=== PATIENT | male | born 1945 | race Caucasian/White ===

== ENCOUNTER 2017-12-24 13:47 | Inpatient (IN) | payer OTHER ==
[~2017-12-24] VITALS: Ht 182.9 cm; Wt 121.8 kg
[~2017-12-24 13:47] MED LIST: ASPEC81 PO; ATEN-175 PO; GLC500 PO; HYDC25 PO; IBUP-1428 PO; OXYC-57 PO
[2017-12-24] MEDS ORDERED: ONDANSETRON INJ 2 MG/ML 2 ML VIAL IV STA (14:28)
[2017-12-24] MEDS ORDERED: SODIUM CHLORIDE 0.9% 1000ML 500 ML IV STA (14:28)
[2017-12-24] MEDS ORDERED: OPTIRAY 320 IV PRN (14:45)
[2017-12-24 14:53] LABS: HEMATOCRIT 27.9 % (42-52); HEMOGLOBIN 8.3 g/dL (14.0-18.0); MEAN CELL VOLUME 71.4 fL (80-100); MEAN CORPUSCULAR HEMOGLOBIN 21.2 pg (25-34); MEAN CORPUSCULAR HGB CONC 29.7 g/dl (32-36); RED CELL DISTRIBUTION WIDTH CV 18.8 % (11.5-14.5); RED CELL DISTRIBUTION WIDTH SD 48.8 fL (36.4-46.3); WHITE BLOOD COUNT 6.72 K/uL (4.8-10.8)
--- NOTE | 2017-12-24 14:54 | DIAGNOSTIC IMAGING REPORT ---
CHEST ONE VIEW PORTABLE HISTORY: 72 years-old Male ABDOMINAL PAIN/GI acute generalized abdominal pain COMPARISON: Chest radiograph 11/19/2008 TECHNIQUE: Portable AP view of the chest FINDINGS: Cardiomediastinal and hilar silhouettes are within normal limits. There is no pneumothorax, pleural effusion, focal airspace consolidation or overt pulmonary edema. Bones of the chest appear grossly intact. Degenerative changes of the shoulders and spine. IMPRESSION: No acute process. The above report was generated using voice recognition software. It may contain grammatical, syntax or spelling errors. Electronically signed by: Paul Powers M.D. 12/24/2017 2:53 PM Dictated Date/Time: 12/24/2017 2:51 PM
[2017-12-24 14:56] LABS: INR 1.4 (0.9-1.1); PTT PATIENT 28.8 SECONDS (21.0-31.0)
[2017-12-24 14:58] LABS: BASO % 0.6 %; BASO ABS # 0.04 K/uL (0-0.2); EOS % 1.5 %; IG# 0.02 K/uL (0.00-0.02); LYMPH % 23.5 %; LYMPH ABS # 1.58 K/uL (1.2-3.4); MONO % 11.6 %; MONO ABS # 0.78 K/uL (0.11-0.59); NEUT % 62.5 %; PLATELET COUNT 80 K/uL (130-400)
[2017-12-24] MEDS ORDERED: HYDR25TA4 PO (15:06)
[2017-12-24] MEDS ORDERED: METF-384 PO (15:06)
[2017-12-24] MEDS ORDERED: OXYC-57 PO (15:06)
[2017-12-24 15:07] LABS: CALCIUM 8.8 mg/dl (8.5-10.1); CREATININE 0.99 mg/dl (0.60-1.40); POTASSIUM 3.3 mmol/L (3.5-5.1); TOTAL PROTEIN 7.3 gm/dl (6.4-8.2)
--- NOTE | 2017-12-24 16:46 | DIAGNOSTIC IMAGING REPORT ---
CT SCAN OF THE ABDOMEN AND PELVIS WITH IV CONTRAST CLINICAL HISTORY: Generalized abdominal pain. COMPARISON STUDY: Abdominal CT dated 11/18/2008. TECHNIQUE: Following the IV administration of 94 cc of Optiray 320, CT scan of the abdomen and pelvis is performed from the lung bases to the proximal femora. Images are reviewed in the axial, sagittal, and coronal planes. IV contrast was administered without complication. A dose lowering technique was utilized adhering to the principles of ALARA. CT DOSE: 1707.91 mGycm FINDINGS: Lung bases: The heart is top normal in size and without pericardial effusion. There is elevation of left hemidiaphragm with associated atelectasis. No airspace consolidation or pleural effusion is seen. An 8 mm nodule is seen at the right lung base on image #64. This has modestly increased in size from 2009. There is a small hiatal hernia. Small esophageal varices are noted. Liver: The contrast-enhanced liver is cirrhotic in morphology and heterogeneous in attenuation. There is nodularity of the hepatic surface contour. There is no intrahepatic biliary ductal dilatation. The hepatic veins and portal veins are patent. Gallbladder: The gallbladder is contracted. Mild gallbladder wall thickening is nonspecific and likely related to cirrhosis and ascites. Spleen: The spleen is enlarged measuring 16 cm in length. A large splenule is identified below the left hemidiaphragm. Pancreas: Moderately atrophic and grossly unremarkable. Adrenal glands: A 1.8 cm left adrenal nodule is pathologically indeterminant, likely representing an adenoma but cannot definitively characterized due to the presence of IV contrast. This has been present dating back to 2008 and is of doubtful significance. The right adrenal gland is unremarkable. Kidneys: The contrast enhanced kidneys demonstrate cortical atrophy and are without hydronephrosis. The kidneys enhance symmetrically. Abdominal vasculature: The abdominal aorta is normal in course and caliber noting moderate atherosclerotic calcification. Stomach and bowel: The gastric mucosa appears edematous and hyperemic, greatest in the distal stomach. The appearance suggests gastritis. There are postoperative changes from sigmoid colon resection with colocolonic anastomosis. No bowel obstruction is seen. The duodenum is normal in configuration. The appendix is not identified and reported surgically absent. Peritoneum: There is no intraperitoneal free air. There is a small volume of abdominopelvic ascites. There is an ascitic fluid containing umbilical hernia. Lymphadenopathy: None. Pelvic viscera: The prostate gland is enlarged and heterogeneous, measuring 5.8 cm in transverse diameter. The bladder wall is mildly thickened and trabeculated indicating chronic outlet obstruction. Skeletal structures: The skeletal structures are osteopenic. Moderate lumbosacral spondylosis is observed. No lytic or blastic lesions are seen. IMPRESSION: 1. Cirrhotic liver morphology. 2. Splenomegaly, esophageal varices, and a small volume of abdominopelvic ascites indicate portal hypertension. 3. The appearance of the stomach suggests gastritis. Clinical correlation will be required. If further assessment is desired then endoscopy would be appropriate. 4. There are postoperative changes from sigmoid colon resection with colocolonic anastomosis. No bowel obstruction is seen. 5. There is an indeterminant 8 mm pulmonary nodule at the right lung base. This was present in 2008 but has modestly increased in size from that time. This can be followed if clinically warranted. 6. Additional findings as above. Electronically signed by: Donavan Moscoso M.D. 12/24/2017 4:44 PM Dictated Date/Time: 12/24/2017 4:34 PM
[2017-12-24] MEDS ORDERED: PANTOprazole INJ 80 MG in DEXTROSE 5% 100ML 100 ML IV STA (17:01)
[2017-12-24 17:40] VITALS: O2SAT 97; Ht 182.9 cm; Wt 121.8 kg
[2017-12-24] MEDS ORDERED: GLUCAGON FOR INJ 1 MG VIAL SQ PRN (18:00)
[2017-12-24] MEDS ORDERED: DEXTROSE 50% 50 ML SYR IV PRN (18:00)
[2017-12-24] MEDS ORDERED: ONDANSETRON INJ 2 MG/ML 2 ML VIAL IV PRN (18:00)
[2017-12-24] MEDS ORDERED: CARBOHYDRATES FOR HYPOGLYCEMIA PO PRN (18:00)
[2017-12-24] MEDS ORDERED: ALUMINUM/MAGNESIUM/SIMETH (MAALOX MAX) 30 ML UDC PO PRN (18:00)
[2017-12-24] MEDS ORDERED: GLUCOSE 10 TABS/TUBE PO PRN (18:00)
[2017-12-24] MEDS ORDERED: GLUCOSE 40% GEL 15 GM TUBE PO PRN (18:00)
--- NOTE | 2017-12-24 18:23 | EMERGENCY ROOM VISIT NOTE ---
History Report prepared by Kai: Markell Moore Under the Supervision of: Dr. Donavan Gonzalez M.D. First contact with patient: 14:23 Chief Complaint: RECTAL PAIN Stated Complaint: OBSTRUCTIVE BOWEL History of Present Illness The patient is a 72 year old male who presents to the Emergency Room with complaints of constant constipation, intermittent abdominal pain, and intermittent vomiting for the past 3 days. The patient reports that he was sent from [facility] with a concern for a small bowel obstruction. He states that he has been vomiting intermittently since the onset of his symptoms , noting that his nausea has worsened with drinking fluids. He reports that he takes his regular medications and that he has not vomited out his medications. He notes intermittent pain across his abdomen, rating the severity at a 7 or 8/ 10. He notes a possible subjective fever a couple days ago. The patient reports a history of bowel blockage 11 years ago. He states that he does not take blood thinners. Source of History: patient Onset: 3 days ago Position: abdomen Symptom Intensity: 7 or 8/10 abdominal pain Quality: other (constipation, abdominal pain, vomiting) Timing: constant (constipation), intermittent (abdominal pain and vomiting) Modifying Factors (Worsening): drinking Note: possible subjective fever Review of Systems See HPI for pertinent positives & negatives. A total of 10 systems reviewed and were otherwise negative. Past Medical & Surgical Medical Problems: (1) Diabetes (2) Gastritis (3) Hyperlipidemia (4) Hypertension (5) Liver cirrhosis (6) SBO (small bowel obstruction) (7) Small bowel obstruction Family History CVA FH: diabetes mellitus Social History Smoking Status: Former Smoker Alcohol Use: occasionally Current/Historical Medications Scheduled Hydrochlorothiazide (Hctz), 25 MG PO DAILY Ibuprofen (Motrin), 800 MG PO TID PRN Metformin Hcl (Glucophage), 1,000 MG PO BID Scheduled PRN Oxycodone/Acetaminophen 5MG/325MG (Percocet 5MG/325MG), 1 TABLET PO Q8H PRN for Pain Allergies Coded Allergies: Lisinopril (Verified Allergy, Severe, ANGIOEDEMA, 06/09/09) Physical Exam Vital Signs Date Time Temp Pulse Resp B/P (MAP) Pulse Ox O2 Delivery O2 Flow Rate FiO2 12/24/17 17:40 97 Room Air 12/24/17 17:23 59 18 149/73 97 Room Air 12/24/17 15:59 63 18 141/70 99 Room Air 12/24/17 13:52 36.6 62 19 158/73 98 Room Air Physical Exam GENERAL: Patient is in no acute distress. HEENT: No acute trauma, normocephalic atraumatic, mucous membranes moist, no nasal congestion, no scleral icterus. NECK: No stridor, no adenopathy, no meningismus, trachea is midline. LUNGS: Clear to auscultation bilaterally, no wheeze, no rhonchi, breath sounds equal. HEART: Without murmurs gallops or rubs, regular rate and rhythm. ABDOMEN: Soft, nontender, bowel sounds positive and hyperactive, small reducible nontender umbilical hernia, no peritonitis. EXTREMITIES: No cyanosis. Mild bilateral pedal edema, full range of motion of all the joints without pain or difficulty, no signs for acute trauma. NEUROLOGIC: Oriented x 3, no acute motor or sensory deficits, no focal weakness. SKIN: No rash, no jaundice, no diaphoresis. RECTAL: Dark stool, heme positive. Medical Decision & Procedures ER Provider Diagnostic Interpretation: Radiology results as stated below per my review and radiologist interpretation: CT SCAN OF THE ABDOMEN AND PELVIS WITH IV CONTRAST CLINICAL HISTORY: Generalized abdominal pain. COMPARISON STUDY: Abdominal CT dated 11/18/2008. TECHNIQUE: Following the IV administration of 94 cc of Optiray 320, CT scan of the abdomen and pelvis is performed from the lung bases to the proximal femora. Images are reviewed in the axial, sagittal, and coronal planes. IV contrast was administered without complication. A dose lowering technique was utilized adhering to the principles of ALARA. CT DOSE: 1707.91 mGycm FINDINGS: Lung bases: The heart is top normal in size and without pericardial effusion. There is elevation of left hemidiaphragm with associated atelectasis. No airspace consolidation or pleural effusion is seen. An 8 mm nodule is seen at the right lung base on image #64. This has modestly increased in size from 2009. There is a small hiatal hernia. Small esophageal varices are noted. Liver: The contrast-enhanced liver is cirrhotic in morphology and heterogeneous in attenuation. There is nodularity of the hepatic surface contour. There is no intrahepatic biliary ductal dilatation. The hepatic veins and portal veins are patent. Gallbladder: The gallbladder is contracted. Mild gallbladder wall thickening is nonspecific and likely related to cirrhosis and ascites. Spleen: The spleen is enlarged measuring 16 cm in length. A large splenule is identified below the left hemidiaphragm. Pancreas: Moderately atrophic and grossly unremarkable. Adrenal glands: A 1.8 cm left adrenal nodule is pathologically indeterminant, likely representing an adenoma but cannot definitively characterized due to the presence of IV contrast. This has been present dating back to 2008 and is of doubtful significance. The right adrenal gland is unremarkable. Kidneys: The contrast enhanced kidneys demonstrate cortical atrophy and are without hydronephrosis. The kidneys enhance symmetrically. Abdominal vasculature: The abdominal aorta is normal in course and caliber noting moderate atherosclerotic calcification. Stomach and bowel: The gastric mucosa appears edematous and hyperemic, greatest in the distal stomach. The appearance suggests gastritis. There are postoperative changes from sigmoid colon resection with colocolonic anastomosis. No bowel obstruction is seen. The duodenum is normal in configuration. The appendix is not identified and reported surgically absent. Peritoneum: There is no intraperitoneal free air. There is a small volume of abdominopelvic ascites. There is an ascitic fluid containing umbilical hernia. Lymphadenopathy: None. Pelvic viscera: The prostate gland is enlarged and heterogeneous, measuring 5.8 cm in transverse diameter. The bladder wall is mildly thickened and trabeculated indicating chronic outlet obstruction. Skeletal structures: The skeletal structures are osteopenic. Moderate lumbosacral spondylosis is observed. No lytic or blastic lesions are seen. IMPRESSION: 1. Cirrhotic liver morphology. 2. Splenomegaly, esophageal varices, and a small volume of abdominopelvic ascites indicate portal hypertension. 3. The appearance of the stomach suggests gastritis. Clinical correlation will be required. If further assessment is desired then endoscopy would be appropriate. 4. There are postoperative changes from sigmoid colon resection with colocolonic anastomosis. No bowel obstruction is seen. 5. There is an indeterminant 8 mm pulmonary nodule at the right lung base. This was present in 2008 but has modestly increased in size from that time. This can be followed if clinically warranted. 6. Additional findings as above. Electronically signed by: Donavan Moscoso M.D. 12/24/2017 4:44 PM Dictated Date/Time: 12/24/2017 4:34 PM CHEST ONE VIEW PORTABLE HISTORY: 72 years-old Male ABDOMINAL PAIN/GI acute generalized abdominal pain COMPARISON: Chest radiograph 11/19/2008 TECHNIQUE: Portable AP view of the chest FINDINGS: Cardiomediastinal and hilar silhouettes are within normal limits. There is no pneumothorax, pleural effusion, focal airspace consolidation or overt pulmonary edema. Bones of the chest appear grossly intact. Degenerative changes of the shoulders and spine. IMPRESSION: No acute process. The above report was generated using voice recognition software. It may contain grammatical, syntax or spelling errors. Electronically signed by: Paul Powers M.D. 12/24/2017 2:53 PM Dictated Date/Time: 12/24/2017 2:51 PM Laboratory Results 12/24/17 14:32 Red Blood Count 3.91, Mean Corpuscular Volume 71.4, Mean Corpuscular Hemoglobin 21.2, Mean Corpuscular Hemoglobin Concent 29.7, Neutrophils (%) (Auto) 62.5, Lymphocytes (%) (Auto) 23.5, Monocytes (%) (Auto) 11.6, Eosinophils (%) (Auto) 1.5, Basophils (%) (Auto) 0.6, Neutrophils # (Auto) 4.20, Lymphocytes # (Auto) 1.58, Monocytes # (Auto) 0.78, Eosinophils # (Auto) 0.10, Basophils # (Auto) 0.04 12/24/17 14:32 Test 12/24/17 14:32 White Blood Count 6.72 K/uL (4.8-10.8) Red Blood Count 3.91 M/uL (4.7-6.1) Hemoglobin 8.3 g/dL (14.0-18.0) Hematocrit 27.9 % (42-52) Mean Corpuscular Volume 71.4 fL (80-100) Mean Corpuscular Hemoglobin 21.2 pg (25-34) Mean Corpuscular Hemoglobin Concent 29.7 g/dl (32-36) Platelet Count 80 K/uL (130-400) Neutrophils (%) (Auto) 62.5 % Lymphocytes (%) (Auto) 23.5 % Monocytes (%) (Auto) 11.6 % Eosinophils (%) (Auto) 1.5 % Basophils (%) (Auto) 0.6 % Neutrophils # (Auto) 4.20 K/uL (1.4-6.5) Lymphocytes # (Auto) 1.58 K/uL (1.2-3.4) Monocytes # (Auto) 0.78 K/uL (0.11-0.59) Eosinophils # (Auto) 0.10 K/uL (0-0.5) Basophils # (Auto) 0.04 K/uL (0-0.2) RDW Standard Deviation 48.8 fL (36.4-46.3) RDW Coefficient of Variation 18.8 % (11.5-14.5) Immature Granulocyte % (Auto) 0.3 % Immature Granulocyte # (Auto) 0.02 K/uL (0.00-0.02) Platelet Estimate DECREASED Hypochromasia PRESENT Microcytosis PRESENT Ovalocytes 1+ Prothrombin Time 15.1 SECONDS (9.0-12.0) Prothromb Time International Ratio 1.4 (0.9-1.1) Activated Partial Thromboplast Time 28.8 SECONDS (21.0-31.0) Partial Thromboplastin Ratio 1.1 Anion Gap 9.0 mmol/L (3-11) Est Creatinine Clear Calc Drug Dose 92.2 ml/min Estimated GFR () 88.4 Estimated GFR (Non- 76.3 BUN/Creatinine Ratio 17.6 (10-20) Calcium Level 8.8 mg/dl (8.5-10.1) Magnesium Level 1.7 mg/dl (1.8-2.4) Total Bilirubin 2.1 mg/dl (0.2-1) Aspartate Amino Transf (AST/SGOT) 42 U/L (15-37) Alanine Aminotransferase (ALT/SGPT) 30 U/L (12-78) Alkaline Phosphatase 64 U/L (45-117) Total Protein 7.3 gm/dl (6.4-8.2) Albumin 3.0 gm/dl (3.4-5.0) Globulin 4.3 gm/dl (2.5-4.0) Albumin/Globulin Ratio 0.7 (0.9-2) Lipase 436 U/L (73-393) Laboratory results reviewed by me. Medications Administered Medications (Trade) Dose Ordered Sig/Kleber Route Start Time Stop Time Status Last Admin Dose Admin Sodium Chloride 500 ml @ 999 mls/hr Q31M STAT IV 12/24/17 14:28 12/24/17 14:58 DC 12/24/17 14:28 999 MLS/HR Ondansetron HCl (Zofran Inj) 4 mg NOW STAT IV 12/24/17 14:28 12/24/17 14:30 DC 12/24/17 14:28 4 MG Pantoprazole Sodium 80 mg/ Dextrose 120 ml @ 400 mls/hr NOW STAT IV 12/24/17 17:01 12/24/17 17:18 DC 12/24/17 17:29 400 MLS/HR ED Course 1423: The patient was evaluated in room A11B. A complete history and physical exam was performed. 1428: Ordered Zofran 4 mg IV, Sodium Chloride 500 ml @ 999 mls/hr IV 1700: I performed a rectal exam on the patient, which showed dark stool, heme positive. 170: Ordered Pantoprazole Sodium 80 mg/Dextrose 120 ml @ 400 mls/hr 171: I consulted Maria L Nuñez PA-C: [facility] Hospitalist. She will reevaluate the patient for hospitalization. Medical Decision Differential diagnosis: bowel obstruction, constipation, dehydration, electrolyte imbalance, ileus, bowel rupture, diverticulitis, gastritis. There is no leukocytosis. Hemoglobin and platelet count are both somewhat low. I did perform a rectal exam, this was heme positive. Renal panel testing shows a mildly low potassium and magnesium. No kidney failure. There were a few subtle liver enzyme elevations, the lipase was mildly elevated. Chest film was clear, no free air. Abdominal and pelvis CT shows possible gastritis, there is no bowel obstruction, no free air noted. The patient received IV saline, IV Protonix, IV Zofran, he is currently resting comfortably. The patient presents with abdominal pain, he was concerned for bowel obstruction or constipation. He is not obstructed, he is not constipated. He does have gastritis and is anemic with what seems to be a GI bleed. A hospital stay is warranted. I spoke to the patient and case management. The on-call hospitalist was consulted. Medication Reconcilliation Current Medication List: was personally reviewed by me Blood Pressure Screening Patient's blood pressure: Elevated blood pressure referred to hospitalist Consults Time Called: 1704 Consulting Physician: Maria L Nuñez PA-C: Glenn Bronson Returned Call: [phone] I consulted Maria L Nuñez PA-C: [facility] Hospitalist. She will reevaluate the patient for hospitalization. Impression Primary Impression: GI bleeding Additional Impressions: Anemia Epigastric abdominal pain Scribe Attestation The scribe's documentation has been prepared under my direction and personally reviewed by me in its entirety. I confirm that the note above accurately reflects all work, treatment, procedures, and medical decision making performed by me. Departure Information Dispostion Being Evaluated By Hospitalist Referrals Wayne Perdomo M.D. (PCP) Patient Instructions My [facility] Problem Qualifiers
--- NOTE | 2017-12-24 18:23 | History and Physical ---
History & Physical Date & Time of Service: Dec 24, 2017 at 18:11 Chief Complaint: Obstructive Bowel Primary Care Physician: Wayne Perdomo M.D. History of Present Illness Source: patient, clinic records This is a 72 year old male with a past medical history of DM2, HTN, HLD, lumbar pain on long-term narcotics - presents with three day history of no bowel movement, abdominal distention, nausea and vomiting x2. States that he has been at the [employer]; abdomen has been distended since then, but states he cannot eat much. He has vomiting x2 for the past few days. Denies fevers/chills, denies chest pain/shortness of breath. Has had epigastric tenderness. Has not been told about any liver problems in the past. Does not drink much; only socially. Has had lower extremity edema for "a long while" now. He is resting comfortably, in no distress currently. Past Medical/Surgical History Medical Problems: (1) Diabetes (2) Gastritis (3) Hyperlipidemia (4) Hypertension (5) Liver cirrhosis (6) SBO (small bowel obstruction) (7) Small bowel obstruction Family History CVA FH: diabetes mellitus Social History Smoking Status: Former Smoker Immunizations History of Influenza Vaccine: No History of Tetanus Vaccine?: 2003 History of Pneumococcal: No History of Hepatitis B Vaccine: No Allergies Coded Allergies: Lisinopril (Verified Allergy, Severe, ANGIOEDEMA, 06/09/09) Home Medications Scheduled Hydrochlorothiazide (Hctz), 25 MG PO DAILY Ibuprofen (Motrin), 800 MG PO TID PRN Metformin Hcl (Glucophage), 1,000 MG PO BID Scheduled PRN Oxycodone/Acetaminophen 5MG/325MG (Percocet 5MG/325MG), 1 TABLET PO Q8H PRN for Pain Review of Systems Constitutional: No fever, No chills, No weakness Eyes: No worsening of vision ENT: No hearing loss Respiratory: No cough, No sputum, No wheezing, No shortness of breath, No dyspnea on exertion, No dyspnea at rest, No hemoptysis Cardiovascular: + edema, No chest pain, No palpitations Abdomen: + pain, + nausea, + vomiting, + constipation, No diarrhea, No GI bleeding Musculoskeletal: + joint pain (chronic low back pain) Genitourinary - Male: No dysuria, No urinary frequency Psychiatric: No depression symptoms, No anxiety, No insomnia Endocrine: No fatigue Hematologic / Lymphatic: No abnormal bleeding/bruising Integumentary: No rash Allergic / Immunologic: No environmental allergies, No seasonal allergies Physical Exam Vital Signs Date Time Temp Pulse Resp B/P (MAP) Pulse Ox O2 Delivery O2 Flow Rate FiO2 12/24/17 17:40 97 Room Air 12/24/17 17:23 59 18 149/73 97 Room Air 12/24/17 15:59 63 18 141/70 99 Room Air 12/24/17 13:52 36.6 62 19 158/73 98 Room Air General Appearance: no apparent distress Head: normocephalic, atraumatic Eyes: normal inspection ENT: hearing grossly normal Neck: supple Respiratory/Chest: chest non-tender, lungs clear, normal breath sounds, no respiratory distress, no accessory muscle use Cardiovascular: regular rate, rhythm, no murmur Abdomen/GI: non tender, soft, + distended Extremities/Musculoskelatal: + swelling, + pertinent finding (+1 pitting edema b/l LE) Neurologic/Psych: speech and language tutor II-XII nml as tested, no motor/sensory deficits, alert, normal mood/affect, oriented x 3 Skin: normal color Lymphatic: no adenopathy Diagnostics Laboratory Results Results Past 24 Hours Test 12/24/17 14:32 Range/Units White Blood Count 6.72 4.8-10.8 K/uL Red Blood Count 3.91 4.7-6.1 M/uL Hemoglobin 8.3 14.0-18.0 g/dL Hematocrit 27.9 42-52 % Mean Corpuscular Volume 71.4 80-100 fL Mean Corpuscular Hemoglobin 21.2 25-34 pg Mean Corpuscular Hemoglobin Concent 29.7 32-36 g/dl Platelet Count 80 130-400 K/uL Neutrophils (%) (Auto) 62.5 % Lymphocytes (%) (Auto) 23.5 % Monocytes (%) (Auto) 11.6 % Eosinophils (%) (Auto) 1.5 % Basophils (%) (Auto) 0.6 % Neutrophils # (Auto) 4.20 1.4-6.5 K/uL Lymphocytes # (Auto) 1.58 1.2-3.4 K/uL Monocytes # (Auto) 0.78 0.11-0.59 K/uL Eosinophils # (Auto) 0.10 0-0.5 K/uL Basophils # (Auto) 0.04 0-0.2 K/uL RDW Standard Deviation 48.8 36.4-46.3 fL RDW Coefficient of Variation 18.8 11.5-14.5 % Immature Granulocyte % (Auto) 0.3 % Immature Granulocyte # (Auto) 0.02 0.00-0.02 K/uL Platelet Estimate DECREASED Hypochromasia PRESENT Microcytosis PRESENT Ovalocytes 1+ Prothrombin Time 15.1 9.0-12.0 SECONDS Prothromb Time International Ratio 1.4 0.9-1.1 Activated Partial Thromboplast Time 28.8 21.0-31.0 SECONDS Partial Thromboplastin Ratio 1.1 Sodium Level 136 136-145 mmol/L Potassium Level 3.3 3.5-5.1 mmol/L Chloride Level 102 98-107 mmol/L Carbon Dioxide Level 25 21-32 mmol/L Anion Gap 9.0 3-11 mmol/L Blood Urea Nitrogen 18 7-18 mg/dl Creatinine 0.99 0.60-1.40 mg/dl Est Creatinine Clear Calc Drug Dose 92.2 ml/min Estimated GFR () 88.4 Estimated GFR (Non- 76.3 BUN/Creatinine Ratio 17.6 10-20 Random Glucose 104 70-99 mg/dl Calcium Level 8.8 8.5-10.1 mg/dl Magnesium Level 1.7 1.8-2.4 mg/dl Total Bilirubin 2.1 0.2-1 mg/dl Aspartate Amino Transf (AST/SGOT) 42 15-37 U/L Alanine Aminotransferase (ALT/SGPT) 30 12-78 U/L Alkaline Phosphatase 64 45-117 U/L Total Protein 7.3 6.4-8.2 gm/dl Albumin 3.0 3.4-5.0 gm/dl Globulin 4.3 2.5-4.0 gm/dl Albumin/Globulin Ratio 0.7 0.9-2 Lipase 436 73-393 U/L Diagnostic Radiology CHEST ONE VIEW PORTABLE HISTORY: 72 years-old Male ABDOMINAL PAIN/GI acute generalized abdominal pain COMPARISON: Chest radiograph 11/19/2008 TECHNIQUE: Portable AP view of the chest FINDINGS: Cardiomediastinal and hilar silhouettes are within normal limits. There is no pneumothorax, pleural effusion, focal airspace consolidation or overt pulmonary edema. Bones of the chest appear grossly intact. Degenerative changes of the shoulders and spine. IMPRESSION: No acute process. CT SCAN OF THE ABDOMEN AND PELVIS WITH IV CONTRAST CLINICAL HISTORY: Generalized abdominal pain. COMPARISON STUDY: Abdominal CT dated 11/18/2008. TECHNIQUE: Following the IV administration of 94 cc of Optiray 320, CT scan of the abdomen and pelvis is performed from the lung bases to the proximal femora. Images are reviewed in the axial, sagittal, and coronal planes. IV contrast was administered without complication. A dose lowering technique was utilized adhering to the principles of ALARA. CT DOSE: 1707.91 mGycm FINDINGS: Lung bases: The heart is top normal in size and without pericardial effusion. There is elevation of left hemidiaphragm with associated atelectasis. No airspace consolidation or pleural effusion is seen. An 8 mm nodule is seen at the right lung base on image #64. This has modestly increased in size from 2009. There is a small hiatal hernia. Small esophageal varices are noted. Liver: The contrast-enhanced liver is cirrhotic in morphology and heterogeneous in attenuation. There is nodularity of the hepatic surface contour. There is no intrahepatic biliary ductal dilatation. The hepatic veins and portal veins are patent. Gallbladder: The gallbladder is contracted. Mild gallbladder wall thickening is nonspecific and likely related to cirrhosis and ascites. Spleen: The spleen is enlarged measuring 16 cm in length. A large splenule is identified below the left hemidiaphragm. Pancreas: Moderately atrophic and grossly unremarkable. Adrenal glands: A 1.8 cm left adrenal nodule is pathologically indeterminant, likely representing an adenoma but cannot definitively characterized due to the presence of IV contrast. This has been present dating back to 2008 and is of doubtful significance. The right adrenal gland is unremarkable. Kidneys: The contrast enhanced kidneys demonstrate cortical atrophy and are without hydronephrosis. The kidneys enhance symmetrically. Abdominal vasculature: The abdominal aorta is normal in course and caliber noting moderate atherosclerotic calcification. Stomach and bowel: The gastric mucosa appears edematous and hyperemic, greatest in the distal stomach. The appearance suggests gastritis. There are postoperative changes from sigmoid colon resection with colocolonic anastomosis. No bowel obstruction is seen. The duodenum is normal in configuration. The appendix is not identified and reported surgically absent. Peritoneum: There is no intraperitoneal free air. There is a small volume of abdominopelvic ascites. There is an ascitic fluid containing umbilical hernia. Lymphadenopathy: None. Pelvic viscera: The prostate gland is enlarged and heterogeneous, measuring 5.8 cm in transverse diameter. The bladder wall is mildly thickened and trabeculated indicating chronic outlet obstruction. Skeletal structures: The skeletal structures are osteopenic. Moderate lumbosacral spondylosis is observed. No lytic or blastic lesions are seen. IMPRESSION: 1. Cirrhotic liver morphology. 2. Splenomegaly, esophageal varices, and a small volume of abdominopelvic ascites indicate portal hypertension. 3. The appearance of the stomach suggests gastritis. Clinical correlation will be required. If further assessment is desired then endoscopy would be appropriate. 4. There are postoperative changes from sigmoid colon resection with colocolonic anastomosis. No bowel obstruction is seen. 5. There is an indeterminant 8 mm pulmonary nodule at the right lung base. This was present in 2008 but has modestly increased in size from that time. This can be followed if clinically warranted. 6. Additional findings as above. Impression Assessment and Plan This is a 72 year old male with a past medical history of DM2, HTN, HLD, lumbar pain on long-term narcotics - presents with three day history of no bowel movement, abdominal distention, nausea and vomiting x2 Abdominal Distention Liver Cirrhosis with Ascites - abdominal CT performed - small ascites noted, liver cirrhosis noted, gastritis is a possibility as well - abdomen is soft, but distended, patient states this is new the past few days - no bowel movement x3 days - plan for now is to give IV Lasix 40mg x1 - fluid restriction and low sodium diet placed - ultrasound for ascites - GI consulted for further input Anemia, Thrombocytopenia Gastritis Esophageal Varices - patient with Hgb of 8.3 - possibly related to overload and dilutional? - has not had recent lab work as an outpatient - started on Protonix drip due to gastritis and Esophageal varices noted on CT - no blood in vomitus or stool as per patient - monitor H/H in AM - type and screened blood - GI consulted DM2 - hold metformin - insulin sliding scale started - last Ha1c = 6.3%, will not check one now due to anemia - monitor BSGs DVT ppx - SCDs/TEDs FULL CODE Advanced Directives Existing Living Will: No Existing Power of Storage Facility Rental Clerk: No Resuscitation Status VTE Prophylaxis Will order VTE Prophylaxis: Yes
[2017-12-24] MEDS ORDERED: MAGNESIUM SULFATE 1GM / D5W 100 ML IV STA (18:25)
[2017-12-24] MEDS ORDERED: TNR25 PO (18:25)
[2017-12-24] MEDS ORDERED: FUROSEMIDE INJ 40 MG in SYRINGE 0 ML IV ONE (18:30)
[2017-12-24] MEDS ORDERED: PANTOprazole INJ 40 MG in DEXTROSE 5% 100ML IV SCH (18:30)
[2017-12-24 18:40] VITALS: O2SAT 94
[2017-12-24 19:43] VITALS: BP 163/71; PULSE 60; TEMP 36.8; O2SAT 96
[2017-12-24] MEDS: POTASSIUM CHLR 10 MEQ / WTR 100 ML IV SCH ×2 (20:07→22:52)
[2017-12-24] MEDS: INSULIN ASPART 100 UNITS/ML 3 ML PEN SC SCH (21:13)
--- NOTE | 2017-12-24 22:23 | DIAGNOSTIC IMAGING REPORT ---
ASCITES-ABDOMEN LIMITED CLINICAL HISTORY: 72 years-old Male presenting with abdominal distention with liver cirrhosis. TECHNIQUE: Real-time grayscale ultrasound imaging of the abdomen was performed for a focused evaluation for ascites. COMPARISON: CT from earlier today. FINDINGS: Small amount of fluid in the upper quadrants. Cirrhotic morphology of the liver. IMPRESSION: 1. Small amount of ascites in the upper quadrants. 2. Cirrhosis. Electronically signed by: Efrem Herrera M.D. 12/24/2017 10:21 PM Dictated Date/Time: 12/24/2017 10:20 PM
[2017-12-24 23:05] VITALS: BP 124/68; PULSE 57; TEMP 36.8; O2SAT 95
[2017-12-24] MEDS: PANTOprazole INJ 40 MG in DEXTROSE 5% 100ML IV SCH (23:22)
[2017-12-25] VITALS (7 sets, daily range): BP systolic 129–151; BP diastolic 68–82; PULSE 55–60; TEMP 36.3–37; O2SAT 94–98
[2017-12-25] MEDS: POTASSIUM CHLR 10 MEQ / WTR 100 ML IV SCH (00:17)
[2017-12-25] MEDS: PANTOprazole INJ 40 MG in DEXTROSE 5% 100ML IV SCH ×2 (04:02→08:40)
[2017-12-25 06:08] LABS: INR 1.5 (0.9-1.1)
[2017-12-25 06:35] LABS: ALBUMIN 2.6 gm/dl (3.4-5.0); CALCIUM 8.2 mg/dl (8.5-10.1); CREATININE 1.05 mg/dl (0.60-1.40); POTASSIUM 3.3 mmol/L (3.5-5.1)
[2017-12-25] MEDS: INSULIN ASPART 100 UNITS/ML 3 ML PEN SC SCH ×3 (08:39→21:00)
--- NOTE | 2017-12-25 09:43 | DIAGNOSTIC IMAGING REPORT ---
KUB CLINICAL HISTORY: Generalized abdominal pain. FINDINGS: 3 AP supine abdominal radiographs are compared to study dated 01/04/2007 and correlated with abdominal CT dated 12/24/2017. There is a nonobstructed abdominal bowel gas pattern noting mild to moderate colonic fecal retention. No evidence of intraperitoneal free air is seen on these supine images. Excreted IV contrast is present within the bladder. There are no abnormal abdominal calcifications. The skeletal structures are osteopenic. Moderate lumbosacral spondylosis is observed. IMPRESSION: Nonobstructed abdominal bowel gas pattern. Electronically signed by: Donavan Moscoso M.D. 12/25/2017 9:42 AM Dictated Date/Time: 12/25/2017 9:41 AM
[2017-12-25] MEDS ORDERED: METHYLNALTREXONE BROMIDE INJ 12 MG/0.6 ML SYR SQ ONE (10:30)
[2017-12-25] MEDS ORDERED: NURSING VERBAL MED ORDER ONE ×2 (11:15→14:00)
[2017-12-25] MEDS ORDERED: INSULIN ASPART 100 UNITS/ML 3 ML PEN SC SCH ×2 (12:00→18:00)
[2017-12-25 12:53] LABS: HEP C IGG 13 YRS+OLDER_RFLX NEG (NEG)
--- NOTE | 2017-12-25 14:26 | Gastrointestinal Consultation ---
Gastrointestinal Consultation Date of Consultation: Dec 25, 2017 Attending Physician: Johnathan Cuveas Consulting Physician: Lesly Callejas Reason for Consultation: Cirrhosis, gastritis, abd distension History of Present Illness Patient is a 72 year old male w PMHx of DM II, HTN, hyperlipidemia, lumbar pain on Percocet and Aleve who was referred to ED by PCP for c/o abd pain, distension and outpt KUB showed ileus vs developing SBO. He has hx of previous SBO and perforated diverticulitis s/p partial colectomy in 2006. He hasn't been taking any stool softeners at home but said bowels usually moves daily. Denies any hx of rectal bleeding or dark tarry stools. He takes Percocet on PRN basis for lumbar back pain and also occasionally Aleve. He had been in [facility] and noted no BM since 5 days. He also noted lower leg swelling for a while now. On HCTZ at home. Upon evaluation, labs showed anemia w H/H 8.3/27.9, Plt 80, INR 1.5. BUN/Cr 18/1.05. LFTs: Tbili 1.4, AST 36, ALT 25, AP 53, Lipase 400. Imaging studies included: - CXR grossly normal - KUB showing non obstructive bowel pattern. He has moderate fecal retention. He feels his abd is softer since he is admitted, is passing flatus but no BMs. He ate a solid meal this AM w/o N/V. - CT abd/pelvis w contrast showed cirrhotic appearing liver w splenomegaly, esophageal varices, small ascites indicative of portal HTN, + gastritis, R lung nodule. Pt denies any hx of ETOH abuse. + tobacco use but quit years ago. Denies illicit drugs. + 2 tattoos. He denies family hx of autoimmune or hereditary liver diseases. He reported hx of colonoscopy in 2006, hyperplastic polyps noted. Past Medical/Surgical History Medical Problems: (1) Anemia Status: Acute (2) Epigastric abdominal pain Status: Acute (3) GI bleeding Status: Acute Past Medical History: See HPI above Past Surgical History: See HPI Family History CVA FH: diabetes mellitus "bleeding problems" in some family members; aunt w cirrhosis (not sure of etiology) Social History Smoking Status: Former Smoker Alcohol Use: occasionally Drug Use: none Allergies Coded Allergies: Lisinopril (Verified Allergy, Severe, ANGIOEDEMA, 2/5/10) Current Medications Home Meds and Scripts Medications Dose Route/Sig Max Daily Dose Days Date Category Dose Instructions Atenolol 25 Mg Tab 50 Mg PO DAILY 12/24/17 Reported Percocet 5MG/325MG (Oxycodone/Acetaminophen) Tab 1 Tablet PO Q8H PRN 12/24/17 Reported PAIN Glucophage (Metformin Hcl) 1,000 Mg Tab 1,000 Mg PO BID 12/24/17 Reported Hctz (Hydrochlorothiazide) 25 Mg Tab 25 Mg PO DAILY 12/24/17 Reported Motrin (Ibuprofen) 800 Mg Tab 800 Mg PO TID PRN 11/23/08 Reported Review of Systems Constitutional: No fever, No chills Respiratory: No cough, No shortness of breath Cardiac: + edema, No chest pain Abdomen: + see HPI, + constipation, No GI bleeding Skin: No rash, No itch, No jaundice Physical Exam Date Time Temp Pulse Resp B/P (MAP) Pulse Ox O2 Delivery O2 Flow Rate FiO2 12/25/17 13:57 36.3 55 16 134/82 (99) 98 Room Air 12/25/17 08:04 96 Room Air 12/25/17 07:30 Room Air 12/25/17 07:30 36.3 57 16 136/68 (90) 96 Room Air 12/25/17 07:08 36.5 60 16 145/79 (101) 94 Room Air 12/24/17 23:05 Room Air 12/24/17 23:05 36.8 57 16 124/68 (86) 95 Room Air 12/24/17 19:43 36.8 60 18 163/71 (101) 96 Room Air 12/24/17 18:45 36.6 62 18 131/59 96 12/24/17 18:40 94 Room Air 12/24/17 18:34 62 18 131/59 96 Room Air 12/24/17 17:40 97 Room Air 12/24/17 17:23 59 18 149/73 97 Room Air 12/24/17 15:59 63 18 141/70 99 Room Air General Appearance: WD/WN, no apparent distress, + obese Eyes: normal inspection, PERRL, EOMI Neck: supple, no JVD, trachea midline Respiratory/Chest: normal breath sounds, no respiratory distress, no accessory muscle use Cardiovascular: regular rate, rhythm, no gallop, no murmur Abdomen: normal bowel sounds, non tender, soft Extremities: normal inspection, no pedal edema, no calf tenderness Neurologic/Psych: alert, normal mood/affect, oriented x 3 Skin: normal color, no jaundice, no rash Laboratory Results Last 24 Hours Test 12/24/17 14:32 12/24/17 18:21 12/24/17 20:10 12/24/17 20:17 White Blood Count 6.72 K/uL Red Blood Count 3.91 M/uL Hemoglobin 8.3 g/dL Hematocrit 27.9 % Mean Corpuscular Volume 71.4 fL Mean Corpuscular Hemoglobin 21.2 pg Mean Corpuscular Hemoglobin Concent 29.7 g/dl Platelet Count 80 K/uL Neutrophils (%) (Auto) 62.5 % Lymphocytes (%) (Auto) 23.5 % Monocytes (%) (Auto) 11.6 % Eosinophils (%) (Auto) 1.5 % Basophils (%) (Auto) 0.6 % Neutrophils # (Auto) 4.20 K/uL Lymphocytes # (Auto) 1.58 K/uL Monocytes # (Auto) 0.78 K/uL Eosinophils # (Auto) 0.10 K/uL Basophils # (Auto) 0.04 K/uL RDW Standard Deviation 48.8 fL RDW Coefficient of Variation 18.8 % Immature Granulocyte % (Auto) 0.3 % Immature Granulocyte # (Auto) 0.02 K/uL Platelet Estimate DECREASED Hypochromasia PRESENT Microcytosis PRESENT Ovalocytes 1+ Prothrombin Time 15.1 SECONDS Prothromb Time International Ratio 1.4 Activated Partial Thromboplast Time 28.8 SECONDS Partial Thromboplastin Ratio 1.1 Sodium Level 136 mmol/L Potassium Level 3.3 mmol/L Chloride Level 102 mmol/L Carbon Dioxide Level 25 mmol/L Anion Gap 9.0 mmol/L Blood Urea Nitrogen 18 mg/dl Creatinine 0.99 mg/dl Est Creatinine Clear Calc Drug Dose 92.2 ml/min Estimated GFR () 88.4 Estimated GFR (Non- 76.3 BUN/Creatinine Ratio 17.6 Random Glucose 104 mg/dl Calcium Level 8.8 mg/dl Magnesium Level 1.7 mg/dl Total Bilirubin 2.1 mg/dl Aspartate Amino Transf (AST/SGOT) 42 U/L Alanine Aminotransferase (ALT/SGPT) 30 U/L Alkaline Phosphatase 64 U/L Total Protein 7.3 gm/dl Albumin 3.0 gm/dl Globulin 4.3 gm/dl Albumin/Globulin Ratio 0.7 Lipase 436 U/L Bedside Glucose 105 mg/dl 114 mg/dl Urine Color YELLOW Urine Appearance CLEAR Urine pH 7.5 Urine Specific [place] 1.009 Urine Protein NEG Urine Glucose (UA) NEG Urine Ketones NEG Urine Occult Blood 2+ Urine Nitrite NEG Urine Bilirubin NEG Urine Urobilinogen NEG Urine Leukocyte Esterase NEG Urine WBC (Auto) 0 /hpf Urine RBC (Auto) 10-30 /hpf Urine Hyaline Casts (Auto) 1-5 /lpf Urine Epithelial Cells (Auto) 0-5 /lpf Urine Bacteria (Auto) NEG Test 12/25/17 00:00 12/25/17 05:37 12/25/17 07:15 12/25/17 08:11 Prothrombin Time 15.5 SECONDS Prothromb Time International Ratio 1.5 Sodium Level 142 mmol/L Potassium Level 3.3 mmol/L Chloride Level 108 mmol/L Carbon Dioxide Level 25 mmol/L Anion Gap 9.0 mmol/L Blood Urea Nitrogen 18 mg/dl Creatinine 1.05 mg/dl Est Creatinine Clear Calc Drug Dose 87.0 ml/min Estimated GFR () 82.4 Estimated GFR (Non- 71.1 BUN/Creatinine Ratio 17.1 Random Glucose 96 mg/dl Calcium Level 8.2 mg/dl Magnesium Level 1.8 mg/dl Total Bilirubin 1.4 mg/dl Aspartate Amino Transf (AST/SGOT) 36 U/L Alanine Aminotransferase (ALT/SGPT) 25 U/L Alkaline Phosphatase 53 U/L Total Protein 6.0 gm/dl Albumin 2.6 gm/dl Globulin 3.4 gm/dl Albumin/Globulin Ratio 0.8 Bedside Glucose 104 mg/dl 101 mg/dl Test 12/25/17 10:52 12/25/17 11:55 Iron Level 12 mcg/dl Total Iron Binding Capacity 272 mcg/dl Transferrin 198 mg/dl Transferrin % Saturation 4 % Ferritin 5.4 ng/ml Pro-B-Type Natriuretic Peptide 501 pg/ml Hepatitis B Surface Antigen NEG Hepatitis B Surface Antibody NEG Hepatitis C Antibody NEG Bedside Glucose 124 mg/dl Impression Patient is a 72 year old male admitted w ileus vs developing SBO which may be related to chronic narcotic use for back pain. During workup noted to be anemic and also has evidence of possible gastritis (likely due to NSAIDs use for low back pain) on CT scan as well as cirrhotic appearing liver w esophageal varices , splenomegaly. MELD 13 Plan 1. Ileus (resolving) - Give 1 dose of Relistor 12mg injection - Avoid narcotics if possible - Need daily bowel regimen; can start with Miralax 17g daily and titrate dose for effect of at least one BM daily. Also should add fiber supplement (Metamucil , Benefiber, Citrucel) given hx of diverticulosis. 2. Gastritis - Protonix 40mg IV BID, can switch to PO form upon DC - Avoid NSAIDs 3. Cirrhosis, w ascites, & LE edema. PVT patent: - Initiate full serological workup to r/o autoimmune/hereditary liver diseases, hepatitis - Perform diagnostic paracentesis w fluid analysis, cell ct, culture, calculate SAAG afterwards - Check Pro BNP to r/o CHF related cause of edema, and ascites - Start Spironolactone 50mg daily, Lasix 20mg daily - 2g Low Salt diet - Eventually need f/u in GI Clinic for continued management of cirrhosis, including EGD and Colonoscopy evals, Fibroscan. 4. Microcytic Anemia: - Monitor and transfuse prn - Check iron indices, B12, FA - Will plan for outpt EGD/Colonoscopy evals. I saw and evaluated the patient with Ms. Franks and agree with the assessment and plan as stated above. Gastroenterology is consulted for question of cirrhosis on imaging study. The patient also was found to be anemic and have small volume ascites on CT scan. The patient does not have a known history of liver disease and has never had a prior transfusion needlestick injury or history of IV drug abuse. The patient was in his usual state of health until a few days ago he began to develop worsening lower extremity swelling and abdominal fullness. He notes that this afternoon that his symptoms have improved significantly. Physical examination No obvious distress, pleasant appearing male No scleral icterus No caput medusa noted Abdomen: Obese, soft no fluid wave noted Impression: Patient with trace ascites on imaging studies with nodularity of the liver. Given the patient's history not certain that he has underlying liver disease but would recommend further serologic workup. In addition we would recommend further evaluation with a Fibroscan as an outpatient to determine if he has significant hepatic scarring. Finally, we will recommend an upper endoscopy and colonoscopy given his history of anemia and gastric wall thickening seen on his recent CT scan. We would suggest that he be on a low- sodium diet, less than 2 g per day. I would also suggest his diuretics as outpatient be transitioned to Lasix 20 mg per day and Aldactone 50 mg per day. He will follow-up with our office in approximately 4 weeks so we can reassess his symptoms.
--- NOTE | 2017-12-25 14:53 | DIAGNOSTIC IMAGING REPORT ---
PARACENTESIS ABDOMEN W/IMAGING CLINICAL HISTORY: 72 years-old Male with ascites. COMPARISON: CT 12/24/2017 PROCEDURE: The procedure was explained to the patient in the care including the benefits and possible risks/complications. The patient gave verbal understanding and written consent was obtained. A time-out was performed prior to the start of the procedure. The patient was placed on the ultrasound table in the supine position. Using ultrasound guidance, an appropriate procedure site in the left lower abdomen was marked. This area was then prepped and draped in the usual sterile fashion. Local anesthesia was achieved within 1% lidocaine. An 8-Egyptian centesis catheter was then inserted. Approximately 1.0 liters of clear, yellowish fluid was removed and sent to the lab for analysis. The catheter was removed and external pressure was held to achieve hemostasis. A sterile dressing was applied to the procedure site. The patient tolerated the procedure well without immediate complications. IMPRESSION: Successful ultrasound-guided paracentesis with removal of 1.0 L ascitic fluid. The above report was generated using voice recognition software. It may contain grammatical, syntax or spelling errors. Electronically signed by: Paul Powers M.D. 12/25/2017 2:52 PM Dictated Date/Time: 12/25/2017 2:51 PM
--- NOTE | 2017-12-25 15:55 | Progress Note ---
Internal Med Progress Note Date of Service: Dec 25, 2017. Provider Documentation: SUBJECTIVE: The patient was seen and examined in medical floor He was admitted yesterday with possible IBS/small bowel obstruction Relevant scans did not show any obstruction but noted to have features of cirrhosis Denies any symptoms as of this morning OBJECTIVE: Vital Signs-as noted below Exam: General-no apparent distress at rest Eyes-normal ENT-normal Neck-supple Lungs-clear to auscultate bilaterally Heart-regular Abdomen-minimally distended, soft, mild epigastric tenderness without fullness, bowel sounds present Extremities-1+ edema bilaterally Neuro-alert, awake and oriented 3 Lab data as noted below. ASSESSMENT & PLAN: This is a 72 year old male with a past medical history of DM2, HTN, HLD, lumbar pain on long-term narcotics - presents with three day history of no bowel movement, abdominal distention, nausea and vomiting x2 Abdominal Distention secondary to IBS/SBO-resolved now Liver Cirrhosis with Ascites - abdominal CT performed - small ascites noted, liver cirrhosis noted, gastritis is a possibility as well - abdomen is soft, but distended, patient states this is new the past few days - plan for now is to give IV Lasix 40mg x1 - fluid restriction and low sodium diet placed - ultrasound for ascites-status post paracentesis of 1 L of fluid - GI consulted for further input-appreciate input and recommendation -Awaiting further test to find a possible cause of cirrhosis Anemia, Thrombocytopenia Esophageal Varices Likely secondary to cirrhosis of the liver which could be due to fatty liver with history of diabetes - patient with Hgb of 8.3 - has not had recent lab work as an outpatient - started on Protonix drip due to gastritis and Esophageal varices noted on CT -Appreciate GI input and recommendation DM2 - hold metformin - insulin sliding scale started - last Ha1c = 6.3%, will not check one now due to anemia - monitor BSGs -May have gastroparesis secondary to diabetes DVT ppx - SCDs/TEDs FULL CODE Vital Signs: Date Time Temp Pulse Resp B/P (MAP) Pulse Ox O2 Delivery O2 Flow Rate FiO2 12/25/17 14:53 37.0 55 18 151/77 (101) 98 Room Air 12/25/17 13:57 36.3 55 16 134/82 (99) 98 Room Air 12/25/17 08:04 96 Room Air 12/25/17 07:30 Room Air 8/23/18 07:30 36.3 57 16 136/68 (90) 96 Room Air 12/25/17 07:08 36.5 60 16 145/79 (101) 94 Room Air 12/24/17 23:05 Room Air 12/24/17 23:05 36.8 57 16 124/68 (86) 95 Room Air 12/24/17 19:43 36.8 60 18 163/71 (101) 96 Room Air 12/24/17 18:45 36.6 62 18 131/59 96 12/24/17 18:40 94 Room Air 12/24/17 18:34 62 18 131/59 96 Room Air 12/24/17 17:40 97 Room Air 12/24/17 17:23 59 18 149/73 97 Room Air 12/24/17 15:59 63 18 141/70 99 Room Air Lab Results: Results Past 24 Hours Test 12/24/17 18:21 12/24/17 20:10 12/24/17 20:17 12/25/17 00:00 Range/Units Bedside Glucose 105 114 70-99 mg/dl Urine Color YELLOW Urine Appearance CLEAR CLEAR Urine pH 7.5 4.5-7.5 Urine Specific [place] 1.009 1.000-1.030 Urine Protein NEG NEG Urine Glucose (UA) NEG NEG Urine Ketones NEG NEG Urine Occult Blood 2+ NEG Urine Nitrite NEG NEG Urine Bilirubin NEG NEG Urine Urobilinogen NEG NEG Urine Leukocyte Esterase NEG NEG Urine WBC (Auto) 0 0-5 /hpf Urine RBC (Auto) 10-30 0-4 /hpf Urine Hyaline Casts (Auto) 1-5 0-5 /lpf Urine Epithelial Cells (Auto) 0-5 0-5 /lpf Urine Bacteria (Auto) NEG NEG Peritoneal Fluid Color STRAW Peritoneal Fluid Appearance HAZY Peritoneal Fluid WBC 200 0-300 /uL Peritoneal Fluid RBC 4000 /uL Peritoneal Fld Mononuclear WBCs (%) 89.5 % Peritoneal Fld Polynuclear WBCs (%) 10.5 % Peritoneal Fluid Total Protein 2.1 g/dl Peritoneal Fluid Albumin 1.0 g/dl Test 12/25/17 05:37 12/25/17 07:15 12/25/17 08:11 12/25/17 10:52 Range/Units Prothrombin Time 15.5 9.0-12.0 SECONDS Prothromb Time International Ratio 1.5 0.9-1.1 Sodium Level 142 136-145 mmol/L Potassium Level 3.3 3.5-5.1 mmol/L Chloride Level 108 98-107 mmol/L Carbon Dioxide Level 25 21-32 mmol/L Anion Gap 9.0 3-11 mmol/L Blood Urea Nitrogen 18 7-18 mg/dl Creatinine 1.05 0.60-1.40 mg/dl Est Creatinine Clear Calc Drug Dose 87.0 ml/min Estimated GFR () 82.4 Estimated GFR (Non- 71.1 BUN/Creatinine Ratio 17.1 10-20 Random Glucose 96 70-99 mg/dl Calcium Level 8.2 8.5-10.1 mg/dl Magnesium Level 1.8 1.8-2.4 mg/dl Total Bilirubin 1.4 0.2-1 mg/dl Aspartate Amino Transf (AST/SGOT) 36 15-37 U/L Alanine Aminotransferase (ALT/SGPT) 25 12-78 U/L Alkaline Phosphatase 53 45-117 U/L Total Protein 6.0 6.4-8.2 gm/dl Albumin 2.6 3.4-5.0 gm/dl Globulin 3.4 2.5-4.0 gm/dl Albumin/Globulin Ratio 0.8 0.9-2 Bedside Glucose 104 101 70-99 mg/dl Iron Level 12 35-175 mcg/dl Total Iron Binding Capacity 272 250-450 mcg/dl Transferrin 198 200-360 mg/dl Transferrin % Saturation 4 20-50 % Ferritin 5.4 8.0-388.0 ng/ml Pro-B-Type Natriuretic Peptide 501 0-900 pg/ml Hepatitis B Surface Antigen NEG NEG Hepatitis B Surface Antibody NEG Hepatitis C Antibody NEG NEG Test 12/25/17 11:55 Range/Units Bedside Glucose 124 70-99 mg/dl Microbiology Results 12/25/17 Acid Fast Stain, Received Pending 12/25/17 Mycobacterial Culture, Received Pending 12/25/17 Gram Stain, Received Pending 12/25/17 Bacterial Culture, Received Pending
[2017-12-25] MEDS: PANTOprazole INJ 40 MG in SYRINGE 0 ML IV SCH (21:53)
[2017-12-26 03:54] VITALS: BP 145/67; PULSE 57; TEMP 36.6; O2SAT 97
[2017-12-26 07:13] VITALS: BP 149/82; PULSE 59; TEMP 36.7; O2SAT 97
[2017-12-26 07:28] LABS: INR 1.4 (0.9-1.1)
[2017-12-26 07:37] LABS: HEMATOCRIT 25.4 % (42-52); HEMOGLOBIN 7.4 g/dL (14.0-18.0); MEAN CELL VOLUME 71.8 fL (80-100); MEAN CORPUSCULAR HEMOGLOBIN 20.9 pg (25-34); MEAN CORPUSCULAR HGB CONC 29.1 g/dl (32-36); PLATELET COUNT 67 K/uL (130-400); RED CELL DISTRIBUTION WIDTH CV 18.5 % (11.5-14.5); RED CELL DISTRIBUTION WIDTH SD 48.2 fL (36.4-46.3); WHITE BLOOD COUNT 3.04 K/uL (4.8-10.8)
[2017-12-26 07:56] LABS: ALBUMIN 2.5 gm/dl (3.4-5.0); CALCIUM 8.4 mg/dl (8.5-10.1); CREATININE 1.01 mg/dl (0.60-1.40); POTASSIUM 3.4 mmol/L (3.5-5.1); TOTAL PROTEIN 6.3 gm/dl (6.4-8.2)
[2017-12-26] MEDS: PANTOprazole INJ 40 MG in SYRINGE 0 ML IV SCH (08:10)
[2017-12-26] MEDS: INSULIN ASPART 100 UNITS/ML 3 ML PEN SC SCH ×2 (08:57→13:01)
[2017-12-26 09:00] LABS: BASO ABS # 0.03 K/uL (0-0.2); EOS % 4.3 %; EOS ABS # 0.13 K/uL (0-0.5); LYMPH % 34.2 %; LYMPH ABS # 1.04 K/uL (1.2-3.4); MONO % 11.2 %; MONO ABS # 0.34 K/uL (0.11-0.59); NEUT % 49.3 %
[2017-12-26] MEDS ORDERED: POLYETHYLENE (MIRALAX) 17 GM PACK PO SCH (09:00)
[2017-12-26] MEDS ORDERED: FUROSEMIDE 20 MG TAB PO SCH (09:00)
[2017-12-26] MEDS ORDERED: SPIRONOLACTONE 25 MG TAB PO SCH (09:00)
--- NOTE | 2017-12-26 12:03 | Gastroenterology Progress Note ---
Progress Note Date of Service: Dec 26, 2017 Subjective Pt evaluation today including: conversation w/ patient, physical exam, chart review, lab review, review of inpatient medication list Pt feels well, no acute events overnight. Denies any abd pain, n/v, is passing flatus but no BMs yet. Paracentesis done w 1L ascites fluid removal, fluid cell ct not indicative of SBP. SAAG >1.1, Total protein <2.6. Ascites consistent with cirrhosis. Pro BNP normal. Review of Systems Constitutional: No fever, No chills Respiratory: No cough, No shortness of breath Cardiac: No chest pain Abdomen: No pain, No nausea, No vomiting Skin: No rash, No itch, No jaundice Medications Current Inpatient Medications Medications (Trade) Dose Ordered Sig/Kleber Route Start Time Stop Time Status Last Admin Dose Admin Ioversol (Optiray 320) 100 ml UD PRN IV 12/24/17 14:45 12/28/17 14:44 Al Hydrox/Mg Hydrox/Simethicone (Maalox Max Susp) 15 ml Q4H PRN PO 12/24/17 18:00 01/23/18 17:59 Ondansetron HCl (Zofran Inj) 4 mg Q6H PRN IV 12/24/17 18:00 01/23/18 17:59 Glucose (Glucose 40% Gel) 15-30 GRAMS 15 GRAMS... UD PRN PO 12/24/17 18:00 01/23/18 17:59 Glucose (Glucose Chew Tab) 4-8 Tablets 4 Tabl... UD PRN PO 12/24/17 18:00 01/23/18 17:59 Dextrose (Dextrose 50% 50ML Syringe) 25-50ML 25ML FOR ... UD PRN IV 12/24/17 18:00 01/23/18 17:59 Glucagon (Glucagon Inj) 1 mg UD PRN SQ 12/24/17 18:00 01/23/18 17:59 Carbohydrates (Carbohydrates For Hypoglycemia) 15-30 GRAMS 15 grams if BSG 54-69... UD PRN PO 12/24/17 18:00 01/23/18 17:59 Pantoprazole Sodium 40 mg/ Syringe 10 ml @ 5 mls/min BID@0900,2100 IV 12/25/17 21:00 01/24/18 20:59 12/26/17 08:10 5 MLS/MIN Polyethylene (Miralax Powder Packet) 17 gm DAILY PO 12/26/17 09:00 01/25/18 08:59 12/26/17 08:11 17 GM Insulin Aspart (novoLOG ASPART) SLIDING SCALE If C... ACHS SC 12/25/17 17:15 01/24/18 17:14 12/26/17 08:57 2 UNITS Spironolactone (Aldactone Tab) 50 mg QAM PO 12/26/17 09:00 01/25/18 08:59 12/26/17 08:10 50 MG Furosemide (Lasix Tab) 20 mg QAM PO 12/26/17 09:00 01/25/18 08:59 12/26/17 08:11 20 MG Objective Vital Signs Date Time Temp Pulse Resp B/P (MAP) Pulse Ox O2 Delivery O2 Flow Rate FiO2 12/26/17 07:13 36.7 59 18 149/82 (104) 97 Room Air 12/26/17 03:54 36.6 57 18 145/67 (93) 97 Room Air 12/25/17 23:15 Room Air 12/25/17 22:50 36.9 58 16 129/68 (88) 95 Room Air 12/25/17 16:42 98 Room Air 12/25/17 14:53 37.0 55 18 151/77 (101) 98 Room Air 12/25/17 13:57 36.3 55 16 134/82 (99) 98 Room Air Physical Exam General Appearance: WD/WN, no apparent distress, + obese Eyes: normal inspection, PERRL, EOMI Neck: supple, no JVD, trachea midline Respiratory/Chest: normal breath sounds, no respiratory distress, no accessory muscle use Cardiovascular: regular rate, rhythm, no gallop, no murmur Abdomen: normal bowel sounds, non tender, soft Extremities: normal inspection, no pedal edema, no calf tenderness Neurologic/Psych: alert, normal mood/affect, oriented x 3 Skin: normal color, no jaundice, no rash Laboratory Results Last 24 Hours Test 12/25/17 16:59 12/25/17 20:52 12/26/17 07:05 12/26/17 08:04 Bedside Glucose 138 mg/dl 140 mg/dl 112 mg/dl White Blood Count 3.04 K/uL Red Blood Count 3.54 M/uL Hemoglobin 7.4 g/dL Hematocrit 25.4 % Mean Corpuscular Volume 71.8 fL Mean Corpuscular Hemoglobin 20.9 pg Mean Corpuscular Hemoglobin Concent 29.1 g/dl Platelet Count 67 K/uL Neutrophils (%) (Auto) 49.3 % Lymphocytes (%) (Auto) 34.2 % Monocytes (%) (Auto) 11.2 % Eosinophils (%) (Auto) 4.3 % Basophils (%) (Auto) 1.0 % Neutrophils # (Auto) 1.50 K/uL Lymphocytes # (Auto) 1.04 K/uL Monocytes # (Auto) 0.34 K/uL Eosinophils # (Auto) 0.13 K/uL Basophils # (Auto) 0.03 K/uL RDW Standard Deviation 48.2 fL RDW Coefficient of Variation 18.5 % Immature Granulocyte % (Auto) 0.0 % Immature Granulocyte # (Auto) 0.00 K/uL Giant Platelets 1+ Hypochromasia PRESENT Anisocytosis PRESENT Microcytosis PRESENT Ovalocytes 1+ Prothrombin Time 14.8 SECONDS Prothromb Time International Ratio 1.4 Sodium Level 142 mmol/L Potassium Level 3.4 mmol/L Chloride Level 108 mmol/L Carbon Dioxide Level 25 mmol/L Anion Gap 9.0 mmol/L Blood Urea Nitrogen 19 mg/dl Creatinine 1.01 mg/dl Est Creatinine Clear Calc Drug Dose 90.4 ml/min Estimated GFR () 86.3 Estimated GFR (Non- 74.5 BUN/Creatinine Ratio 19.0 Random Glucose 102 mg/dl Calcium Level 8.4 mg/dl Total Bilirubin 1.3 mg/dl Aspartate Amino Transf (AST/SGOT) 38 U/L Alanine Aminotransferase (ALT/SGPT) 26 U/L Alkaline Phosphatase 52 U/L Total Protein 6.3 gm/dl Albumin 2.5 gm/dl Globulin 3.8 gm/dl Albumin/Globulin Ratio 0.7 Vitamin B12 Level 430 pg/mL Folate 13.11 ng/mL Assessment and Plan Patient is a 72 year old male admitted w ileus vs developing SBO which may be related to chronic narcotic use for back pain. During workup noted to be anemic and also has evidence of possible gastritis (likely due to NSAIDs use for low back pain) on CT scan as well as cirrhotic appearing liver w esophageal varices , splenomegaly. MELD 13 Plan 1. Ileus (resolving) - Given1 dose of Relistor 12mg injection - Avoid narcotics if possible - Need daily bowel regimen; can start with Miralax 17g daily and titrate dose for effect of at least one BM daily. Also should add fiber supplement (Metamucil , Benefiber, Citrucel) given hx of diverticulosis. 2. Gastritis - Protonix 40mg IV BID, can switch to PO form upon DC - Avoid NSAIDs 3. Cirrhosis, w ascites, & LE edema. PVT patent: - Initiate full serological workup to r/o autoimmune/hereditary liver diseases, hepatitis - Perform diagnostic paracentesis w fluid analysis, cell ct, culture, calculate SAAG afterwards -> done, no signs of SBP; SAAG >1.1, total protein <2.6, normal BNP. Ascites likely from cirrhosis. - Spironolactone 50mg daily, Lasix 20mg daily - 2g Low Salt diet - Eventually need f/u in GI Clinic for continued management of cirrhosis, including EGD and Colonoscopy evals, Fibroscan. 4. Microcytic Anemia: - Monitor and transfuse prn - Check iron indices, B12, FA -> low iron indices thus started on Ferrous Sulfate 325mg BID; normal FA and B12. - Will plan for outpt EGD/Colonoscopy evals. OK for DC from GI standpoint for f/u in GI clinic as noted above. The patient was discharged prior to afternoon rounds. I did discuss the case with and agree with the plan as stated above.
[2017-12-26] MEDS ORDERED: POTASSIUM CHLORIDE 10 MEQ TABCR PO STA (12:23)
--- NOTE | 2017-12-26 14:17 | Progress Note ---
Internal Med Progress Note Date of Service: Dec 26, 2017. Provider Documentation: SUBJECTIVE: The patient was seen and examined in medical floor He was admitted yesterday with possible IBS/small bowel obstruction Relevant scans did not show any obstruction but noted to have features of cirrhosis Denies any symptoms as of this morning 12/26: He has been feeling a lot better today Denies any epigastric pain, nausea, abdominal distention or vomiting Has been ambulating without any symptoms Ready to be discharged OBJECTIVE: Vital Signs-as noted below Exam: General-no apparent distress at rest Eyes-normal ENT-normal Neck-supple Lungs-clear to auscultate bilaterally Heart-regular Abdomen-minimally distended, soft, mild epigastric tenderness without fullness, bowel sounds present Extremities-1+ edema bilaterally-improved Neuro-alert, awake and oriented 3 Lab data as noted below. ASSESSMENT & PLAN: This is a 72 year old male with a past medical history of DM2, HTN, HLD, lumbar pain on long-term narcotics - presents with three day history of no bowel movement, abdominal distention, nausea and vomiting x2 Abdominal Distention secondary to IBS/SBO-resolved now Liver Cirrhosis with Ascites - abdominal CT performed - small ascites noted, liver cirrhosis noted, gastritis is a possibility as well - abdomen is soft, but distended, patient states this is new the past few days - plan for now is to give IV Lasix 40mg x1 - fluid restriction and low sodium diet placed - ultrasound for ascites-status post paracentesis of 1 L of fluid - GI consulted for further input-appreciate input and recommendation -Awaiting further test to find a possible cause of cirrhosis -Acetic fluid studies compatible with cirrhosis Started with the Spironolactone and Lasix- -and PPI -Outpatient GI follow-up for EGD and or colonoscopy Anemia, Thrombocytopenia Esophageal Varices Likely secondary to cirrhosis of the liver which could be due to fatty liver with history of diabetes - patient with Hgb of 8.3 - has not had recent lab work as an outpatient - started on Protonix drip due to gastritis and Esophageal varices noted on CT -Appreciate GI input and recommendation -Remains stable -We will start iron therapy DM2 - hold metformin - insulin sliding scale started - last Ha1c = 6.3%, will not check one now due to anemia - monitor BSGs -May have gastroparesis secondary to diabetes -Continue with current medications DVT ppx - SCDs/TEDs FULL CODE Discharge home today Vital Signs: Date Time Temp Pulse Resp B/P (MAP) Pulse Ox O2 Delivery O2 Flow Rate FiO2 12/26/17 15:01 36.7 59 18 97 Room Air 12/26/17 13:48 Room Air 12/26/17 07:13 36.7 59 18 149/82 (104) 97 Room Air 12/26/17 03:54 36.6 57 18 145/67 (93) 97 Room Air 12/25/17 23:15 Room Air 12/25/17 22:50 36.9 58 16 129/68 (88) 95 Room Air 12/25/17 16:42 98 Room Air Lab Results: Results Past 24 Hours Test 12/25/17 16:59 12/25/17 20:52 12/26/17 07:05 12/26/17 08:04 Range/Units Bedside Glucose 138 140 112 70-99 mg/dl White Blood Count 3.04 4.8-10.8 K/uL Red Blood Count 3.54 4.7-6.1 M/uL Hemoglobin 7.4 14.0-18.0 g/dL Hematocrit 25.4 42-52 % Mean Corpuscular Volume 71.8 80-100 fL Mean Corpuscular Hemoglobin 20.9 25-34 pg Mean Corpuscular Hemoglobin Concent 29.1 32-36 g/dl Platelet Count 67 130-400 K/uL Neutrophils (%) (Auto) 49.3 % Lymphocytes (%) (Auto) 34.2 % Monocytes (%) (Auto) 11.2 % Eosinophils (%) (Auto) 4.3 % Basophils (%) (Auto) 1.0 % Neutrophils # (Auto) 1.50 1.4-6.5 K/uL Lymphocytes # (Auto) 1.04 1.2-3.4 K/uL Monocytes # (Auto) 0.34 0.11-0.59 K/uL Eosinophils # (Auto) 0.13 0-0.5 K/uL Basophils # (Auto) 0.03 0-0.2 K/uL RDW Standard Deviation 48.2 36.4-46.3 fL RDW Coefficient of Variation 18.5 11.5-14.5 % Immature Granulocyte % (Auto) 0.0 % Immature Granulocyte # (Auto) 0.00 0.00-0.02 K/uL Giant Platelets 1+ Hypochromasia PRESENT Anisocytosis PRESENT Microcytosis PRESENT Ovalocytes 1+ Prothrombin Time 14.8 9.0-12.0 SECONDS Prothromb Time International Ratio 1.4 0.9-1.1 Sodium Level 142 136-145 mmol/L Potassium Level 3.4 3.5-5.1 mmol/L Chloride Level 108 98-107 mmol/L Carbon Dioxide Level 25 21-32 mmol/L Anion Gap 9.0 3-11 mmol/L Blood Urea Nitrogen 19 7-18 mg/dl Creatinine 1.01 0.60-1.40 mg/dl Est Creatinine Clear Calc Drug Dose 90.4 ml/min Estimated GFR () 86.3 Estimated GFR (Non- 74.5 BUN/Creatinine Ratio 19.0 10-20 Random Glucose 102 70-99 mg/dl Calcium Level 8.4 8.5-10.1 mg/dl Total Bilirubin 1.3 0.2-1 mg/dl Aspartate Amino Transf (AST/SGOT) 38 15-37 U/L Alanine Aminotransferase (ALT/SGPT) 26 12-78 U/L Alkaline Phosphatase 52 45-117 U/L Total Protein 6.3 6.4-8.2 gm/dl Albumin 2.5 3.4-5.0 gm/dl Globulin 3.8 2.5-4.0 gm/dl Albumin/Globulin Ratio 0.7 0.9-2 Vitamin B12 Level 430 211-911 pg/mL Folate 13.11 >5.38 ng/mL Test 12/26/17 12:03 Range/Units Bedside Glucose 152 70-99 mg/dl
[2017-12-26] MEDS ORDERED: SPIR25TA6 PO (14:24)
[2017-12-26] MEDS ORDERED: LSX20 PO (14:24)
[2017-12-26] MEDS ORDERED: PANT40TA PO (14:24)
[2017-12-26] MEDS ORDERED: FRRS300 PO (14:24)
[2017-12-26] MEDS ORDERED: MRLP17 PO (14:24)
--- NOTE | 2017-12-26 14:27 | Discharge Instructions ---
Discharge Instructions Date of Service Dec 26, 2017. Admission Reason for Admission: Gastritis, Liver Cirrhosis,Sbo Discharge Discharge Diagnosis / Problem: Cirrhosis of Liver,Diabetes Mallitus Discharge Goals Goal(s): Improve function, Prevent Disease Progression Activity Recommendations Activity Limitations: resume your previous activity . Instructions / Follow-Up Instructions / Follow-Up Dr Alberto on 12/31/17 at 11:05 AM.GI will call with Appointment Current Hospital Diet Patient's current hospital diet: Low Sodium Diet (2gm Na), Diabetes Type 2 Diet Discharge Diet Recommended Diet: Low Sodium Diet (2gm Na), Diabetes Type 2 Diet Pending Studies Studies pending at discharge: no Medical Emergencies . Who to Call and When: Medical Emergencies: If at any time you feel your situation is an emergency, please call 911 immediately. . Non-Emergent Contact Non-Emergency issues call your: Primary Care Provider . Past History Medical & Surgical History: (1) Gastritis (2) Liver cirrhosis (3) Anemia (4) Epigastric abdominal pain (5) Diabetes (6) Hypertension (7) Hyperlipidemia . "Provider Documentation" section prepared by Johnathan Cuevas. .
[2017-12-26 15:01] VITALS: BP 149/82; PULSE 59; TEMP 36.7; O2SAT 97
[2017-12-26] MEDS ORDERED: FERROUS SULFATE 325 MG TAB PO SCH (17:45)
--- NOTE | 2017-12-26 18:42 | Discharge Summary ---
Discharge Summary Date of Service Dec 26, 2017. Discharge Summary Admission Date: Dec 24, 2017 at 18:10 Discharge Date: Dec 26, 2017 Principal Diagnosis: Cirrhosis of Liver,Diabetes Mellitus Secondary Diagnoses/Problems: Please see admission H&P and hospital progress note Consultations: GI Medication Reconciliation New Medications: Pantoprazole Sodium (Protonix) 40 Mg Tab 40 MG PO DAILY, #30 TAB Ferrous Sulfate (Ferrous Sulfate) 325 Mg Tab 325 MG PO BIDM for 30 Days, #60 TAB Furosemide (Furosemide) 20 Mg Tab 20 MG PO QAM for 30 Days, #30 TAB Polyethylene (Miralax) 17 Gm Pow 17 GM PO DAILY for 30 Days, #30 PKT Spironolactone (Spironolactone) 25 Mg Tab 50 MG PO QAM for 30 Days, #60 TAB Continued Medications: Atenolol (Atenolol) 25 Mg Tab 50 MG PO DAILY Metformin Hcl (Glucophage) 1,000 Mg Tab 1000 MG PO BID, TAB Oxycodone/Acetaminophen 5MG/325MG (Percocet 5MG/325MG) Tab 1 TABLET PO Q8H PRN for Pain, TAB PAIN Discontinued Medications: Hydrochlorothiazide (Hctz) 25 Mg Tab 25 MG PO DAILY, TAB Ibuprofen (Motrin) 800 Mg Tab 800 MG PO TID PRN, 0 Refills Admission Information HPI (per Admitting provider): This is a 72 year old male with a past medical history of DM2, HTN, HLD, lumbar pain on long-term narcotics - presents with three day history of no bowel movement, abdominal distention, nausea and vomiting x2. States that he has been at the [facility]; abdomen has been distended since then, but states he cannot eat much. He has vomiting x2 for the past few days. Denies fevers/chills, denies chest pain/shortness of breath. Has had epigastric tenderness. Has not been told about any liver problems in the past. Does not drink much; only socially. Has had lower extremity edema for "a long while" now. He is resting comfortably, in no distress currently. Past Medical/Surgical History Medical Problems: (1) Diabetes (2) Gastritis (3) Hyperlipidemia (4) Hypertension (5) Liver cirrhosis (6) SBO (small bowel obstruction) (7) Small bowel obstruction Family History CVA FH: diabetes mellitus Social History Smoking Status: Former Smoker Immunizations History of Influenza Vaccine: No History of Tetanus Vaccine?: 2003 History of Pneumococcal: No History of Hepatitis B Vaccine: No Allergies Coded Allergies: Lisinopril (Verified Allergy, Severe, ANGIOEDEMA, 06/09/09) Home Medications Scheduled Hydrochlorothiazide (Hctz), 25 MG PO DAILY Ibuprofen (Motrin), 800 MG PO TID PRN Metformin Hcl (Glucophage), 1,000 MG PO BID Scheduled PRN Oxycodone/Acetaminophen 5MG/325MG (Percocet 5MG/325MG), 1 TABLET PO Q8H PRN for Pain Review of Systems Constitutional: No fever, No chills, No weakness Eyes: No worsening of vision ENT: No hearing loss Respiratory: No cough, No sputum, No wheezing, No shortness of breath, No dyspnea on exertion, No dyspnea at rest, No hemoptysis Cardiovascular: + edema, No chest pain, No palpitations Abdomen: + pain, + nausea, + vomiting, + constipation, No diarrhea, No GI bleeding Musculoskeletal: + joint pain (chronic low back pain) Genitourinary - Male: No dysuria, No urinary frequency Psychiatric: No depression symptoms, No anxiety, No insomnia Endocrine: No fatigue Hematologic / Lymphatic: No abnormal bleeding/bruising Integumentary: No rash Allergic / Immunologic: No environmental allergies, No seasonal allergies Physical Exam Vital Signs Date Time Temp Pulse Resp B/P (MAP) Pulse Ox O2 Delivery O2 Flow Rate FiO2 12/24/17 17:40 97 Room Air 12/24/17 17:23 59 18 149/73 97 Room Air 12/24/17 15:59 63 18 141/70 99 Room Air 12/24/17 13:52 36.6 62 19 158/73 98 Room Air General Appearance: no apparent distress Head: normocephalic, atraumatic Eyes: normal inspection ENT: hearing grossly normal Neck: supple Respiratory/Chest: chest non-tender, lungs clear, normal breath sounds, no respiratory distress, no accessory muscle use Cardiovascular: regular rate, rhythm, no murmur Abdomen/GI: non tender, soft, + distended Extremities/Musculoskelatal: + swelling, + pertinent finding (+1 pitting edema b/l LE) Neurologic/Psych: craps manager II-XII nml as tested, no motor/sensory deficits, alert, normal mood/affect, oriented x 3 Skin: normal color Lymphatic: no adenopathy Diagnostics Laboratory Results Results Past 24 Hours Test 12/24/17 14:32 Range/Units White Blood Count 6.72 4.8-10.8 K/uL Red Blood Count 3.91 4.7-6.1 M/uL Hemoglobin 8.3 14.0-18.0 g/dL Hematocrit 27.9 42-52 % Mean Corpuscular Volume 71.4 80-100 fL Mean Corpuscular Hemoglobin 21.2 25-34 pg Mean Corpuscular Hemoglobin Concent 29.7 32-36 g/dl Platelet Count 80 130-400 K/uL Neutrophils (%) (Auto) 62.5 % Lymphocytes (%) (Auto) 23.5 % Monocytes (%) (Auto) 11.6 % Eosinophils (%) (Auto) 1.5 % Basophils (%) (Auto) 0.6 % Neutrophils # (Auto) 4.20 1.4-6.5 K/uL Lymphocytes # (Auto) 1.58 1.2-3.4 K/uL Monocytes # (Auto) 0.78 0.11-0.59 K/uL Eosinophils # (Auto) 0.10 0-0.5 K/uL Basophils # (Auto) 0.04 0-0.2 K/uL RDW Standard Deviation 48.8 36.4-46.3 fL RDW Coefficient of Variation 18.8 11.5-14.5 % Immature Granulocyte % (Auto) 0.3 % Immature Granulocyte # (Auto) 0.02 0.00-0.02 K/uL Platelet Estimate DECREASED Hypochromasia PRESENT Microcytosis PRESENT Ovalocytes 1+ Prothrombin Time 15.1 9.0-12.0 SECONDS Prothromb Time International Ratio 1.4 0.9-1.1 Activated Partial Thromboplast Time 28.8 21.0-31.0 SECONDS Partial Thromboplastin Ratio 1.1 Sodium Level 136 136-145 mmol/L Potassium Level 3.3 3.5-5.1 mmol/L Chloride Level 102 98-107 mmol/L Carbon Dioxide Level 25 21-32 mmol/L Anion Gap 9.0 3-11 mmol/L Blood Urea Nitrogen 18 7-18 mg/dl Creatinine 0.99 0.60-1.40 mg/dl Est Creatinine Clear Calc Drug Dose 92.2 ml/min Estimated GFR () 88.4 Estimated GFR (Non- 76.3 BUN/Creatinine Ratio 17.6 10-20 Random Glucose 104 70-99 mg/dl Calcium Level 8.8 8.5-10.1 mg/dl Magnesium Level 1.7 1.8-2.4 mg/dl Total Bilirubin 2.1 0.2-1 mg/dl Aspartate Amino Transf (AST/SGOT) 42 15-37 U/L Alanine Aminotransferase (ALT/SGPT) 30 12-78 U/L Alkaline Phosphatase 64 45-117 U/L Total Protein 7.3 6.4-8.2 gm/dl Albumin 3.0 3.4-5.0 gm/dl Globulin 4.3 2.5-4.0 gm/dl Albumin/Globulin Ratio 0.7 0.9-2 Lipase 436 73-393 U/L Diagnostic Radiology CHEST ONE VIEW PORTABLE HISTORY: 72 years-old Male ABDOMINAL PAIN/GI acute generalized abdominal pain COMPARISON: Chest radiograph 11/19/2008 TECHNIQUE: Portable AP view of the chest FINDINGS: Cardiomediastinal and hilar silhouettes are within normal limits. There is no pneumothorax, pleural effusion, focal airspace consolidation or overt pulmonary edema. Bones of the chest appear grossly intact. Degenerative changes of the shoulders and spine. IMPRESSION: No acute process. CT SCAN OF THE ABDOMEN AND PELVIS WITH IV CONTRAST CLINICAL HISTORY: Generalized abdominal pain. COMPARISON STUDY: Abdominal CT dated 11/18/2008. TECHNIQUE: Following the IV administration of 94 cc of Optiray 320, CT scan of the abdomen and pelvis is performed from the lung bases to the proximal femora. Images are reviewed in the axial, sagittal, and coronal planes. IV contrast was administered without complication. A dose lowering technique was utilized adhering to the principles of ALARA. CT DOSE: 1707.91 mGycm FINDINGS: Lung bases: The heart is top normal in size and without pericardial effusion. There is elevation of left hemidiaphragm with associated atelectasis. No airspace consolidation or pleural effusion is seen. An 8 mm nodule is seen at the right lung base on image #64. This has modestly increased in size from 2009. There is a small hiatal hernia. Small esophageal varices are noted. Liver: The contrast-enhanced liver is cirrhotic in morphology and heterogeneous in attenuation. There is nodularity of the hepatic surface contour. There is no intrahepatic biliary ductal dilatation. The hepatic veins and portal veins are patent. Gallbladder: The gallbladder is contracted. Mild gallbladder wall thickening is nonspecific and likely related to cirrhosis and ascites. Spleen: The spleen is enlarged measuring 16 cm in length. A large splenule is identified below the left hemidiaphragm. Pancreas: Moderately atrophic and grossly unremarkable. Adrenal glands: A 1.8 cm left adrenal nodule is pathologically indeterminant, likely representing an adenoma but cannot definitively characterized due to the presence of IV contrast. This has been present dating back to 2008 and is of doubtful significance. The right adrenal gland is unremarkable. Kidneys: The contrast enhanced kidneys demonstrate cortical atrophy and are without hydronephrosis. The kidneys enhance symmetrically. Abdominal vasculature: The abdominal aorta is normal in course and caliber noting moderate atherosclerotic calcification. Stomach and bowel: The gastric mucosa appears edematous and hyperemic, greatest in the distal stomach. The appearance suggests gastritis. There are postoperative changes from sigmoid colon resection with colocolonic anastomosis. No bowel obstruction is seen. The duodenum is normal in configuration. The appendix is not identified and reported surgically absent. Peritoneum: There is no intraperitoneal free air. There is a small volume of abdominopelvic ascites. There is an ascitic fluid containing umbilical hernia. Lymphadenopathy: None. Pelvic viscera: The prostate gland is enlarged and heterogeneous, measuring 5.8 cm in transverse diameter. The bladder wall is mildly thickened and trabeculated indicating chronic outlet obstruction. Skeletal structures: The skeletal structures are osteopenic. Moderate lumbosacral spondylosis is observed. No lytic or blastic lesions are seen. IMPRESSION: 1. Cirrhotic liver morphology. 2. Splenomegaly, esophageal varices, and a small volume of abdominopelvic ascites indicate portal hypertension. 3. The appearance of the stomach suggests gastritis. Clinical correlation will be required. If further assessment is desired then endoscopy would be appropriate. 4. There are postoperative changes from sigmoid colon resection with colocolonic anastomosis. No bowel obstruction is seen. 5. There is an indeterminant 8 mm pulmonary nodule at the right lung base. This was present in 2008 but has modestly increased in size from that time. This can be followed if clinically warranted. 6. Additional findings as above. Impression Assessment and Plan This is a 72 year old male with a past medical history of DM2, HTN, HLD, lumbar pain on long-term narcotics - presents with three day history of no bowel movement, abdominal distention, nausea and vomiting x2 Abdominal Distention Liver Cirrhosis with Ascites - abdominal CT performed - small ascites noted, liver cirrhosis noted, gastritis is a possibility as well - abdomen is soft, but distended, patient states this is new the past few days - no bowel movement x3 days - plan for now is to give IV Lasix 40mg x1 - fluid restriction and low sodium diet placed - ultrasound for ascites - GI consulted for further input Anemia, Thrombocytopenia Gastritis Esophageal Varices - patient with Hgb of 8.3 - possibly related to overload and dilutional? - has not had recent lab work as an outpatient - started on Protonix drip due to gastritis and Esophageal varices noted on CT - no blood in vomitus or stool as per patient - monitor H/H in AM - type and screened blood - GI consulted DM2 - hold metformin - insulin sliding scale started - last Ha1c = 6.3%, will not check one now due to anemia - monitor BSGs DVT ppx - SCDs/TEDs FULL CODE Advanced Directives Existing Living Will: No Existing Power of Mortgage Processor: No Resuscitation Status VTE Prophylaxis Will order VTE Prophylaxis: Yes <Electronically signed by Carlos Connell DO> Signed: 12/24/17 1264 Physical Exam (per Admitting): General Appearance: no apparent distress Head: normocephalic, atraumatic Eyes: normal inspection ENT: hearing grossly normal Neck: supple Respiratory/Chest: chest non-tender, lungs clear, normal breath sounds, no respiratory distress, no accessory muscle use Cardiovascular: regular rate, rhythm, no murmur Abdomen/GI: non tender, soft, + distended Extremities/Musculoskelatal: + swelling, + pertinent finding (+1 pitting edema b/l LE) Neurologic/Psych: craps manager II-XII nml as tested, no motor/sensory deficits, alert , normal mood/affect, oriented x 3 Skin: normal color Lymphatic: no adenopathy Hospital Course This is a 72 year old male with a past medical history of DM2, HTN, HLD, lumbar pain on long-term narcotics - presents with three day history of no bowel movement, abdominal distention, nausea and vomiting x2 Abdominal Distention secondary to IBS/SBO-resolved now Liver Cirrhosis with Ascites - abdominal CT performed - small ascites noted, liver cirrhosis noted, gastritis is a possibility as well - abdomen is soft, but distended, patient states this is new the past few days - plan for now is to give IV Lasix 40mg x1 - fluid restriction and low sodium diet placed - ultrasound for ascites-status post paracentesis of 1 L of fluid - GI consulted for further input-appreciate input and recommendation -Awaiting further test to find a possible cause of cirrhosis -Acetic fluid studies compatible with cirrhosis Started with the Spironolactone and Lasix- -and PPI -Outpatient GI follow-up for EGD and or colonoscopy Anemia, Thrombocytopenia Esophageal Varices Likely secondary to cirrhosis of the liver which could be due to fatty liver with history of diabetes - patient with Hgb of 8.3 - has not had recent lab work as an outpatient - started on Protonix drip due to gastritis and Esophageal varices noted on CT -Appreciate GI input and recommendation -Remains stable -We will start iron therapy DM2 - hold metformin - insulin sliding scale started - last Ha1c = 6.3%, will not check one now due to anemia - monitor BSGs -May have gastroparesis secondary to diabetes -Continue with current medications DVT ppx - SCDs/TEDs FULL CODE Discharge home today Total time spent on discharge = 35 minutes This includes examination of the patient, discharge planning, medication reconciliation, and communication with other providers. Discharge Instructions Date of Service Dec 26, 2017. Admission Reason for Admission: Gastritis, Liver Cirrhosis,Sbo Discharge Discharge Diagnosis / Problem: Cirrhosis of Liver,Diabetes Mallitus Discharge Goals Goal(s): Improve function, Prevent Disease Progression Activity Recommendations Activity Limitations: resume your previous activity . Instructions / Follow-Up Instructions / Follow-Up Dr Alberto on 12/31/17 at 11:05 AM.GI will call with Appointment Current Hospital Diet Patient's current hospital diet: Low Sodium Diet (2gm Na), Diabetes Type 2 Diet Discharge Diet Recommended Diet: Low Sodium Diet (2gm Na), Diabetes Type 2 Diet Pending Studies Studies pending at discharge: no Medical Emergencies . Who to Call and When: Medical Emergencies: If at any time you feel your situation is an emergency, please call 911 immediately. . Non-Emergent Contact Non-Emergency issues call your: Primary Care Provider . Past History Medical & Surgical History: (1) Gastritis (2) Liver cirrhosis (3) Anemia (4) Epigastric abdominal pain (5) Diabetes (6) Hypertension (7) Hyperlipidemia . "Provider Documentation" section prepared by Johnathan Cuevas. . <Electronically signed by Johnathan Cuevas M.D.> Signed: 12/26/17 [id number] Additional Copies To Brent Alberto M.D. ([facility])
[2017-12-29 17:55] LABS: ANA SCREEN TC 249X NEGATIVE (NEGATIVE); HEPATITIS A IGM TC 51813E NON-REACTIVE (NON-REACTIVE)
== END 2017-12-26 15:30 | disposition home or self-care (01) | DRG 433 ==
LOC: C.EDB 13:49 → C.MSW 18:10 → ENRESERV 18:22
PROVIDERS: ADMIT Family Medicine; ATTEND Internal Medicine
DX: K74.60 Unspecified cirrhosis of liver (principal); R18.8 Other ascites; E11.9 Type 2 diabetes mellitus without complications; Z83.3 Family history of diabetes mellitus; Z82.3 Family history of stroke; Z87.891 Personal history of nicotine dependence; Z88.8 Allergy status to other drugs, medicaments and biological substances; D64.9 Anemia, unspecified; D69.6 Thrombocytopenia, unspecified; K29.70 Gastritis, unspecified, without bleeding; I10 Essential (primary) hypertension; M54.5 Low back pain; Z79.891 Long term (current) use of opiate analgesic

== ENCOUNTER 2022-11-04 10:23 | Inpatient (IN) ==
--- NOTE | 2022-11-04 11:40 | XRay Report ---
XR chest 1V portable CLINICAL HISTORY: Sepsis TECHNIQUE: Single frontal radiograph of the chest was obtained. Comparison: Comparison is made to chest radiograph 02/04/2018 FINDINGS: No lines and tubes are seen. The cardiomediastinal silhouette is normal. The lungs are clear. No evid ence of pleural effusion or pneumothorax. IMPRESSION: No acute abnormalities and in particular no radiographic evidence of pneumonia. ACT 112: Negative or not required by law. Electronically signed by: Harrison Her M.D. 11/04/2022 11:39 AM
[2022-11-04 11:48] LABS: Basophils # (auto) 0.02 K/uL (0-0.2); Basophils % (auto) 0.7 %; Eosinophils # (auto) 0.02 K/uL (0-0.50); Eosinophils % (auto) 0.7 %; Hematocrit (blood only) 33.1 % (42.0-52.0); Hemoglobin 11.7 g/dl (14.0-18.0); Immature Granulocytes # (auto) 0.01 K/uL (0.01-0.20); Immature Granulocytes % (auto) 0.4 %; Lymphocytes # (auto) 0.55 K/uL (1.2-3.4); Lymphocytes % (auto) 19.3 %; Mean Corpuscular Hemoglobin 32.1 pg (25.0-34.0); Mean Corpuscular Hgb Conc 35.3 g/dL (32.0-36.0); Mean Corpuscular Volume 90.7 fL (80.0-100.0); Mean Platelet Volume 11.8 fL (9.4-12.4); Monocytes # (auto) 0.27 K/uL (0.11-0.59); Monocytes % (auto) 9.5 %; Neutrophils # (auto) 1.98 K/uL (1.40-6.50); Neutrophils % (auto) 69.4 %; Platelet Count 50 K/uL (130-400); RDW Coefficient of Variation 14.5 % (11.5-14.5); RDW Standard Deviation 47.7 fL (36.4-46.3); Red Blood Count 3.65 M/uL (4.70-6.10); White Blood Count 2.85 K/ul (4.8-10.8)
[2022-11-04 11:50] LABS: Albumin Level 2.9 gm/dl (3.4-5.0); Bilirubin Direct 0.9 mg/dl (0-0.2); Calcium 8.8 mg/dl (8.6-10.3); Creatinine Clr Calc Pharmacy 23.7 ml/min; Est GFR (Non-African American) 17.2 ml/min; Magnesium 1.2 mg/dl (1.7-2.4); Potassium 3.8 mmol/L (3.5-5.1); Total Protein 5.8 gm/dl (6.0-8.3)
[2022-11-04 11:56] LABS: Troponin I High Sensitivity 12.7 pg/ml (0-20)
[2022-11-04] MEDS ORDERED: VANCOMYCIN HCL 2,000 MG in SODIUM CHLORIDE 0.9% 500 ML IV ONE (12:11)
[2022-11-04] MEDS ORDERED: VANCOMYCIN CONSULT ACTIVE PRN (12:11)
[2022-11-04] MEDS ORDERED: DAPTOmycin 350 MG in SYRINGE 0 ML IV ONE (12:30)
--- NOTE | 2022-11-04 12:30 | History & Physical Report ---
Date of Service November 04, 2022 Assessment & Plan (1) Sepsis: (2) Cellulitis of right lower leg: (3) Decompensated hepatic cirrhosis: (4) Chronic atrial fibrillation: (5) Thrombocytopenia: (6) Hypomagnesemia: (7) CKD (chronic kidney disease) stage 4, GFR 15-29 ml/min: Plan This is a 77-year-old male who has significant past medical history of T2DM, CKD stage IV, cirrhosis, esophageal varices, portal hypertension, chronic thrombocytopenia, chronic atrial fibrillation, iron deficiency anemia who presents to ED at the referral of PCP office due to concern for cellulitis. Sepsis-patient meets criteria per CMS guidelines secondary to tachycardia, leukopenia Right lower extremity cellulitis Admit to PCU IV daptomycin Probiotic Consult wound care for right lower extremity treatment Elevate right lower extremity Initiate IV diuresis lactate normal, pt with chronically low bp, hypervolemic on exam blood cultures obtained, obtain surface culture of RLE Acute on chronic CKD stage IV Creatinine has been uptrending since beginning of the year from 1.9 to now 3.29 10/01/2022 creatinine 2.8, 10/22/2022 3.3 Patient is not established with nephrology Patient with chronic low blood pressure, will initiate Lasix 20 mg IV twice daily Consult nephrology to help with fluid management Decompensated cirrhosis Known nonalcoholic cirrhosis with esophageal varices, portal hypertension Worsened lower extremity swelling likely secondary to decompensation We will defer diuresis management to nephrology Had 5 L paracentesis on 10/24, no current indication for paracentesis at this time Hypomagnesemia Mag 1.2 Give 2 g IV mag sulfate, repeat at 8p Chronic atrial fibrillation Not on anticoagulation due to thrombocytopenia Not on beta-federico due to chronically low blood pressure Thrombocytopenia Platelet stable at 50, no bleeding Hx of T2DM a1c 5.3 september of 2022 no indication for treatment/monitoring DVT prophylaxis: None in setting of thrombocytopenia, lower extremity cellulitis encourage ambulation as able Dispo: Admit to PCU Full code PCP: [facility] Pt was seen and examined in collaboration with Dr. Alvarenga, please see addendum A total of 80 was spent coordinating, documenting, and providing care for this patient excluding time spent in the performance of separately billed services. This included personally viewing all current laboratories and imaging studies, medication reconciliation, outpatient chart review, and discussion with specialists. History of Present Illness Chief Complaint: Worsening lower extremity swelling x 1 week. Primary Care Provider: Chiki Vickers DO This is a 77-year-old male who has significant past medical history of T2DM, CKD stage IV, cirrhosis, esophageal varices, portal hypertension, chronic thrombocytopenia, chronic atrial fibrillation, iron deficiency anemia who presents to ED at the referral of PCP office due to concern for cellulitis. He was seen and evaluated in clinic today due to worsening leg edema and drainage from right lower leg x1 week. It is noted patient has chronic hypotension which is stable at baseline. On 10/24 patient underwent a 5 L paracentesis. Patient has baseline CKD stage 4 with an uptrending creatinine since beginning of this year. His renal function has been running 2.8-3.3 as outpatient.He states he has had increased drainage from his right lower extremity that has been worsening over the past 4 days. His has been changing dressings due to saturation at least 4 times a day. He also states his right leg is red. He den ies any pain or itching to his right lower extremity. He denies similar symptoms in the past. At baseline he does have swelling to both of his lower extremities but currently they are worse than baseline despite taking torsemide. He feels like he is not urinating as much as he usually does. He also complains of loss of appetite as well as fatigue. He lives at home with his and typically ambulates with a walker. He denies any jean generalized weakness today.He denies any fever, chills, sweats, lightheadedness, dizziness, chest pain, shortness of breath, orthopnea, nausea, vomiting, diarrhea or constipation. He is unsure of any weight change due to his recent paracentesis. His daughter is at bedside.In ED patient was diagnosed with right lower extremity cellulitis and started on IV daptomycin. Allergies Allergy/AdvReac Type Severity Reaction Status Date / Time lisinopril Allergy Severe ANGIOEDEMA Verified 07/31/22 09:40 cephalexin Allergy Intermediate Hives Verified 07/31/22 09:40 Home Medications Medication Instructions Recorded Confirmed Type allopurinol 100 mg tablet 100 mg PO DAILY 11/04/22 11/04/22 History ferrous sulfate 324 mg (65 mg 324 mg PO DAILY 11/04/22 11/04/22 History iron) tablet,delayed release oxycodone 5 mg tablet 5 mg PO AMHS 11/04/22 11/04/22 History pantoprazole 40 mg tablet,delayed 40 mg PO DAILY 11/04/22 11/04/22 History release tamsulosin 0.4 mg capsule 0.4 mg PO DAILY 11/04/22 11/04/22 History torsemide 20 mg tablet 20 mg PO DAILY 11/04/22 11/04/22 History Past Med/Surg History Medical History (Updated 11/04/22 @ 13:22 by Maria L Membreno PA-C) Anemia BPH (benign prostatic hyperplasia) Cellulitis HX OF LEFT LEG (CURRENTLY ALL HEALED) CKD (chronic kidney disease) stage 4, GFR 15-29 ml/min 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 2mg versed. 100mcg fentanyl. History of tooth extraction S/P colectomy Family History Sister Diabetes Brother Diabetes Mother Diabetes Father Diabetes Other Stroke Social History Smoking Status: Former smoker Cigarettes Per Day: quit 13yrs ago; Second Hand Exposure: No; Do You Dip or Chew Tobacco: No; Hx Alcohol Use: No Hx Substance Use: No Preferred Language: Polish Communication Ability: Effective Visual Impairment: No Limitations Greens Laborer Required: No Beliefs That Will Affect Care: None Current Living Situation: Family Feels Safe at Home: Yes Assistive Devices: None Review of Systems Review of Systems: All systems reviewed & are unremarkable except as noted in HPI & below Physical Exam Physical Exam: Constitutional: chronically ill appearing, b/l temporal wasting, vitals as above, NAD, sitting up in bed, pleasant, conversing easily Head: Normocephalic, Atraumatic Eyes: PERRL, conjunctivae normal, anicteric sclerae ENMT: external ear and nose normal, oropharynx normal dry membranes Neck: trachea midline, no thyromegaly normal visual inspection Respiratory: normal respiratory effort, lungs clear to auscultation, no wheeze, rales, rhonchi. Normal insp/exp effort, no accessory muscle use Cardiovascular: IRR/IRR, b/l lower ext +3 edema R > L with anterior RLE erythema, bulla, warm to touch, negative homans Vessels: no JVD or carotid bruit Chest: normal inspection of chest Abdomen: distended but soft Musculoskeletal: no cyanosis or clubbing, arom x 4 but weak Skin: no rashes, warm and dry normal turgor Neurologic: no face palsy, no dysarthria CN's II-XI intact bilaterally and moves all extremities Psychiatric: A+Ox3, euthymic affect : deferred Results & Data Results & Data Vital Signs (Past 12 Hours) Vital Signs Temp Pulse Pulse Resp BP BP Pulse Ox 11/04/22 12:16 104 H 11/04/22 12:00 107 H 16 98/74 L 99 11/04/22 11:00 11/04/22 10:28 36.6 C 102 H 18 101/68 99 O2 Del Method 11/04/22 12:16 11/04/22 12:00 Room Air 11/04/22 11:00 Room Air 11/04/22 10:28 Room Air Laboratory Results Short CBC 11/04/22 Range/Units 11:05 WBC 2.85 L (4.8-10.8) K/ul Hgb 11.7 L (14.0-18.0) g/dl Hct 33.1 L (42.0-52.0) % Plt Count 50 L (130-400) K/uL BMP 11/04/22 11:05 Sodium 133 L Potassium 3.8 Chloride 97 L Carbon Dioxide 26 BUN 46 H Creatinine 3.29 H Glucose 110 H Calcium 8.8 Liver Function 11/04/22 Range/Units 11:05 Total Bilirubin 3.0 H (0.2-1.0) mg/dl Direct Bilirubin 0.9 H (0-0.2) mg/dl AST 24 (13-39) U/L ALT 14 (7-52) U/L Alkaline Phosphatase 58 (34-104) U/L Albumin 2.9 L (3.4-5.0) gm/dl Diagnostic Findings Chest X-Ray 11/04/22 10:52 XR chest 1V portable CLINICAL HISTORY: Sepsis TECHNIQUE: Single frontal radiograph of the chest was obtained. Comparison: Comparison is made to chest radiograph 02/04/2018 FINDINGS: No lines and tubes are seen. The cardiomediastinal silhouette is normal. The lungs are clear. No evidence of pleural effusion or pneumothorax. IMPRESSION: No acute abnormalities and in particular no radiographic evidence of pneumonia. Electronically signed by: Harrison Her M.D. 11/04/2022 11:39 AM Medications Administered Medication List Discontinued Medications Daptomycin 350 mg/ Syringe 7 mls @ 3.5 mls/min IV NOW ONE; Protocol Stop: 11/04/22 12:31 Last Admin: 11/04/22 13:13 Dose: 3.5 mls/min ECG Additional Comments: 118 Afib, PVC, qtc 426ms, viewed by wy COVID-19 Results Results COVID-19 Adm Lab Results: RBC 3.65 M/uL (4.70-6.10) L 11/04/22 WBC 2.85 K/ul (4.8-10.8) L 11/04/22 Hgb 11.7 g/dl (14.0-18.0) L 11/04/22 Hct 33.1 % (42.0-52.0) L 11/04/22 Plt Count 50 K/uL (130-400) L 11/04/22 Neutrophils (%) (Auto) 69.4 % 11/04/22 Lymphocytes (%) (Auto) 19.3 % 11/04/22 Monocytes # (Auto) 0.27 K/uL (0.11-0.59) 11/04/22 Eosinophils # (Auto) 0.02 K/uL (0-0.50) 11/04/22 Immature Granulocyte % (Auto) 0.4 % 11/04/22 Neutrophils # (Auto) 1.98 K/uL (1.40-6.50) 11/04/22 Lymphocytes # (Auto) 0.55 K/uL (1.2-3.4) L 11/04/22 Monocytes # (Auto) 0.27 K/uL (0.11-0.59) 11/04/22 Eosinophils # (Auto) 0.02 K/uL (0-0.50) 11/04/22 Basophils # (Auto) 0.02 K/uL (0-0.2) 11/04/22 Immature Granulocyte # (Auto) 0.01 K/uL (0.01-0.20) 3 Na 133 mmol/L (136-145) L 11/04/22 K 3.8 mmol/L (3.5-5.1) 11/04/22 Cl 97 mmol/L (98-107) L 11/04/22 CO2 26 mmol/L (21-32) 11/04/22 Anion Gap 10 (3-11) 11/04/22 BUN 46 mg/dl (6-23) H 11/04/22 Creatinine 3.29 mg/dl (0.6-1.4) H 11/04/22 BUN/Creatinine Ratio 14.0 (10-20) 11/04/22 Glucose Level 110 mg/dl (70-99(Fasting)) H 11/04/22 Ca 8.8 mg/dl (8.6-10.3) 11/04/22 Total Bilirubin 3.0 mg/dl (0.2-1.0) H 11/04/22 Direct Bilirubin 0.9 mg/dl (0-0.2) H 11/04/22 AST/SGOT 24 U/L (13-39) 11/04/22 ALT/SGPT 14 U/L (7-52) 11/04/22 Alkaline Phosphatase 58 U/L (34-104) 11/04/22 Total Protein 5.8 gm/dl (6.0-8.3) L 11/04/22 Albumin 2.9 gm/dl (3.4-5.0) L 11/04/22 Procalcitonin 0.11 ng/ml (0-0.5) 11/04/22 SARS-CoV-2, RNA, NAAT NEGATIVE (NEGATIVE) 11/04/22 Chest X-Ray 11/04/22 Code Status & VTE Plan Code Status FULL CODE Supervising Physician Co-Signing Physician Notes Mr. Anderson is a 77 year old male with pmhx (per chart) of This is a 77-year-old male who has significant past medical history of chronic AFib, NIDDM-II (associated with HTN and HLP), CKD stage IV, BPH, decompensated cirrhosis (c/b esophageal varices, portal hypertension, and thrombocytopenia), hx diverticulosis, hx SBO, hx GIB, and iron deficiency anemia. He who presented at the advise of PCP office due to concern for cellulitis. Here he was found to have Sepsis d/t cellulitis. He is receiving IV abx. Pt reports about 1 week of increased swelling, erythema, and weeping from the right ibarra. He has no pain or itching associated with this. He endorses malaise, fatigue, and poor appetite. He notes less UOP than usual. He denies f/c/n/v, CP, sob, abdominal pain, and diarrhea. He has no other complaints. PE: Gen: obese (BMI 30.7), NAD, well developed Head: NC AT Eyes: anicteric sclera, no conjunctival injection Nose: patent nares, normal Mouth: dry Neck: supple, trachea midline CV: Irreg rhythm, reg rate, S1 S2 Pulm: CTA b/l Abd: +BS, soft, NT, ND, no guarding. + ascites : no carballo MSK: normal bulk and tone Ext: 3+ edema b/l, R > L Skin: anterior RLE erythema, bullae, warm to touch. No other rashes on visible skin though pt was not fully undressed for exam. Neuro: grossly intact, patient moving all 4 extremities. Psych: pleasant and calm mood and affect # Severe sepsis: SIRS criteria at presentation HR > 90, RR > 20, wbc < 3 d/t cellulitis making this sepsis associated with BRUNA on CKD making this severe sepsis continue with broad spectrum abx (Daptomycin), supportive care, f/u cultures, monitor VS and trend wbc count, elevate RLE wound care consulted, appreciate input, will follow recs # BRUNA on chronic CKD stage IV Creatinine has been uptrending since beginning of the year from 1.9 to now 3.29 10/01/2022 creatinine 2.8, 10/22/2022 3.3 Patient is not established with nephrology Patient with chronic low blood pressure yet volume overloaded on exam d/t 3rd spacing, will initiate Lasix 20 mg IV twice da Consult nephrology to help with fluid management Decompensated cirrhosis Known nonalcoholic cirrhosis with esophageal varices, portal hypertension Worsened lower extremity swelling likely secondary to decompensation will initiate diuresis with lasix, may need spironolactone as well, nephrology consulted to assist with fluid management Had 5 L paracentesis on 10/24, no current indication for paracentesis at this time Hypomagnesemia Mag 1.2 Given 2 g IV mag sulfate, f/u repeat and replete further as indicated Chronic atrial fibrillation currently rate controlled Not on anticoagulation due to thrombocytopenia Not on beta-federico (or other GDMT antihypertensives) due to chronically low blood pressure consider adding SGLT2-inhibitor therapy Thrombocytopenia Platelet stable at 50, no bleeding transfuse for plt < 15 without bleeding or < 50 if bleeding develops Hx of T2DM a1c 5.3 september of 2022 no indication for treatment/monitoring DVT prophylaxis: None in setting of thrombocytopenia, lower extremity cellulitis encourage ambulation as able, SCD to the Left leg Rest per attested note above
[2022-11-04] MEDS: MAGNESIUM SULFATE / D5W 1 GM/100 ML BAG IV SCH ×4 (15:10→23:20)
[2022-11-04] MEDS ORDERED: ACETAMINOPHEN 325 MG TAB PO PRN (16:13)
[2022-11-04] MEDS ORDERED: ONDANSETRON INJ 2 MG/ML 2 ML VIAL IV PRN (16:13)
[2022-11-04] MEDS ORDERED: POTASSIUM CHLORIDE CRTAB 20 MEQ TABCR PO STA (16:13)
[2022-11-04] MEDS ORDERED: POLYETHYLENE (MIRALAX) 17 GM PACK PO PRN (16:13)
[2022-11-04] MEDS: FUROSEMIDE INJ 20 MG/2 ML VIAL IV SCH (17:07)
[2022-11-04 17:58] LABS: Appearance Urine Clear (Clear); Bilirubin Urine Negative (Negative); Blood Urine Negative (Negative); Color Urine Yellow; Glucose Urine UA Negative (Negative); Ketones Urine Negative (Negative); Leukocyte Esterase Urine Negative (Negative); Nitrite Urine Negative (Negative); Protein Urine Negative (Negative); Specific Gravity Urine 1.007 (1.000-1.030); Urobilinogen Urine Negative (Negative)
--- NOTE | 2022-11-04 18:07 | Emergency Department Note ---
History of Present Illness General Chief complaint: Infection Stated complaint: INFECTION IN R LEG Time Seen by Provider: 11/04/22 10:35 History of Present Illness Provider complaint: Right leg infection Maximum Pain Intensity: 0 77-year-old male presents to the emergency department for right lower extremity infection. Patient was referred here by his PCP Dr. Vickers. Patient reports his legs have been swollen for quite some time however the redness on his right leg has increased. He denies any leg pain. No chest pain or difficulty breathing. No abdominal pain. No headache. No fever. He states the right leg has been draining a considerable amount of yellow fluid without smells. Home Medications Medication Instructions Recorded Confirmed Type allopurinol 100 mg tablet 100 mg PO DAILY 11/04/22 11/04/22 History ferrous sulfate 324 mg (65 mg 324 mg PO DAILY 11/04/22 11/04/22 History iron) tablet,delayed release oxycodone 5 mg tablet 5 mg PO AMHS 11/04/22 11/04/22 History pantoprazole 40 mg tablet,delayed 40 mg PO DAILY 11/04/22 11/04/22 History release tamsulosin 0.4 mg capsule 0.4 mg PO DAILY 11/04/22 11/04/22 History torsemide 20 mg tablet 20 mg PO DAILY 11/04/22 11/04/22 History Allergies Allergy/AdvReac Type Severity Reaction Status Date / Time lisinopril Allergy Severe ANGIOEDEMA Verified 07/31/22 09:40 cephalexin Allergy Intermediate Hives Verified 07/31/22 09:40 Past Med/Surg History Medical History Anemia BPH (benign prostatic hyperplasia) Cellulitis HX OF LEFT LEG (CURRENTLY ALL HEALED) CKD (chronic kidney disease) stage 4, GFR 15-29 ml/min 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 2mg versed. 100mcg fentanyl. History of tooth extraction S/P colectomy Family History Sister Diabetes Brother Diabetes Mother Diabetes Father Diabetes Other Stroke Social History Smoking Status: Former smoker Cigarettes Per Day: quit 13yrs ago; Second Hand Exposure: No; Do You Dip or Chew Tobacco: No; Tobacco Cessation Education Requested by Patient: No Hx Alcohol Use: Yes Hx Substance Use: No Preferred Language: Chilean Communication Ability: Effective Visual Impairment: No Limitations [employer] Consultant Required: No Beliefs That Will Affect Care: None Current Living Situation: Spouse Current Living Situation Comment: lives in a 2 story home with , resides mostly on Other Information That Helps Us Care for You: No Feels Safe at Home: Yes Safety Concerns: Feels Safe At This Time Assistive Devices: Cane and Walker Assistive Devices Comment: has cane at bedside Physical Exam Vital Signs Vital Signs - 24 hr 11/04/22 10:28 11/04/22 11:00 11/04/22 12:00 Temperature 36.6 C Temperature Source Temporal Artery Scan Pulse Rate 102 H Pulse Rate [Right Finger] 107 H Pulse Rhythm [Right Finger] Irregular Pulse Strength [Right Finger] Normal Respiratory Rate 18 16 Respiratory Effort / Characteristics Non-Labored Non-Labored Respiratory Depth Normal Normal Respiratory Pattern Regular Blood Pressure 101/68 Blood Pressure [Left Arm] 98/74 L Blood Pressure Mean 79 Blood Pressure Mean [Left Arm] 82 Blood Pressure Position Sitting Blood Pressure Position [Left Arm] Lying Pulse Oximetry 99 99 Oxygen Delivery Method Room Air Room Air Room Air Sepsis Recent Fever Within 48 Hours No Sepsis New/Unexplained Change in Mental Status No Sepsis Action Taken by Nursing No Action Required 11/04/22 12:16 Temperature Temperature Source Pulse Rate 104 H Pulse Rate [Right Finger] Pulse Rhythm [Right Finger] Pulse Strength [Right Finger] Respiratory Rate Respiratory Effort / Characteristics Respiratory Depth Respiratory Pattern Blood Pressure Blood Pressure [Left Arm] Blood Pressure Mean Blood Pressure Mean [Left Arm] Blood Pressure Position Blood Pressure Position [Left Arm] Pulse Oximetry Oxygen Delivery Method Sepsis Recent Fever Within 48 Hours Sepsis New/Unexplained Change in Mental Status Sepsis Action Taken by Nursing Physical Exam GENERAL: Ill-appearing. HENT: Exam performed. - Head: Normocephalic and atraumatic. CV: Normal rate, irregular rhythm, normal heart sounds and intact distal pulses. Palpable radial pulses bue. PULM/CHEST: Effort normal and breath sounds normal. No respiratory distress. No stridor. He has no wheezes. He has no rales. ABD: The abdomen is soft and distended. No pain on palpation of the abdomen. MUSC/SKEL: 3+ pitting edema of the bilateral lower extremities with erythema over the right lower anterior extremity and warmth. No fluctuant areas. No vesicles. NEURO: Motor and sensation grossly intact. Course Course 1035: The patient was evaluated in room B9. A complete history and physical exam was performed Cardiac monitoring: An order was placed for continuous cardiac monitoring. The monitor shows a rate of 100 with atrial fibrilation rhythm interpreted by in 1215: Vital signs stable. Labs show a leukopenia of 2.85 hemoglobin 11.7. Coagulation studies within normal limits. Creatinine 3.29 which is up from the patient's baseline of approximately 2.Patient will be admitted to the [facility] team. Antibiotics ordered for the patient. Administered Medications Furosemide (Furosemide Inj 20 Mg/2 Ml Vial) 20 mg IV [id number] MELISSA Stop: 12/04/22 16:59 Last Admin: 11/04/22 17:07 Dose: 20 mg Documented By: ANTHONY Discontinued Medications Daptomycin 350 mg/ Syringe 7 mls @ 3.5 mls/min IV NOW ONE; Protocol Stop: 11/04/22 12:31 Last Admin: 11/04/22 13:13 Dose: 3.5 mls/min Documented By: OREN Magnesium Sulfate/Dextrose (Magnesium Sulfate / D5w) 1 gm in 100 mls @ 100 mls/hr IV Q1H MELISSA Stop: 11/04/22 15:14 Last Infusion: 11/04/22 17:14 Dose: 0 mls/hr Documented By: Admin: 11/04/22 16:14 Dose: 100 mls/hr Documented By: Infusion: 11/04/22 16:10 Dose: 100 mls/hr Documented By: Admin: 11/04/22 15:10 Dose: 100 mls/hr Documented By: DLF Potassium Chloride (Potassium Chloride Crtab 20 Meq Tabcr) 20 meq PO NOW STA Stop: 11/04/22 16:14 Last Admin: 11/04/22 17:06 Dose: 20 meq Documented By: DLF Medical Decision Making Laboratory Data Attestation: I reviewed the patient's lab results. 11/04/22 11:05 11/04/22 11:05 Lab Results 11/04/22 11/04/22 11/04/22 Range/Units 11:05 11:05 11:05 WBC 2.85 L (4.8-10.8) K/ul RBC 3.65 L (4.70-6.10) M/uL Hgb 11.7 L (14.0-18.0) g/dl Hct 33.1 L (42.0-52.0) % MCV 90.7 (80.0-100.0) fL MCH 32.1 (25.0-34.0) pg MCHC 35.3 (32.0-36.0) g/dL RDW Std Deviation 47.7 H (36.4-46.3) fL RDW Coeff of Scottie 14.5 (11.5-14.5) % Plt Count 50 L (130-400) K/uL MPV 11.8 (9.4-12.4) fL Immature Gran % (Auto) 0.4 % Neut % (Auto) 69.4 % Lymph % (Auto) 19.3 % Pepin % (Auto) 9.5 % Eos % (Auto) 0.7 % Baso % (Auto) 0.7 % Neut # (Auto) 1.98 (1.40-6.50) K/uL Lymph # (Auto) 0.55 L (1.2-3.4) K/uL Pepin # (Auto) 0.27 (0.11-0.59) K/uL Eos # (Auto) 0.02 (0-0.50) K/uL Baso # (Auto) 0.02 (0-0.2) K/uL Immature Gran # (Auto) 0.01 (0.01-0.20) K/uL Sodium 133 L (136-145) mmol/L Potassium 3.8 (3.5-5.1) mmol/L Chloride 97 L (98-107) mmol/L Carbon Dioxide 26 (21-32) mmol/L Anion Gap 10 (3-11) BUN 46 H (6-23) mg/dl Creatinine 3.29 H (0.6-1.4) mg/dl Est Cr Clr Drug Dosing 23.7 ml/min Est GFR ( Amer) 20.0 ml/min Est GFR (Non-Af Amer) 17.2 ml/min BUN/Creatinine Ratio 14.0 (10-20) Glucose 110 H (70-99(Fasting)) mg/dl Lactate 1.7 (0.4-2.0) mmol/L Calcium 8.8 (8.6-10.3) mg/dl Magnesium 1.2 L (1.7-2.4) mg/dl Total Bilirubin 3.0 H (0.2-1.0) mg/dl Direct Bilirubin 0.9 H (0-0.2) mg/dl AST 24 (13-39) U/L ALT 14 (7-52) U/L Alkaline Phosphatase 58 (34-104) U/L Troponin I High Sens 12.7 (0-20) pg/ml Total Protein 5.8 L (6.0-8.3) gm/dl Albumin 2.9 L (3.4-5.0) gm/dl Procalcitonin (0-0.5) ng/ml SARS-CoV-2, RNA, NAAT (NEGATIVE) 11/04/22 11/04/22 Range/Units 11:05 12:13 WBC (4.8-10.8) K/ul RBC (4.70-6.10) M/uL Hgb (14.0-18.0) g/dl Hct (42.0-52.0) % MCV (80.0-100.0) fL MCH (25.0-34.0) pg MCHC (32.0-36.0) g/dL RDW Std Deviation (36.4-46.3) fL RDW Coeff of Scottie (11.5-14.5) % Plt Count (130-400) K/uL MPV (9.4-12.4) fL Immature Gran % (Auto) % Neut % (Auto) % Lymph % (Auto) % Pepin % (Auto) % Eos % (Auto) % Baso % (Auto) % Neut # (Auto) (1.40-6.50) K/uL Lymph # (Auto) (1.2-3.4) K/uL Pepin # (Auto) (0.11-0.59) K/uL Eos # (Auto) (0-0.50) K/uL Baso # (Auto) (0-0.2) K/uL Immature Gran # (Auto) (0.01-0.20) K/uL Sodium (136-145) mmol/L Potassium (3.5-5.1) mmol/L Chloride (98-107) mmol/L Carbon Dioxide (21-32) mmol/L Anion Gap (3-11) BUN (6-23) mg/dl Creatinine (0.6-1.4) mg/dl Est Cr Clr Drug Dosing ml/min Est GFR ( Amer) ml/min Est GFR (Non-Af Amer) ml/min BUN/Creatinine Ratio (10-20) Glucose (70-99(Fasting)) mg/dl Lactate (0.4-2.0) mmol/L Calcium (8.6-10.3) mg/dl Magnesium (1.7-2.4) mg/dl Total Bilirubin (0.2-1.0) mg/dl Direct Bilirubin (0-0.2) mg/dl AST (13-39) U/L ALT (7-52) U/L Alkaline Phosphatase (34-104) U/L Troponin I High Sens (0-20) pg/ml Total Protein (6.0-8.3) gm/dl Albumin (3.4-5.0) gm/dl Procalcitonin 0.11 (0-0.5) ng/ml SARS-CoV-2, RNA, NAAT NEGATIVE (NEGATIVE) Imaging Data Attestation: I personally reviewed and interpreted this imaging study as follow s: My Impression: Chest x-ray negative. Airway clear. No pneumothorax. No consolidation. No cardiomegaly or cephalization.. No free air under the diaphragm. No fractures of the skeletal structures. Radiologist's Impression: Chest X-Ray 11/04/22 10:52 XR chest 1V portable CLINICAL HISTORY: Sepsis TECHNIQUE: Single frontal radiograph of the chest was obtained. Comparison: Comparison is made to chest radiograph 02/04/2018 FINDINGS: No lines and tubes are seen. The cardiomediastinal silhouette is normal. The lungs are clear. No evidence of pleural effusion or pneumothorax. IMPRESSION: No acute abnormalities and in particular no radiographic evidence of pneumonia. ACT 112: Negative or not required by law. Electronically signed by: Harrison Her M.D. 11/04/2022 11:39 AM ECG Data Attestation: I personally reviewed and interpreted this ECG as follows: Rate (beats per minute): 118 Rhythm: + atrial fibrillation ECG Intervals/blocks: + Normal QRS and + Normal QT-c ECG ST segments: + Normal ST segments [facility] Narrative 1035: The patient was evaluated in room B9. A complete history and physical exam was performed Cardiac monitoring: An order was placed for continuous cardiac monitoring. The monitor shows a rate of 100 with atrial fibrilation rhythm interpreted by me 1215: Vital signs stable. Labs show a leukopenia of 2.85 hemoglobin 11.7. Coagulation studies within normal limits. Creatinine 3.29 which is up from the patient's baseline of approximately 2.Patient will be admitted to the [facility] team. Antibiotics ordered for the patient. Impression & Plan Cellulitis of right lower leg, BRUNA (acute kidney injury) Discharge Plan Visit Data Chief Complaint: Infection Stated Complaint: INFECTION IN R LEG ED Provider: Marcello Blackwell Discharge Problem: Cellulitis of right lower leg, BRUNA (acute kidney injury) Patient Disposition: Admitted As Inpatient Discharge Instructions Interventions: ED Discharge Assessment Last Done: 11/04/22 14:43
[2022-11-04] MEDS: oxyCODONE HCL IR 5 MG TAB (IMMEDIATE RELEASE) PO SCH (21:33)
[2022-11-05] MEDS: MAGNESIUM SULFATE / D5W 1 GM/100 ML BAG IV SCH (01:24)
[2022-11-05 06:10] LABS: Basophils # (auto) 0.01 K/uL (0-0.2); Basophils % (auto) 0.4 %; Eosinophils # (auto) 0.03 K/uL (0-0.50); Eosinophils % (auto) 1.2 %; Hematocrit (blood only) 31.9 % (42.0-52.0); Hemoglobin 11.2 g/dl (14.0-18.0); Lymphocytes # (auto) 0.49 K/uL (1.2-3.4); Lymphocytes % (auto) 18.8 %; Mean Corpuscular Hemoglobin 32.2 pg (25.0-34.0); Mean Corpuscular Hgb Conc 35.1 g/dL (32.0-36.0); Mean Corpuscular Volume 91.7 fL (80.0-100.0); Mean Platelet Volume 12.8 fL (9.4-12.4); Monocytes # (auto) 0.33 K/uL (0.11-0.59); Monocytes % (auto) 12.7 %; Neutrophils # (auto) 1.74 K/uL (1.40-6.50); Neutrophils % (auto) 66.9 %; Platelet Count 45 K/uL (130-400); RDW Coefficient of Variation 14.4 % (11.5-14.5); RDW Standard Deviation 47.8 fL (36.4-46.3); Red Blood Count 3.48 M/uL (4.70-6.10)
[2022-11-05 06:31] LABS: Albumin Globulin Ratio 0.8 (0.9-2); Albumin Level 2.3 gm/dl (3.4-5.0); BUN Creatinine Ratio 14.7 (10-20); Bilirubin,Total 2.1 mg/dl (0.2-1.0); Calcium 8.2 mg/dl (8.6-10.3); Est GFR (African American) 22.4 ml/min; Est GFR (Non-African American) 19.4 ml/min; Globulin 2.8 gm/dl (2.5-4.0); Magnesium 1.9 mg/dl (1.7-2.4); Potassium 3.8 mmol/L (3.5-5.1); Total Protein 5.1 gm/dl (6.0-8.3)
--- NOTE | 2022-11-05 08:33 | Nephrology Consultation ---
Date of Consultation November 05, 2022 Assessment & Plan (1) CKD (chronic kidney disease) stage 4, GFR 15-29 ml/min: - 2/ Liver disease - Cr is not a good marker of kidney disease in Liver patinet, His functions are severly deranged than they appear to be. -Baseline Scr is in early to late 2.0's, 2/ to his Volume status, diuretic use and paracentesis. -His functions have improved with diuresis- Continue with BID IV diuresis and add albumin 25 TID for 48 hours. -Maintain Mg>2 and K> 4 , with oral replacement. -MRB needs to added on discharge( We will advise ) -Daily weight , preferably on the same scale. -Daily I/O -Less than 2 g salt - 1.2 lit fluid restriction I do not think he will need dilaysis on this admission,nevertheless liver patinet do not do well on dialysis. However this can be offered at abridge to liver transplant.I am nor sure if he is in the transplant list -He needs follow up with Nephrology within 1-2 weeks of discharge with Cmp. (2) BRUNA (acute kidney injury): As above (3) Decompensated hepatic cirrhosis: (4) Cellulitis of right lower leg: - Continue IV diuretic - Renally dose Abx. History of Present Illness Reason for Consultation: CKD-3B/4, Volume management, Liver cirrhosis Attending Physician: Joselyn Alvarenga MD History of Present Illness 77 year old male with pmhx of chronic AFib, NIDDM-II (associated with HTN and HLP), CKD stage IV( baseline sCR - Mid 2.0'S)BPH, decompensated cirrhosis (c/b esophageal varices, portal hypertension, and thrombocytopenia, last paracentesis done on 10/24 with 5l fluid removal.), hx diverticulosis, hx SBO, hx GIB, and iron deficiency anemia. He presented to the ER at the advise of PCP office due to concern for bilateral LE cellulitis with weeping wound from the RLL.At admission he also c/o decreased UOP and poor oral intake.He had seen nephrology long time back ( [place] snot remember when and admitted to taking ibrufen daily for the last one month. Baseline Scr in mid 2.0' with fluctuations.3.29 on admission, K normal, low albumin ( 2.9), Chronically low BP. Denies f/c/n/v, CP, sob, abdominal pain, and diarrhea.Very frail and cachectic Allergies Allergy/AdvReac Type Severity Reaction Status Date / Time lisinopril Allergy Severe ANGIOEDEMA Verified 07/31/22 09:40 cephalexin Allergy Intermediate Hives Verified 07/31/22 09:40 Home Medications Medication Instructions Recorded Confirmed Type allopurinol 100 mg tablet 100 mg PO DAILY 11/04/22 11/04/22 History ferrous sulfate 324 mg (65 mg 324 mg PO DAILY 11/04/22 11/04/22 History iron) tablet,delayed release oxycodone 5 mg tablet 5 mg PO AMHS 11/04/22 11/04/22 History pantoprazole 40 mg tablet,delayed 40 mg PO DAILY 11/04/22 11/04/22 History release tamsulosin 0.4 mg capsule 0.4 mg PO DAILY 11/04/22 11/04/22 History torsemide 20 mg tablet 20 mg PO DAILY 11/04/22 11/04/22 History Patient History Medical History Anemia BPH (benign prostatic hyperplasia) Cellulitis HX OF LEFT LEG (CURRENTLY ALL HEALED) CKD (chronic kidney disease) stage 4, GFR 15-29 ml/min 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 2mg versed. 100mcg fentanyl. History of tooth extraction S/P colectomy Family History Sister Diabetes Brother Diabetes Mother Diabetes Father Diabetes Other Stroke Social History Smoking Status: Former smoker Cigarettes Per Day: quit 13yrs ago; Second Hand Exposure: No; Do You Dip or Chew Tobacco: No; Tobacco Cessation Education Requested by Patient: No Hx Alcohol Use: Yes Hx Substance Use: No Preferred Language: Latvian Communication Ability: Effective Visual Impairment: No Limitations Venetian Blind Washer Required: No Beliefs That Will Affect Care: None Current Living Situation: Spouse Current Living Situation Comment: lives in a 2 story home with , resides mostly on Other Information That Helps Us Care for You: No Feels Safe at Home: Yes Safety Concerns: Feels Safe At This Time Assistive Devices: Cane and Walker Assistive Devices Comment: has cane at bedside Review of Systems Review of Systems: All systems reviewed & are unremarkable except as noted in HPI & below Physical Exam Physical Exam: Constitutional: chronically ill appearing, sitting up in bed, pleasant Neck: No JVD Respiratory: normal respiratory effort, lungs clear to auscultation Cardiovascular:No murmer,normal s1,s2 Abdomen: distended but soft and non tender Extremity- b/l lower ext +3 edema R > L with anterior RLE erythema Results & Data Vital Signs (Past 12 Hours) Vital Signs Temp Pulse Pulse Resp BP Pulse Ox O2 Del Method 11/05/22 07:32 36.5 C 116 H 19 95/64 L 97 Room Air 11/05/22 02:58 37 C 98 H 18 95/60 L 96 Room Air 11/04/22 23:00 114 H 11/04/22 23:01 36.6 C 90 18 90/68 L 97 Room Air Laboratory Results 11/05/22 05:33 11/05/22 05:33
[2022-11-05] MEDS: PANTOprazole 40 MG TAB PO SCH (09:34)
[2022-11-05] MEDS: ADVANCED PROBIOTIC 1250 MG CAPSULE PO SCH (09:34)
[2022-11-05] MEDS: allopurinoL 100 MG TAB PO SCH (09:35)
[2022-11-05] MEDS: FERROUS SULFATE 325 MG TAB PO SCH (09:35)
[2022-11-05] MEDS: TAMSULOSIN HCL 0.4 MG CAP PO SCH (09:35)
[2022-11-05] MEDS: oxyCODONE HCL IR 5 MG TAB (IMMEDIATE RELEASE) PO SCH ×2 (09:46→20:59)
[2022-11-05] MEDS: ALBUMIN 25% 25 GM/100 ML VIAL IV SCH ×2 (09:50→17:38)
[2022-11-05] MEDS: FUROSEMIDE INJ 20 MG/2 ML VIAL IV SCH ×2 (10:00→17:49)
[2022-11-05] MEDS ORDERED: DAPTOmycin 350 MG in SYRINGE 0 ML IV SCH (14:00)
--- NOTE | 2022-11-05 16:36 | Hospitalist Progress Note ---
Date of Service November 05, 2022 Assessment & Plan (1) Sepsis: (2) Cellulitis of right lower leg: (3) Decompensated hepatic cirrhosis: (4) Chronic atrial fibrillation: (5) Thrombocytopenia: (6) Hypomagnesemia: (7) CKD (chronic kidney disease) stage 4, GFR 15-29 ml/min: Plan Per admitting service notes with addendum: This is a 77-year-old male who has significant past medical history of T2DM, CKD stage IV, cirrhosis, esophageal varices, portal hypertension, chronic thrombocyt openia, chronic atrial fibrillation, iron deficiency anemia who presents to ED at the referral of PCP office due to concern for cellulitis. Sepsis-patient meets criteria per CMS guidelines secondary to tachycardia, leukopenia Right lower extremity cellulitis lactate normal, pt with chronically low bp, hypervolemic on exam blood cultures: Pending Wound culture: Staph species, sensitivities pending Currently afebrile, heart rate improving Continue IV daptomycin Wound care consult placed On IV Lasix for diuresis Acute on chronic CKD stage IV Creatinine has been uptrending since beginning of the year from 1.9 to now 3.29 10/01/2022 creatinine 2.8, 10/22/2022 3.3 Creatinine improved from 3.2, now 2.9 Nephrology service consulted On Lasix 20 mg IV twice daily Albumin 25 g every 8 hours Decompensated cirrhosis Known nonalcoholic cirrhosis with esophageal varices, portal hypertension Worsened lower extremity swelling likely secondary to decompensation We will defer diuresis management to nephrology Had 5 L paracentesis on 10/24, no current indication for paracentesis at this time Hypomagnesemia Resolved Chronic atrial fibrillation Not on anticoagulation due to thrombocytopenia Not on beta-federico due to chronically low blood pressure Thrombocytopenia Platelet stable at 50, no bleeding Hx of T2DM a1c 5.3 september of 2022 no indication for treatment/monitoring DVT prophylaxis: None in setting of thrombocytopenia, lower extremity cellulitis encourage ambulation as able Dispo: Admit to PCU Full code PCP: [place] Disposition Lives with family Will likely need to transition to acute rehab or half-way facility Admission and Anticipated Discharge Date Admission Date: November 04, 2022 Subjective ff up for R lower extremity cellulitis, Acute on CKD IV-V, Cirrhosis, etc Seen resting in bed, sleeping but easily awakened States he still is having some right lower extremity pain No fevers or chills, shortness of breath, chest pain, abdominal pain No other symptom Review of Systems Review of Systems: all noted and negative except for above Physical Exam Physical Exam: General- oriented x 3, not in distress, speaks in sentences with no effort or accessory muscle use Eyes- anicteric Neck- no JVD Lungs- clear breath sounds bilaterally, no rales/wheezes Heart- normal rate, regular rhythm; no murmurs Abdomen- normal bowel sounds, nondistended, soft, no tenderness Extremities-grade 1 lower extremity edema Right lower extremity: Positive moderate erythema, mild warmth, mild tenderness Left lower extremity: Mild erythema, but no warmth or tender Neuro- alert, oriented x 3; no gross focal neurologic deficits Skin- warm & dry Results & Data Results & Data Vital Signs (Past 12 Hours) Vital Signs Temp Pulse Pulse Resp BP BP Pulse Ox 11/05/22 15:13 36.6 C 89 19 90/61 L 97 11/05/22 11:41 36.8 C 109 H 19 105/80 95 11/05/22 11:24 88 11/05/22 11:09 11/05/22 11:01 11/05/22 07:32 36.5 C 116 H 19 95/64 L 97 Pulse Ox O2 Del Method O2 Del Method 11/05/22 15:13 Room Air 11/05/22 11:41 Room Air 11/05/22 11:24 11/05/22 11:09 Room Air 11/05/22 11:01 97 Room Air 11/05/22 07:32 Room Air all noted and reviewed including below
[2022-11-06] MEDS: ALBUMIN 25% 25 GM/100 ML VIAL IV SCH ×3 (01:00→16:14)
[2022-11-06 06:45] LABS: Basophils # (auto) 0.02 K/uL (0-0.2); Eosinophils # (auto) 0.06 K/uL (0-0.50); Eosinophils % (auto) 2.9 %; Hematocrit (blood only) 26.9 % (42.0-52.0); Hemoglobin 9.7 g/dl (14.0-18.0); Lymphocytes # (auto) 0.58 K/uL (1.2-3.4); Lymphocytes % (auto) 28.2 %; Mean Corpuscular Hemoglobin 32.4 pg (25.0-34.0); Mean Corpuscular Hgb Conc 36.1 g/dL (32.0-36.0); Mean Platelet Volume 12.3 fL (9.4-12.4); Monocytes # (auto) 0.29 K/uL (0.11-0.59); Monocytes % (auto) 14.1 %; Neutrophils # (auto) 1.11 K/uL (1.40-6.50); Neutrophils % (auto) 53.8 %; Platelet Count 42 K/uL (130-400); RDW Coefficient of Variation 14.3 % (11.5-14.5); RDW Standard Deviation 46.6 fL (36.4-46.3); Red Blood Count 2.99 M/uL (4.70-6.10); White Blood Count 2.06 K/ul (4.8-10.8)
[2022-11-06 07:19] LABS: Albumin Globulin Ratio 1.3 (0.9-2); Albumin Level 2.7 gm/dl (3.4-5.0); BUN Creatinine Ratio 14.9 (10-20); Bilirubin,Total 2.5 mg/dl (0.2-1.0); Calcium 8.6 mg/dl (8.6-10.3); Creatinine Clr Calc Pharmacy 28.3 ml/min; Est GFR (African American) 24.8 ml/min; Est GFR (Non-African American) 21.4 ml/min; Globulin 2.1 gm/dl (2.5-4.0); Magnesium 1.8 mg/dl (1.7-2.4); Potassium 3.6 mmol/L (3.5-5.1); Total Protein 4.8 gm/dl (6.0-8.3)
[2022-11-06] MEDS: FERROUS SULFATE 325 MG TAB PO SCH (09:02)
[2022-11-06] MEDS: ADVANCED PROBIOTIC 1250 MG CAPSULE PO SCH (09:02)
[2022-11-06] MEDS: TAMSULOSIN HCL 0.4 MG CAP PO SCH (09:03)
[2022-11-06] MEDS: allopurinoL 100 MG TAB PO SCH (09:03)
[2022-11-06] MEDS: PANTOprazole 40 MG TAB PO SCH (09:03)
[2022-11-06] MEDS: oxyCODONE HCL IR 5 MG TAB (IMMEDIATE RELEASE) PO SCH (09:13)
--- NOTE | 2022-11-06 09:20 | Nephrology Progress Note ---
Date of Service November 06, 2022 Assessment & Plan (1) CKD (chronic kidney disease) stage 4, GFR 15-29 ml/min: Plan: - 2/2 Liver disease - Cr is not a good marker of kidney disease in Liver patient, His functions are more severely deranged than they appear to be. -Baseline Scr is in early to late 2.0's, 2/ to his Volume status, diuretic use and paracentesis >> approaching baseline now -His functions have improved with diuresis- Continue with BID IV diuresis and a dd albumin 25 TID for 48 hours. -Maintain Mg>2 and K> 4 , with oral replacement. -MRB needs to added on discharge( We will advise ) -Daily STANDING weight , preferably on the same scale. -Daily I/O -Less than 2 g salt - 1.2 lit fluid restriction Neqphro d/c recs -He needs a hospital discharge appt with Nephrology within 1-2 weeks of discharge with CMP. -pls d/c doing daily standing weight at home andbring log to appts -1.2 L fluid limit adn less than 2 gm sodium diet -pls d/c on torsemide 10 mg daily and spironolactone 12.5 mg daily (2) BRUNA (acute kidney injury): Plan: As above (3) Decompensated hepatic cirrhosis: (4) Cellulitis of right lower leg: Plan: - Continue IV diuretic - Renally dose Abx. Admission and Anticipated Discharge Date Admission Date: November 04, 2022 Subjective no interval clinical evenrts. sbp 90s. has been getting albumin IV. edema better; no sob Review of Systems Review of Systems: All systems reviewed & are unremarkable except as noted in Subjective Physical Exam Constitutional: well developed, well nourished and + frail appearing (sittin gu pin chair on ra); no acute distress Eyes: EOM intact bilaterally ENMT: Ears: no external ear abnormality Nose: no external nose abnormality Mouth: + dry oral mucous membranes Neck: no nuchal rigidity Respiratory: normal respiratory effort Auscultation: + diminished lung sounds Cardiovascular: Rate/Rhythm: regular rate and regular rhythm Extremities: + edema (trace RLE) Gastrointestinal (Abdomen): Inspection/Auscultation: + abdomen distended and normal bowel sounds Percussion/Palpation: abdomen soft and + ascites; abdomen nontender Musculoskeletal: Extremities: strength 5/5 throughout Skin: no rashes, warm and dry distal RLE purplish Neurologic: mack, fluent speech, no tremor Results & Data Vital Signs (Past 12 Hours) Vital Signs Temp Pulse Resp BP Pulse Ox O2 Del Method 11/06/22 03:35 36.4 C L 100 H 17 115/71 96 Room Air 11/05/22 23:05 36.5 C 95 H 18 92/65 L 98 Room Air Laboratory Results 11/06/22 05:47 11/06/22 05:47
[2022-11-06] MEDS ORDERED: DAPTOmycin 350 MG in SYRINGE 0 ML IV SCH (14:00)
[2022-11-06] MEDS ORDERED: SPIRONOLACTONE 12.5 MG TAB PO SCH (14:00)
[2022-11-06] MEDS ORDERED: TORSEMIDE 10 MG TAB PO SCH (14:00)
[2022-11-06] MEDS: FUROSEMIDE INJ 20 MG/2 ML VIAL IV SCH (14:14)
[2022-11-06] MEDS ORDERED: CIPROFLOXACIN 500 MG TAB PO SCH (14:15)
--- NOTE | 2022-11-06 15:49 | Discharge Summary ---
Date of Service November 06, 2022 Admission HPI Per Admitting Provider This is a 77-year-old male who has significant past medical history of T2DM, CKD stage IV, cirrhosis, esophageal varices, portal hypertension, chronic thrombocytopenia, chronic atrial fibrillation, iron deficiency anemia who presents to ED at the referral of PCP office due to concern for cellulitis. He was seen and evaluated in clinic today due to worsening leg edema and drainage from right lower leg x1 week. It is noted patient has chronic hypotension which is stable at baseline. On 10/24 patient underwent a 5 L paracentesis. Patient has baseline CKD stage 4 with an uptrending creatinine since beginning of this year. His renal function has been running 2.8-3.3 as outpatient.He states he has had increased drainage from his right lower extremity that has been worsening over the past 4 days. His has been changing dressings due to saturation at least 4 times a day. He also states his right leg is red. He denies any pain or itching to his right lower extremity. He denies similar symptoms in the past. At baseline he does have swelling to both of his lower extremities but currently they are worse than baseline despite taking torsemide. He feels like he is not urinating as much as he usually does. He also complains of loss of appetite as well as fatigue. He lives at home with his and typically ambulates with a walker. He denies any jean generalized weakness today.He denies any fever, chills, sweats, lightheadedness, dizziness, chest pain, shortness of breath, orthopnea, nausea, vomiting, diarrhea or constipation. He is unsure of any weight change due to his recent paracentesis. His daughter is at bedside.In ED patient was diagnosed with right lower extremity cellulitis and started on IV daptomycin. Admission Exam Per Admitting Provider Constitutional: chronically ill appearing, b/l temporal wasting, vitals as above, NAD, sitting up in bed, pleasant, conversing easily Head: Normocephalic, Atraumatic Eyes: PERRL, conjunctivae normal, anicteric sclerae ENMT: external ear and nose normal, oropharynx normal dry membranes Neck: trachea midline, no thyromegaly normal visual inspection Respiratory: normal respiratory effort, lungs clear to auscultation, no wheeze, rales, rhonchi. Normal insp/exp effort, no accessory muscle use Cardiovascular: IRR/IRR, b/l lower ext +3 edema R > L with anterior RLE erythema, bulla, warm to touch, negative homans Vessels: no JVD or carotid bruit Chest: normal inspection of chest Abdomen: distended but soft Musculoskeletal: no cyanosis or clubbing, arom x 4 but weak Skin: no rashes, warm and dry normal turgor Neurologic: no face palsy, no dysarthria CN's II-XI intact bilaterally and moves all extremities Psychiatric: A+Ox3, euthymic affect : deferred Principal Diagnosis Right lower extremity cellulitis BRUNA on CKD Discharge Exam Constitutional: WD/WN, vitals as above, NAD, sitting up in bed, pleasant, conversing easily Respiratory: normal respiratory effort, lungs clear to auscultation, no wheeze, rales, rhonchi. Normal insp/exp effort, no accessory muscle use Cardiovascular: RRR, no murmur, no edema Vessels: no JVD or carotid bruit Chest: normal inspection of chest Abdomen: normal bowel sounds, soft, nontender, no hepatosplenomegaly Musculoskeletal: no cyanosis or clubbing, extremities motor strength 5/5 Skin: Right lower extremity with abrasion and cellulitis. Improved compared to previous day. Neurologic: PERRL, EOMI, accommodation nl, no face palsy, no dysarthria CN's II- XI intact bilaterally and moves all extremities Psychiatric: A+Ox3, euthymic affect Discharge Data Allergies Allergy/AdvReac Type Severity Reaction Status Date / Time lisinopril Allergy Severe ANGIOEDEMA Verified 07/31/22 09:40 cephalexin Allergy Intermediate Hives Verified 07/31/22 09:40 Consultations 11/04/22 12:11 ED Decision to Admit Stat 11/04/22 13:12 Consult Nephrology Routine Hospital Course (1) Sepsis: (2) Cellulitis of right lower leg: (3) Decompensated hepatic cirrhosis: (4) Chronic atrial fibrillation: (5) Thrombocytopenia: (6) Hypomagnesemia: (7) CKD (chronic kidney disease) stage 4, GFR 15-29 ml/min: Plan Per admitting service notes with addendum: This is a 77-year-old male who has significant past medical history of T2DM, CKD stage IV, cirrhosis, esophageal varices, portal hypertension, chronic thrombocytopenia, chronic atrial fibrillation, iron deficiency anemia who presents to ED at the referral of PCP office due to concern for cellulitis. Sepsis-patient meets criteria per CMS guidelines secondary to tachycardia, leukopenia Right lower extremity cellulitis lactate normal, pt with chronically low bp, hypervolemic on exam blood cultures: Negative Wound culture: Staph species and gram-negative bacilli During the hospitalization, treated with IV daptomycin. Discharged home on doxycycline and ciprofloxacin for 5 days Acute on chronic CKD stage IV Creatinine has been uptrending since beginning of the year from 1.9 to now 3.29 10/01/2022 creatinine 2.8, 10/22/2022 3.3 During the hospitalization, nephrology was consulted; patient was treated with IV albumin and Lasix. Discharged home on torsemide and Aldactone as per nephrology recommendation Follow-up with PCP and pulmonology set up at discharge Patient was recommended to stay in the hospital and undergo PT OT assessment. Patient adamantly refused. Discussed with his daughter at bedside as well. Patient wanted to get discharged as soon as possible. Patient reported that he is at baseline with his ambulation. He was walking inside the room with the help of a walker. Total Time Total Time Spent Total Time Spent (In Minutes): 45 Total Time Includes: Examination of the Patient, Discharge Planning, Medication Reconciliation, Communication With Other Providers and Other Discharge Plan Discharge Items Patient Disposition: Home - Self-Care Reason For Visit: SEPSIS,CELLULITIS Discharge Diagnosis: Sepsis Right lower extremity cellulitis Activity: Resume your previous activity Non-emergency contact: Primary Care Provider Call non-emergency contact if: you have any medication questions and your symptoms worsen Follow-up/Referrals: Wilson Munroe MD [Surgeon] - (Date & Time 11/20/2022 9:00 AM Provider Wilson Munroe MD Department Nephrology, [facility] ) Chiki Vickers DO [Primary Care Provider] - (Date & Time 11/11/2022 9:40 AM Provider Pharmacist [address] [place] [address] Department Family Practice [address] [place] [address] Date & Time 11/11/2022 10:00 AM Provider Chiki Vickers DO Department Family Practice [address] [place] [address] ) Diet: Regular and Low Sodium (2gm) Fluids: 1200ml (5 cups) Addtl Attending Provider Instructions: Were admitted to the hospital with right lower leg cellulitis. You are prescribed following antibiotics: 1) doxycycline 100 mg twice daily for 5 days 2) ciprofloxacin 500 mg once daily for 5 days You were evaluated by nephrology during the hospitalization due to abnormal kidney function. You are prescribed torsemide 10 mg once daily and spironolactone 12.5 mg once daily. Appointments have been set up with your primary care doctor and nurse case management (Dr. Munroe). Please do comprehensive metabolic panel when you see your primary care doctor. Pending Studies at Discharge: No Stand-Alone Forms: My [facility], Smoking Cessation Medications and DC Order Prescriptions: New torsemide 10 mg Tablet 10 mg PO QAM Qty: 30 0RF ciprofloxacin HCl 500 mg Tablet 500 mg PO DAILY 5 Days Qty: 5 0RF spironolactone 25 mg Tablet 12.5 mg PO DAILY Qty: 30 0RF doxycycline hyclate 100 mg capsule 100 mg PO BID 5 Days Qty: 10 0RF Continued allopurinol 100 mg tablet 100 mg PO DAILY tamsulosin 0.4 mg capsule 0.4 mg PO DAILY pantoprazole 40 mg tablet,delayed release (DR/EC) 40 mg PO DAILY ferrous sulfate 324 mg (65 mg iron) Tablet,Delayed Release (Dr/Ec) 324 mg PO DAILY oxycodone 5 mg tablet 5 mg PO [facility] Rx Instructions: hold for sedation/confusion Discontinued torsemide 20 mg tablet 20 mg PO DAILY Discharge Orders: Discharge Order (Routine); Ordered 11/06/22 Ordered By: Edil Hoskins Admission Data Admit Date/Time: 11/04/22 12:39 Attending Provider: Edil Hoskins Admit Provider: Joselyn Alvarenga Primary Care Provider: Chiki Vickers Other Providers: Eyad Carrasquillo ; Joselyn Alvarenga ; Benjamin Hoffmann
--- NOTE | 2022-11-06 23:07 | Electrocardiogram Report ---
Test Reason : Blood Pressure : / mmHG Vent. Rate : 118 BPM Atrial Rate : 000 BPM P-R Int : 000 ms QRS Dur : 084 ms QT Int : 304 ms P-R-T Axes : 000 008 -03 degrees QTc Int : 426 ms Atrial fibrillation with rapid ventricular response with premature ventricular or aberrantly conducte d complexes Nonspecific T wave abnormality Abnormal ECG When compared with ECG of 06-MAR-2021 13:23, Vent. rate has increased BY 42 BPM Nonspecific T wave abnormality now evident in Lateral leads Premature ventricular complexes are now Present Confirmed by Jonathan Ruiz ([id number]) on 11/06/2022 11:07:16 PM Referred By: Confirmed By:Jonathan Ruiz
== END 2022-11-06 16:41 | disposition home or self-care (01) | DRG 872 ==
LOC: ED 10:23 → SUATTDRO 12:39 → 2E 12:39

== ENCOUNTER 2022-12-18 12:01 | Inpatient (IN) ==
[2022-12-18] MEDS ORDERED: SODIUM CHLORIDE 0.9% 1000ML 2,000 ML IV ONE (12:13)
--- NOTE | 2022-12-18 12:19 | Emergency Department Note ---
Impression & Plan AMS (altered mental status), Acute hypotension, Thrombocytopenia, Hypokalemia, BRUNA (acute kidney injury) ED Provider Note NAME: NAWAF LEDESMA AGE: 77 SEX: M : 1945 ARRIVES VIA: Ambulance INFORMANT: EMS ED PROVIDER(S): Frank Buckley DO CHIEF COMPLAINT: Altered mental status HPI: Patient is a 77-year-old male with a past medical history of liver cirrhosis, CKD, sepsis, small bowel obstruction who presents to the ER for multiple falls this morning. Last known well was somewhere around 4 AM. Since then he has been confused. He does live at home with family per EMS. Patient is unable to give any history. EMS brought the patient in and was able to get blood pressures in the 60s. He was not hypoxic. History is otherwise limited. PAST MEDICAL HISTORY:See Below PAST SURGICAL HISTORY:See Below FAMILY HISTORY:See Below SOCIAL HISTORY:See Below HOME MEDICATIONS:See Below ALLERGIES:See Below VITALS:See Below PHYSICAL EXAMINATION: GENERAL: Lying in bed and rolling around moaning HEAD: normal cephalic, atraumatic EYE EXAM: normal conjunctiva, PERRL and EOM's grossly intact OROPHARYNX: mucous membranes are moist EARS: Laceration to right earlobe with a small amount of venous oozing. Please see my PAs note for further details NECK: supple, no nuchal rigidity, no adenopathy, non-tender CHEST: stable to compression anteriorly and posteriorly LUNGS: clear to auscultation. Normal chest wall mechanics HEART: no murmurs, S1 normal and S2 normal ABDOMEN: abdomen soft, non-tender, normo-active bowel sounds, no masses, no rebound or guarding. PELVIS: stable to compression anteriorly and posteriorly SKIN: Multiple abrasions to the arms legs back and chest BACK: Back is symmetrical on inspection and there is no deformity, no midline tenderness, no CVA tenderness. UPPER EXTREMITIES: full active and passive range of motion of all joints without tenderness to palpation LOWER EXTREMITIES: full active and passive range of motion of all joints without tenderness to palpation NEURO EXAM: Lying in bed moaning, cranial nerves II-XII grossly intact, normal speech, no gross weakness of arms, no gross weakness of legs. MEDICAL DECISION MAKING: Patient is a 77-year-old male who presents ER for ongoing multiple falls and confusion. IV was established blood work was obtained. Labs show mild leukopenia 4000. Mild anemia 10. Platelets were low at 39 consistent with previous. INR at 1.6. BMP with a hypokalemia 2.9 and creatinine 3.8 up from baseline of 2.8. Troponin was elevated at 90. UA was clean. Ammonia was negative. CT of the chest head abdomen pelvis and cervical spine showed questionable choledocholithiasis. Bilirubin was fairly consistent with previous and there is no transaminitis. Patient was given Zosyn. He was given IV fluids. Pressures waxed and waned from the 60s to the low 100s. Family was updated at bedside. Discussed case with the hospitalist for further evaluation management treatment. Triage Nursing notes reviewed. Limited review of prior medical records performed Vital Signs: reviewed and remarkable for hypotension Differential diagnosis: Differential diagnosis includes etiologies such as sepsis, UTI, pneumonia, metabolic, electrolyte abnormalities, cardiac sources, intracerebral event, toxicologic, neurological, as well as others were entertained. ER treatment provided: See below Diagnostics interpreted by me include EKG and cardiac monitoring as listed below: -Cardiac Monitoring: An order was placed for continuous cardiac monitoring. The monitor shows a rate of 122 with sinus rhythm. -ECG: Narrow complex tachycardia rate of 116 PVC Poor baseline QTc 428 -Laboratory studies:Interpreted by me as stated above in MDM and shown below. Imaging studies: Xrays: As interpreted by me: Portable AP upright 1 view of the chest shows no focal CTs show: CT head, chest abdomen pelvis as described above Consultation(s): As described in [facility] Procedures:none Critical Care: I have personally spent 75 minutes of critical care time in the direct management of this patient. This includes bedside care, interpretation of diagnostic studies, and testing, discussion with consultants, patient, and family members, and other required patient management activities. This 75 minutes is in excess of all separately billable procedures. Past Med/Surg History Medical History Anemia BPH (benign prostatic hyperplasia) Cellulitis HX OF LEFT LEG (CURRENTLY ALL HEALED) CKD (chronic kidney disease) stage 4, GFR 15-29 ml/min 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 2mg versed. 100mcg fentanyl. History of tooth extraction S/P colectomy Family History Sister Diabetes Brother Diabetes Mother Diabetes Father Diabetes Other Stroke Social History Smoking Status: Former smoker Cigarettes Per Day: quit 13yrs ago; Second Hand Exposure: No; Do You Dip or Chew Tobacco: No; Hx Alcohol Use: No Hx Substance Use: No Preferred Language: Maori Communication Ability: Effective Visual Impairment: No Limitations Staff Nurse Required: No Beliefs That Will Affect Care: None Current Living Situation: Spouse Current Living Situation Comment: lives in a 2 story home with , resides mostly on Feels Safe at Home: Yes Assistive Devices: Cane, Denture - Upper, Denture - Lower, Glasses and Walker Allergies Allergies Allergy/AdvReac Type Severity Reaction Status Date / Time lisinopril Allergy Severe ANGIOEDEMA Verified 07/31/22 09:40 cephalexin Allergy Intermediate Hives Verified 07/31/22 09:40 Home Meds Home Medications Medication Instructions Recorded Confirmed allopurinol 100 mg tablet 200 mg PO DAILY 11/04/22 12/18/22 ferrous sulfate 324 mg (65 mg 324 mg PO DAILY 11/04/22 12/18/22 iron) tablet,delayed release oxycodone 5 mg tablet 5 mg PO AMHS 11/04/22 12/18/22 pantoprazole 40 mg tablet,delayed 40 mg PO DAILY 11/04/22 12/18/22 release tamsulosin 0.4 mg capsule 0.4 mg PO DAILY 11/04/22 12/18/22 midodrine 5 mg tablet See Rx Instructions .Route .COMPLEX 12/18/22 12/18/22 triamcinolone acetonide 0.1 % 1 applic topical BID 12/18/22 12/18/22 topical cream Previous Rx's Medication Instructions Recorded spironolactone 25 mg tablet 12.5 mg PO DAILY #30 tabs 11/06/22 torsemide 10 mg tablet 10 mg PO QAM #30 tabs 11/06/22 Results & Data (ED) Vital Signs Vital Signs - 24 hr 12/18/22 12:31 12/18/22 12:41 12/18/22 12:41 Temperature 36.1 C L Temperature Source Rectal Pulse Rate 114 H Pulse Rate [Apical] 93 H Pulse Rate from SpO2 Sensor Respiratory Rate 13 16 Blood Pressure 99/67 L Blood Pressure Mean 77 Pulse Oximetry 93 92 95 Oxygen Delivery Method Room Air Room Air Room Air Oxygen Flow Rate 0 Sepsis Recent Fever Within 48 Hours No Sepsis New/Unexplained Change in Mental Status Yes Sepsis Action Taken by Nursing Physician Notified 12/18/22 12:32 12/18/22 12:32 12/18/22 12:33 Temperature Temperature Source Pulse Rate 97 H 107 H Pulse Rate [Apical] Pulse Rate from SpO2 Sensor 107 H Respiratory Rate 16 Blood Pressure Blood Pressure Mean Pulse Oximetry 94 94 Oxygen Delivery Method Room Air Oxygen Flow Rate Sepsis Recent Fever Within 48 Hours Sepsis New/Unexplained Change in Mental Status Sepsis Action Taken by Nursing 12/18/22 12:35 12/18/22 12:40 12/18/22 12:45 Temperature Temperature Source Pulse Rate 103 H 118 H Pulse Rate [Apical] Pulse Rate from SpO2 Sensor 100 H 110 H 96 H Respiratory Rate 13 18 14 Blood Pressure Blood Pressure Mean Pulse Oximetry 94 95 98 Oxygen Delivery Method Oxygen Flow Rate Sepsis Recent Fever Within 48 Hours Sepsis New/Unexplained Change in Mental Status Sepsis Action Taken by Nursing 12/18/22 12:50 12/18/22 12:50 12/18/22 12:55 Temperature Temperature Source Pulse Rate 110 H 128 H Pulse Rate [Apical] Pulse Rate from SpO2 Sensor 100 H 116 H Respiratory Rate 16 13 Blood Pressure 82/61 L Blood Pressure Mean 67 Pulse Oximetry 97 95 Oxygen Delivery Method Oxygen Flow Rate Sepsis Recent Fever Within 48 Hours Sepsis New/Unexplained Change in Mental Status Sepsis Action Taken by Nursing 12/18/22 12:59 12/18/22 12:59 12/18/22 12:59 Temperature Temperature Source Pulse Rate Pulse Rate [Apical] Pulse Rate from SpO2 Sensor 119 H Respiratory Rate 12 Blood Pressure 71/39 L 88/56 L Blood Pressure Mean 51 65 Pulse Oximetry 95 Oxygen Delivery Method Oxygen Flow Rate Sepsis Recent Fever Within 48 Hours Sepsis New/Unexplained Change in Mental Status Sepsis Action Taken by Nursing 12/18/22 13:00 12/18/22 13:05 12/18/22 13:10 Temperature Temperature Source Pulse Rate 120 H 93 H 98 H Pulse Rate [Apical] Pulse Rate from SpO2 Sensor 111 H 105 H 96 H Respiratory Rate 16 13 17 Blood Pressure Blood Pressure Mean Pulse Oximetry 98 94 95 Oxygen Delivery Method Oxygen Flow Rate Sepsis Recent Fever Within 48 Hours Sepsis New/Unexplained Change in Mental Status Sepsis Action Taken by Nursing 12/18/22 13:11 12/18/22 13:11 12/18/22 13:32 Temperature Temperature Source Pulse Rate 125 H 101 H Pulse Rate [Apical] Pulse Rate from SpO2 Sensor 133 H Respiratory Rate 14 15 Blood Pressure 74/48 L Blood Pressure Mean 54 Pulse Oximetry 93 Oxygen Delivery Method Oxygen Flow Rate Sepsis Recent Fever Within 48 Hours Sepsis New/Unexplained Change in Mental Status Sepsis Action Taken by Nursing 12/18/22 13:33 12/18/22 13:35 12/18/22 13:35 Temperature Temperature Source Pulse Rate 101 H 117 H Pulse Rate [Apical] Pulse Rate from SpO2 Sensor 111 H Respiratory Rate 17 13 Blood Pressure 84/60 L Blood Pressure Mean 66 Pulse Oximetry 97 Oxygen Delivery Method Oxygen Flow Rate Sepsis Recent Fever Within 48 Hours Sepsis New/Unexplained Change in Mental Status Sepsis Action Taken by Nursing 12/18/22 13:40 12/18/22 13:40 12/18/22 13:45 Temperature Temperature Source Pulse Rate 107 H 127 H Pulse Rate [Apical] Pulse Rate from SpO2 Sensor 107 H 89 Respiratory Rate 16 12 Blood Pressure 76/54 L Blood Pressure Mean 64 Pulse Oximetry 95 96 Oxygen Delivery Method Oxygen Flow Rate Sepsis Recent Fever Within 48 Hours Sepsis New/Unexplained Change in Mental Status Sepsis Action Taken by Nursing 12/18/22 13:50 12/18/22 13:55 12/18/22 13:55 Temperature Temperature Source Pulse Rate 93 H 88 Pulse Rate [Apical] Pulse Rate from SpO2 Sensor 98 H 89 Respiratory Rate 11 L 13 Blood Pressure 70/41 L Blood Pressure Mean 42 Pulse Oximetry 97 97 Oxygen Delivery Method Oxygen Flow Rate Sepsis Recent Fever Within 48 Hours Sepsis New/Unexplained Change in Mental Status Sepsis Action Taken by Nursing 12/18/22 14:00 12/18/22 14:00 12/18/22 14:03 Temperature Temperature Source Pulse Rate 82 88 Pulse Rate [Apical] Pulse Rate from SpO2 Sensor 90 88 Respiratory Rate 9 L 12 Blood Pressure 64/43 L Blood Pressure Mean 46 Pulse Oximetry 96 97 Oxygen Delivery Method Oxygen Flow Rate Sepsis Recent Fever Within 48 Hours Sepsis New/Unexplained Change in Mental Status Sepsis Action Taken by Nursing 12/18/22 14:03 12/18/22 14:05 12/18/22 14:05 Temperature Temperature Source Pulse Rate 89 Pulse Rate [Apical] Pulse Rate from SpO2 Sensor 83 Respiratory Rate 7 L Blood Pressure 66/44 L 67/44 L Blood Pressure Mean 55 54 Pulse Oximetry 96 Oxygen Delivery Method Oxygen Flow Rate Sepsis Recent Fever Within 48 Hours Sepsis New/Unexplained Change in Mental Status Sepsis Action Taken by Nursing 12/18/22 14:08 12/18/22 14:08 12/18/22 14:10 Temperature Temperature Source Pulse Rate 87 Pulse Rate [Apical] Pulse Rate from SpO2 Sensor 90 Respiratory Rate 8 L Blood Pressure 70/44 L 69/44 L Blood Pressure Mean 55 55 Pulse Oximetry 97 Oxygen Delivery Method Oxygen Flow Rate Sepsis Recent Fever Within 48 Hours Sepsis New/Unexplained Change in Mental Status Sepsis Action Taken by Nursing 12/18/22 14:10 12/18/22 14:14 12/18/22 14:14 Temperature Temperature Source Pulse Rate 79 85 Pulse Rate [Apical] Pulse Rate from SpO2 Sensor 83 85 Respiratory Rate 9 L 10 L Blood Pressure 69/43 L Blood Pressure Mean 48 Pulse Oximetry 96 97 Oxygen Delivery Method Oxygen Flow Rate Sepsis Recent Fever Within 48 Hours Sepsis New/Unexplained Change in Mental Status Sepsis Action Taken by Nursing 12/18/22 14:15 12/18/22 14:15 12/18/22 14:20 Temperature Temperature Source Pulse Rate 85 83 Pulse Rate [Apical] Pulse Rate from SpO2 Sensor 85 Respiratory Rate 10 L 12 Blood Pressure 65/43 L 68/40 L Blood Pressure Mean 47 50 Pulse Oximetry 97 Oxygen Delivery Method Oxygen Flow Rate Sepsis Recent Fever Within 48 Hours Sepsis New/Unexplained Change in Mental Status Sepsis Action Taken by Nursing 12/18/22 14:25 12/18/22 14:30 12/18/22 14:30 Temperature Temperature Source Pulse Rate 85 82 Pulse Rate [Apical] Pulse Rate from SpO2 Sensor 90 84 Respiratory Rate 13 17 Blood Pressure 67/44 L 68/37 L Blood Pressure Mean 51 53 Pulse Oximetry 96 97 Oxygen Delivery Method Oxygen Flow Rate Sepsis Recent Fever Within 48 Hours Sepsis New/Unexplained Change in Mental Status Sepsis Action Taken by Nursing 12/18/22 14:34 12/18/22 14:34 12/18/22 14:35 Temperature Temperature Source Pulse Rate 83 Pulse Rate [Apical] Pulse Rate from SpO2 Sensor 85 Respiratory Rate 11 L Blood Pressure 63/38 L 59/39 L Blood Pressure Mean 48 44 Pulse Oximetry 99 Oxygen Delivery Method Oxygen Flow Rate Sepsis Recent Fever Within 48 Hours Sepsis New/Unexplained Change in Mental Status Sepsis Action Taken by Nursing 12/18/22 14:36 12/18/22 14:40 12/18/22 14:40 Temperature Temperature Source Pulse Rate 78 82 86 Pulse Rate [Apical] Pulse Rate from SpO2 Sensor Respiratory Rate 14 16 13 Blood Pressure 63/34 L 67/33 L 67/33 L Blood Pressure Mean 47 42 42 Pulse Oximetry 95 98 95 Oxygen Delivery Method Oxygen Flow Rate Sepsis Recent Fever Within 48 Hours Sepsis New/Unexplained Change in Mental Status Sepsis Action Taken by Nursing 12/18/22 14:41 12/18/22 14:43 12/18/22 14:45 Temperature Temperature Source Pulse Rate 82 65 84 Pulse Rate [Apical] Pulse Rate from SpO2 Sensor Respiratory Rate 14 16 14 Blood Pressure 61/34 L 69/46 L 64/40 L Blood Pressure Mean 48 54 44 Pulse Oximetry 96 96 97 Oxygen Delivery Method Oxygen Flow Rate Sepsis Recent Fever Within 48 Hours Sepsis New/Unexplained Change in Mental Status Sepsis Action Taken by Nursing 12/18/22 15:04 12/18/22 15:05 12/18/22 15:07 Temperature Temperature Source Pulse Rate 75 73 76 Pulse Rate [Apical] Pulse Rate from SpO2 Sensor Respiratory Rate 14 15 16 Blood Pressure 62/34 L 58/36 L 66/34 L Blood Pressure Mean 45 44 41 Pulse Oximetry 97 99 98 Oxygen Delivery Method Oxygen Flow Rate Sepsis Recent Fever Within 48 Hours Sepsis New/Unexplained Change in Mental Status Sepsis Action Taken by Nursing 12/18/22 15:10 12/18/22 15:10 12/18/22 15:15 Temperature Temperature Source Pulse Rate 82 Pulse Rate [Apical] Pulse Rate from SpO2 Sensor 85 Respiratory Rate 9 L Blood Pressure 67/39 L 74/50 L Blood Pressure Mean 40 56 Pulse Oximetry 96 Oxygen Delivery Method Oxygen Flow Rate Sepsis Recent Fever Within 48 Hours Sepsis New/Unexplained Change in Mental Status Sepsis Action Taken by Nursing 12/18/22 15:15 12/18/22 15:20 12/18/22 15:20 Temperature Temperature Source Pulse Rate 78 82 Pulse Rate [Apical] Pulse Rate from SpO2 Sensor 81 80 Respiratory Rate 9 L 7 L Blood Pressure 87/63 L Blood Pressure Mean 67 Pulse Oximetry 99 99 Oxygen Delivery Method Oxygen Flow Rate Sepsis Recent Fever Within 48 Hours Sepsis New/Unexplained Change in Mental Status Sepsis Action Taken by Nursing 12/18/22 15:25 12/18/22 15:25 12/18/22 15:30 Temperature Temperature Source Pulse Rate 90 Pulse Rate [Apical] Pulse Rate from SpO2 Sensor 95 H Respiratory Rate 8 L Blood Pressure 92/62 L 86/68 L Blood Pressure Mean 67 76 Pulse Oximetry 98 Oxygen Delivery Method Oxygen Flow Rate Sepsis Recent Fever Within 48 Hours Sepsis New/Unexplained Change in Mental Status Sepsis Action Taken by Nursing 12/18/22 15:30 12/18/22 15:35 12/18/22 15:40 Temperature Temperature Source Pulse Rate 81 88 149 H Pulse Rate [Apical] Pulse Rate from SpO2 Sensor 93 H 109 H 96 H Respiratory Rate 11 L 12 9 L Blood Pressure Blood Pressure Mean Pulse Oximetry 98 93 97 Oxygen Delivery Method Oxygen Flow Rate Sepsis Recent Fever Within 48 Hours Sepsis New/Unexplained Change in Mental Status Sepsis Action Taken by Nursing 12/18/22 15:42 12/18/22 15:42 12/18/22 15:45 Temperature Temperature Source Pulse Rate 93 H Pulse Rate [Apical] Pulse Rate from SpO2 Sensor 106 H Respiratory Rate 13 Blood Pressure 88/59 L 85/56 L Blood Pressure Mean 74 71 Pulse Oximetry 97 Oxygen Delivery Method Oxygen Flow Rate Sepsis Recent Fever Within 48 Hours Sepsis New/Unexplained Change in Mental Status Sepsis Action Taken by Nursing 12/18/22 15:45 Temperature Temperature Source Pulse Rate 92 H Pulse Rate [Apical] Pulse Rate from SpO2 Sensor 97 H Respiratory Rate 10 L Blood Pressure Blood Pressure Mean Pulse Oximetry 97 Oxygen Delivery Method Oxygen Flow Rate Sepsis Recent Fever Within 48 Hours Sepsis New/Unexplained Change in Mental Status Sepsis Action Taken by Nursing Laboratory Data 12/18/22 12:30 12/18/22 12:30 Lab Results 12/18/22 12/18/22 12/18/22 Range/Units 12:30 12:30 12:30 WBC 4.04 L (4.8-10.8) K/ul RBC 3.19 L (4.70-6.10) M/uL Hgb 10.4 L (14.0-18.0) g/dl Hct 28.9 L (42.0-52.0) % MCV 90.6 (80.0-100.0) fL MCH 32.6 (25.0-34.0) pg MCHC 36.0 (32.0-36.0) g/dL RDW Std Deviation 48.5 H (36.4-46.3) fL RDW Coeff of Scottie 14.7 H (11.5-14.5) % Plt Count 39 L (130-400) K/uL MPV 12.6 H (9.4-12.4) fL Immature Gran % (Auto) 0.5 % Neut % (Auto) 90.3 % Lymph % (Auto) 3.5 % [place] % (Auto) 5.7 % Eos % (Auto) 0.0 % Baso % (Auto) 0.0 % Neut # (Auto) 3.65 (1.40-6.50) K/uL Lymph # (Auto) 0.14 L (1.2-3.4) K/uL [place] # (Auto) 0.23 (0.11-0.59) K/uL Eos # (Auto) 0.00 (0-0.50) K/uL Baso # (Auto) 0.00 (0-0.2) K/uL Immature Gran # (Auto) 0.02 (0.01-0.20) K/uL Polychromasia 1+ Ovalocytes 1+ Echinocytes 1+ PT (9.0-12.0) Seconds INR (0.9-1.1) Sodium 134 L (136-145) mmol/L Potassium 2.9 L (3.5-5.1) mmol/L Chloride 99 (98-107) mmol/L Carbon Dioxide 21 (21-32) mmol/L Anion Gap 14 H (3-11) BUN 57 H (6-23) mg/dl Creatinine 3.84 H (0.6-1.4) mg/dl Est Cr Clr Drug Dosing Not Reportable Est GFR ( Amer) 16.6 ml/min Est GFR (Non-Af Amer) 14.3 ml/min BUN/Creatinine Ratio 14.8 (10-20) Glucose 135 H (70-99(Fasting)) mg/dl Calcium 8.6 (8.6-10.3) mg/dl Magnesium 1.4 L (1.7-2.4) mg/dl Total Bilirubin 3.1 H (0.2-1.0) mg/dl Direct Bilirubin 1.0 H (0-0.2) mg/dl AST 39 (13-39) U/L ALT 12 (7-52) U/L Alkaline Phosphatase 47 (34-104) U/L Ammonia (18-72) umol/L Troponin I High Sens 85.6 H* (0-20) pg/ml Total Protein 5.2 L (6.0-8.3) gm/dl Albumin 2.7 L (3.4-5.0) gm/dl Procalcitonin 0.11 (0-0.5) ng/ml Urine Color Urine Appearance (Clear) Urine pH (4.5-7.5) Ur Specific [place] (1.000-1.030) Urine Protein (Negative) Urine Glucose (UA) (Negative) Urine Ketones (Negative) Urine Blood (Negative) Urine Nitrite (Negative) Urine Bilirubin (Negative) Urine Urobilinogen (Negative) Ur Leukocyte Esterase (Negative) 12/18/22 12/18/22 12/18/22 Range/Units 12:30 12:30 12:47 WBC (4.8-10.8) K/ul RBC (4.70-6.10) M/uL Hgb (14.0-18.0) g/dl Hct (42.0-52.0) % MCV (80.0-100.0) fL MCH (25.0-34.0) pg MCHC (32.0-36.0) g/dL RDW Std Deviation (36.4-46.3) fL RDW Coeff of Scottie (11.5-14.5) % Plt Count (130-400) K/uL MPV (9.4-12.4) fL Immature Gran % (Auto) % Neut % (Auto) % Lymph % (Auto) % [place] % (Auto) % Eos % (Auto) % Baso % (Auto) % Neut # (Auto) (1.40-6.50) K/uL Lymph # (Auto) (1.2-3.4) K/uL [place] # (Auto) (0.11-0.59) K/uL Eos # (Auto) (0-0.50) K/uL Baso # (Auto) (0-0.2) K/uL Immature Gran # (Auto) (0.01-0.20) K/uL Polychromasia Ovalocytes Echinocytes PT 17.3 H (9.0-12.0) Seconds INR 1.6 H (0.9-1.1) Sodium (136-145) mmol/L Potassium (3.5-5.1) mmol/L Chloride (98-107) mmol/L Carbon Dioxide (21-32) mmol/L Anion Gap (3-11) BUN (6-23) mg/dl Creatinine (0.6-1.4) mg/dl Est Cr Clr Drug Dosing Est GFR ( Amer) ml/min Est GFR (Non-Af Amer) ml/min BUN/Creatinine Ratio (10-20) Glucose (70-99(Fasting)) mg/dl Calcium (8.6-10.3) mg/dl Magnesium (1.7-2.4) mg/dl Total Bilirubin (0.2-1.0) mg/dl Direct Bilirubin (0-0.2) mg/dl AST (13-39) U/L ALT (7-52) U/L Alkaline Phosphatase (34-104) U/L Ammonia 61.0 (18-72) umol/L Troponin I High Sens (0-20) pg/ml Total Protein (6.0-8.3) gm/dl Albumin (3.4-5.0) gm/dl Procalcitonin (0-0.5) ng/ml Urine Color Yellow Urine Appearance Clear (Clear) Urine pH 5.5 (4.5-7.5) Ur Specific [place] 1.009 (1.000-1.030) Urine Protein Negative (Negative) Urine Glucose (UA) Negative (Negative) Urine Ketones Negative (Negative) Urine Blood Negative (Negative) Urine Nitrite Negative (Negative) Urine Bilirubin Negative (Negative) Urine Urobilinogen Negative (Negative) Ur Leukocyte Esterase Negative (Negative) Administered Medications Norepinephrine Bitartrate (Levophed/D5w) 4 mg in 250 mls @ 32.4 mls/hr IV .Q7H43M [facility]; Protocol Stop: 01/17/23 15:29 Last Titration: 12/18/22 17:10 Dose: 0.09 mcg/kg/min, 32.4 mls/hr Documented By: Titration: 12/18/22 16:17 Dose: 0.07 mcg/kg/min, 25.2 mls/hr Documented By: Admin: 12/18/22 15:16 Dose: 0.05 mcg/kg/min, 18 mls/hr Documented By: NA Co-signed By: ACC Magnesium Sulfate/Dextrose (Magnesium Sulfate / D5w) 1 gm in 100 mls @ 50 mls/hr IV Q1H MELISSA Stop: 01/17/23 16:59 Last Admin: 12/18/22 17:00 Dose: 50 mls/hr Documented By: WRS Vasopressin 20 units/ Sodium (Chloride) 101 mls @ 0 mls/hr IV .Q0M MELISSA Stop: 01/17/23 17:59 Last Infusion: 12/18/22 18:13 Dose: 0 unit/min, 0 mls/hr Documented By: Admin: 12/18/22 18:12 Dose: 0.04 unit/min, 12.1 mls/hr Documented By: SILVER Co-signed By: AMI Potassium Acetate 10 meq/ (Sodium Chloride) 105 mls @ 105 mls/hr IV Q1H ONE Stop: 12/18/22 18:59 Last Admin: 12/18/22 18:12 Dose: 105 mls/hr Documented By: SILVER Miscellaneous (Icu Protocol For Hyperglycemia) 1 each N/A ACHS [facility] Stop: 12/20/22 16:43 Last Admin: 12/18/22 17:50 Dose: Not Given Documented By: SILVER Discontinued Medications Sodium Chloride (Nss 1000ml) 2,000 mls @ 999 mls/hr IV .Q2H1M ONE Stop: 12/18/22 14:13 Last Infusion: 12/18/22 17:42 Dose: 0 mls/hr Documented By: Admin: 12/18/22 15:01 Dose: 999 mls/hr Documented By: CHENCHO Piperacillin Sod/Tazobactam Sod (Zosyn) 4.5 gm in 120 mls @ 240 mls/hr IV NOW ONE Stop: 12/18/22 14:47 Last Infusion: 12/18/22 17:42 Dose: 0 mls/hr Documented By: Admin: 12/18/22 14:25 Dose: 240 mls/hr Documented By: LILY Lactated Ringer's (Lr) 250 mls @ 999 mls/hr IV .Q16M ONE Stop: 12/18/22 16:00 Last Admin: 12/18/22 16:00 Dose: 999 mls/hr Documented By: ACC Insulin Aspart (Insulin Aspart Per Unit Charge) 0 units SC ACHS MELISSA Stop: 01/17/23 16:43 Last Admin: 12/18/22 18:11 Dose: Not Given Documented By: WRS Lorazepam (Lorazepam 2 Mg/1 Ml Vial) 0.5 mg IV NOW STA Stop: 12/18/22 12:28 Last Admin: 12/18/22 12:31 Dose: 0.5 mg Documented By: DS Lorazepam (Lorazepam 2 Mg/1 Ml Vial) 0.5 mg IV NOW STA Stop: 12/18/22 12:55 Last Admin: 12/18/22 12:58 Dose: 0.5 mg Documented By: DS Norepinephrine Bitartrate (Norepinephrine/D5w 4 Mg/250 Ml) Confirm Administered Dose 4 mg IV .STK-MED ONE Stop: 12/18/22 15:10 Last Admin: 12/18/22 15:17 Dose: Not Given Documented By: NA Imaging Data Radiologist's Impression: Cervical Spine CT 12/18/22 12:13 CT cervical spine wo con CLINICAL HISTORY: ams TECHNIQUE: Multidetector row helical CT of the cervical spine was performed without administration of intravenous contrast. Coronal and sagittal reformations were obtained. Automated dose lowering techniques and/or adjustment according to patient size were utilized for this exam. Comparison: None available at the time of this dictation. FINDINGS: No acute fractures or subluxations are identified. Degenerative changes are seen in the visualized spine. The alignment is normal. Soft tissues are unremarkable. IMPRESSION: Degenerative changes without evidence of acute bony injury. ACT 112: Negative or not required by law. Electronically signed by: Harrison Her M.D. 12/18/2022 1:[address] 12/18/22 12:[address] DOSE: HISTORY: Altered mental status. TECHNIQUE: Multiaxial CT images of the head were performed without the use of intravenous contrast. Automated exposure control was utilized for this study. A dose lowering technique was utilized adhering to the principles of ALARA. Comparison: None. Findings: Motion artifact. The paranasal sinuses and mastoid air cells are clear. The calvarium and skull base are intact. There is no mass, hematoma, midline shift, acute infarct. White matter hypodensity is nonspecific but suggestive of microvascular ischemic change. The ventricles and sulci demonstrate mild age-related involutional changes. Impression: Motion artifact. No definite acute intracranial abnormality. ACT 112: Negative or not required by law. Electronically signed by: Chad Cardona M.D. 12/18/2022 2:07 PM Abdomen/Pelvis CT 12/18/22 13:10 CT chest diagnostic wo con, CT abd pelvis wo con CT DOSE: 3743.01 mGy.cm CLINICAL HISTORY: 77 years-old Male with fall. Acute chest and abdominal pain status post fall TECHNIQUE: Multiaxial CT images of the CT chest, abdomen and pelvis were performed without contrast. A dose lowering technique was utilized adhering to the principles of ALARA. COMPARISON: CT abdomen and pelvis 02/04/2018 FINDINGS: CT CHEST: Limited exam secondary to positioning and lack of IV contrast. Moderate cardiomegaly. Decreased attenuation of the cardiac blood pool suggestive of anemia. Moderate coronary artery calcifications. Trace pericardial effusion. Atherosclerosis of the thoracic aorta without aneurysm. No dominant thyroid nodule or lymphadenopathy. Trace pleural effusions. No pneumothorax. Intralobular septal thickening with mild dependent subsegmental atelectasis. Stable likely benign 6 mm solid nodule of the basal right lower lobe. Central airways are patent. Anasarca. No acute displaced rib fracture identified. Gynecomastia. CT ABDOMEN/PELVIS: No free air. Cirrhotic liver. The spleen is enlarged measuring over 15 cm. Left upper quadrant splenule with marginal calcifications again noted. Mildly atrophic pancreas. Punctate pancreatic head calcification. Unremarkable adrenal glands. Cholelithiasis with partial distention and mild wall thickening. 3 mm calcification noted on image 167 with additional punctate calcifications noted distally towards the duodenum. Atrophic kidneys. Hypodense 1.6 cm lesion of the superior pole of kidney, possibly a cyst. Decompressed urinary bladder with wall thickening. A Apple catheter is in place. Air within the urinary bladder is noted. Prostatomegaly. Atherosclerosis of the aorta. Moderate ascites. Small hiatal hernia. Nonspecific diffuse gastric wall thickening is noted with partial distention. Nonspecific anal rectal wall thickening. Colonic diverticulosis. Prior sigmoid colon resection with colonic colonic anastomosis. Moderate circumferential wall thickening of the colon is most pronounced in the ascending and transverse segments. Appendix not visualized. Small fat and fluid filled umbilical hernia. No acute fracture. IMPRESSION: 1. No acute posttraumatic intrathoracic, intra-abdominal or intrapelvic abnormality identified. 2. Cardiomegaly with mild pulmonary edema and trace pleural effusions. 3. Cirrhosis with stigmata of portal venous hypertension including splenomegaly with moderate ascites. 4. Cholelithiasis with possible choledocholithiasis. Correlate with LFTs. 5. Wall thickening of the ascending and transverse colon suggestive of portal colopathy. 6. Additional findings as above. ACT 112: Negative or not required by law. Electronically signed by: Rayshawn Powers M.D. 12/18/2022 2:[address] 12/18/22 13:10 CT chest diagnostic wo con, CT abd pelvis wo con CT DOSE: 3743.01 mGy.cm CLINICAL HISTORY: 77 years-old Male with fall. Acute chest and abdominal pain status post fall TECHNIQUE: Multiaxial CT images of the CT chest, abdomen and pelvis were performed without contrast. A dose lowering technique was utilized adhering to the principles of ALARA. COMPARISON: CT abdomen and pelvis 02/04/2018 FINDINGS: CT CHEST: Limited exam secondary to positioning and lack of IV contrast. Moderate cardiomegaly. Decreased attenuation of the cardiac blood pool suggestive of anemia. Moderate coronary artery calcifications. Trace pericardial effusion. Atherosclerosis of the thoracic aorta without aneurysm. No dominant thyroid nodule or lymphadenopathy. Trace pleural effusions. No pneumothorax. Intralobular septal thickening with mild dependent subsegmental atelectasis. Stable likely benign 6 mm solid nodule of the basal right lower lobe. Central airways are patent. Anasarca. No acute displaced rib fracture identified. Gynecomastia. CT ABDOMEN/PELVIS: No free air. Cirrhotic liver. The spleen is enlarged measuring over 15 cm. Left upper quadrant splenule with marginal calcifications again noted. Mildly atrophic pancreas. Punctate pancreatic head calcification. Unremarkable adrenal glands. Cholelithiasis with partial distention and mild wall thickening. 3 mm calcification noted on image 167 with additional punctate calcifications noted distally towards the duodenum. Atrophic kidneys. Hypodense 1.6 cm lesion of the superior pole of kidney, possibly a cyst. Decompressed urinary bladder with wall thickening. A Apple catheter is in place. Air within the urinary bladder is noted. Prostatomegaly. Atherosclerosis of the aorta. Moderate ascites. Small hiatal hernia. Nonspecific diffuse gastric wall thickening is noted with partial distention. Nonspecific anal rectal wall thickening. Colonic diverticulosis. Prior sigmoid colon resection with colonic colonic anastomosis. Moderate circumferential wall thickening of the colon is most pronounced in the ascending and transverse segments. Appendix not visualized. Small fat and fluid filled umbilical hernia. No acute fracture. IMPRESSION: 1. No acute posttraumatic intrathoracic, intra-abdominal or intrapelvic abnormality identified. 2. Cardiomegaly with mild pulmonary edema and trace pleural effusions. 3. Cirrhosis with stigmata of portal venous hypertension including splenomegaly with moderate ascites. 4. Cholelithiasis with possible choledocholithiasis. Correlate with LFTs. 5. Wall thickening of the ascending and transverse colon suggestive of portal colopathy. 6. Additional findings as above. ACT 112: Negative or not required by law. Electronically signed by: Rayshawn Powers M.D. 12/18/2022 2:10 PM Discharge Plan Visit Data Chief Complaint: Altered Mental Status ED Provider: Frank Buckley Discharge Problem: AMS (altered mental status), Acute hypotension, Thrombocytopenia, Hypokalemia, BRUNA (acute kidney injury) Patient Disposition: Admitted As Inpatient Discharge Instructions Interventions: ED Discharge Assessment Last Done: 12/18/22 17:06
[2022-12-18] MEDS ORDERED: LORazepam 2 MG/1 ML VIAL IV STA ×2 (12:27→12:54)
[2022-12-18 12:48] LABS: Hematocrit (blood only) 28.9 % (42.0-52.0); Hemoglobin 10.4 g/dl (14.0-18.0); Mean Corpuscular Hemoglobin 32.6 pg (25.0-34.0); Mean Corpuscular Volume 90.6 fL (80.0-100.0); Mean Platelet Volume 12.6 fL (9.4-12.4); Platelet Count 39 K/uL (130-400); RDW Coefficient of Variation 14.7 % (11.5-14.5); RDW Standard Deviation 48.5 fL (36.4-46.3); Red Blood Count 3.19 M/uL (4.70-6.10); White Blood Count 4.04 K/ul (4.8-10.8)
[2022-12-18 12:58] LABS: Appearance Urine Clear (Clear); Bilirubin Urine Negative (Negative); Blood Urine Negative (Negative); Color Urine Yellow; Glucose Urine UA Negative (Negative); Ketones Urine Negative (Negative); Leukocyte Esterase Urine Negative (Negative); Nitrite Urine Negative (Negative); Protein Urine Negative (Negative); Specific Gravity Urine 1.009 (1.000-1.030); Urobilinogen Urine Negative (Negative); pH Urine 5.5 (4.5-7.5)
[2022-12-18 13:04] LABS: Alanine Aminotransferase 12 U/L (7-52); Albumin Level 2.7 gm/dl (3.4-5.0); Alkaline Phosphatase 47 U/L (34-104); Anion Gap 14 (3-11); Aspartate Aminotransferase 39 U/L (13-39); BUN Creatinine Ratio 14.8 (10-20); Bilirubin,Total 3.1 mg/dl (0.2-1.0); Blood Urea Nitrogen 57 mg/dl (6-23); Calcium 8.6 mg/dl (8.6-10.3); Carbon Dioxide 21 mmol/L (21-32); Chloride 99 mmol/L (98-107); Est GFR (African American) 16.6 ml/min; Est GFR (Non-African American) 14.3 ml/min; Glucose 135 mg/dl (70-99(Fasting)); Magnesium 1.4 mg/dl (1.7-2.4); Potassium 2.9 mmol/L (3.5-5.1); Sodium 134 mmol/L (136-145); Total Protein 5.2 gm/dl (6.0-8.3)
[2022-12-18 13:12] LABS: Echinocytes 1+; INR 1.6 (0.9-1.1); Immature Granulocytes # (auto) 0.02 K/uL (0.01-0.20); Immature Granulocytes % (auto) 0.5 %; Lymphocytes # (auto) 0.14 K/uL (1.2-3.4); Lymphocytes % (auto) 3.5 %; Monocytes # (auto) 0.23 K/uL (0.11-0.59); Monocytes % (auto) 5.7 %; Neutrophils # (auto) 3.65 K/uL (1.40-6.50); Neutrophils % (auto) 90.3 %; Ovalocytes 1+; Polychromasia 1+; Prothrombin Time 17.3 Seconds (9.0-12.0)
[2022-12-18 13:41] LABS: Troponin I High Sensitivity 85.6 pg/ml (0-20)
--- NOTE | 2022-12-18 13:50 | CT Scan Report ---
CT cervical spine wo con CLINICAL HISTORY: ams TECHNIQUE: Multidetector row helical CT of the cervical spine was performed without administration of intravenous contrast. Coronal and sagittal reformations were obtained. Automated dose lowering techn iques and/or adjustment according to patient size were utilized for this exam. Comparison: None available at the time of this dictation. FINDINGS: No acute fractures or subluxations are identified. Degenerative changes are seen in the visualized sp ine. The alignment is normal. Soft tissues are unremarkable. IMPRESSION: Degenerative changes without evidence of acute bony injury. ACT 112: Negative or not required by law. Electronically signed by: Harrison Her M.D. 12/18/2022 1:49 PM
--- NOTE | 2022-12-18 14:02 | Emergency Department Note ---
ED Visit Note I was asked by Dr. Buckley, ED attending physician, to perform a right earlobe laceration repair. Please see Dr. Buckley's dictation for further work-up and final disposition. PROCEDURE NOTE: Wound evaluation and repair was performed under implied consent as the patient was nonverbal. He was also noted to be agitated. Evaluation of the earlobe shows a 2 cm laceration with the wound being very well approximated, and no active bleeding. It was elected to repair the laceration using Dermabond. The wound was initially cleansed with a hydrogen peroxide and normal saline gauze soaked, then dried thoroughly and approximated using Dermabond with good results. .
--- NOTE | 2022-12-18 14:09 | CT Scan Report ---
HEAD CT NONCONTRAST CT DOSE: HISTORY: Altered mental status. TECHNIQUE: Multiaxial CT images of the head were performed without the use of intravenous contrast. A utomated exposure control was utilized for this study. A dose lowering technique was utilized adheri ng to the principles of ALARA. Comparison: None. Findings: Motion artifact. The paranasal sinuses and mastoid air cells are clear. The calvarium and s kull base are intact. There is no mass, hematoma, midline shift, acute infarct. White matter hypodens ity is nonspecific but suggestive of microvascular ischemic change. The ventricles and sulci demonstr ate mild age-related involutional changes. Impression: Motion artifact. No definite acute intracranial abnormality. ACT 112: Negative or not required by law. Electronically signed by: Chad Cardona M.D. 12/18/2022 2:07 PM
--- NOTE | 2022-12-18 14:11 | CT Scan Report ---
CT chest diagnostic wo con, CT abd pelvis wo con CT DOSE: 3743.01 mGy.cm CLINICAL HISTORY: 77 years-old Male with fall. Acute chest and abdominal pain status post fall TECHNIQUE: Multiaxial CT images of the CT chest, abdomen and pelvis were performed without contrast. A dose lowering technique was utilized adhering to the principles of ALARA. COMPARISON: CT abdomen and pelvis 02/04/2018 FINDINGS: CT CHEST: Limited exam secondary to positioning and lack of IV contrast. Moderate cardiomegaly. Decreased atten uation of the cardiac blood pool suggestive of anemia. Moderate coronary artery calcifications. Trace pericardial effusion. Atherosclerosis of the thoracic aorta without aneurysm. No dominant thyroid no dule or lymphadenopathy. Trace pleural effusions. No pneumothorax. Intralobular septal thickening with mild dependent subsegme ntal atelectasis. Stable likely benign 6 mm solid nodule of the basal right lower lobe. Central airwa ys are patent. Anasarca. No acute displaced rib fracture identified. Gynecomastia. CT ABDOMEN/PELVIS: No free air. Cirrhotic liver. The spleen is enlarged measuring over 15 cm. Left upper quadrant splenu le with marginal calcifications again noted. Mildly atrophic pancreas. Punctate pancreatic head calci fication. Unremarkable adrenal glands. Cholelithiasis with partial distention and mild wall thickenin g. 3 mm calcification noted on image 167 with additional punctate calcifications noted distally towar ds the duodenum. Atrophic kidneys. Hypodense 1.6 cm lesion of the superior pole of kidney, possibly a cyst. Decompress ed urinary bladder with wall thickening. A Apple catheter is in place. Air within the urinary bladder is noted. Prostatomegaly. Atherosclerosis of the aorta. Moderate ascites. Small hiatal hernia. Nonspecific diffuse gastric wall thickening is noted with partial distention. No nspecific anal rectal wall thickening. Colonic diverticulosis. Prior sigmoid colon resection with col onic colonic anastomosis. Moderate circumferential wall thickening of the colon is most pronounced in the ascending and transverse segments. Appendix not visualized. Small fat and fluid filled umbilical hernia. No acute fracture. IMPRESSION: 1. No acute posttraumatic intrathoracic, intra-abdominal or intrapelvic abnormality identified. 2. Cardiomegaly with mild pulmonary edema and trace pleural effusions. 3. Cirrhosis with stigmata of portal venous hypertension including splenomegaly with moderate ascites . 4. Cholelithiasis with possible choledocholithiasis. Correlate with LFTs. 5. Wall thickening of the ascending and transverse colon suggestive of portal colopathy. 6. Additional findings as above. ACT 112: Negative or not required by law. Electronically signed by: Rayshawn Powers M.D. 12/18/2022 2:10 PM
[2022-12-18] MEDS ORDERED: PIPERACILLIN/TAZOBACTAM 4.5 GM/120 ML BAG IV ONE (14:18)
[2022-12-18] MEDS ORDERED: NOREPINEPHRINE/D5W 4 MG/250 ML IV ONE (15:09)
[2022-12-18] MEDS: NOREPINEPHRINE/D5W 4 MG/250 ML PLCT IV SCH ×2 (15:16→22:59)
[2022-12-18] MEDS ORDERED: STAT IV Infusion **Titration per Protocol STA ×2 (15:16→17:46)
[2022-12-18] MEDS ORDERED: LACTATED RINGER'S 250 ML IV ONE (15:45)
[2022-12-18] MEDS ORDERED: MAGNESIUM SULFATE 1GM / D5W BAG IV SCH (15:45)
--- NOTE | 2022-12-18 15:56 | Electrocardiogram Report ---
Test Reason : Blood Pressure : / mmHG Vent. Rate : 116 BPM Atrial Rate : 116 BPM P-R Int : 176 ms QRS Dur : 082 ms QT Int : 308 ms P-R-T Axes : 000 037 -59 degrees QTc Int : 428 ms Poor data quality, interpretation may be adversely affected Atrial fibrillation with rapid ventricular response with premature ventricular or aberrantly conducte d complexes Low voltage QRS Cannot rule out Anterior infarct , age undetermined Abnormal ECG When compared with ECG of 04-NOV-2022 10:52, ST now depressed in Anterior leads Nonspecific T wave abnormality now evident in Anterior leads Confirmed by Giuseppe Martinez ([id number]) on 12/18/2022 3:55:52 PM Referred By: REFERRED SELF Confirmed By:Giuseppe Martinez
--- NOTE | 2022-12-18 16:05 | History & Physical Report ---
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 MAPS in 40s in ED -Initiated pressor support for map goal > 60 -s/p 500cc bolus given concern for intravascular depletion -Holding home midodrine given mentation/aspiration concerns, holding NGT given history of varices -ICU consulted for further management #Acute Encephalopathy #Decompensated Liver Cirrhosis Eitology: ?FLD Pinion Sorter: Dr Anastacia Franks INR 1.6, known thrombocytopenia, plt 39, TB 3.1 Last EGD/CScope: 2019, varices noted, portal gastropathy Last LVP, 10/2022 No history of SBP Non-compliance with lactulose, no reported HE, however documentation of forgetfulness Midodrine recently increased to 10mg TID Home Diuretics: Torsemide 10mg and Spironolactone 12.5mg daily Last office visit 12/09/2022 -Consult GI for further management -Trend LFTs -Blood cultures pending in ED, procal 0.11 (historically elevated) -s/p zosyn, antibiotics per ICU recommendations #Acute Kidney Injury on Chronic kidney disease stage 3 Baseline CKD around ~2.0, Cr 3.84 on admission with elevated BUN/Cr potential for HRS v prerenal given hypotension Renal US 10/2022, left kindey smaller than right,otherwise normal UA without concern for infection, ketones, or protein -Avoid nephrotoxic agents -Trend CR -appreciate GI and ICU recommendations #cholelithiasis on imaging no grimacing on abdominal exam or active signs of pain elucidated; present on prior imaging -Trend LFTS, history not consistent with acute cholecysitis, ctm #Pancytopenia #Coagulopathy iso liver disease INR persistently elevated, within baseline on admission Downtrending hgb over the course of ~6 months ~11; 10 on admission, no signs of overt hemorrhage, however, multiple ecchymosis and skin tears present Platelets 39, baseline 60s -No pharmacologic VTE ppx for plt < 50, SCDs ordered -Trend CBC and INR -Hold PO Iron -Transfuse per ICU recommendations #NSTEMI, likely demand iso tachycardia and hypotension #Chronic Atrial Fibrillation RVR in ED to 110s, not on rate control 2/2 hypotension, not on DOAC 2/2 coagulopathy Last echo 2019, EF 55%; cardiomegaly noted on admission CT -Monitor on tele in ICU -Consider ECHO contingent on clinical course #Gout -Hold PO allopurinol 200mg daily iso AMS #Chronic low back pain c/b scitatica #Deconditioned On daily oxycodone 5 mg -Hold po medications, monitor for withdrawal -PT/OT when able #Hypomagnesemia -s/p 2g mag #DM type II No on oral agents at this time, A1C 5.3 09/2022 -SSI and accucheck q6 for NPO DIET NPO Consults ICU, GI IV access: left PIV pending central access possibly per ICU Bowel ppx: prn GI: prn Bedrest, aspiration precautions Admit to ICU given close monitoring iso tenusous vitals and encephalopathy Admission and Anticipated Discharge Date Admission Date: 12/18/2022 History of Present Illness Chief Complaint: Mr Anderson is a 77 year old male with a history of decompensated cirrhosis c/b coagulopathy, varices, and hypotension, DM type II, CKD, Lumbar Disc Disease, Lumbar Radiculopathy, Gout , and chronic Atrial Fibrillation who presented to [facility] ED via EMS due to altered mental status. Patient unable to participate in questioning due to mentation. Patient's daughter and spouse were at bedside. states the patient has been in usual state of health until around 4 am this morning when he appeared confused and slid out of his bedside chair. He has experienced multiple skin tears and oozing with eccymosis, but family denies any reported bleeding from bowel movements or any known emesis. Patient was prescribed lactulose, but patient did not take as recommended. Family denies any personality changes, but notes patient has been more "forgetful". Patient follows hepatology, in which recently his midodrine was increased to 10mg TID. Patient did not take any medications since 12/17. Patient was on nanodolol for varices, but his blood pressure did not tolerate. Palliative is following patient as OP, last visit 12/12. Status reported as DNR/DNI. In ED, patient was noted to be hypotensive to 50-60s with maps in 40s, tachycardic up to 110s, and bradypnic to 9-10s.Labs revealed BRUNA on CKD to 3.84, Trop elevation to 85.6, Primary Care Provider: Chiki Vickers DO Allergies Allergy/AdvReac Type Severity Reaction Status Date / Time lisinopril Allergy Severe ANGIOEDEMA Verified 07/31/22 09:40 cephalexin Allergy Intermediate Hives Verified 07/31/22 09:40 Home Medications Medication Instructions Recorded Confirmed Type allopurinol 100 mg tablet 200 mg PO DAILY 11/04/22 12/18/22 History ferrous sulfate 324 mg (65 mg 324 mg PO DAILY 11/04/22 12/18/22 History iron) tablet,delayed release oxycodone 5 mg tablet 5 mg PO AMHS 11/04/22 12/18/22 History pantoprazole 40 mg tablet,delayed 40 mg PO DAILY 11/04/22 12/18/22 History release tamsulosin 0.4 mg capsule 0.4 mg PO DAILY 11/04/22 12/18/22 History spironolactone 25 mg tablet 12.5 mg PO DAILY #30 tabs 11/06/22 12/18/22 Rx torsemide 10 mg tablet 10 mg PO QAM #30 tabs 11/06/22 12/18/22 Rx midodrine 5 mg tablet See Rx Instructions .Route .COMPLEX 12/18/22 12/18/22 History triamcinolone acetonide 0.1 % 1 applic topical BID 12/18/22 12/18/22 History topical cream Past Med/Surg History Medical History Anemia BPH (benign prostatic hyperplasia) Cellulitis HX OF LEFT LEG (CURRENTLY ALL HEALED) CKD (chronic kidney disease) stage 4, GFR 15-29 ml/min 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 2mg versed. 100mcg fentanyl. History of tooth extraction S/P colectomy Family History Sister Diabetes Brother Diabetes Mother Diabetes Father Diabetes Other Stroke Social History Smoking Status: Unknown if ever smoked Cigarettes Per Day: quit 13yrs ago; Second Hand Exposure: No; Do You Dip or Chew Tobacco: No; Hx Alcohol Use: Yes Hx Substance Use: No Preferred Language: Bermudian Communication Ability: Effective Visual Impairment: No Limitations Field Enumerator Required: No Beliefs That Will Affect Care: None Current Living Situation: Alone Current Living Situation Comment: lives in a 2 story home with , resides mostly on Feels Safe at Home: Yes Assistive Devices: Cane and Walker Review of Systems Review of Systems: Unobtainable due to reduced consciousness Physical Exam Constitutional: + altered mental status, + frail appearing, + disheveled and + edematous Eyes: + scleral abnormality (icteric ) and PERRL ENMT: Ears: + external ear abnormality (right hear ecchymosis on lobe ) Nose: + dry nasal mucous membranes; no external nose abnormality Mouth: + dry oral mucous membranes and + poor dentition Neck: No JVD visualized Respiratory: Auscultation: + diminished lung sounds Cardiovascular: Rate/Rhythm: + tachycardic Gastrointestinal (Abdomen): Percussion/Palpation: + hepatomegaly, + fluid wave and + abdomen firm Musculoskeletal: bilateral lower extremity edema up to posterior thigh, pitting 2+ Skin: multiple skin tears present on upper extremities, large skin tear on left shoulder, skin tear with oozing behind right ear; scattered ecchymosis on upper extremities Neurologic: AOx0, arousable to voice Results & Data Results & Data Vital Signs (Past 12 Hours) Vital Signs Temp Pulse Pulse Resp BP Pulse Ox O2 Del Method 12/18/22 15:15 78 9 L 99 12/18/22 15:15 74/50 L 12/18/22 15:10 82 9 L 96 12/18/22 15:10 67/39 L 12/18/22 15:07 76 16 66/34 L 98 12/18/22 15:05 73 15 58/36 L 99 12/18/22 15:04 75 14 62/34 L 97 12/18/22 14:45 84 14 64/40 L 97 12/18/22 14:43 65 16 69/46 L 96 12/18/22 14:41 82 14 61/34 L 96 12/18/22 14:40 86 13 67/33 L 95 12/18/22 14:40 82 16 67/33 L 98 12/18/22 14:36 78 14 63/34 L 95 12/18/22 14:35 59/39 L 12/18/22 14:34 63/38 L 12/18/22 14:34 83 11 L 99 12/18/22 14:30 82 17 97 12/18/22 14:30 68/37 L 12/18/22 14:25 85 13 67/44 L 96 12/18/22 14:20 83 12 68/40 L 12/18/22 14:15 85 10 L 97 12/18/22 14:15 65/43 L 12/18/22 14:14 85 10 L 97 12/18/22 14:14 69/43 L 12/18/22 14:10 79 9 L 96 12/18/22 14:10 69/44 L 12/18/22 14:08 87 8 L 97 12/18/22 14:08 70/44 L 12/18/22 14:05 89 7 L 96 12/18/22 14:05 67/44 L 12/18/22 14:03 66/44 L 12/18/22 14:03 88 12 97 12/18/22 14:00 82 9 L 96 12/18/22 14:00 64/43 L 12/18/22 13:55 88 13 97 12/18/22 13:55 70/41 L 12/18/22 13:50 93 H 11 L 97 12/18/22 13:45 127 H 12 96 12/18/22 13:40 107 H 16 95 12/18/22 13:40 76/54 L 12/18/22 13:35 117 H 13 97 12/18/22 13:35 84/60 L 12/18/22 13:33 101 H 17 12/18/22 13:32 101 H 15 12/18/22 13:11 125 H 14 93 12/18/22 13:11 74/48 L 12/18/22 13:10 98 H 17 95 12/18/22 13:05 93 H 13 94 12/18/22 13:00 120 H 16 98 12/18/22 12:59 88/56 L 12/18/22 12:59 12 95 12/18/22 12:59 71/39 L 12/18/22 12:55 128 H 13 95 12/18/22 12:50 110 H 16 97 12/18/22 12:50 82/61 L 12/18/22 12:45 14 98 12/18/22 12:40 118 H 18 95 12/18/22 12:35 103 H 13 94 12/18/22 12:33 107 H 16 94 12/18/22 12:32 97 H 12/18/22 12:32 94 Room Air 12/18/22 12:41 93 H 16 95 Room Air 12/18/22 12:41 92 Room Air 12/18/22 12:31 36.1 C L 114 H 13 99/67 L 93 Room Air O2 Flow Rate 12/18/22 15:15 12/18/22 15:15 12/18/22 15:10 12/18/22 15:10 12/18/22 15:07 12/18/22 15:05 12/18/22 15:04 12/18/22 14:45 12/18/22 14:43 12/18/22 14:41 12/18/22 14:40 12/18/22 14:40 12/18/22 14:36 12/18/22 14:35 12/18/22 14:34 12/18/22 14:34 12/18/22 14:30 12/18/22 14:30 12/18/22 14:25 12/18/22 14:20 12/18/22 14:15 12/18/22 14:15 12/18/22 14:14 12/18/22 14:14 12/18/22 14:10 12/18/22 14:10 12/18/22 14:08 12/18/22 14:08 12/18/22 14:05 12/18/22 14:05 12/18/22 14:03 12/18/22 14:03 12/18/22 14:00 12/18/22 14:00 12/18/22 13:55 12/18/22 13:55 12/18/22 13:50 12/18/22 13:45 12/18/22 13:40 12/18/22 13:40 12/18/22 13:35 12/18/22 13:35 12/18/22 13:33 12/18/22 13:32 12/18/22 13:11 12/18/22 13:11 12/18/22 13:10 12/18/22 13:05 12/18/22 13:00 12/18/22 12:59 12/18/22 12:59 12/18/22 12:59 12/18/22 12:55 12/18/22 12:50 12/18/22 12:50 12/18/22 12:45 12/18/22 12:40 12/18/22 12:35 12/18/22 12:33 12/18/22 12:32 12/18/22 12:32 12/18/22 12:41 12/18/22 12:41 0 12/18/22 12:31 Laboratory Results Laboratory Results WBC 4.04 K/ul (4.8-10.8) L 12/18/22 12:30 RBC 3.19 M/uL (4.70-6.10) L 12/18/22 12:30 Hgb 10.4 g/dl (14.0-18.0) L 12/18/22 12:30 Hct 28.9 % (42.0-52.0) L 12/18/22 12:30 MCV 90.6 fL (80.0-100.0) 12/18/22 12:30 MCH 32.6 pg (25.0-34.0) 12/18/22 12:30 MCHC 36.0 g/dL (32.0-36.0) 12/18/22 12:30 RDW Std Deviation 48.5 fL (36.4-46.3) H 12/18/22 12:30 RDW Coeff of Scottie 14.7 % (11.5-14.5) H 12/18/22 12:30 Plt Count 39 K/uL (130-400) L 12/18/22 12:30 MPV 12.6 fL (9.4-12.4) H 12/18/22 12:30 Immature Gran % (Auto) 0.5 % 12/18/22 12:30 Neut % (Auto) 90.3 % 12/18/22 12:30 Lymph % (Auto) 3.5 % 12/18/22 12:30 [place] % (Auto) 5.7 % 12/18/22 12:30 Eos % (Auto) 0.0 % 12/18/22 12:30 Baso % (Auto) 0.0 % 12/18/22 12:30 Neut # (Auto) 3.65 K/uL (1.40-6.50) 12/18/22 12:30 Lymph # (Auto) 0.14 K/uL (1.2-3.4) L 12/18/22 12:30 [place] # (Auto) 0.23 K/uL (0.11-0.59) 12/18/22 12:30 Eos # (Auto) 0.00 K/uL (0-0.50) 12/18/22 12:30 Baso # (Auto) 0.00 K/uL (0-0.2) 12/18/22 12:30 Immature Gran # (Auto) 0.02 K/uL (0.01-0.20) 12/18/22 12:30 Polychromasia 1+ 12/18/22 12:30 Ovalocytes 1+ 12/18/22 12:30 Echinocytes 1+ 12/18/22 12:30 PT 17.3 Seconds (9.0-12.0) H 12/18/22 12:30 INR 1.6 (0.9-1.1) H 12/18/22 12:30 Sodium 134 mmol/L (136-145) L 12/18/22 12:30 Potassium 2.9 mmol/L (3.5-5.1) L 12/18/22 12:30 Chloride 99 mmol/L (98-107) 12/18/22 12:30 Carbon Dioxide 21 mmol/L (21-32) 12/18/22 12:30 Anion Gap 14 (3-11) H 12/18/22 12:30 BUN 57 mg/dl (6-23) H 12/18/22 12:30 Creatinine 3.84 mg/dl (0.6-1.4) H 12/18/22 12:30 Est Cr Clr Drug Dosing Not Reportable 12/18/22 12:30 Est GFR ( Amer) 16.6 ml/min 12/18/22 12:30 Est GFR (Non-Af Amer) 14.3 ml/min 12/18/22 12:30 BUN/Creatinine Ratio 14.8 (10-20) 12/18/22 12:30 Glucose 135 mg/dl (70-99(Fasting)) H 12/18/22 12:30 Calcium 8.6 mg/dl (8.6-10.3) 12/18/22 12:30 Magnesium 1.4 mg/dl (1.7-2.4) L 12/18/22 12:30 Total Bilirubin 3.1 mg/dl (0.2-1.0) H 12/18/22 12:30 Direct Bilirubin 1.0 mg/dl (0-0.2) H 12/18/22 12:30 AST 39 U/L (13-39) 12/18/22 12:30 ALT 12 U/L (7-52) 12/18/22 12:30 Alkaline Phosphatase 47 U/L (34-104) 12/18/22 12:30 Ammonia 61.0 umol/L (18-72) 12/18/22 12:47 Troponin I High Sens 85.6 pg/ml (0-20) H* 12/18/22 12:30 Total Protein 5.2 gm/dl (6.0-8.3) L 12/18/22 12:30 Albumin 2.7 gm/dl (3.4-5.0) L 12/18/22 12:30 Procalcitonin 0.11 ng/ml (0-0.5) 12/18/22 12:30 Urine Color Yellow 12/18/22 12:30 Urine Appearance Clear (Clear) 12/18/22 12:30 Urine pH 5.5 (4.5-7.5) 12/18/22 12:30 Ur Specific [place] 1.009 (1.000-1.030) 12/18/22 12:30 Urine Protein Negative (Negative) 12/18/22 12:30 Urine Glucose (UA) Negative (Negative) 12/18/22 12:30 Urine Ketones Negative (Negative) 12/18/22 12:30 Urine Blood Negative (Negative) 12/18/22 12:30 Urine Nitrite Negative (Negative) 12/18/22 12:30 Urine Bilirubin Negative (Negative) 12/18/22 12:30 Urine Urobilinogen Negative (Negative) 12/18/22 12:30 Ur Leukocyte Esterase Negative (Negative) 12/18/22 12:[address] 12/18/22 12:13 CT cervical spine wo con CLINICAL HISTORY: ams TECHNIQUE: Multidetector row helical CT of the cervical spine was performed without administration of intravenous contrast. Coronal and sagittal reformation s were obtained. Automated dose lowering techniques and/or adjustment according to patient size were utilized for this exam. Comparison: None available at the time of this dictation. FINDINGS: No acute fractures or subluxations are identified. Degenerative changes are seen in the visualized spine. The alignment is normal. Soft tissues are unremarkable. IMPRESSION: Degenerative changes without evidence of acute bony injury. ACT 112: Negative or not required by law. Electronically signed by: Harrison Her M.D. 12/18/2022 1:[address] 12/18/22 12:[address] DOSE: HISTORY: Altered mental status. TECHNIQUE: Multiaxial CT images of the head were performed without the use of intravenous contrast. Automated exposure control was utilized for this study. A dose lowering technique was utilized adhering to the principles of ALARA. Comparison: None. Findings: Motion artifact. The paranasal sinuses and mastoid air cells are c lear. The calvarium and skull base are intact. There is no mass, hematoma, midline shift, acute infarct. White matter hypodensity is nonspecific but suggestive of microvascular ischemic change. The ventricles and sulci demonstrate mild age-related involutional changes. Impression: Motion artifact. No definite acute intracranial abnormality. ACT 112: Negative or not required by law. Electronically signed by: Chad Cardona M.D. 12/18/2022 2:07 PM Abdomen/Pelvis CT 12/18/22 13:10 CT chest diagnostic wo con, CT abd pelvis wo con CT DOSE: 3743.01 mGy.cm CLINICAL HISTORY: 77 years-old Male with fall. Acute chest and abdominal pain status post fall TECHNIQUE: Multiaxial CT images of the CT chest, abdomen and pelvis were performed without contrast. A dose lowering technique was utilized adhering to the principles of ALARA. COMPARISON: CT abdomen and pelvis 02/04/2018 FINDINGS: CT CHEST: Limited exam secondary to positioning and lack of IV contrast. Moderate cardiomegaly. Decreased attenuation of the cardiac blood pool suggestive of anemia. Moderate coronary artery calcifications. Trace pericardial effusion. Atherosclerosis of the thoracic aorta without aneurysm. No dominant thyroid nodule or lymphadenopathy. Trace pleural effusions. No pneumothorax. Intralobular septal thickening with mild dependent subsegmental atelectasis. Stable likely benign 6 mm solid nodule of the basal right lower lobe. Central airways are patent. Anasarca. No acute displaced rib fracture identified. Gynecomastia. CT ABDOMEN/PELVIS: No free air. Cirrhotic liver. The spleen is enlarged measuring over 15 cm. Left upper quadrant splenule with marginal calcifications again noted. Mildly atrophic pancreas. Punctate pancreatic head calcification. Unremarkable adrenal glands. Cholelithiasis with partial distention and mild wall thickening. 3 mm calcification noted on image 167 with additional punctate calcifications noted distally towards the duodenum. Atrophic kidneys. Hypodense 1.6 cm lesion of the superior pole of kidney, possibly a cyst. Decompressed urinary bladder with wall thickening. A Apple catheter is in place. Air within the urinary bladder is noted. Prostatomegaly. Atherosclerosis of the aorta. Moderate ascites. Small hiatal hernia. Nonspecific diffuse gastric wall thickening is noted with partial distention. Nonspecific anal rectal wall thickening. Colonic diverticulosis. Prior sigmoid colon resection with colonic colonic anastomosis. Moderate circumferential wall thickening of the colon is most pronounced in the ascending and transverse segments. Appendix not visualized. Small fat and fluid filled umbilical hernia. No acute fracture. IMPRESSION: 1. No acute posttraumatic intrathoracic, intra-abdominal or intrapelvic abnormality identified. 2. Cardiomegaly with mild pulmonary edema and trace pleural effusions. 3. Cirrhosis with stigmata of portal venous hypertension including splenomegaly with moderate ascites. 4. Cholelithiasis with possible choledocholithiasis. Correlate with LFTs. 5. Wall thickening of the ascending and transverse colon suggestive of portal colopathy. 6. Additional findings as above. ACT 112: Negative or not required by law. Electronically signed by: Rayshawn Powers M.D. 12/18/2022 2:[address] 12/18/22 13:10 CT chest diagnostic wo con, CT abd pelvis wo con CT DOSE: 3743.01 mGy.cm CLINICAL HISTORY: 77 years-old Male with fall. Acute chest and abdominal pain status post fall TECHNIQUE: Multiaxial CT images of the CT chest, abdomen and pelvis were performed without contrast. A dose lowering technique was utilized adhering to the principles of ALARA. COMPARISON: CT abdomen and pelvis 02/04/2018 FINDINGS: CT CHEST: Limited exam secondary to positioning and lack of IV contrast. Moderate cardiomegaly. Decreased attenuation of the cardiac blood pool suggestive of anemia. Moderate coronary artery calcifications. Trace pericardial effusion. Atherosclerosis of the thoracic aorta without aneurysm. No dominant thyroid nodule or lymphadenopathy. Trace pleural effusions. No pneumothorax. Intralobular septal thickening with mild dependent subsegmental atelectasis. Stable likely benign 6 mm solid nodule of the basal right lower lobe. Central airways are patent. Anasarca. No acute displaced rib fracture identified. Gynecomastia. CT ABDOMEN/PELVIS: No free air. Cirrhotic liver. The spleen is enlarged measuring over 15 cm. Left upper quadrant splenule with marginal calcifications again noted. Mildly atrophic pancreas. Punctate pancreatic head calcification. Unremarkable adrenal glands. Cholelithiasis with partial distention and mild wall thickening. 3 mm calcification noted on image 167 with additional punctate calcifications noted distally towards the duodenum. Atrophic kidneys. Hypodense 1.6 cm lesion of the superior pole of kidney, possibly a cyst. Decompressed urinary bladder with wall thickening. A Apple catheter is in place. Air within the urinary bladder is noted. Prostatomegaly. Atherosclerosis of the aorta. Moderate ascites. Small hiatal hernia. Nonspecific diffuse gastric wall thickening is noted with partial distention. Nonspecific anal rectal wall thickening. Colonic diverticulosis. Prior sigmoid colon resection with colonic colonic anastomosis. Moderate circumferential wall thickening of the colon is most pronounced in the ascending and transverse segments. Appendix not visualized. Small fat and fluid filled umbilical hernia. No acute fracture. IMPRESSION: 1. No acute posttraumatic intrathoracic, intra-abdominal or intrapelvic abnormality identified. 2. Cardiomegaly with mild pulmonary edema and trace pleural effusions. 3. Cirrhosis with stigmata of portal venous hypertension including splenomegaly with moderate ascites. 4. Cholelithiasis with possible choledocholithiasis. Correlate with LFTs. 5. Wall thickening of the ascending and transverse colon suggestive of portal colopathy. 6. Additional findings as above. ACT 112: Negative or not required by law. Electronically signed by: Rayshawn Powers M.D. 12/18/2022 2:10 PM Medications Administered Home Medications Medication Instructions Recorded Confirmed Last Taken allopurinol 100 mg tablet 200 mg PO DAILY 11/04/22 12/18/22 Unknown ferrous sulfate 324 mg (65 mg 324 mg PO DAILY 11/04/22 12/18/22 Unknown iron) tablet,delayed release oxycodone 5 mg tablet 5 mg PO AMHS 11/04/22 12/18/22 Unknown pantoprazole 40 mg tablet,delayed 40 mg PO DAILY 11/04/22 12/18/22 Unknown release tamsulosin 0.4 mg capsule 0.4 mg PO DAILY 11/04/22 12/18/22 Unknown spironolactone 25 mg tablet 12.5 mg PO DAILY #30 tabs 11/06/22 12/18/22 Unknown torsemide 10 mg tablet 10 mg PO QAM #30 tabs 11/06/22 12/18/22 Unknown midodrine 5 mg tablet See Rx Instructions .Route .COMPLEX 12/18/22 12/18/22 Unknown triamcinolone acetonide 0.1 % 1 applic topical BID 12/18/22 12/18/22 Unknown topical cream Active Medications Generic Name Dose Route Start Last Admin Trade Name Freq PRN Reason Stop Dose Admin Norepinephrine Bitartrate 4 mg in 250 mls @ 25.2 mls/hr 12/18/22 15:30 12/18/22 16:17 Levophed/D5w IV 01/17/23 15:29 0.07 mcg/kg/min .[id number] MELISSA 25.2 mls/hr Titration Protocol 0.07 MCG/KG/MIN ECG Additional Comments: a. Fib, rate 116, QTC 428 Code Status & VTE Plan Code Status Per palliative documentation 12/2022, patient DNR/DNI in [facility] Chart VTE Prophylaxis Plan VTE Prophylaxis will be ordered: Yes Reason for no VTE drug order: Contraindicated (thrombocytopenic) Reason for no VTE mechanical prophylaxis: Contraindicated Critical Care Time Critical Care Time: Yes (30 min)
[2022-12-18] MEDS ORDERED: CARBOHYDRATES FOR HYPOGLYCEMIA PO PRN ×2 (16:44→20:23)
[2022-12-18] MEDS ORDERED: DEXTROSE 50% 50 ML SYRINGE IV PRN ×2 (16:44→20:23)
[2022-12-18] MEDS ORDERED: ICU Protocol for HYPERglycemia SCH (16:44)
[2022-12-18] MEDS ORDERED: INSULIN ASPART PER UNIT CHARGE SC SCH (16:44)
[2022-12-18] MEDS ORDERED: GLUCOSE 10 TAB/TUBE PO PRN ×2 (16:44→20:23)
[2022-12-18] MEDS ORDERED: GLUCOSE 40% GEL 15 GM TUBE PO PRN ×2 (16:44→20:23)
[2022-12-18] MEDS ORDERED: GLUCAGON FOR INJ 1 MG VIAL SQ PRN ×2 (16:44→20:23)
[2022-12-18] MEDS: MAGNESIUM SULFATE / D5W 1 GM/100 ML BAG IV SCH ×4 (17:00→20:47)
--- NOTE | 2022-12-18 17:35 | Procedure Note ---
Procedure Note Date of Service December 18, 2022 Note Procedure date: Noted above Procedure: Central venous access Pre-procedure indication: Need for vasoactive medication administration Post-procedure Diagnosis: same as above Prior to Procedure: Informed Consent: Emergent consent implied Attending Staff: Cherelle Lacey DO Resident/APC: Not applicable Skin Prep: Chlorhexidine Anesthesia: 4 mL 1% lidocaine without epinephrine The identity of the patient was confirmed and a bedside time out was performed. Description of Procedure: After sterile prep and sterile drape utilizing standard sterile technique the superficial skin of the right internal jugular area was anesthetized. The target vessel was identified and entered with an 18- gauge needle. Dark venous blood return was noted. A guidewire was inserted through the needle and into the vessel. The needle was withdrawn and a skin yadiel was made. A tissue dilator was advanced via Seldinger technique and removed. A triple lumen catheter was inserted via Seldinger technique and the guidewire removed. All ports bob and flushed easily. A Biopatch was placed, and the catheter was secured via silk suture and a commercial securement device. A sterile dressing was then applied. Complications: None Estimated blood loss: Trace Patient tolerated the procedure well. Coding CPT Codes Tubes, Drains, and Vasc Access - Tubes, Drains, and Vasc Access: [id number] Insertion Of Non-tunneled Catheter Age 6 Yrs> ([id number]) [facility] [place] Procedure Codes (Charges) Tubes, Drains, and Vasc Access Procedure 1: Tubes, Drains, and Vasc Access: [id number] Insertion Of Non-tunneled Catheter Age 6 Yrs>
[2022-12-18] MEDS ORDERED: PHYTONADIONE 5 MG in DEXTROSE 5% 50 ML IV ONE (17:45)
[2022-12-18] MEDS ORDERED: VANCOMYCIN CONSULT ACTIVE PRN (17:48)
--- NOTE | 2022-12-18 17:52 | Critical Care Consultation ---
Date of Consultation December 18, 2022 Assessment & Plan (1) Encephalopathy: Reason Critically Ill: Multisystem organ failure with hypotension and hypoperfusion PLAN: Neuro: Encephalopathy: Likely metabolic/secondary to decompensated cirrhosis -Ammonia 61 Resp: Family okay with intubation in event of respiratory insufficiency -Mild alkalosis on labs obtained significant interval ago will recheck, I suspect the patient has been compensating for metabolic acidosis CV: Hypotension, suspect sepsis -Titrate vasoactive medications History of chronic atrial fibrillation -Not on anticoagulation secondary to coagulopathy Fluids/Renal: Hypokalemia -Significant hypokalemia but also unclear of urine output, will give potassium acetate 10 mEq x 1 and recheck BMP every 6 hours Hypomagnesemia -Ordered 2 g will require frequent rechecks Suspect lactic acid elevated, patient is hypoperfused Acute kidney injury on chronic kidney disease -Possible hepatorenal syndrome ID: Septic shock with multisystem organ failure -Rocephin and vancomycin GI/Nutrition: Decompensated liver cirrhosis unknown etiology -History of varices with portal gastropathy Heme: Pancytopenia -Type and screen DVT prophylaxis: Medically contraindicated significant thrombocytopenia and supratherapeutic INR Endocrine: ICU hyperglycemia protocol Check random cortisol Vascular access: Right jugular central venous catheter Code Status: DNR/DNI in event of cardiac arrest, okay with intubation for respiratory insufficiency Disposition: ICU (2) Acute kidney injury superimposed on chronic kidney disease: (3) Coagulopathy: (4) Pancytopenia: (5) Thrombocytopenia: (6) Decompensated hepatic cirrhosis: Supervising Physician Co-Signing Physician Notes I have personally spent 85 minutes of critical care time in the direct management of this patient. This is a life/limb threatening event. This includes time spent evaluating patient, direct bedside care, chart review, placing orders, interpretation of diagnostic studies, discussion with consultants, patient, and/or family members regarding treatment decisions, as well as other required patient management activities. This time is exclusive of all separately billable procedures, and teaching time and separate from and in addition to any other critical care service time. History of Present Illness Reason for Consultation: Multisystem organ failure Attending Physician: Mariela Nixon MD History of Present Illness Patient is a 77-year-old male Allergies Allergy/AdvReac Type Severity Reaction Status Date / Time lisinopril Allergy Severe ANGIOEDEMA Verified 07/31/22 09:40 cephalexin Allergy Intermediate Hives Verified 07/31/22 09:40 Home Medications Medication Instructions Recorded Confirmed Type allopurinol 100 mg tablet 200 mg PO DAILY 11/04/22 12/18/22 History ferrous sulfate 324 mg (65 mg 324 mg PO DAILY 11/04/22 12/18/22 History iron) tablet,delayed release oxycodone 5 mg tablet 5 mg PO AMHS 11/04/22 12/18/22 History pantoprazole 40 mg tablet,delayed 40 mg PO DAILY 11/04/22 12/18/22 History release tamsulosin 0.4 mg capsule 0.4 mg PO DAILY 11/04/22 12/18/22 History spironolactone 25 mg tablet 12.5 mg PO DAILY #30 tabs 11/06/22 12/18/22 Rx torsemide 10 mg tablet 10 mg PO QAM #30 tabs 11/06/22 12/18/22 Rx midodrine 5 mg tablet See Rx Instructions .Route .COMPLEX 12/18/22 12/18/22 History triamcinolone acetonide 0.1 % 1 applic topical BID 12/18/22 12/18/22 History topical cream Patient History Medical History Anemia BPH (benign prostatic hyperplasia) Cellulitis HX OF LEFT LEG (CURRENTLY ALL HEALED) CKD (chronic kidney disease) stage 4, GFR 15-29 ml/min 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 2mg versed. 100mcg fentanyl. History of tooth extraction S/P colectomy Family History Sister Diabetes Brother Diabetes Mother Diabetes Father Diabetes Other Stroke Social History Smoking Status: Unknown if ever smoked Cigarettes Per Day: quit 13yrs ago; Second Hand Exposure: No; Do You Dip or Chew Tobacco: No; Hx Alcohol Use: Yes Hx Substance Use: No Preferred Language: Georgian Communication Ability: Effective Visual Impairment: No Limitations Back Pad Inspector Required: No Beliefs That Will Affect Care: None Current Living Situation: Alone Current Living Situation Comment: lives in a 2 story home with , resides mostly on Feels Safe at Home: Yes Assistive Devices: Cane and Walker Results & Data Results & Data Vital Signs (Past 12 Hours) Vital Signs Temp Pulse Pulse Resp BP Pulse Ox O2 Del Method 12/18/22 17:30 97 H 16 116/75 97 Room Air 12/18/22 16:35 84 9 L 97 12/18/22 16:35 97/67 L 12/18/22 16:35 97/67 L 12/18/22 16:30 84 10 L 97 12/18/22 16:30 101/57 L 12/18/22 16:30 101/57 L 12/18/22 16:25 76 11 L 97 12/18/22 16:25 90/58 L 12/18/22 16:25 90/58 L 12/18/22 16:20 83 10 L 94 12/18/22 16:20 69/43 L 12/18/22 16:15 94 H 9 L 95 12/18/22 16:15 78/47 L 12/18/22 16:10 85 8 L 94 12/18/22 16:10 87/49 L 12/18/22 16:05 91 H 9 L 93 12/18/22 16:05 84/42 L 12/18/22 16:00 91 H 9 L 92 12/18/22 16:00 91/52 L 12/18/22 15:55 90 10 L 91 12/18/22 15:55 85/60 L 12/18/22 15:50 79 10 L 92 12/18/22 15:45 92 H 10 L 97 12/18/22 15:45 85/56 L 12/18/22 15:42 93 H 13 97 12/18/22 15:42 88/59 L 12/18/22 15:40 149 H 9 L 97 12/18/22 15:35 88 12 93 12/18/22 15:30 81 11 L 98 12/18/22 15:30 86/68 L 12/18/22 15:25 90 8 L 98 12/18/22 15:25 92/62 L 08/16/23 15:20 82 7 L 99 12/18/22 15:20 87/63 L 12/18/22 16:15 94 H 12/18/22 15:15 78 9 L 99 12/18/22 15:15 74/50 L 12/18/22 15:10 82 9 L 96 12/18/22 15:10 67/39 L 12/18/22 15:07 76 16 66/34 L 98 12/18/22 15:05 73 15 58/36 L 99 12/18/22 15:04 75 14 62/34 L 97 12/18/22 14:45 84 14 64/40 L 97 12/18/22 14:43 65 16 69/46 L 96 12/18/22 14:41 82 14 61/34 L 96 12/18/22 14:40 86 13 67/33 L 95 12/18/22 14:40 82 16 67/33 L 98 12/18/22 14:36 78 14 63/34 L 95 12/18/22 14:35 59/39 L 12/18/22 14:34 63/38 L 12/18/22 14:34 83 11 L 99 12/18/22 14:30 82 17 97 12/18/22 14:30 68/37 L 12/18/22 14:25 85 13 67/44 L 96 12/18/22 14:20 83 12 68/40 L 12/18/22 14:15 85 10 L 97 12/18/22 14:15 65/43 L 12/18/22 14:14 85 10 L 97 12/18/22 14:14 69/43 L 12/18/22 14:10 79 9 L 96 12/18/22 14:10 69/44 L 12/18/22 14:08 87 8 L 97 12/18/22 14:08 70/44 L 12/18/22 14:05 89 7 L 96 12/18/22 14:05 67/44 L 12/18/22 14:03 66/44 L 12/18/22 14:03 88 12 97 12/18/22 14:00 82 9 L 96 12/18/22 14:00 64/43 L 12/18/22 13:55 88 13 97 12/18/22 13:55 70/41 L 12/18/22 13:50 93 H 11 L 97 12/18/22 13:45 127 H 12 96 12/18/22 13:40 107 H 16 95 12/18/22 13:40 76/54 L 12/18/22 13:35 117 H 13 97 12/18/22 13:35 84/60 L 12/18/22 13:33 101 H 17 12/18/22 13:32 101 H 15 12/18/22 13:11 125 H 14 93 12/18/22 13:11 74/48 L 12/18/22 13:10 98 H 17 95 12/18/22 13:05 93 H 13 94 12/18/22 13:00 120 H 16 98 12/18/22 12:59 88/56 L 12/18/22 12:59 12 95 12/18/22 12:59 71/39 L 12/18/22 12:55 128 H 13 95 12/18/22 12:50 110 H 16 97 12/18/22 12:50 82/61 L 12/18/22 12:45 14 98 12/18/22 12:40 118 H 18 95 12/18/22 12:35 103 H 13 94 12/18/22 12:33 107 H 16 94 12/18/22 12:32 97 H 12/18/22 12:32 94 Room Air 12/18/22 12:41 93 H 16 95 Room Air 12/18/22 12:41 92 Room Air 12/18/22 12:31 36.1 C L 114 H 13 99/67 L 93 Room Air O2 Flow Rate 12/18/22 17:30 12/18/22 16:35 12/18/22 16:35 12/18/22 16:35 12/18/22 16:30 12/18/22 16:30 12/18/22 16:30 12/18/22 16:25 12/18/22 16:25 12/18/22 16:25 12/18/22 16:20 12/18/22 16:20 12/18/22 16:15 12/18/22 16:15 12/18/22 16:10 12/18/22 16:10 12/18/22 16:05 12/18/22 16:05 12/18/22 16:00 12/18/22 16:00 12/18/22 15:55 12/18/22 15:55 12/18/22 15:50 12/18/22 15:45 12/18/22 15:45 12/18/22 15:42 12/18/22 15:42 12/18/22 15:40 12/18/22 15:35 12/18/22 15:30 12/18/22 15:30 12/18/22 15:25 12/18/22 15:25 12/18/22 15:20 12/18/22 15:20 12/18/22 16:15 12/18/22 15:15 12/18/22 15:15 12/18/22 15:10 12/18/22 15:10 12/18/22 15:07 12/18/22 15:05 12/18/22 15:04 12/18/22 14:45 12/18/22 14:43 12/18/22 14:41 12/18/22 14:40 12/18/22 14:40 12/18/22 14:36 12/18/22 14:35 12/18/22 14:34 12/18/22 14:34 12/18/22 14:30 12/18/22 14:30 12/18/22 14:25 12/18/22 14:20 12/18/22 14:15 12/18/22 14:15 12/18/22 14:14 12/18/22 14:14 12/18/22 14:10 12/18/22 14:10 12/18/22 14:08 12/18/22 14:08 12/18/22 14:05 12/18/22 14:05 12/18/22 14:03 12/18/22 14:03 12/18/22 14:00 12/18/22 14:00 12/18/22 13:55 12/18/22 13:55 12/18/22 13:50 12/18/22 13:45 12/18/22 13:40 12/18/22 13:40 12/18/22 13:35 12/18/22 13:35 12/18/22 13:33 12/18/22 13:32 12/18/22 13:11 12/18/22 13:11 12/18/22 13:10 12/18/22 13:05 12/18/22 13:00 12/18/22 12:59 12/18/22 12:59 12/18/22 12:59 12/18/22 12:55 12/18/22 12:50 12/18/22 12:50 12/18/22 12:45 12/18/22 12:40 12/18/22 12:35 12/18/22 12:33 12/18/22 12:32 12/18/22 12:32 12/18/22 12:41 12/18/22 12:41 0 12/18/22 12:31 Coding Level of Care Code 53193 CRITICAL CARE 1ST 30-74M Additional Critical Care Time Additional 30min Critical Care Time: Yes - 81822 Diagnoses Encephalopathy G93.40 Acute kidney injury superimposed on chronic kidney disease N17.9; N18.9 Coagulopathy D68.9 Pancytopenia D61.818 Thrombocytopenia D69.6 Decompensated hepatic cirrhosis K72.90; K74.60 Additional Codes Critical Care Time - Additional 30min Critical Care Time: Yes - 70365 ([id number])
[2022-12-18] MEDS ORDERED: VASOPRESSIN 20 UNITS in 0.9 % SODIUM CHLORIDE 100 ML IV SCH (18:00)
[2022-12-18] MEDS ORDERED: POTASSIUM ACETATE 10 MEQ in 0.9 % SODIUM CHLORIDE 100 ML IV ONE (18:00)
--- NOTE | 2022-12-18 18:12 | XRay Report ---
XR chest 1V portable CLINICAL HISTORY: lines TECHNIQUE: Single frontal radiograph of the chest was obtained. Comparison: Comparison is made to chest radiograph 11/04/2022 FINDINGS: Right IJ catheter terminates in the mid SVC. The cardiomediastinal silhouette is normal. Elevation of the left hemidiaphragm is seen. No evidence of pleural effusion or pneumothorax. IMPRESSION: Satisfactory position of right IJ catheter. ACT 112: Negative or not required by law. Electronically signed by: Harrison Her M.D. 12/18/2022 6:11 PM
[2022-12-18] MEDS: cefTRIAXone SODIUM 2,000 MG in DEXTROSE 5% 50 ML IV SCH (18:43)
[2022-12-18 18:58] LABS: HCO3 VBG 25 mmol/L; Oxygen Saturation VBG 72.8 %; PCO2 VBG 38 mmHg (38-50); PO2 VBG 48 mmHg; pH VBG 7.43 (7.36-7.41)
[2022-12-18] MEDS ORDERED: VANCOMYCIN HCL 2,000 MG in SODIUM CHLORIDE 0.9% 500 ML IV ONE (19:00)
--- NOTE | 2022-12-18 19:19 | Pharmacy Report ---
Pharmacy PK ABX Note - Date of Service December 18, 2022 - Assessment and Plan Assessment 77 year old M receiving ceftriaxone/vancomycin for treatment of septic shock. Pertinent microbiologic data includes: blood cultures pending Day # 1 of antimicrobial therapy. Plan Vancomycin * Loading dose: 2000 mg IV x 1 * Will dose further vancomycin per levels due to BRUNA * Random level ordered for 12/19 with AM labs Pharmacy will continue to follow and will adjust dose/frequency as necessary. Thank you.
[2022-12-18 19:20] LABS: BUN Creatinine Ratio 15.5 (10-20); Calcium 8.3 mg/dl (8.6-10.3); Creatinine Clr Calc Pharmacy 20.8 ml/min; Est GFR (African American) 18.6 ml/min; Est GFR (Non-African American) 16.1 ml/min; Potassium 2.7 mmol/L (3.5-5.1)
[2022-12-18] MEDS: POTASSIUM ACETATE 20 MEQ in 0.9 % SODIUM CHLORIDE 100 ML IV SCH ×2 (20:37→22:30)
[2022-12-19 00:04] LABS: BUN Creatinine Ratio 15.7 (10-20); Calcium 8.3 mg/dl (8.6-10.3); Creatinine Clr Calc Pharmacy 21.5 ml/min; Est GFR (African American) 19.4 ml/min; Est GFR (Non-African American) 16.8 ml/min; Potassium 3.2 mmol/L (3.5-5.1)
[2022-12-19] MEDS: INSULIN ASPART PER UNIT CHARGE SC SCH ×5 (00:05→22:13)
[2022-12-19] MEDS: ICU Protocol for HYPERglycemia SCH ×2 (00:06→05:35)
[2022-12-19] MEDS: POTASSIUM CHLORIDE / WTR 20 MEQ/100 ML PLCT IV SCH ×2 (03:15→05:14)
[2022-12-19 05:02] LABS: Hematocrit (blood only) 31.6 % (42.0-52.0); Hemoglobin 11.5 g/dl (14.0-18.0); Mean Corpuscular Hemoglobin 32.6 pg (25.0-34.0); Mean Corpuscular Hgb Conc 36.4 g/dL (32.0-36.0); Mean Corpuscular Volume 89.5 fL (80.0-100.0); Mean Platelet Volume 12.4 fL (9.4-12.4); Platelet Count 54 K/uL (130-400); RDW Coefficient of Variation 15.2 % (11.5-14.5); RDW Standard Deviation 49.1 fL (36.4-46.3); Red Blood Count 3.53 M/uL (4.70-6.10); White Blood Count 10.93 K/ul (4.8-10.8)
[2022-12-19 05:22] LABS: INR 1.4 (0.9-1.1); Prothrombin Time 15.4 Seconds (9.0-12.0)
[2022-12-19] MEDS: NOREPINEPHRINE/D5W 4 MG/250 ML PLCT IV SCH ×4 (05:26→21:27)
[2022-12-19 05:38] LABS: Albumin Level 2.6 gm/dl (3.4-5.0); BUN Creatinine Ratio 16.6 (10-20); Calcium 8.5 mg/dl (8.6-10.3); Creatinine Clr Calc Pharmacy 22.6 ml/min; Est GFR (African American) 20.7 ml/min; Est GFR (Non-African American) 17.8 ml/min; Globulin 2.5 gm/dl (2.5-4.0); Magnesium 1.7 mg/dl (1.7-2.4); Phosphorus 2.3 mg/dl (2.5-4.9); Potassium 3.5 mmol/L (3.5-5.1); Total Protein 5.1 gm/dl (6.0-8.3)
[2022-12-19] MEDS ORDERED: POTASSIUM PHOS 3 MMOL/1 ML INFUSION IV STA (05:47)
[2022-12-19] MEDS: MAGNESIUM SULFATE / D5W 1 GM/100 ML BAG IV SCH ×4 (05:56→12:09)
[2022-12-19] MEDS ORDERED: POTASSIUM PHOSPHATE 21 MMOL in SODIUM CHLORIDE 0.9% 500 ML IV ONE (06:00)
--- NOTE | 2022-12-19 07:32 | Critical Care Progress Note ---
Date of Service December 19, 2022 Assessment & Plan (1) Encephalopathy: Plan: Reason Critically Ill: Multisystem organ failure with hypotension and hypoperfusion PLAN: Neuro: Encephalopathy: Likely metabolic/secondary to decompensated cirrhosis -Ammonia 61 Resp: Family okay with intubation in event of respiratory insufficiency -Mild alkalosis on labs obtained significant interval ago will recheck, I suspect the patient has been compensating for metabolic acidosis CV: Hypotension, suspect sepsis versus decompensated liver failure versus hepatorenal syndrome -Titrate vasoactive medications History of chronic atrial fibrillation -Not on anticoagulation secondary to coagulopathy risks of anticoagulation/risk of serious bleeding outweigh benefits Fluids/Renal: Hypokalemia and hypophosphatemia -Given additional supplementation overnight we will continue to supplement with potassium phosphate given hypophosphatemia Hypomagnesemia: Improved -Additional 2 g Acute kidney injury on chronic kidney disease: Improving -Possible hepatorenal syndrome ID: Septic shock with multisystem organ failure -Rocephin to continue, discontinue vancomycin GI/Nutrition: Decompensated liver cirrhosis unknown etiology: History of hepatosteatosis -History of varices with portal gastropathy Soft bore feeding tube contraindicated secondary to encephalopathy and history of varices, risks outweigh benefits of enteral access at this time Heme: Pancytopenia -Type and screen Elevated INR: Improved will hold additional supplementation given that patient is chronic A-fib DVT prophylaxis: Medically contraindicated significant thrombocytopenia and supratherapeutic INR Endocrine: ICU hyperglycemia protocol Check random cortisol Vascular access: Right jugular central venous catheter Code Status: DNR/DNI in event of cardiac arrest, okay with intubation for respiratory insufficiency Disposition: ICU (2) Acute kidney injury superimposed on chronic kidney disease: (3) Coagulopathy: (4) Pancytopenia: (5) Thrombocytopenia: (6) Decompensated hepatic cirrhosis: Admission and Anticipated Discharge Date Admission Date: December 18, 2022 Supervising Physician Co-Signing Physician Notes I have personally spent 45 minutes of critical care time in the direct management of this patient. This is a life/limb threatening event. This includes time spent evaluating patient, direct bedside care, chart review, placing orders, interpretation of diagnostic studies, discussion with consultants, patient, and/or family members regarding treatment decisions, as well as other required patient management activities. This time is exclusive of all separately billable procedures, and teaching time and separate from and in addition to any other critical care service time. Subjective No overnight events, moderate improvement in mental status Review of Systems Review of Systems: Unobtainable due to cognitive status Physical Exam Physical Exam: General: Arousable. oriented x2 Skin: Multiple areas of ecchymoses and skin tears, Head: Atraumatic Ears, nose, mouth and throat: airway patent Cardiovascular: Normal peripheral perfusion Respiratory: no respiratory distress Gastrointestinal: Non distended, no guarding no rebound tenderness Musculoskeletal: 2+ pulses in all 4 extremities Results & Data Results & Data Vital Signs (Past 12 Hours) Vital Signs Temp Pulse Resp BP Pulse Ox O2 Del Method O2 Flow Rate 12/19/22 06:15 76 10 L 108/66 99 12/19/22 06:00 98 H 13 109/83 99 12/19/22 05:45 92 H 9 L 97/97 L 99 12/19/22 05:30 87 10 L 102/75 99 12/19/22 05:15 79 10 L 108/86 98 12/19/22 05:00 89 9 L 105/69 98 12/19/22 04:45 77 13 101/69 98 12/19/22 04:30 82 8 L 99/76 L 98 12/19/22 04:18 108/66 12/19/22 04:18 93 H 12 99 12/19/22 04:15 98 H 15 94/72 L 100 12/19/22 04:00 77 9 L 105/67 99 12/19/22 03:45 73 16 92/70 L 98 12/19/22 03:30 78 14 104/77 99 12/19/22 03:15 89 15 100/74 100 12/19/22 03:00 67 12 104/71 99 12/19/22 02:45 73 9 L 110/80 99 12/19/22 02:30 86 9 L 98 12/19/22 02:16 84 14 97/79 L 100 12/19/22 02:15 100 H 16 99 12/19/22 04:16 36.4 C L 12/19/22 02:00 79 10 L 109/69 99 12/19/22 01:45 86 10 L 103/79 99 12/19/22 01:30 78 8 L 109/67 99 12/19/22 01:15 86 9 L 114/77 99 12/19/22 01:01 79 12 104/69 97 12/19/22 01:00 84 13 100 12/19/22 00:45 77 7 L 110/71 99 12/19/22 00:32 20 104/73 95 12/19/22 00:31 83 12 95/65 L 100 12/19/22 00:30 94 H 11 L 92 12/19/22 00:15 87 9 L 109/74 98 12/19/22 00:15 109/74 12/19/22 00:02 82 12 100/71 93 12/19/22 00:00 81 15 98 12/18/22 23:45 76 9 L 113/72 99 12/18/22 23:31 14 101/72 99 12/18/22 23:30 92 H 13 97 12/19/22 00:00 80 12/18/22 23:32 36.4 C L 12/18/22 23:15 74 13 111/84 98 12/18/22 23:00 68 12 103/73 99 12/18/22 22:45 78 12 113/66 99 12/18/22 22:30 13 99 12/18/22 22:15 77 15 114/79 98 12/18/22 22:02 11 L 96/62 L 98 12/18/22 22:00 15 96/64 L 98 12/18/22 21:45 78 14 105/74 97 12/18/22 21:35 79 12 107/64 98 12/18/22 21:30 75 12 109/59 L 98 12/18/22 21:15 75 12 96/64 L 97 12/18/22 21:11 103/65 12/18/22 21:11 96 H 14 92/42 L 98 12/18/22 21:06 16 88/63 L 98 12/18/22 21:00 82 12 82/43 L 99 12/18/22 22:27 Nasal Cannula 2 12/18/22 20:45 75 12 97 12/18/22 20:45 101/63 12/18/22 20:40 105 H 12 95/46 L 83 L 12/18/22 20:30 73 13 88/82 L 97 12/18/22 20:15 87 13 107/58 L 98 12/18/22 20:00 100 H 16 102/61 95 12/18/22 19:45 78 14 98/60 L 98 Critical Care Results & Data Vital Signs (Past 12 Hours) Vital Signs Temp Pulse Resp BP Pulse Ox O2 Del Method O2 Flow Rate 12/19/22 06:15 76 10 L 108/66 99 12/19/22 06:00 98 H 13 109/83 99 12/19/22 05:45 92 H 9 L 97/97 L 99 12/19/22 05:30 87 10 L 102/75 99 12/19/22 05:15 79 10 L 108/86 98 12/19/22 05:00 89 9 L 105/69 98 12/19/22 04:45 77 13 101/69 98 12/19/22 04:30 82 8 L 99/76 L 98 12/19/22 04:18 108/66 12/19/22 04:18 93 H 12 99 12/19/22 04:15 98 H 15 94/72 L 100 12/19/22 04:00 77 9 L 105/67 99 12/19/22 03:45 73 16 92/70 L 98 12/19/22 03:30 78 14 104/77 99 12/19/22 03:15 89 15 100/74 100 12/19/22 03:00 67 12 104/71 99 12/19/22 02:45 73 9 L 110/80 99 12/19/22 02:30 86 9 L 98 12/19/22 02:16 84 14 97/79 L 100 12/19/22 02:15 100 H 16 99 12/19/22 04:16 36.4 C L 12/19/22 02:00 79 10 L 109/69 99 12/19/22 01:45 86 10 L 103/79 99 12/19/22 01:30 78 8 L 109/67 99 12/19/22 01:15 86 9 L 114/77 99 12/19/22 01:01 79 12 104/69 97 12/19/22 01:00 84 13 100 12/19/22 00:45 77 7 L 110/71 99 12/19/22 00:32 20 104/73 95 12/19/22 00:31 83 12 95/65 L 100 12/19/22 00:30 94 H 11 L 92 12/19/22 00:15 87 9 L 109/74 98 12/19/22 00:15 109/74 08/17/23 00:02 82 12 100/71 93 12/19/22 00:00 81 15 98 12/18/22 23:45 76 9 L 113/72 99 12/18/22 23:31 14 101/72 99 12/18/22 23:30 92 H 13 97 12/19/22 00:00 80 12/18/22 23:32 36.4 C L 12/18/22 23:15 74 13 111/84 98 12/18/22 23:00 68 12 103/73 99 12/18/22 22:45 78 12 113/66 99 12/18/22 22:30 13 99 12/18/22 22:15 77 15 114/79 98 12/18/22 22:02 11 L 96/62 L 98 12/18/22 22:00 15 96/64 L 98 12/18/22 21:45 78 14 105/74 97 12/18/22 21:35 79 12 107/64 98 12/18/22 21:30 75 12 109/59 L 98 12/18/22 21:15 75 12 96/64 L 97 12/18/22 22:27 Nasal Cannula 2 Lab & Micro Results (Past 24 Hours) RBC 3.53 M/uL (4.70-6.10) L 12/19/22 WBC 10.93 K/ul (4.8-10.8) H 12/19/22 Hgb 11.5 g/dl (14.0-18.0) L 12/19/22 Hct 31.6 % (42.0-52.0) L 12/19/22 MCV 89.5 fL (80.0-100.0) 12/19/22 MCH 32.6 pg (25.0-34.0) 12/19/22 MCHC 36.4 g/dL (32.0-36.0) H 12/19/22 RDW Standard Deviation 49.1 fL (36.4-46.3) H 12/19/22 RDW Coefficient of Variation 15.2 % (11.5-14.5) H 12/19/22 Plt Count 54 K/uL (130-400) L 12/19/22 MPV 12.4 fL (9.4-12.4) 12/19/22 Neutrophils (%) (Auto) 90.3 % 12/18/22 Lymphocytes (%) (Auto) 3.5 % 12/18/22 Monocytes # (Auto) 0.23 K/uL (0.11-0.59) 12/18/22 Eosinophils # (Auto) 0.00 K/uL (0-0.50) 12/18/22 Immature Granulocyte % (Auto) 0.5 % 12/18/22 Neutrophils # (Auto) 3.65 K/uL (1.40-6.50) 12/18/22 Lymphocytes # (Auto) 0.14 K/uL (1.2-3.4) L 12/18/22 Monocytes # (Auto) 0.23 K/uL (0.11-0.59) 12/18/22 Eosinophils # (Auto) 0.00 K/uL (0-0.50) 12/18/22 Basophils # (Auto) 0.00 K/uL (0-0.2) 12/18/22 Immature Granulocyte # (Auto) 0.02 K/uL (0.01-0.20) 3 Polychromasia 1+ 12/18/22 Echinocytes 1+ 12/18/22 Ovalocytes 1+ 12/18/22 Na 134 mmol/L (136-145) L 12/19/22 K 3.2 mmol/L (3.5-5.1) L 12/19/22 Cl 102 mmol/L (98-107) 12/19/22 CO2 25 mmol/L (21-32) 12/19/22 Anion Gap 7 (3-11) 12/19/22 BUN 53 mg/dl (6-23) H 12/19/22 Creatinine 3.08 mg/dl (0.6-1.4) H 12/19/22 Estimated GFR ( Amer) 21.7 ml/min 12/19/22 Estimated GFR (Non-Af Amer) 18.7 ml/min 12/19/22 BUN/Creatinine Ratio 17.2 (10-20) 12/19/22 Glu 159 mg/dl (70-99(Fasting)) H 12/19/22 Ca 8.4 mg/dl (8.6-10.3) L 12/19/22 Phosphorus Level 2.3 mg/dl (2.5-4.9) L 12/19/22 Total Bilirubin 4.0 mg/dl (0.2-1.0) H 12/19/22 Direct Bilirubin 1.0 mg/dl (0-0.2) H 12/18/22 AST 45 U/L (13-39) H 12/19/22 ALT 14 U/L (7-52) 12/19/22 Alkaline Phosphatase 44 U/L (34-104) 12/19/22 TP 5.1 gm/dl (6.0-8.3) L 12/19/22 Albumin 2.6 gm/dl (3.4-5.0) L 12/19/22 Globulin 2.5 gm/dl (2.5-4.0) 12/19/22 Albumin/Globulin Ratio 1.0 (0.9-2) 12/19/22 Mg 1.7 mg/dl (1.7-2.4) 12/19/22 04:24 Calcium Level 8.4 mg/dl (8.6-10.3) L 12/19/22 07:35 Prothromb Time International Ratio 1.4 (0.9-1.1) H 12/19/22 04 :24 Venous Blood pH 7.43 (7.36-7.41) H 12/18/22 18:39 Venous Blood Partial Pressure CO2 38 mmHg (38-50) 12/18/22 18:3 9 Venous Blood Partial Pressure O2 48 mmHg 12/18/22 18:39 Venous Blood HCO3 25 mmol/L 12/18/22 18:39 Venous Blood Base Excess 1.0 mEq/L 12/18/22 18:39 Venous Blood Oxygen Saturation 72.8 % 12/18/22 18:39 Diagnostic Findings (Past 24 Hours) Cervical Spine CT 12/18/22 12:13 CT cervical spine wo con CLINICAL HISTORY: ams TECHNIQUE: Multidetector row helical CT of the cervical spine was performed without administration of intravenous contrast. Coronal and sagittal reformations were obtained. Automated dose lowering techniques and/or adjustment according to patient size were utilized for this exam. Comparison: None available at the time of this dictation. FINDINGS: No acute fractures or subluxations are identified. Degenerative changes are seen in the visualized spine. The alignment is normal. Soft tissues are unremarkable. IMPRESSION: Degenerative changes without evidence of acute bony injury. ACT 112: Negative or not required by law. Electronically signed by: Harrison Her M.D. 12/18/2022 1:[address] 12/18/22 12:[address] DOSE: HISTORY: Altered mental status. TECHNIQUE: Multiaxial CT images of the head were performed without the use of intravenous contrast. Automated exposure control was utilized for this study. A dose lowering technique was utilized adhering to the principles of ALARA. Comparison: None. Findings: Motion artifact. The paranasal sinuses and mastoid air cells are clear. The calvarium and skull base are intact. There is no mass, hematoma, midline shift, acute infarct. White matter hypodensity is nonspecific but suggestive of microvascular ischemic change. The ventricles and sulci demonstrate mild age-related involutional changes. Impression: Motion artifact. No definite acute intracranial abnormality. ACT 112: Negative or not required by law. Electronically signed by: Chad Cardona M.D. 12/18/2022 2:07 PM Abdomen/Pelvis CT 12/18/22 13:10 CT chest diagnostic wo con, CT abd pelvis wo con CT DOSE: 3743.01 mGy.cm CLINICAL HISTORY: 77 years-old Male with fall. Acute chest and abdominal pain status post fall TECHNIQUE: Multiaxial CT images of the CT chest, abdomen and pelvis were performed without contrast. A dose lowering technique was utilized adhering to the principles of ALARA. COMPARISON: CT abdomen and pelvis 02/04/2018 FINDINGS: CT CHEST: Limited exam secondary to positioning and lack of IV contrast. Moderate cardi omegaly. Decreased attenuation of the cardiac blood pool suggestive of anemia. Moderate coronary artery calcifications. Trace pericardial effusion. Atherosclerosis of the thoracic aorta without aneurysm. No dominant thyroid nodule or lymphadenopathy. Trace pleural effusions. No pneumothorax. Intralobular septal thickening with mild dependent subsegmental atelectasis. Stable likely benign 6 mm solid nodule of the basal right lower lobe. Central airways are patent. Anasarca. No acute displaced rib fracture identified. Gynecomastia. CT ABDOMEN/PELVIS: No free air. Cirrhotic liver. The spleen is enlarged measuring over 15 cm. Left upper quadrant splenule with marginal calcifications again noted. Mildly atrophic pancreas. Punctate pancreatic head calcification. Unremarkable adrenal glands. Cholelithiasis with partial distention and mild wall thickening. 3 mm calcification noted on image 167 with additional punctate calcifications noted distally towards the duodenum. Atrophic kidneys. Hypodense 1.6 cm lesion of the superior pole of kidney, possibly a cyst. Decompressed urinary bladder with wall thickening. A Apple catheter is in place. Air within the urinary bladder is noted. Prostatomegaly. Atherosclerosis of the aorta. Moderate ascites. Small hiatal hernia. Nonspecific diffuse gastric wall thickening is noted with partial distention. Nonspecific anal rectal wall thickening. Colonic diverticulosis. Prior sigmoid colon resection with colonic colonic anastomosis. Moderate circumferential wall thickening of the colon is most pronounced in the ascending and transverse segments. Appendix not visualized. Small fat and fluid filled umbilical hernia. No acute fracture. IMPRESSION: 1. No acute posttraumatic intrathoracic, intra-abdominal or intrapelvic abnormality identified. 2. Cardiomegaly with mild pulmonary edema and trace pleural effusions. 3. Cirrhosis with stigmata of portal venous hypertension including splenomegaly with moderate ascites. 4. Cholelithiasis with possible choledocholithiasis. Correlate with LFTs. 5. Wall thickening of the ascending and transverse colon suggestive of portal colopathy. 6. Additional findings as above. ACT 112: Negative or not required by law. Electronically signed by: Rayshawn Powers M.D. 12/18/2022 2:[address] 12/18/22 13:10 CT chest diagnostic wo con, CT abd pelvis wo con CT DOSE: 3743.01 mGy.cm CLINICAL HISTORY: 77 years-old Male with fall. Acute chest and abdominal pain status post fall TECHNIQUE: Multiaxial CT images of the CT chest, abdomen and pelvis were performed without contrast. A dose lowering technique was utilized adhering to the principles of ALARA. COMPARISON: CT abdomen and pelvis 02/04/2018 FINDINGS: CT CHEST: Limited exam secondary to positioning and lack of IV contrast. Moderate car diomegaly. Decreased attenuation of the cardiac blood pool suggestive of anemia. Moderate coronary artery calcifications. Trace pericardial effusion. Atherosclerosis of the thoracic aorta without aneurysm. No dominant thyroid nodule or lymphadenopathy. Trace pleural effusions. No pneumothorax. Intralobular septal thickening with mild dependent subsegmental atelectasis. Stable likely benign 6 mm solid nodule of the basal right lower lobe. Central airways are patent. Anasarca. No acute displaced rib fracture identified. Gynecomastia. CT ABDOMEN/PELVIS: No free air. Cirrhotic liver. The spleen is enlarged measuring over 15 cm. Left upper quadrant splenule with marginal calcifications again noted. Mildly atrophic pancreas. Punctate pancreatic head calcification. Unremarkable adrenal glands. Cholelithiasis with partial distention and mild wall thickening. 3 mm calcification noted on image 167 with additional punctate calcifications noted distally towards the duodenum. Atrophic kidneys. Hypodense 1.6 cm lesion of the superior pole of kidney, possibly a cyst. Decompressed urinary bladder with wall thickening. A Apple catheter is in place. Air within the urinary bladder is noted. Prostatomegaly. Atherosclerosis of the aorta. Moderate ascites. Small hiatal hernia. Nonspecific diffuse gastric wall thickening is noted with partial distention. Nonspecific anal rectal wall thickening. Colonic diverticulosis. Prior sigmoid colon resection with colonic colonic anastomosis. Moderate circumferential wall thickening of the colon is most pronounced in the ascending and transverse segments. Appendix not visualized. Small fat and fluid filled umbilical hernia. No acute fracture. IMPRESSION: 1. No acute posttraumatic intrathoracic, intra-abdominal or intrapelvic abnormality identified. 2. Cardiomegaly with mild pulmonary edema and trace pleural effusions. 3. Cirrhosis with stigmata of portal venous hypertension including splenomegaly with moderate ascites. 4. Cholelithiasis with possible choledocholithiasis. Correlate with LFTs. 5. Wall thickening of the ascending and transverse colon suggestive of portal colopathy. 6. Additional findings as above. ACT 112: Negative or not required by law. Electronically signed by: Rayshawn Powers M.D. 12/18/2022 2:10 PM Chest X-Ray 12/18/22 17:35 XR chest 1V portable CLINICAL HISTORY: lines TECHNIQUE: Single frontal radiograph of the chest was obtained. Comparison: Comparison is made to chest radiograph 11/04/2022 FINDINGS: Right IJ catheter terminates in the mid SVC. The cardiomediastinal silhouette is normal. Elevation of the left hemidiaphragm is seen. No evidence of pleural effusion or pneumothorax. IMPRESSION: Satisfactory position of right IJ catheter. ACT 112: Negative or not required by law. Electronically signed by: Harrison Her M.D. 12/18/2022 6:11 PM I & O Totals 24 Hours 12/18/22 12/19/22 12/20/22 06:59 06:59 06:59 Intake Total 3340.292 / 3340.292 279.2 / 279.2 Output Total 2549 / 2549 Balance 791.292 / 791.292 279.2 / 279.2 Cumulative 12/18/22 11:52 thru 12/19/22 07:46 Intake Total 3619.492 Output Total 2549 Balance 1070.492 RT Ventilator Mngmt (Last Documented) Ventilator Ordered Settings Respiratory Rate 10 12/19/22 06:15 Ventilator - PT Measurements Respiratory Rate 10 Coding Level of Care Code 34103 CRITICAL CARE 1ST 30-74M Diagnoses Encephalopathy G93.40 Acute kidney injury superimposed on chronic kidney disease N17.9; N18.9 Coagulopathy D68.9 Pancytopenia D61.818 Thrombocytopenia D69.6 Decompensated hepatic cirrhosis K72.90; K74.60
[2022-12-19 08:34] LABS: BUN Creatinine Ratio 17.2 (10-20); Calcium 8.4 mg/dl (8.6-10.3); Creatinine Clr Calc Pharmacy 23.7 ml/min; Est GFR (African American) 21.7 ml/min; Est GFR (Non-African American) 18.7 ml/min; Potassium 3.2 mmol/L (3.5-5.1)
[2022-12-19] MEDS ORDERED: VANCOMYCIN HCL 1,000 MG in SODIUM CHLORIDE 0.9% 250 ML IV ONE (09:00)
--- NOTE | 2022-12-19 10:18 | Gastrointestinal Consultation ---
Date of Consultation December 19, 2022 Assessment & Plan (1) AMS (altered mental status): Fall likely secondary to overall poor functional status and hypotention though had some confusion suggesting hepatic encephalopathy after the fall. He does not carry a hx of hepatic encephalopathy. No s/s of GI bleeding and no s/s of infection. Plan - Will r/o SBP w dx tap. - For worsened renal function: urine sodium, nephrology consult, albumin. - Appreciate primary/regional liaison management of fluids/electrolytes/hypotension. GI will continue to follow. Supervising Physician Co-Signing Physician Notes Pt admit with confusion, fall, hypotension requiring pressors, BRUNA. Dx'd sepsis, started on pressors, empiric broad spectrum abx. Imaging shows ascites. Labs sig for creat 3.5, improving. WBC 11. U Na < 10. Currently on Levophed, Rocephin. A/P: Rule out SBP - consider tap. FOr hypotension - albumin, wean pressors, resume oral midodrine For BRUNA - follow creat, albumin, nephro consult History of Present Illness Reason for Consultation: Decompensated cirrhosis Requesting Physician: Mariela Nixon Attending Physician: Edil Hoskins MD History of Present Illness Mr. Dave Anderson is a 77-year-old male patient of Dr. Vickers with a history of A-fib, DM 2, , CKD, BPH, cirrhosis with ascites on midodrin, spironolactone, torsemide at home, undergoing occasional paracentesis Q 6wks. Most recent EGD at time of dx in 2019 w grade I EV. He is followed by Anastacia Franks NP. Though he is unsure exactly how it happened, yesterday, he fell and EMS was summoned. He assures us that he was feeling fine prior to the fall, "able to get up and around." He denies any recent confusion. He denies any recent blood in BMs. On arrival, creatinine was elevated (3.84->3.08 today, baseline approx 2.5), he has some mild confusion which has since cleared, and has been hypotensive. He was started on vasopressors antibiotics, and received a dose of albumin. This morning he is awake, alert, oriented, afebrile w/o leukocytosis or drop in Hb. Allergies Allergy/AdvReac Type Severity Reaction Status Date / Time lisinopril Allergy Severe ANGIOEDEMA Verified 07/31/22 09:40 cephalexin Allergy Intermediate Hives Verified 07/31/22 09:40 Home Medications Medication Instructions Recorded Confirmed Type allopurinol 100 mg tablet 200 mg PO DAILY 11/04/22 12/18/22 History ferrous sulfate 324 mg (65 mg 324 mg PO DAILY 11/04/22 12/18/22 History iron) tablet,delayed release oxycodone 5 mg tablet 5 mg PO AMHS 11/04/22 12/18/22 History pantoprazole 40 mg tablet,delayed 40 mg PO DAILY 11/04/22 12/18/22 History release tamsulosin 0.4 mg capsule 0.4 mg PO DAILY 11/04/22 12/18/22 History spironolactone 25 mg tablet 12.5 mg PO DAILY #30 tabs 11/06/22 12/18/22 Rx torsemide 10 mg tablet 10 mg PO QAM #30 tabs 11/06/22 12/18/22 Rx midodrine 5 mg tablet See Rx Instructions .Route .COMPLEX 12/18/22 12/18/22 History triamcinolone acetonide 0.1 % 1 applic topical BID 12/18/22 12/18/22 History topical cream Patient History Medical History Anemia BPH (benign prostatic hyperplasia) Cellulitis HX OF LEFT LEG (CURRENTLY ALL HEALED) CKD (chronic kidney disease) stage 4, GFR 15-29 ml/min 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 2mg versed. 100mcg fentanyl. History of tooth extraction S/P colectomy Family History Sister Diabetes Brother Diabetes Mother Diabetes Father Diabetes Other Stroke Social History Smoking Status: Former smoker Cigarettes Per Day: quit 13yrs ago; Second Hand Exposure: No; Do You Dip or Chew Tobacco: No; Hx Alcohol Use: No Hx Substance Use: No Preferred Language: Kiswahili Communication Ability: Effective Visual Impairment: No Limitations Traveling Representative Required: No Beliefs That Will Affect Care: None Current Living Situation: Spouse Current Living Situation Comment: lives in a 2 story home with , resides mostly on Feels Safe at Home: Yes Assistive Devices: Walker Review of Systems Review of Systems: ROS: Gen: + chronic weakness, +fall, No fevers, no unexplained weight loss Eyes: No eye redness, or pain, no recent vision changes Resp: Denies SOB, no cough Cardio: No palpitations/irregular beats, no chest pain GI: No abdominal pain, no nausea/vomiting : Denies pain on urination Skin:+ ecchymosis; No jaundice, itching or new rashes Physical Exam Constitutional: + ill appearing (chronically), cooperative and + overweight Eyes: PERRL, conjunctivae normal, anicteric sclerae ENMT: external ear and nose normal, oropharynx normal Neck: trachea midline, no thyromegaly Respiratory: Auscultation: + diminished lung sounds (at bases) Cardiovascular: Rate/Rhythm: regular rate and regular rhythm chronic bilat lower leg edema Gastrointestinal (Abdomen): moderate/not taunt ascites, umbilical hernia (reducible, non tender) otherwise no masses Skin: no rashes, warm and dry Neurologic: PERRL, EOMI, accommodation nl, no face palsy, no dysarthria (no asterixes) Psychiatric: Eye Contact: good eye contact Speech: normal rate/rhythm/volume of speech (slightly slower responses) Lymphatic: no cervical or axillary lymphadenopathy Results & Data Vital Signs (Past 12 Hours) Vital Signs Temp Pulse Resp BP Pulse Ox O2 Del Method O2 Flow Rate 12/19/22 08:00 Nasal Cannula 12/19/22 08:00 Nasal Cannula 2 12/19/22 09:45 90 9 L 99 12/19/22 09:45 105/78 12/19/22 09:30 78 9 L 98 12/19/22 09:30 103/75 12/19/22 09:15 79 9 L 100 12/19/22 09:15 101/72 12/19/22 09:00 93 H 14 99 12/19/22 09:00 108/74 12/19/22 08:45 93 H 19 99 12/19/22 08:45 104/71 12/19/22 08:30 93 H 12 98 12/19/22 08:30 108/72 12/19/22 08:15 81 9 L 99 12/19/22 08:15 102/61 12/19/22 08:00 84 10 L 98 12/19/22 08:00 105/78 12/19/22 07:45 87 12 99 12/19/22 07:45 102/70 12/19/22 07:30 91 H 10 L 99 12/19/22 07:30 96/69 L 12/19/22 07:15 82 11 L 98 12/19/22 07:15 101/70 12/19/22 07:00 82 10 L 98 12/19/22 07:00 101/70 12/19/22 06:45 81 11 L 99 12/19/22 06:45 96/74 L 12/19/22 06:30 77 10 L 99 12/19/22 06:30 102/69 12/19/22 08:00 36.5 C 12/19/22 06:15 76 10 L 108/66 99 12/19/22 06:00 98 H 13 109/83 99 12/19/22 05:45 92 H 9 L 97/97 L 99 12/19/22 05:30 87 10 L 102/75 99 12/19/22 05:15 79 10 L 108/86 98 12/19/22 05:00 89 9 L 105/69 98 12/19/22 04:45 77 13 101/69 98 12/19/22 04:30 82 8 L 99/76 L 98 12/19/22 04:18 108/66 12/19/22 04:18 93 H 12 99 12/19/22 04:15 98 H 15 94/72 L 100 12/19/22 04:00 77 9 L 105/67 99 12/19/22 03:45 73 16 92/70 L 98 12/19/22 03:30 78 14 104/77 99 12/19/22 03:15 89 15 100/74 100 12/19/22 03:00 67 12 104/71 99 12/19/22 02:45 73 9 L 110/80 99 12/19/22 02:30 86 9 L 98 12/19/22 02:16 84 14 97/79 L 100 12/19/22 02:15 100 H 16 99 12/19/22 04:16 36.4 C L 12/19/22 02:00 79 10 L 109/69 99 12/19/22 01:45 86 10 L 103/79 99 12/19/22 01:30 78 8 L 109/67 99 12/19/22 01:15 86 9 L 114/77 99 12/19/22 01:01 79 12 104/69 97 12/19/22 01:00 84 13 100 12/19/22 00:45 77 7 L 110/71 99 12/19/22 00:32 20 104/73 95 12/19/22 00:31 83 12 95/65 L 100 12/19/22 00:30 94 H 11 L 92 12/19/22 00:15 87 9 L 109/74 98 12/19/22 00:15 109/74 12/19/22 00:02 82 12 100/71 93 12/19/22 00:00 81 15 98 12/18/22 23:45 76 9 L 113/72 99 12/18/22 23:31 14 101/72 99 12/18/22 23:30 92 H 13 97 12/19/22 00:00 80 12/18/22 23:32 36.4 C L 12/18/22 23:15 74 13 111/84 98 12/18/22 23:00 68 12 103/73 99 12/18/22 22:45 78 12 113/66 99 12/18/22 22:30 13 99 12/18/22 22:27 Nasal Cannula 2 Laboratory Results WBC 10.9, Hb 11.5, HCT 31, PLT S54, PT 15, INR 1.4, NA 133, K3.5, CL 102, CO2 24, BUN 53, CR 3.2 T. bili 4.0, AST 45, ALT [address] Diagnostic Findings [address] CHEST/abd pelvis 12/18/22: 1. No acute posttraumatic intrathoracic, intra-abdominal or intrapelvic abnormality identified. 2. Cardiomegaly with mild pulmonary edema and trace pleural effusions. 3. Cirrhosis with stigmata of portal venous hypertension including splenomegaly with moderate ascites. 4. Cholelithiasis with possible choledocholithiasis. Correlate with LFTs. 5. Wall thickening of the ascending and transverse colon suggestive of portal colopathy. Non contrast head CT: Motion artifact. No definite acute intracranial abnormality.
[2022-12-19] MEDS: ALBUMIN 25% 25 GM/100 ML VIAL IV SCH ×2 (10:45→17:44)
--- NOTE | 2022-12-19 11:26 | Nephrology Consultation ---
Date of Consultation December 19, 2022 Assessment & Plan (1) Acute kidney injury superimposed on chronic kidney disease: at least in part prerenal/hypoperfusion in the setting of decompensated liver failure versus less likely severe sepsis/septic shock; pressors weaning His last echocardiogram was in 2019 with an ejection fraction at that time of 55% Low threshold at least for consideration of repeat echocardiogram given worsening and now injury causing/symptomatic hypotension Continue albumin resuscitation -When taking regular diet, please limit fluid intake to less than 1.2 L daily and continue less than 2 g daily sodium For now continue to hold OP diuretic (2) CKD (chronic kidney disease) stage 4, GFR 15-29 ml/min: rapidly progressive CKD santa past few months as his liver status has worsened. Not a liver transplant candidate and therefore not a dialysis candidate. I did reiterate with the patient and his family that the focus of his kidney care during this admission and after discharge will be supportive and that he will not be a candidate for dialysis -continue supportive care -maintain SPB 90-100s -agree w/ holding vancomycin -continue albumin -He had been referred to palliative care as an outpatient but this appointment had to be changed by the clinician and was not as yet rescheduled; follow-up with palliative as outpatient; may need them inpatient as well (3) Disorder of fluid or electrolyte: From worsening liver cirrhosis in the setting of advanced CKD Fluid limit when feasible as above Less than 2 g daily sodium diet Albumin rather than IV fluids as above Continue potassium repletion with a target of 4 and mag target of 2; replete potassium p.o. where able History of Present Illness Reason for Consultation: Acute on chronic renal failure, cirrhosis Requesting Physician: Dr Powell Attending Physician: Edil Hoskins MD History of Present Illness 77-year-old man whom I am asked to see for acute on chronic renal failure was admitted here yesterday with encephalopathy in the setting of multisystem organ failure with hypotension and hypoperfusion after falling at home. Past medical history includes chronic AFib, diet controlled DM, chronic hypotension w/ documented sbp in EHR since at least 2019 in -, memory loss, chronic ambulatory dysfunction/walker dependent, in 2022 rapidly progressive CKD stage IV (baseline sCR - Mid to high 2.0'S in October 2022 but in November more low to mid threes; as recently as February 2022 was mid 1's x several months), prostatic hypertrophy, decompensated liver cirrhosis of unknown etiology (GI favors SOLOMON) (c/b esophageal varices, portal hypertension, encephalopathy, and thrombocytopenia, with intermittent approximately every 6-w [place] paracentesis), hx diverticulosis, hx SBO, hx GIB, lumbar radiculopathy. He had a 48-hour admission here in early November for right lower extremity cellulitis and with BRUNA on CKD at that time. He was discharged on torsemide 10 mg daily (down from 20 mg daily) and spironolactone 12.5 mg daily. His discharge creatinine was 2.8, also the parvez value for that hospital stay during which he presented with creatinine 3.3. He follows with Dr Munroe in CKD clinic; unless he is a liver transplant candidate, he is not a dialysis candidate. This has been discussed with the patient previously in the outpatient and inpatient setting. His presenting creatinine was 3.8, down to 3.1 today. Also with low potassium, low phosphate, low magnesium on presentation. On presentation he received a 2 L normal saline bolus as well as 250 mL of lactated Ringer's. He has also had 3 g total of vancomycin which is now discontinued. He had 50 mill equivalents of potassium IV yesterday and 70 mill equivalent so far today (for today he had 40 mill equivalents at 03 100 and then 30 mill equivalents in the [facility]). He has norepinephrine ordered which is being weaned currently and is at 0.03 mics per kilogram per minute. He has made 2.5 L of urine so far this admission. Diagnostic tap to rule out SBP has happened; results pending. The patient tells me he is not short of breath or with any musculoskeletal pain currently. He is not sure what happened him to the hospital. Does endorse mild periumbilical discomfort and abdominal fullness. Allergies Allergy/AdvReac Type Severity Reaction Status Date / Time lisinopril Allergy Severe ANGIOEDEMA Verified 07/31/22 09:40 cephalexin Allergy Intermediate Hives Verified 07/31/22 09:40 Home Medications Medication Instructions Recorded Confirmed Type allopurinol 100 mg tablet 200 mg PO DAILY 11/04/22 12/18/22 History ferrous sulfate 324 mg (65 mg 324 mg PO DAILY 11/04/22 12/18/22 History iron) tablet,delayed release oxycodone 5 mg tablet 5 mg PO AMHS 11/04/22 12/18/22 History pantoprazole 40 mg tablet,delayed 40 mg PO DAILY 11/04/22 12/18/22 History release tamsulosin 0.4 mg capsule 0.4 mg PO DAILY 11/04/22 12/18/22 History spironolactone 25 mg tablet 12.5 mg PO DAILY #30 tabs 11/06/22 12/18/22 Rx torsemide 10 mg tablet 10 mg PO QAM #30 tabs 11/06/22 12/18/22 Rx midodrine 5 mg tablet See Rx Instructions .Route .COMPLEX 12/18/22 12/18/22 History triamcinolone acetonide 0.1 % 1 applic topical BID 12/18/22 12/18/22 History topical cream Patient History Medical History Anemia BPH (benign prostatic hyperplasia) Cellulitis HX OF LEFT LEG (CURRENTLY ALL HEALED) CKD (chronic kidney disease) stage 4, GFR 15-29 ml/min 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 2mg versed. 100mcg fentanyl. History of tooth extraction S/P colectomy Family History Sister Diabetes Brother Diabetes Mother Diabetes Father Diabetes Other Stroke Social History Smoking Status: Former smoker Cigarettes Per Day: quit 13yrs ago; Second Hand Exposure: No; Do You Dip or Chew Tobacco: No; Hx Alcohol Use: No Hx Substance Use: No Preferred Language: Bahraini Communication Ability: Effective Visual Impairment: No Limitations Advanced Registered Nurse Required: No Beliefs That Will Affect Care: None Current Living Situation: Spouse Current Living Situation Comment: lives in a 2 story home with , resides mostly on Feels Safe at Home: Yes Assistive Devices: Walker Review of Systems Review of Systems: All systems reviewed & are unremarkable except as noted in HPI & below (Limited to a degree by patient mental status) Physical Exam Constitutional: well developed, + cachectic, + physical limitations, + frail appearing and cooperative Eyes: EOM intact bilaterally Mild periorbital edema ENMT: Ears: no external ear abnormality Nose: no external nose abnormality Mouth: + dry oral mucous membranes Neck: no nuchal rigidity Respiratory: normal respiratory effort Auscultation: + diminished lung sounds (Particularly left base) Cardiovascular: Rate/Rhythm: regular rate and regular rhythm Extremities: + edema (2+ distal bilateral lower extremities) Gastrointestinal (Abdomen): Inspection/Auscultation: + abdomen distended, + high-pitched sounds and + hyperactive bowel sounds Percussion/Palpation: abdomen soft and + ascites; abdomen nontender Musculoskeletal: Extremities: strength 5/5 throughout Skin: no rashes, warm and dry Trauma: + evidence of skin trauma (innumerable and large ecchymoses and skin tears) Neurologic: mack, fluent speech, no tremor; marked generalized weakness Psychiatric: Orientation: alert, oriented to person and oriented to place Insight: + limited insight Judgment: + limited judgement Results & Data Vital Signs (Past 12 Hours) Vital Signs Temp Pulse Resp BP Pulse Ox O2 Del Method O2 Flow Rate 12/19/22 10:45 91 H 9 L 100 12/19/22 10:45 112/72 12/19/22 10:30 78 10 L 99 12/19/22 10:30 114/76 12/19/22 10:15 85 10 L 100 12/19/22 10:15 108/70 12/19/22 10:00 92 H 10 L 99 12/19/22 10:00 104/68 12/19/22 11:00 36.6 C 12/19/22 08:00 Nasal Cannula 12/19/22 08:00 Nasal Cannula 2 12/19/22 09:45 90 9 L 99 12/19/22 09:45 105/78 12/19/22 09:30 78 9 L 98 12/19/22 09:30 103/75 12/19/22 09:15 79 9 L 100 12/19/22 09:15 101/72 12/19/22 09:00 93 H 14 99 12/19/22 09:00 108/74 12/19/22 08:45 93 H 19 99 12/19/22 08:45 104/71 12/19/22 08:30 93 H 12 98 12/19/22 08:30 108/72 12/19/22 08:15 81 9 L 99 12/19/22 08:15 102/61 12/19/22 08:00 84 10 L 98 12/19/22 08:00 105/78 12/19/22 07:45 87 12 99 12/19/22 07:45 102/70 12/19/22 07:30 91 H 10 L 99 12/19/22 07:30 96/69 L 12/19/22 07:15 82 11 L 98 12/19/22 07:15 101/70 12/19/22 07:00 82 10 L 98 12/19/22 07:00 101/70 12/19/22 06:45 81 11 L 99 12/19/22 06:45 96/74 L 12/19/22 06:30 77 10 L 99 12/19/22 06:30 102/69 12/19/22 08:00 36.5 C 12/19/22 06:15 76 10 L 108/66 99 12/19/22 06:00 98 H 13 109/83 99 12/19/22 05:45 92 H 9 L 97/97 L 99 12/19/22 05:30 87 10 L 102/75 99 12/19/22 05:15 79 10 L 108/86 98 12/19/22 05:00 89 9 L 105/69 98 12/19/22 04:45 77 13 101/69 98 12/19/22 04:30 82 8 L 99/76 L 98 12/19/22 04:18 108/66 12/19/22 04:18 93 H 12 99 12/19/22 04:15 98 H 15 94/72 L 100 12/19/22 04:00 77 9 L 105/67 99 12/19/22 03:45 73 16 92/70 L 98 12/19/22 03:30 78 14 104/77 99 12/19/22 03:15 89 15 100/74 100 12/19/22 03:00 67 12 104/71 99 12/19/22 02:45 73 9 L 110/80 99 12/19/22 02:30 86 9 L 98 12/19/22 02:16 84 14 97/79 L 100 12/19/22 02:15 100 H 16 99 12/19/22 04:16 36.4 C L 12/19/22 02:00 79 10 L 109/69 99 12/19/22 01:45 86 10 L 103/79 99 12/19/22 01:30 78 8 L 109/67 99 12/19/22 01:15 86 9 L 114/77 99 12/19/22 01:01 79 12 104/69 97 12/19/22 01:00 84 13 100 12/19/22 00:45 77 7 L 110/71 99 12/19/22 00:32 20 104/73 95 12/19/22 00:31 83 12 95/65 L 100 12/19/22 00:30 94 H 11 L 92 12/19/22 00:15 87 9 L 109/74 98 12/19/22 00:15 109/74 12/19/22 00:02 82 12 100/71 93 12/19/22 00:00 81 15 98 12/18/22 23:45 76 9 L 113/72 99 12/18/22 23:31 14 101/72 99 12/18/22 23:30 92 H 13 97 12/19/22 00:00 80 12/18/22 23:32 36.4 C L Laboratory Results 12/19/22 04:24 bmp from this am reviewed Admission UA bland with random sodium less than [address] c/a/p non con Limited exam secondary to positioning and lack of IV contrast. Moderate cardiomegaly. Decreased attenuation of the cardiac blood pool suggestive of anemia. Moderate coronary artery calcifications. Trace pericardial effusion. Atherosclerosis of the thoracic aorta without aneurysm. No dominant thyroid nodule or lymphadenopathy. Trace pleural effusions. No pneumothorax. Intralobular septal thickening with mild dependent subsegmental atelectasis. Stable likely benign 6 mm solid nodule of the basal right lower lobe. Central airways are patent. Anasarca. No acute displaced rib fracture identified. Gynecomastia. CT ABDOMEN/PELVIS: No free air. Cirrhotic liver. The spleen is enlarged measuring over 15 cm. Left upper quadrant splenule with marginal calcifications again noted. Mildly atrophic pancreas. Punctate pancreatic head calcification. Unremarkable adrenal glands. Cholelithiasis with partial distention and mild wall thickening. 3 mm calcification noted on image 167 with additional punctate calcifications noted distally towards the duodenum. Atrophic kidneys. Hypodense 1.6 cm lesion of the superior pole of kidney, possibly a cyst. Decompressed urinary bladder with wall thickening. A Apple catheter is in place. Air within the urinary bladder is noted. Prostatomegaly. Atherosclerosis of the aorta. Moderate ascites. Small hiatal hernia. Nonspecific diffuse gastric wall thickening is noted with partial distention. Nonspecific anal rectal wall thickening. Colonic diverticulosis. Prior sigmoid colon resection with colonic colonic anastomosis. Moderate circumferential wall thickening of the colon is most pronounced in the ascending and transverse segments. Appendix not visualized. Small fat and fluid filled umbilical hernia. No acute fracture. IMPRESSION: 1. No acute posttraumatic intrathoracic, intra-abdominal or intrapelvic abnormality identified. 2. Cardiomegaly with mild pulmonary edema and trace pleural effusions. 3. Cirrhosis with stigmata of portal venous hypertension including splenomegaly with moderate ascites. 4. Cholelithiasis with possible choledocholithiasis. Correlate with LFTs. 5. Wall thickening of the ascending and transverse colon suggestive of portal colopathy. 6. Additional findings as above. Head and neck CT both Noncon No acute bony injury or definite acute intracranial process.
[2022-12-19 12:10] LABS: BUN Creatinine Ratio 17.1 (10-20); Calcium 8.6 mg/dl (8.6-10.3); Creatinine Clr Calc Pharmacy 24.5 ml/min; Est GFR (African American) 22.5 ml/min; Est GFR (Non-African American) 19.4 ml/min; Potassium 3.2 mmol/L (3.5-5.1)
[2022-12-19 13:09] LABS: Appearance Peritoneal Fluid Clear; Color Peritoneal Fluid Yellow; Lymphocytes, Fluid 49 %; Mono,Macrophage,Mesothelial 41 %; Neutrophils, Fluid 10 %; RBC Peritoneal Fluid Auto < 2000 /uL; WBC Peritoneal Fluid Auto 72 /ul (0-300)
--- NOTE | 2022-12-19 13:37 | Ultrasound Report ---
ULTRASOUND-GUIDED DIAGNOSTIC PARACENTESIS CLINICAL HISTORY: Ascites; altered mental status PROCEDURE: Procedure and risks were explained. Informed consent was obtained over the phone. A final timeout was completed. The right upper quadrant was prepped and draped in sterile fashion. 1% buffere d lidocaine was utilized for skin anesthesia. Utilizing ultrasound guidance, a 22-gauge spinal needle was introduced into the pocket of ascites. Ultrasound images were obtained. 10 mL of yellow fluid wa s aspirated and sent to the lab for analysis. The needle was removed and Band-Aid applied. The patien t tolerated the procedure well. Vital signs will be monitored postprocedure. IMPRESSION: Ultrasound guided paracentesis as described above. Performed, dictated, and signed by Markell Allred PA-C; to be co-signed by Dr. Harrison Her. Electronically signed by: Harrison Her M.D. 12/19/2022 4:59 PM
--- NOTE | 2022-12-19 13:44 | Hospitalist Progress Note ---
Date of Service December 19, 2022 Assessment & Plan (1) Hypotension: (2) Encephalopathy: (3) Decompensated hepatic cirrhosis: (4) Chronic atrial fibrillation: (5) Acute kidney injury superimposed on chronic kidney disease: (6) Pancytopenia: (7) Coagulopathy: (8) Diabetes mellitus, type II: Plan Septic shock POA #Hepatic encephalopathy, improved #Decompensated Liver Cirrhosis History of decompensated liver cirrhosis. Low blood pressure on midodrine. Was brought to the hospital due to multiple falls. Was found to be confused and hypotensive. MAP of 40s in the ED CT abdomen and pelvis reviewed; shows cirrhosis with stigmata of portal hypertension with moderate ascites No leukocytosis Ascitic fluid interpreted; not suggestive of SBP Admitted to ICU for vasopressor support Currently on norepinephrine and vasopressin Wean off as tolerated; rest per ICU Currently on ceftriaxone. BRUNA on CKD (prerenal versus hepatorenal syndrome) Rapidly progressive CKD in the last few months. Creatinine downtrending with IV hydration, vasopressors and albumin Avoid nephrotoxic agent. Daily [facility] Nephrology on board #Pancytopenia likely due to liver cirrhosis #Coagulopathy iso liver disease INR persistently elevated, within baseline on admission Downtrending hgb over the course of ~6 months ~11; 10 on admission, no signs of overt hemorrhage, however, multiple ecchymosis and skin tears present Platelets slightly improved. #Elevated high sensitive troponin due to demand ischemia #Chronic Atrial Fibrillation RVR in ED to 110s, not on rate control 2/2 hypotension, not on DOAC 2/2 coagulopathy Last echo 2019, EF 55%; cardiomegaly noted on admission CT #Gout -We will resume allopurinol when able to take oral meds. #Chronic low back pain c/b scitatica #Deconditioned On daily oxycodone 5 mg -Hold po medications, monitor for withdrawal -PT/OT when able #Hypomagnesemia -s/p 2g mag #DM type II No on oral agents at this time, A1C 5.3 09/2022 -SSI and accucheck q6 for NPO CODE STATUS -DNR/DNI DVT prophylaxisSCDs. Time spent evaluating patient, direct bedside care, chart review, placing orders, interpretation of diagnostic studies, discussion with consultants, patient, and family members, as well as other required patient management activities is 60 minutes. Please note the above document was generated using voice recognition software. It may contain grammatical, syntax or spelling errors. Any formal questions or concerns about the content, text or information contained within the body of this dictation should be directly addressed to the provider for clarification Admission and Anticipated Discharge Date Admission Date: December 18, 2022 Subjective Patient seen and examined at bedside. He is sitting up on the bed; not in any distress. His brother and sister are at bedside. Review of Systems Review of Systems: All systems reviewed & are unremarkable except as noted in Subjective Physical Exam Physical Exam: Constitutional: Awake, alert orient x3; not in any distress. HEENTcentral line in place. Respiratory: Bilateral basal breath sound Cardiovascular: RRR, no murmur, no edema Vessels: no JVD or carotid bruit Chest: normal inspection of chest Abdomen: Ascites present, nontender. Musculoskeletal: no cyanosis or clubbing, extremities motor strength 5/5. Pitting edema present Skin: no rashes, warm and dry normal turgor Neurologic: Alert orient x3; grossly intact. Psychiatric: A+Ox3, euthymic affect Results & Data Results & Data Vital Signs (Past 12 Hours) Vital Signs Temp Pulse Resp BP Pulse Ox O2 Del Method O2 Flow Rate 12/19/22 13:00 96 H 14 100 12/19/22 13:00 99/67 L 12/19/22 12:45 103 H 17 97 12/19/22 12:45 103/73 12/19/22 12:30 98 H 17 99 12/19/22 12:30 98/69 L 12/19/22 12:15 95 H 14 99 12/19/22 12:15 110/76 12/19/22 12:00 94 H 15 97 12/19/22 11:45 96 H 16 99 12/19/22 11:57 36.8 C 12/19/22 12:13 87 12/19/22 11:30 87 10 L 99 12/19/22 11:18 100 H 11 L 100 12/19/22 10:45 91 H 9 L 100 12/19/22 10:45 112/72 12/19/22 10:30 78 10 L 99 12/19/22 10:30 114/76 12/19/22 10:15 85 10 L 100 12/19/22 10:15 108/70 12/19/22 10:00 92 H 10 L 99 12/19/22 10:00 104/68 12/19/22 11:00 36.6 C 12/19/22 08:00 Nasal Cannula 12/19/22 08:00 Nasal Cannula 2 12/19/22 09:45 90 9 L 99 12/19/22 09:45 105/78 12/19/22 09:30 78 9 L 98 12/19/22 09:30 103/75 12/19/22 09:15 79 9 L 100 12/19/22 09:15 101/72 12/19/22 09:00 93 H 14 99 12/19/22 09:00 108/74 12/19/22 08:45 93 H 19 99 12/19/22 08:45 104/71 12/19/22 08:30 93 H 12 98 12/19/22 08:30 108/72 12/19/22 08:15 81 9 L 99 12/19/22 08:15 102/61 12/19/22 08:00 84 10 L 98 12/19/22 08:00 105/78 12/19/22 07:45 87 12 99 12/19/22 07:45 102/70 12/19/22 07:30 91 H 10 L 99 12/19/22 07:30 96/69 L 12/19/22 07:15 82 11 L 98 12/19/22 07:15 101/70 12/19/22 07:00 82 10 L 98 12/19/22 07:00 101/70 12/19/22 06:45 81 11 L 99 12/19/22 06:45 96/74 L 12/19/22 06:30 77 10 L 99 12/19/22 06:30 102/69 12/19/22 08:00 36.5 C 12/19/22 06:15 76 10 L 108/66 99 12/19/22 06:00 98 H 13 109/83 99 12/19/22 05:45 92 H 9 L 97/97 L 99 12/19/22 05:30 87 10 L 102/75 99 12/19/22 05:15 79 10 L 108/86 98 12/19/22 05:00 89 9 L 105/69 98 12/19/22 04:45 77 13 101/69 98 12/19/22 04:30 82 8 L 99/76 L 98 12/19/22 04:18 108/66 12/19/22 04:18 93 H 12 99 12/19/22 04:15 98 H 15 94/72 L 100 12/19/22 04:00 77 9 L 105/67 99 12/19/22 03:45 73 16 92/70 L 98 12/19/22 03:30 78 14 104/77 99 12/19/22 03:15 89 15 100/74 100 12/19/22 03:00 67 12 104/71 99 12/19/22 02:45 73 9 L 110/80 99 12/19/22 02:30 86 9 L 98 12/19/22 02:16 84 14 97/79 L 100 12/19/22 02:15 100 H 16 99 12/19/22 04:16 36.4 C L 12/19/22 02:00 79 10 L 109/69 99 12/19/22 01:45 86 10 L 103/79 99 Laboratory Results Laboratory Results WBC 10.93 K/ul (4.8-10.8) H 12/19/22 04:24 RBC 3.53 M/uL (4.70-6.10) L 12/19/22 04:24 Hgb 11.5 g/dl (14.0-18.0) L 12/19/22 04:24 Hct 31.6 % (42.0-52.0) L 12/19/22 04:24 MCV 89.5 fL (80.0-100.0) 12/19/22 04:24 MCH 32.6 pg (25.0-34.0) 12/19/22 04:24 MCHC 36.4 g/dL (32.0-36.0) H 12/19/22 04:24 RDW Std Deviation 49.1 fL (36.4-46.3) H 12/19/22 04:24 RDW Coeff of Scottie 15.2 % (11.5-14.5) H 12/19/22 04:24 Plt Count 54 K/uL (130-400) L 12/19/22 04:24 MPV 12.4 fL (9.4-12.4) 12/19/22 04:24 Immature Gran % (Auto) 0.5 % 12/18/22 12:30 Neut % (Auto) 90.3 % 12/18/22 12:30 Lymph % (Auto) 3.5 % 12/18/22 12:30 [place] % (Auto) 5.7 % 12/18/22 12:30 Eos % (Auto) 0.0 % 12/18/22 12:30 Baso % (Auto) 0.0 % 12/18/22 12:30 Neut # (Auto) 3.65 K/uL (1.40-6.50) 12/18/22 12:30 Lymph # (Auto) 0.14 K/uL (1.2-3.4) L 12/18/22 12:30 [place] # (Auto) 0.23 K/uL (0.11-0.59) 12/18/22 12:30 Eos # (Auto) 0.00 K/uL (0-0.50) 12/18/22 12:30 Baso # (Auto) 0.00 K/uL (0-0.2) 12/18/22 12:30 Immature Gran # (Auto) 0.02 K/uL (0.01-0.20) 12/18/22 12:30 Polychromasia 1+ 12/18/22 12:30 Ovalocytes 1+ 12/18/22 12:30 Echinocytes 1+ 12/18/22 12:30 PT 15.4 Seconds (9.0-12.0) H 12/19/22 04:24 INR 1.4 (0.9-1.1) H 12/19/22 04:24 VBG pH 7.43 (7.36-7.41) H 12/18/22 18:39 VBG pCO2 38 mmHg (38-50) 12/18/22 18:39 VBG pO2 48 mmHg 12/18/22 18:39 VBG HCO3 25 mmol/L 12/18/22 18:39 VBG O2 Saturation 72.8 % 12/18/22 18:39 VBG Base Excess 1.0 mEq/L 12/18/22 18:39 Sodium 134 mmol/L (136-145) L 12/19/22 11:26 Potassium 3.2 mmol/L (3.5-5.1) L 12/19/22 11:26 Chloride 102 mmol/L (98-107) 12/19/22 11:26 Carbon Dioxide 23 mmol/L (21-32) 12/19/22 11:26 Anion Gap 9 (3-11) 12/19/22 11:26 BUN 51 mg/dl (6-23) H 12/19/22 11:26 Creatinine 2.98 mg/dl (0.6-1.4) H 12/19/22 11:26 Est Cr Clr Drug Dosing 24.5 ml/min 12/19/22 11:26 Est GFR ( Amer) 22.5 ml/min 12/19/22 11:26 Est GFR (Non-Af Amer) 19.4 ml/min 12/19/22 11:26 BUN/Creatinine Ratio 17.1 (10-20) 12/19/22 11:26 Glucose 165 mg/dl (70-99(Fasting)) H 12/19/22 11:26 POC Glucose 119 mg/dl (70-99) H 12/19/22 10:55 POC Glucose (other) 157 mg/dl (70-99) H 12/19/22 05:32 Lactate 1.4 mmol/L (0.4-2.0) 12/18/22 23:30 Calcium 8.6 mg/dl (8.6-10.3) 12/19/22 11:26 Phosphorus 2.3 mg/dl (2.5-4.9) L 12/19/22 04:24 Magnesium 1.7 mg/dl (1.7-2.4) 12/19/22 04:24 Total Bilirubin 4.0 mg/dl (0.2-1.0) H 12/19/22 04:24 Direct Bilirubin 1.0 mg/dl (0-0.2) H 12/18/22 12:30 AST 45 U/L (13-39) H 12/19/22 04:24 ALT 14 U/L (7-52) 12/19/22 04:24 Alkaline Phosphatase 44 U/L (34-104) 12/19/22 04:24 Ammonia 61.0 umol/L (18-72) 12/18/22 12:47 Troponin I High Sens 82.4 pg/ml (0-20) H* D 12/19/22 02:14 Total Protein 5.1 gm/dl (6.0-8.3) L 12/19/22 04:24 Albumin 2.6 gm/dl (3.4-5.0) L 12/19/22 04:24 Globulin 2.5 gm/dl (2.5-4.0) 12/19/22 04:24 Albumin/Globulin Ratio 1.0 (0.9-2) 12/19/22 04:24 Procalcitonin 0.11 ng/ml (0-0.5) 12/18/22 12:30 Random Cortisol 35.10 mcg/dl 12/18/22 18:39 Urine Color Yellow 12/18/22 12:30 Urine Appearance Clear (Clear) 12/18/22 12:30 Urine pH 5.5 (4.5-7.5) 12/18/22 12:30 Ur Specific [place] 1.009 (1.000-1.030) 12/18/22 12:30 Urine Protein Negative (Negative) 12/18/22 12:30 Urine Glucose (UA) Negative (Negative) 12/18/22 12:30 Urine Ketones Negative (Negative) 12/18/22 12:30 Urine Blood Negative (Negative) 12/18/22 12:30 Urine Nitrite Negative (Negative) 12/18/22 12:30 Urine Bilirubin Negative (Negative) 12/18/22 12:30 Urine Urobilinogen Negative (Negative) 12/18/22 12:30 Ur Leukocyte Esterase Negative (Negative) 12/18/22 12:30 Ur Random Sodium < 10 mmol/L 12/19/22 Unknown Fluid Neutrophils % 10 % 12/19/22 11:20 Fluid Lymphocytes % 49 % 12/19/22 11:20 Fluid Meso/Macro/[place] % 41 % 12/19/22 11:20 Fluid Comment 12/19/22 11:20 Peritoneal Color Yellow 12/19/22 11:20 Peritoneal Appearance Clear 12/19/22 11:20 Peritoneal WBC (Auto) 72 /ul (0-300) 12/19/22 11:20 Peritoneal RBC (Auto) < 2000 /uL 12/19/22 11:20 Nasal Screen MRSA (PCR) Negative (Negative) 12/18/22 18:21 Random Vancomycin 13.0 mcg/ml (10-20) 12/19/22 07:35 Blood Type A Positive 12/18/22 18:39 Antibody Screen NEGATIVE 12/18/22 18:[address] 12/18/22 12:13 CT cervical spine wo con CLINICAL HISTORY: ams TECHNIQUE: Multidetector row helical CT of the cervical spine was performed without administration of intravenous contrast. Coronal and sagittal reformations were obtained. Automated dose lowering techniques and/or adjustment according to patient size were utilized for this exam. Comparison: None available at the time of this dictation. FINDINGS: No acute fractures or subluxations are identified. Degenerative changes are seen in the visualized spine. The alignment is normal. Soft tissues are unremarkable. IMPRESSION: Degenerative changes without evidence of acute bony injury. ACT 112: Negative or not required by law. Electronically signed by: Harrison Her M.D. 12/18/2022 1:[address] 12/18/22 12:[address] DOSE: HISTORY: Altered mental status. TECHNIQUE: Multiaxial CT images of the head were performed without the use of intravenous contrast. Automated exposure control was utilized for this study. A dose lowering technique was utilized adhering to the principles of ALARA. Comparison: None. Findings: Motion artifact. The paranasal sinuses and mastoid air cells are clear. The calvarium and skull base are intact. There is no mass, hematoma, midline shift, acute infarct. White matter hypodensity is nonspecific but suggestive of microvascular ischemic change. The ventricles and sulci demonstr ate mild age-related involutional changes. Impression: Motion artifact. No definite acute intracranial abnormality. ACT 112: Negative or not required by law. Electronically signed by: Chad Cardona M.D. 12/18/2022 2:07 PM Abdomen/Pelvis CT 12/18/22 13:10 CT chest diagnostic wo con, CT abd pelvis wo con CT DOSE: 3743.01 mGy.cm CLINICAL HISTORY: 77 years-old Male with fall. Acute chest and abdominal pain status post fall TECHNIQUE: Multiaxial CT images of the CT chest, abdomen and pelvis were performed without contrast. A dose lowering technique was utilized adhering to the principles of ALARA. COMPARISON: CT abdomen and pelvis 02/04/2018 FINDINGS: CT CHEST: Limited exam secondary to positioning and lack of IV contrast. Moderate c ardiomegaly. Decreased attenuation of the cardiac blood pool suggestive of anemia. Moderate coronary artery calcifications. Trace pericardial effusion. Atherosclerosis of the thoracic aorta without aneurysm. No dominant thyroid nodule or lymphadenopathy. Trace pleural effusions. No pneumothorax. Intralobular septal thickening with mild dependent subsegmental atelectasis. Stable likely benign 6 mm solid nodule of the basal right lower lobe. Central airways are patent. Anasarca. No acute displaced rib fracture identified. Gynecomastia. CT ABDOMEN/PELVIS: No free air. Cirrhotic liver. The spleen is enlarged measuring over 15 cm. Left upper quadrant splenule with marginal calcifications again noted. Mildly atrophic pancreas. Punctate pancreatic head calcification. Unremarkable adrenal glands. Cholelithiasis with partial distention and mild wall thickening. 3 mm calcification noted on image 167 with additional punctate calcifications noted distally towards the duodenum. Atrophic kidneys. Hypodense 1.6 cm lesion of the superior pole of kidney, possibly a cyst. Decompressed urinary bladder with wall thickening. A Apple catheter is in place. Air within the urinary bladder is noted. Prostatomegaly. Atherosclerosis of the aorta. Moderate ascites. Small hiatal hernia. Nonspecific diffuse gastric wall thickening is noted with partial distention. Nonspecific anal rectal wall thickening. Colonic diverticulosis. Prior sigmoid colon resection with colonic colonic anastomosis. Moderate circumferential wall thickening of the colon is most pronounced in the ascending and transverse segments. Appendix not visualized. Small fat and fluid filled umbilical hernia. No acute fracture. IMPRESSION: 1. No acute posttraumatic intrathoracic, intra-abdominal or intrapelvic abnormality identified. 2. Cardiomegaly with mild pulmonary edema and trace pleural effusions. 3. Cirrhosis with stigmata of portal venous hypertension including splenomegaly with moderate ascites. 4. Cholelithiasis with possible choledocholithiasis. Correlate with LFTs. 5. Wall thickening of the ascending and transverse colon suggestive of portal colopathy. 6. Additional findings as above. ACT 112: Negative or not required by law. Electronically signed by: Rayshawn Powers M.D. 12/18/2022 2:[address] 12/18/22 13:10 CT chest diagnostic wo con, CT abd pelvis wo con CT DOSE: 3743.01 mGy.cm CLINICAL HISTORY: 77 years-old Male with fall. Acute chest and abdominal pain status post fall TECHNIQUE: Multiaxial CT images of the CT chest, abdomen and pelvis were performed without contrast. A dose lowering technique was utilized adhering to the principles of ALARA. COMPARISON: CT abdomen and pelvis 02/04/2018 FINDINGS: CT CHEST: Limited exam secondary to positioning and lack of IV contrast. Moderate cardiomegaly. Decreased attenuation of the cardiac blood pool suggestive of anemia. Moderate coronary artery calcifications. Trace pericardial effusion. Atherosclerosis of the thoracic aorta without aneurysm. No dominant thyroid nodule or lymphadenopathy. Trace pleural effusions. No pneumothorax. Intralobular septal thickening with mi ld dependent subsegmental atelectasis. Stable likely benign 6 mm solid nodule of the basal right lower lobe. Central airways are patent. Anasarca. No acute displaced rib fracture identified. Gynecomastia. CT ABDOMEN/PELVIS: No free air. Cirrhotic liver. The spleen is enlarged measuring over 15 cm. Left upper quadrant splenule with marginal calcifications again noted. Mildly atrophic pancreas. Punctate pancreatic head calcification. Unremarkable adrenal glands. Cholelithiasis with partial distention and mild wall thickening. 3 mm calcification noted on image 167 with additional punctate calcifications noted distally towards the duodenum. Atrophic kidneys. Hypodense 1.6 cm lesion of the superior pole of kidney, possibly a cyst. Decompressed urinary bladder with wall thickening. A Apple c atheter is in place. Air within the urinary bladder is noted. Prostatomegaly. Atherosclerosis of the aorta. Moderate ascites. Small hiatal hernia. Nonspecific diffuse gastric wall thickening is noted with partial distention. Nonspecific anal rectal wall thickening. Colonic diverticulosis. Prior sigmoid colon resection with colonic colonic anastomosis. Moderate circumferential wall thickening of the colon is most pronounced in the ascending and transverse segments. Appendix not visualized. Small fat and fluid filled umbilical hernia. No acute fracture. IMPRESSION: 1. No acute posttraumatic intrathoracic, intra-abdominal or intrapelvic abnormality identified. 2. Cardiomegaly with mild pulmonary edema and trace pleural effusions. 3. Cirrhosis with stigmata of portal venous hypertension including splenomegaly with moderate ascites. 4. Cholelithiasis with possible choledocholithiasis. Correlate with LFTs. 5. Wall thickening of the ascending and transverse colon suggestive of portal colopathy. 6. Additional findings as above. ACT 112: Negative or not required by law. Electronically signed by: Rayshawn Powers M.D. 12/18/2022 2:10 PM Chest X-Ray 12/18/22 17:35 XR chest 1V portable CLINICAL HISTORY: lines TECHNIQUE: Single frontal radiograph of the chest was obtained. Comparison: Comparison is made to chest radiograph 11/04/2022 FINDINGS: Right IJ catheter terminates in the mid SVC. The cardiomediastinal silhouette is normal. Elevation of the left hemidiaphragm is seen. No evidence of pleural effusion or pneumothorax. IMPRESSION: Satisfactory position of right IJ catheter. ACT 112: Negative or not required by law. Electronically signed by: Harrison Her M.D. 12/18/2022 6:11 PM
[2022-12-19 16:05] LABS: A calco-baum cmplx NotReported Not Detected (NotDetected); Bact fragilis Not Reported Not Detected (NotDetected); C auris Not Reported Not Detected (NotDetected); Calbicans Not Reported Not Detected (NotDetected); Candida glabrata Not Reported Not Detected (NotDetected); Candida krusei Not Reported Not Detected (NotDetected); Cneoformans/gatti Not Reported Not Detected (NotDetected); Cparapsilosis Not Reported Not Detected (NotDetected); Ctropicalis Not Reported Not Detected (NotDetected); E cloacae compx Not Reported Not Detected (NotDetected); Efaecalis Not Reported Not Detected (NotDetected); Efaecium Not Reported Not Detected (NotDetected); Enterobacterales Not Reported Not Detected (NotDetected); Escherichia coli Not Reported Not Detected (NotDetected); H influenzae Not Reported Not Detected (NotDetected); K aerogenes Not Reported Not Detected (NotDetected); Koxytoca Not Reported Not Detected (NotDetected); Kpneumoniae grp Not Reported Not Detected (NotDetected); Lmonocyt Not Reported Not Detected (NotDetected); N meningitidis Not Reported Not Detected (NotDetected); P aeruginosa Not Reported Not Detected (NotDetected); Proteus spp Not Reported Not Detected (NotDetected); Salmonella spp Not Reported Not Detected (NotDetected); Smarcescens Not Reported Not Detected (NotDetected); Staph lugdunensis Not Reported Not Detected (NotDetected); Staph spp. Not Reported DETECTED (NotDetected); Staphaureus Not Reported Not Detected (NotDetected); Staphepi Not Reported Not Detected (NotDetected); Stenmaltophilia Not Reported Not Detected (NotDetected); Strep agal(GrpB) Not Reported Not Detected (NotDetected); Strep pneum Not Reported Not Detected (NotDetected); Strep pyog (GrpA) Not Reported Not Detected (NotDetected); Strep spp Not Reported Not Detected (NotDetected)
[2022-12-19 16:19] LABS: Staphylococcus spp. DETECTED (NotDetected)
[2022-12-19] MEDS: cefTRIAXone SODIUM 2,000 MG in DEXTROSE 5% 50 ML IV SCH (17:43)
[2022-12-19] MEDS ORDERED: Nursing to Pharmacy Communication SCH (19:00)
[2022-12-20] MEDS: ALBUMIN 25% 25 GM/100 ML VIAL IV SCH ×3 (02:32→17:45)
[2022-12-20 05:08] LABS: Albumin Globulin Ratio 1.3 (0.9-2); Albumin Level 3.1 gm/dl (3.4-5.0); BUN Creatinine Ratio 17.9 (10-20); Bilirubin,Total 2.6 mg/dl (0.2-1.0); Calcium 8.8 mg/dl (8.6-10.3); Creatinine Clr Calc Pharmacy 27.3 ml/min; Est GFR (African American) 25.6 ml/min; Est GFR (Non-African American) 22.1 ml/min; Globulin 2.3 gm/dl (2.5-4.0); Magnesium 2.1 mg/dl (1.7-2.4); Phosphorus 2.8 mg/dl (2.5-4.9); Potassium 3.1 mmol/L (3.5-5.1); Total Protein 5.4 gm/dl (6.0-8.3)
[2022-12-20 05:19] LABS: INR 1.5 (0.9-1.1); Prothrombin Time 16.1 Seconds (9.0-12.0)
[2022-12-20] MEDS: NOREPINEPHRINE/D5W 4 MG/250 ML PLCT IV SCH ×2 (05:19→16:30)
[2022-12-20 05:24] LABS: Platelet Estimate Decreased (Normal)
[2022-12-20 05:25] LABS: Hematocrit (blood only) 26.7 % (42.0-52.0); Hemoglobin 9.6 g/dl (14.0-18.0); Mean Corpuscular Hemoglobin 32.3 pg (25.0-34.0); Mean Corpuscular Volume 89.9 fL (80.0-100.0); Platelet Count 30 K/uL (130-400); RDW Coefficient of Variation 15.2 % (11.5-14.5); RDW Standard Deviation 49.2 fL (36.4-46.3); Red Blood Count 2.97 M/uL (4.70-6.10); White Blood Count 5.36 K/ul (4.8-10.8)
[2022-12-20] MEDS: INSULIN ASPART PER UNIT CHARGE SC SCH ×4 (08:20→20:34)
--- NOTE | 2022-12-20 09:44 | Gastroenterology Progress Note ---
Date of Service December 20, 2022 Assessment & Plan (1) AMS (altered mental status): Plan: Fall likely secondary to overall poor functional status and hypotension as does not have a hx of hepatic encephalopathy and seems very mentally clear since yesterday morning (though note made that he did have some confusion when found after the fall and on arrival). (2) BRUNA (acute kidney injury): Plan: Would continue Albumin x total 48 hrs, otherwise defer management to nephrology - on board, appreciate recommendations. (3) Decompensated hepatic cirrhosis: Plan: Cirrhosis w ascites and BRUNA on CKD. No evidence of SBP or GI bleeding. Plan Consider weaning vasopressors. After stable from a nephrology standpoint, consider large volume paracentesis for comfort prior to discharge, though does have paracentesis scheduled Q 6wks. Defer diuretic dosing to nephrology Prior to admission. Of note, was on torsemide 10mg/spironolactone 12.5mg daily prior to admission and came in a bit hemoconcentrated, so not real tolerant of diuretics - maybe discharge on lower dosing. Continue OP GI/hepatology f/u w Anastacia Franks NP GI will sign off. Recall if questions. Admission and Anticipated Discharge Date Admission Date: December 18, 2022 Supervising Physician Co-Signing Physician Notes I performed a history and physical examination of the patient today, including specifically on physical exam - soft abdomen. I have discussed the patient's management with the advanced practitioner. Please refer to the nurse practitioner's note for the documented findings and plan of care. BRUNA improving. Tap result with no SBP. Continue current management. Follow up as OP. Recall GI if needed. Subjective 77, male cirrhosis w ascites Awake, resting in bed, asking to be helped up to a bedside commode - feeling strong enough to sit up. No confusion or asterix. Cr 3.8 yesterday ->2.8 today. Na 132, K 3.1 Dx paracentesis tap yesterday w/o evidence of SBP (72 WBCs, 10% neutrophils). Review of Systems Review of Systems: ROS: Gen: + chronic weakness, +fall, No fevers, no unexplained weight loss Eyes: No eye redness, or pain, no recent vision changes Resp: Denies SOB, no cough Cardio: No palpitations/irregular beats, no chest pain GI: No abdominal pain, no nausea/vomiting : Denies pain on urination Skin:+ ecchymosis; No jaundice, itching or new rashes Physical Exam Constitutional: + ill appearing (chronically), cooperative and + overweight Eyes: PERRL, conjunctivae normal, anicteric sclerae ENMT: external ear and nose normal, oropharynx normal Neck: trachea midline, no thyromegaly Respiratory: normal respiratory effort, lungs clear to auscultation Cardiovascular: Rate/Rhythm: regular rate and regular rhythm moderate chronic lower leg edema - not pitting Gastrointestinal (Abdomen): moderate/large ascites, mild diffuse tenderness, umbilical hernia that is reducible. Skin: no rashes, warm and dry Neurologic: PERRL, EOMI, accommodation nl, no face palsy, no dysarthria (no asterixes) Psychiatric: Eye Contact: good eye contact Speech: normal rate/rhythm/volume of speech (slightly slower responses) Lymphatic: no cervical or axillary lymphadenopathy Results & Data Vital Signs (Past 12 Hours) Vital Signs Temp Pulse Resp BP Pulse Ox O2 Del Method 12/20/22 08:00 Room Air 12/20/22 08:30 98 H 15 97 12/20/22 08:30 101/72 12/20/22 08:01 111 H 12 96 12/20/22 08:01 89/68 L 12/20/22 08:00 112 H 16 97 12/20/22 07:31 109 H 16 97 12/20/22 07:31 97/78 L 12/20/22 07:30 106 H 17 97 12/20/22 07:00 110 H 14 94 12/20/22 07:00 95/74 L 12/20/22 06:30 110 H 22 97 12/20/22 08:00 36.5 C 12/20/22 06:00 95 H 13 95 12/20/22 05:30 101 H 12 12/20/22 05:30 86/73 L 12/20/22 05:00 94 H 9 L 95 12/20/22 05:00 96/77 L 12/20/22 04:45 96 H 13 95 12/20/22 04:30 108 H 11 L 94 12/20/22 04:30 98/80 L 12/20/22 04:15 94 H 9 L 98 12/20/22 04:15 103/66 12/20/22 04:00 102 H 7 L 93 12/20/22 03:45 90 10 L 94 12/20/22 03:45 100/71 12/20/22 03:30 100 H 13 97 12/20/22 03:30 109/75 12/20/22 03:15 102 H 11 L 97 12/20/22 03:15 114/66 12/20/22 03:01 100/82 12/20/22 03:01 109 H 20 98 12/20/22 03:00 103 H 11 L 94 12/20/22 02:45 102 H 17 97 12/20/22 02:30 98 H 22 94 12/20/22 02:30 109/66 12/20/22 02:15 99 H 21 96 12/20/22 02:15 101/64 12/20/22 02:00 99 H 18 95 12/20/22 01:45 95 H 12 95 12/20/22 01:30 103 H 10 L 96 12/20/22 01:30 103/76 12/20/22 01:15 96 H 10 L 96 12/20/22 01:15 108/70 12/20/22 01:04 106 H 16 96 12/20/22 01:04 102/73 12/20/22 01:00 108 H 14 96 12/20/22 00:45 103 H 10 L 97 12/20/22 00:45 92/73 L 12/20/22 00:31 108 H 19 95 12/20/22 00:31 94/75 L 12/20/22 00:30 121 H 15 97 12/20/22 00:15 104 H 17 12/20/22 00:15 109/68 12/20/22 00:00 97 H 19 12/20/22 00:00 105/79 12/19/22 23:45 107 H 16 94 12/19/22 23:45 115/82 12/19/22 23:31 100/72 12/19/22 23:31 98 H 15 95 12/19/22 23:30 105 H 22 91 12/19/22 23:15 90 11 L 98 12/19/22 23:15 101/66 12/19/22 23:00 95 H 11 L 97 12/19/22 23:00 106/66 12/19/22 22:45 100 H 10 L 97 12/19/22 22:37 91/68 L 12/19/22 22:37 94 H 14 94 12/19/22 22:30 95 H 17 92 12/19/22 22:15 96 H 12 95 12/19/22 22:15 106/68 12/19/22 22:00 93 H 12 96 12/19/22 22:00 110/81 12/19/22 21:45 100 H 16 98 12/19/22 21:45 103/73 12/19/22 21:30 98 H 13 99 12/19/22 21:30 96/67 L Laboratory Results WBC 5.3, Hb 9.6, Hct 26, Plts 30, PT 16, INR 1.5, Na 132, K 3.1, Cl 101, CO2 23, BUN 48, Cr 2.68, glucose 142. Urine Na <10. Diagnostic Findings Non contrast CTAP 12/18/22: 1. No acute posttraumatic intrathoracic, intra-abdominal or intrapelvic abnormality identified. 2. Cardiomegaly with mild pulmonary edema and trace pleural effusions. 3. Cirrhosis with stigmata of portal venous hypertension including splenomegaly with moderate ascites. 4. Cholelithiasis with possible choledocholithiasis. Correlate with LFTs. 5. Wall thickening of the ascending and transverse colon suggestive of portal colopathy.
--- NOTE | 2022-12-20 09:47 | Critical Care Progress Note ---
Date of Service December 20, 2022 Assessment & Plan (1) Encephalopathy: Plan: Reason Critically Ill: Multisystem organ failure with hypotension and hypoperfusion PLAN: Neuro: Encephalopathy: Likely metabolic/secondary to decompensated cirrhosis -Ammonia 61 continue lactulose Resp: Family okay with intubation in event of respiratory insufficiency CV: Hypotension, improving, weaning vasoactive -Restart midodrine 10 mg 3 times daily History of chronic atrial fibrillation -Not on anticoagulation secondary to coagulopathy risks of anticoagulation/risk of serious bleeding outweigh benefits Fluids/Renal: Hypokalemia and hypophosphatemia: Improved Hypomagnesemia: Improved -Additional 2 g Acute kidney injury on chronic kidney disease: Improving ID: Septic shock with multisystem organ failure -Gram-positive cocci in clusters -Repeat blood cultures ordered continue vancomycin, continue Rocephin GI/Nutrition: Decompensated liver cirrhosis unknown etiology: History of hepatosteatosis -History of varices with portal gastropathy Heme: Pancytopenia -Type and screen Elevated INR: Improved will hold additional supplementation given that patient is chronic A-fib DVT prophylaxis: Medically contraindicated significant thrombocytopenia and supratherapeutic INR Endocrine: ICU hyperglycemia protocol Check random cortisol Vascular access: Right jugular central venous catheter:, Continue with advanced access until off vasoactive's Code Status: DNR/DNI in event of cardiac arrest, okay with intubation for respiratory insufficiency Disposition: ICU (2) Acute kidney injury superimposed on chronic kidney disease: (3) Coagulopathy: (4) Pancytopenia: (5) Thrombocytopenia: (6) Decompensated hepatic cirrhosis: Admission and Anticipated Discharge Date Admission Date: December 18, 2022 Supervising Physician Co-Signing Physician Notes I have personally spent 40 minutes of critical care time in the direct management of this patient. This is a life/limb threatening event. This includes time spent evaluating patient, direct bedside care, chart review, placing orders, interpretation of diagnostic studies, discussion with consultants, patient, and/or family members regarding treatment decisions, as well as other required patient management activities. This time is exclusive of all separately billable procedures, and teaching time and separate from and in addition to any other critical care service time. Subjective Patient alert and oriented, no recollection of events of yesterday. Pleasant Physical Exam Physical Exam: General: Alert, Oriented x3 Skin: Multiple areas of ecchymoses and skin tears, Head: Atraumatic Ears, nose, mouth and throat: airway patent Cardiovascular: Normal peripheral perfusion Respiratory: no respiratory distress Gastrointestinal: Non distended, no guarding no rebound tenderness Musculoskeletal: 2+ pulses in all 4 extremities Results & Data Results & Data Vital Signs (Past 12 Hours) Vital Signs Temp Pulse Resp BP Pulse Ox O2 Del Method 12/20/22 08:00 Room Air 12/20/22 08:30 98 H 15 97 12/20/22 08:30 101/72 12/20/22 08:01 111 H 12 96 12/20/22 08:01 89/68 L 12/20/22 08:00 112 H 16 97 12/20/22 07:31 109 H 16 97 12/20/22 07:31 97/78 L 12/20/22 07:30 106 H 17 97 12/20/22 07:00 110 H 14 94 12/20/22 07:00 95/74 L 12/20/22 06:30 110 H 22 97 12/20/22 08:00 36.5 C 12/20/22 06:00 95 H 13 95 12/20/22 05:30 101 H 12 12/20/22 05:30 86/73 L 12/20/22 05:00 94 H 9 L 95 12/20/22 05:00 96/77 L 12/20/22 04:45 96 H 13 95 12/20/22 04:30 108 H 11 L 94 12/20/22 04:30 98/80 L 12/20/22 04:15 94 H 9 L 98 12/20/22 04:15 103/66 12/20/22 04:00 102 H 7 L 93 12/20/22 03:45 90 10 L 94 12/20/22 03:45 100/71 12/20/22 03:30 100 H 13 97 12/20/22 03:30 109/75 12/20/22 03:15 102 H 11 L 97 12/20/22 03:15 114/66 12/20/22 03:01 100/82 12/20/22 03:01 109 H 20 98 12/20/22 03:00 103 H 11 L 94 12/20/22 02:45 102 H 17 97 12/20/22 02:30 98 H 22 94 12/20/22 02:30 109/66 12/20/22 02:15 99 H 21 96 12/20/22 02:15 101/64 12/20/22 02:00 99 H 18 95 12/20/22 01:45 95 H 12 95 12/20/22 01:30 103 H 10 L 96 12/20/22 01:30 103/76 12/20/22 01:15 96 H 10 L 96 12/20/22 01:15 108/70 12/20/22 01:04 106 H 16 96 12/20/22 01:04 102/73 12/20/22 01:00 108 H 14 96 12/20/22 00:45 103 H 10 L 97 12/20/22 00:45 92/73 L 12/20/22 00:31 108 H 19 95 12/20/22 00:31 94/75 L 12/20/22 00:30 121 H 15 97 12/20/22 00:15 104 H 17 12/20/22 00:15 109/68 12/20/22 00:00 97 H 19 12/20/22 00:00 105/79 12/19/22 23:45 107 H 16 94 12/19/22 23:45 115/82 12/19/22 23:31 100/72 12/19/22 23:31 98 H 15 95 12/19/22 23:30 105 H 22 91 12/19/22 23:15 90 11 L 98 12/19/22 23:15 101/66 12/19/22 23:00 95 H 11 L 97 12/19/22 23:00 106/66 12/19/22 22:45 100 H 10 L 97 12/19/22 22:37 91/68 L 12/19/22 22:37 94 H 14 94 12/19/22 22:30 95 H 17 92 12/19/22 22:15 96 H 12 95 12/19/22 22:15 106/68 12/19/22 22:00 93 H 12 96 12/19/22 22:00 110/81 12/19/22 21:45 100 H 16 98 12/19/22 21:45 103/73 Critical Care Results & Data Vital Signs (Past 12 Hours) Vital Signs Temp Pulse Resp BP Pulse Ox O2 Del Method 12/20/22 08:00 Room Air 12/20/22 08:30 98 H 15 97 12/20/22 08:30 101/72 08/18/23 08:01 111 H 12 96 12/20/22 08:01 89/68 L 12/20/22 08:00 112 H 16 97 12/20/22 07:31 109 H 16 97 12/20/22 07:31 97/78 L 12/20/22 07:30 106 H 17 97 12/20/22 07:00 110 H 14 94 12/20/22 07:00 95/74 L 12/20/22 06:30 110 H 22 97 12/20/22 08:00 36.5 C 12/20/22 06:00 95 H 13 95 12/20/22 05:30 101 H 12 12/20/22 05:30 86/73 L 12/20/22 05:00 94 H 9 L 95 12/20/22 05:00 96/77 L 12/20/22 04:45 96 H 13 95 12/20/22 04:30 108 H 11 L 94 12/20/22 04:30 98/80 L 12/20/22 04:15 94 H 9 L 98 12/20/22 04:15 103/66 12/20/22 04:00 102 H 7 L 93 12/20/22 03:45 90 10 L 94 12/20/22 03:45 100/71 12/20/22 03:30 100 H 13 97 12/20/22 03:30 109/75 12/20/22 03:15 102 H 11 L 97 12/20/22 03:15 114/66 12/20/22 03:01 100/82 12/20/22 03:01 109 H 20 98 12/20/22 03:00 103 H 11 L 94 12/20/22 02:45 102 H 17 97 12/20/22 02:30 98 H 22 94 12/20/22 02:30 109/66 12/20/22 02:15 99 H 21 96 12/20/22 02:15 101/64 12/20/22 02:00 99 H 18 95 12/20/22 01:45 95 H 12 95 12/20/22 01:30 103 H 10 L 96 12/20/22 01:30 103/76 12/20/22 01:15 96 H 10 L 96 12/20/22 01:15 108/70 12/20/22 01:04 106 H 16 96 12/20/22 01:04 102/73 12/20/22 01:00 108 H 14 96 12/20/22 00:45 103 H 10 L 97 12/20/22 00:45 92/73 L 12/20/22 00:31 108 H 19 95 12/20/22 00:31 94/75 L 12/20/22 00:30 121 H 15 97 12/20/22 00:15 104 H 17 12/20/22 00:15 109/68 12/20/22 00:00 97 H 19 12/20/22 00:00 105/79 12/19/22 23:45 107 H 16 94 12/19/22 23:45 115/82 12/19/22 23:31 100/72 12/19/22 23:31 98 H 15 95 12/19/22 23:30 105 H 22 91 12/19/22 23:15 90 11 L 98 12/19/22 23:15 101/66 12/19/22 23:00 95 H 11 L 97 12/19/22 23:00 106/66 12/19/22 22:45 100 H 10 L 97 12/19/22 22:37 91/68 L 12/19/22 22:37 94 H 14 94 12/19/22 22:30 95 H 17 92 12/19/22 22:15 96 H 12 95 12/19/22 22:15 106/68 12/19/22 22:00 93 H 12 96 12/19/22 22:00 110/81 Lab & Micro Results (Past 24 Hours) RBC 2.97 M/uL (4.70-6.10) L 12/20/22 WBC 5.36 K/ul (4.8-10.8) 12/20/22 Hgb 9.6 g/dl (14.0-18.0) L 12/20/22 Hct 26.7 % (42.0-52.0) L 12/20/22 MCV 89.9 fL (80.0-100.0) 12/20/22 MCH 32.3 pg (25.0-34.0) 12/20/22 MCHC 36.0 g/dL (32.0-36.0) 12/20/22 RDW Standard Deviation 49.2 fL (36.4-46.3) H 12/20/22 RDW Coefficient of Variation 15.2 % (11.5-14.5) H 12/20/22 Plt Count 30 K/uL (130-400) L 12/20/22 Na 132 mmol/L (136-145) L 12/20/22 K 3.1 mmol/L (3.5-5.1) L 12/20/22 Cl 101 mmol/L (98-107) 12/20/22 CO2 23 mmol/L (21-32) 12/20/22 Anion Gap 8 (3-11) 12/20/22 BUN 48 mg/dl (6-23) H 12/20/22 Creatinine 2.68 mg/dl (0.6-1.4) H 12/20/22 Estimated GFR ( Amer) 25.6 ml/min 12/20/22 Estimated GFR (Non-Af Amer) 22.1 ml/min 12/20/22 BUN/Creatinine Ratio 17.9 (10-20) 12/20/22 Glu 142 mg/dl (70-99(Fasting)) H 12/20/22 Ca 8.8 mg/dl (8.6-10.3) 12/20/22 Phosphorus Level 2.8 mg/dl (2.5-4.9) 12/20/22 Total Bilirubin 2.6 mg/dl (0.2-1.0) H 12/20/22 AST 34 U/L (13-39) 12/20/22 ALT 13 U/L (7-52) 12/20/22 Alkaline Phosphatase 36 U/L (34-104) 12/20/22 TP 5.4 gm/dl (6.0-8.3) L 12/20/22 Albumin 3.1 gm/dl (3.4-5.0) L 12/20/22 Globulin 2.3 gm/dl (2.5-4.0) L 12/20/22 Albumin/Globulin Ratio 1.3 (0.9-2) 12/20/22 Mg 2.1 mg/dl (1.7-2.4) 12/20/22 04:25 Calcium Level 8.8 mg/dl (8.6-10.3) 12/20/22 04:25 Prothromb Time International Ratio 1.5 (0.9-1.1) H 12/20/22 04 :25 Microbiology 12/18/22 12:45 Aerobic Blood Culture - Preliminary Blood No growth in Aerobic bottle after 24 hours. Anaerobic Blood Culture - Final 12/18/22 18:39 Aerobic Blood Culture - Preliminary Blood Gram positive cocci clusters Anaerobic Blood Culture - Preliminary No growth in Anaerobic bottle after 24 hours. 12/19/22 11:20 Gram Stain - Final Peritoneal Fluid Diagnostic Findings (Past 24 Hours) Paracentesis Ultrasound 12/19/22 10:04 ULTRASOUND-GUIDED DIAGNOSTIC PARACENTESIS CLINICAL HISTORY: Ascites; altered mental status PROCEDURE: Procedure and risks were explained. Informed consent was obtained over the phone. A final timeout was completed. The right upper quadrant was prepped and draped in sterile fashion. 1% buffered lidocaine was utilized for skin anesthesia. Utilizing ultrasound guidance, a 22-gauge spinal needle was introduced into the pocket of ascites. Ultrasound images were obtained. 10 mL of yellow fluid was aspirated and sent to the lab for analysis. The needle was removed and Band-Aid applied. The patient tolerated the procedure well. Vital signs will be monitored postprocedure. IMPRESSION: Ultrasound guided paracentesis as described above. Performed, dictated, and signed by Markell Allred PA-C; to be co-signed by Dr. Harrison Her. Electronically signed by: Harrison Her M.D. 12/19/2022 4:59 PM I & O Totals 24 Hours 12/19/22 12/20/22 12/21/22 06:59 06:59 06:59 Intake Total 3340.292 / 3340.292 2717.673 / 2717.673 Output Total 2549 / 2549 580 / 580 Balance 791.292 / 003.532 1374.673 / 2137.673 Cumulative 12/18/22 11:52 thru 12/20/22 06:52 Intake Total 6057.965 Output Total 3129 Balance 2928.965 RT Ventilator Mngmt (Last Documented) Ventilator Ordered Settings Respiratory Rate 15 12/20/22 08:30 Ventilator - PT Measurements Respiratory Rate 15 Coding Level of Care Code 49657 CRITICAL CARE 1ST 30-74M Diagnoses Encephalopathy G93.40 Acute kidney injury superimposed on chronic kidney disease N17.9; N18.9 Coagulopathy D68.9 Pancytopenia D61.818 Thrombocytopenia D69.6 Decompensated hepatic cirrhosis K72.90; K74.60
[2022-12-20] MEDS: POTASSIUM CHLORIDE 10 MEQ TABCR PO SCH ×2 (10:24→20:37)
--- NOTE | 2022-12-20 11:50 | Hospitalist Progress Note ---
Date of Service December 20, 2022 Assessment & Plan (1) Hypotension: (2) Encephalopathy: (3) Decompensated hepatic cirrhosis: (4) Chronic atrial fibrillation: (5) Acute kidney injury superimposed on chronic kidney disease: (6) Pancytopenia: (7) Coagulopathy: (8) Diabetes mellitus, type II: Plan Septic shock POA #Hepatic encephalopathy, improved #Decompensated Liver Cirrhosis History of decompensated liver cirrhosis. Low blood pressure on midodrine. Was brought to the hospital due to multiple falls. Was found to be confused and hypotensive. MAP of 40s in the ED CT abdomen and pelvis reviewed; shows cirrhosis with stigmata of portal hypertension with moderate ascites No leukocytosis. Ascitic fluid interpreted; not suggestive of SBP Blood culture 1/ positive for gram-positive cocci in cluster. Identification and sensitivity pending. Admitted to ICU for vasopressor support Currently on norepinephrine Wean off as tolerated; rest per ICU Currently on ceftriaxone. BRUNA on CKD (prerenal versus hepatorenal syndrome) Rapidly progressive CKD in the last few months. Creatinine downtrending with IV hydration, vasopressors and albumin Avoid nephrotoxic agent. Daily [facility] Nephrology on board #Pancytopenia likely due to liver cirrhosis #Coagulopathy iso liver disease INR persistently elevated, within baseline on admission Downtrending hgb over the course of ~6 months ~11; 10 on admission, no signs of overt hemorrhage, however, multiple ecchymosis and skin tears present Platelets are 30 today. #Elevated high sensitive troponin due to demand ischemia #Chronic Atrial Fibrillation RVR in ED to 110s, not on rate control 2/2 hypotension, not on DOAC 2/2 coagulopathy Last echo 2019, EF 55%; cardiomegaly noted on admission CT #Gout -We will resume allopurinol when able to take oral meds. #Chronic low back pain c/b scitatica #Deconditioned On daily oxycodone 5 mg -Hold po medications, monitor for withdrawal -PT/OT when able #Hypomagnesemia -s/p 2g mag #DM type II No on oral agents at this time, A1C 5.3 09/2022 -SSI and accucheck q6 for NPO CODE STATUS -DNR/DNI DVT prophylaxisSCDs. Time spent evaluating patient, direct bedside care, chart review, placing orders, interpretation of diagnostic studies, discussion with consultants, patient, and family members, as well as other required patient management activities is 60 minutes. Please note the above document was generated using voice recognition software. It may contain grammatical, syntax or spelling errors. Any formal questions or concerns about the content, text or information contained within the body of this dictation should be directly addressed to the provider for clarification Admission and Anticipated Discharge Date Admission Date: December 18, 2022 Subjective Patient seen and examined at bedside. He is sitting up on the bed; not in distress. He is alert oriented x3. He still requiring norepinephrine for hemodynamic support. Review of Systems Review of Systems: All systems reviewed & are unremarkable except as noted in Subjective Physical Exam Physical Exam: Constitutional: Awake, alert orient x3; not in any distress. HEENTcentral line in place. Respiratory :vesicular breath sound bilaterally Cardiovascular: RRR, no murmur, no edema Vessels: no JVD or carotid bruit Chest: normal inspection of chest Abdomen: Distended; fluid thrill present ascites present, nontender. Musculoskeletal: Pitting edema present Skin: no rashes, warm and dry normal turgor Neurologic: Alert orient x3; grossly intact. Psychiatric: A+Ox3, euthymic affect Results & Data Results & Data Vital Signs (Past 12 Hours) Vital Signs Temp Pulse Resp BP Pulse Ox O2 Del Method 12/20/22 10:35 87/69 L 12/20/22 10:35 97 H 14 96 12/20/22 10:30 107 H 18 84 L 12/20/22 10:30 80/63 L 12/20/22 10:00 96 H 11 L 98 12/20/22 10:00 97/63 L 12/20/22 09:30 85 21 97 12/20/22 09:00 91 H 16 96 12/20/22 08:00 Room Air 12/20/22 08:30 98 H 15 97 12/20/22 08:30 101/72 12/20/22 08:01 111 H 12 96 12/20/22 08:01 89/68 L 12/20/22 08:00 112 H 16 97 12/20/22 07:31 109 H 16 97 12/20/22 07:31 97/78 L 12/20/22 07:30 106 H 17 97 12/20/22 07:00 110 H 14 94 12/20/22 07:00 95/74 L 12/20/22 06:30 110 H 22 97 12/20/22 08:00 36.5 C 12/20/22 06:00 95 H 13 95 12/20/22 05:30 101 H 12 12/20/22 05:30 86/73 L 12/20/22 05:00 94 H 9 L 95 12/20/22 05:00 96/77 L 12/20/22 04:45 96 H 13 95 12/20/22 04:30 108 H 11 L 94 12/20/22 04:30 98/80 L 12/20/22 04:15 94 H 9 L 98 12/20/22 04:15 103/66 12/20/22 04:00 102 H 7 L 93 12/20/22 03:45 90 10 L 94 12/20/22 03:45 100/71 12/20/22 03:30 100 H 13 97 12/20/22 03:30 109/75 12/20/22 03:15 102 H 11 L 97 12/20/22 03:15 114/66 12/20/22 03:01 100/82 12/20/22 03:01 109 H 20 98 12/20/22 03:00 103 H 11 L 94 12/20/22 02:45 102 H 17 97 12/20/22 02:30 98 H 22 94 12/20/22 02:30 109/66 12/20/22 02:15 99 H 21 96 12/20/22 02:15 101/64 12/20/22 02:00 99 H 18 95 12/20/22 01:45 95 H 12 95 12/20/22 01:30 103 H 10 L 96 12/20/22 01:30 103/76 12/20/22 01:15 96 H 10 L 96 12/20/22 01:15 108/70 12/20/22 01:04 106 H 16 96 12/20/22 01:04 102/73 12/20/22 01:00 108 H 14 96 12/20/22 00:45 103 H 10 L 97 12/20/22 00:45 92/73 L 12/20/22 00:31 108 H 19 95 12/20/22 00:31 94/75 L 12/20/22 00:30 121 H 15 97 12/20/22 00:15 104 H 17 12/20/22 00:15 109/68 12/20/22 00:00 97 H 19 12/20/22 00:00 105/79 12/19/22 23:45 107 H 16 94 12/19/22 23:45 115/82 Laboratory Results Laboratory Results WBC 5.36 K/ul (4.8-10.8) 12/20/22 04:25 RBC 2.97 M/uL (4.70-6.10) L 12/20/22 04:25 Hgb 9.6 g/dl (14.0-18.0) L 12/20/22 04:25 Hct 26.7 % (42.0-52.0) L 12/20/22 04:25 MCV 89.9 fL (80.0-100.0) 12/20/22 04:25 MCH 32.3 pg (25.0-34.0) 12/20/22 04:25 MCHC 36.0 g/dL (32.0-36.0) 12/20/22 04:25 RDW Std Deviation 49.2 fL (36.4-46.3) H 12/20/22 04:25 RDW Coeff of Scottie 15.2 % (11.5-14.5) H 12/20/22 04:25 Plt Count 30 K/uL (130-400) L 12/20/22 04:25 MPV 12.4 fL (9.4-12.4) 12/19/22 04:24 Immature Gran % (Auto) 0.5 % 12/18/22 12:30 Neut % (Auto) 90.3 % 12/18/22 12:30 Lymph % (Auto) 3.5 % 12/18/22 12:30 [place] % (Auto) 5.7 % 12/18/22 12:30 Eos % (Auto) 0.0 % 12/18/22 12:30 Baso % (Auto) 0.0 % 12/18/22 12:30 Neut # (Auto) 3.65 K/uL (1.40-6.50) 12/18/22 12:30 Lymph # (Auto) 0.14 K/uL (1.2-3.4) L 12/18/22 12:30 [place] # (Auto) 0.23 K/uL (0.11-0.59) 12/18/22 12:30 Eos # (Auto) 0.00 K/uL (0-0.50) 12/18/22 12:30 Baso # (Auto) 0.00 K/uL (0-0.2) 12/18/22 12:30 Immature Gran # (Auto) 0.02 K/uL (0.01-0.20) 12/18/22 12:30 Platelet Estimate Decreased (Normal) L 12/20/22 04:25 Polychromasia 1+ 12/18/22 12:30 Ovalocytes 1+ 12/18/22 12:30 Echinocytes 1+ 12/18/22 12:30 PT 16.1 Seconds (9.0-12.0) H 12/20/22 04:25 INR 1.5 (0.9-1.1) H 12/20/22 04:25 VBG pH 7.43 (7.36-7.41) H 12/18/22 18:39 VBG pCO2 38 mmHg (38-50) 12/18/22 18:39 VBG pO2 48 mmHg 12/18/22 18:39 VBG HCO3 25 mmol/L 12/18/22 18:39 VBG O2 Saturation 72.8 % 12/18/22 18:39 VBG Base Excess 1.0 mEq/L 12/18/22 18:39 Sodium 132 mmol/L (136-145) L 12/20/22 04:25 Potassium 3.1 mmol/L (3.5-5.1) L 12/20/22 04:25 Chloride 101 mmol/L (98-107) 12/20/22 04:25 Carbon Dioxide 23 mmol/L (21-32) 12/20/22 04:25 Anion Gap 8 (3-11) 12/20/22 04:25 BUN 48 mg/dl (6-23) H 12/20/22 04:25 Creatinine 2.68 mg/dl (0.6-1.4) H D 12/20/22 04:25 Est Cr Clr Drug Dosing 27.3 ml/min 12/20/22 04:25 Est GFR ( Amer) 25.6 ml/min 12/20/22 04:25 Est GFR (Non-Af Amer) 22.1 ml/min 12/20/22 04:25 BUN/Creatinine Ratio 17.9 (10-20) 12/20/22 04:25 Glucose 142 mg/dl (70-99(Fasting)) H 12/20/22 04:25 POC Glucose 137 mg/dl (70-99) H 12/20/22 11:14 POC Glucose (other) 120 mg/dl (70-99) H 12/19/22 21:40 Lactate 1.4 mmol/L (0.4-2.0) 12/18/22 23:30 Calcium 8.8 mg/dl (8.6-10.3) 12/20/22 04:25 Phosphorus 2.8 mg/dl (2.5-4.9) 12/20/22 04:25 Magnesium 2.1 mg/dl (1.7-2.4) 12/20/22 04:25 Total Bilirubin 2.6 mg/dl (0.2-1.0) H 12/20/22 04:25 Direct Bilirubin 1.0 mg/dl (0-0.2) H 12/18/22 12:30 AST 34 U/L (13-39) 12/20/22 04:25 ALT 13 U/L (7-52) 12/20/22 04:25 Alkaline Phosphatase 36 U/L (34-104) 12/20/22 04:25 Ammonia 61.0 umol/L (18-72) 12/18/22 12:47 Troponin I High Sens 82.4 pg/ml (0-20) H* D 12/19/22 02:14 Total Protein 5.4 gm/dl (6.0-8.3) L 12/20/22 04:25 Albumin 3.1 gm/dl (3.4-5.0) L 12/20/22 04:25 Globulin 2.3 gm/dl (2.5-4.0) L 12/20/22 04:25 Albumin/Globulin Ratio 1.3 (0.9-2) 12/20/22 04:25 Procalcitonin 0.11 ng/ml (0-0.5) 12/18/22 12:30 Random Cortisol 35.10 mcg/dl 12/18/22 18:39 Urine Color Yellow 12/18/22 12:30 Urine Appearance Clear (Clear) 12/18/22 12:30 Urine pH 5.5 (4.5-7.5) 12/18/22 12:30 Ur Specific [place] 1.009 (1.000-1.030) 12/18/22 12:30 Urine Protein Negative (Negative) 12/18/22 12:30 Urine Glucose (UA) Negative (Negative) 12/18/22 12:30 Urine Ketones Negative (Negative) 12/18/22 12:30 Urine Blood Negative (Negative) 12/18/22 12:30 Urine Nitrite Negative (Negative) 12/18/22 12:30 Urine Bilirubin Negative (Negative) 12/18/22 12:30 Urine Urobilinogen Negative (Negative) 12/18/22 12:30 Ur Leukocyte Esterase Negative (Negative) 12/18/22 12:30 Ur Random Sodium < 10 mmol/L 12/19/22 Unknown Fluid Neutrophils % 10 % 12/19/22 11:20 Fluid Lymphocytes % 49 % 12/19/22 11:20 Fluid Meso/Macro/[place] % 41 % 12/19/22 11:20 Fluid Comment 12/19/22 11:20 Peritoneal Color Yellow 12/19/22 11:20 Peritoneal Appearance Clear 12/19/22 11:20 Peritoneal WBC (Auto) 72 /ul (0-300) 12/19/22 11:20 Peritoneal RBC (Auto) < 2000 /uL 12/19/22 11:20 Nasal Screen MRSA (PCR) Negative (Negative) 12/18/22 18:21 Random Vancomycin 13.0 mcg/ml (10-20) 12/19/22 07:35 Staphylococcus sp PCR DETECTED (NotDetected) A 12/18/22 18:39 Bld Cult ID Panel PCR See PCR Comment (NotDetected) 12/18/22 18:39 Blood Type A Positive 12/18/22 18:39 Antibody Screen NEGATIVE 12/18/22 18:[address] 12/18/22 12:13 CT cervical spine wo con CLINICAL HISTORY: ams TECHNIQUE: Multidetector row helical CT of the cervical spine was performed without administration of intravenous contrast. Coronal and sagittal reformations were obtained. Automated dose lowering techniques and/or adjustment according to patient size were utilized for this exam. Comparison: None available at the time of this dictation. FINDINGS: No acute fractures or subluxations are identified. Degenerative changes are seen in the visualized spine. The alignment is normal. Soft tissues are unremarkable. IMPRESSION: Degenerative changes without evidence of acute bony injury. ACT 112: Negative or not required by law. Electronically signed by: Harrison Her M.D. 12/18/2022 1:[address] 12/18/22 12:[address] DOSE: HISTORY: Altered mental status. TECHNIQUE: Multiaxial CT images of the head were performed without the use of intravenous contrast. Automated exposure control was utilized for this study. A dose lowering technique was utilized adhering to the principles of ALARA. Comparison: None. Findings: Motion artifact. The paranasal sinuses and mastoid air cells are clear. The calvarium and skull base are intact. There is no mass, hematoma, m idline shift, acute infarct. White matter hypodensity is nonspecific but suggestive of microvascular ischemic change. The ventricles and sulci demonstrate mild age-related involutional changes. Impression: Motion artifact. No definite acute intracranial abnormality. ACT 112: Negative or not required by law. Electronically signed by: Chad Cardona M.D. 12/18/2022 2:07 PM Abdomen/Pelvis CT 12/18/22 13:10 CT chest diagnostic wo con, CT abd pelvis wo con CT DOSE: 3743.01 mGy.cm CLINICAL HISTORY: 77 years-old Male with fall. Acute chest and abdominal pain status post fall TECHNIQUE: Multiaxial CT images of the CT chest, abdomen and pelvis were performed without contrast. A dose lowering technique was utilized adhering to the principles of ALARA. COMPARISON: CT abdomen and pelvis 02/04/2018 FINDINGS: CT CHEST: Limited exam secondary to positioning and lack of IV contrast. Moderate cardiomegaly. Decreased attenuation of the cardiac blood pool suggestive of anemia. Moderate coronary artery calcifications. Trace pericardial effusion. Atherosclerosis of the thoracic aorta without aneurysm. No dominant thyroid nodule or lymphadenopathy. Trace pleural effusions. No pneumothorax. Intralobular septal thickening with mild dependent subsegmental atelectasis. Stable likely benign 6 mm solid nodule of the basal right lower lobe. Central airways are patent. Anasarca. No acute displaced rib fracture identified. Gynecomastia. CT ABDOMEN/PELVIS: No free air. Cirrhotic liver. The spleen is enlarged measuring over 15 cm. Left upper quadrant splenule with marginal calcifications again noted. Mildly atrophic pancreas. Punctate pancreatic head calcification. Unremarkable adrenal glands. Cholelithiasis with partial distention and mild wall thickening. 3 mm calcification noted on image 167 with additional punctate calcifications noted distally towards the duodenum. Atrophic kidneys. Hypodense 1.6 cm lesion of the superior pole of kidney, possibly a cyst. Decompressed urinary bladder with wall thickening. A Apple catheter is in place. Air within the urinary bladder is noted. Prostatomegaly. Atherosclerosis of the aorta. Moderate ascites. Small hiatal hernia. Nonspecific diffuse gastric wall thickening is noted with partial distention. Nonspecific anal rectal wall thickening. Colonic diverticulosis. Prior sigmoid colon resection with colonic colonic anastomosis. Moderate circumferential wall thickening of the colon is most pronounced in the ascending and transverse segments. Appendix not visualized. Small fat and fluid filled umbilical hernia. No acute fracture. IMPRESSION: 1. No acute posttraumatic intrathoracic, intra-abdominal or intrapelvic abnormality identified. 2. Cardiomegaly with mild pulmonary edema and trace pleural effusions. 3. Cirrhosis with stigmata of portal venous hypertension including splenomegaly with moderate ascites. 4. Cholelithiasis with possible choledocholithiasis. Correlate with LFTs. 5. Wall thickening of the ascending and transverse colon suggestive of portal colopathy. 6. Additional findings as above. ACT 112: Negative or not required by law. Electronically signed by: Rayshawn Powers M.D. 12/18/2022 2:[address] 12/18/22 13:10 CT chest diagnostic wo con, CT abd pelvis wo con CT DOSE: 3743.01 mGy.cm CLINICAL HISTORY: 77 years-old Male with fall. Acute chest and abdominal pain status post fall TECHNIQUE: Multiaxial CT images of the CT chest, abdomen and pelvis were performed without contrast. A dose lowering technique was utilized adhering to the principles of ALARA. COMPARISON: CT abdomen and pelvis 02/04/2018 FINDINGS: CT CHEST: Limited exam secondary to positioning and lack of IV contrast. Moderate cardiomegaly. Decreased attenuation of the cardiac blood pool suggestive of anemia. Moderate coronary artery calcifications. Trace pericardial effusion. Atherosclerosis of the thoracic aorta without aneurysm. No dominant thyroid nodule or lymphadenopathy. Trace pleural effusions. No pneumothorax. Intralobular septal thickening with mild dependent subsegmental atelectasis. Stable likely benign 6 mm solid nodule of the basal right lower lobe. Central airways are patent. Anasarca. No acute displaced rib fracture identified. Gynecomastia. CT ABDOMEN/PELVIS: No free air. Cirrhotic liver. The spleen is enlarged measuring over 15 cm. Left upper quadrant splenule with marginal calcifications again noted. Mildly atrophic pancreas. Punctate pancreatic head calcification. Unremarkable adrenal glands. Cholelithiasis with partial distention and mild wall thickening. 3 mm calcification noted on image 167 with additional punctate calcifications noted distally towards the duodenum. Atrophic kidneys. Hypodense 1.6 cm lesion of the superior pole of kidney, possibly a cyst. Decompressed urinary bladder with wall thickening. A Apple catheter is in place. Air within the urinary bladder is noted. Prostatomegaly. Atherosclerosis of the aorta. Moderate ascites. Small hiatal hernia. Nonspecific diffuse gastric wall thickening is noted with partial distention. Nonspecific anal rectal wall thickening. Colonic diverticulosis. Prior sigmoid colon resection with colonic colonic anastomosis. Moderate circumferential wall thickening of the colon is most pronounced in the ascending and transverse segments. Appendix not visualized. Small fat and fluid filled umbilical hernia. No acute fracture. IMPRESSION: 1. No acute posttraumatic intrathoracic, intra-abdominal or intrapelvic abnormality identified. 2. Cardiomegaly with mild pulmonary edema and trace pleural effusions. 3. Cirrhosis with stigmata of portal venous hypertension including splenomegaly with moderate ascites. 4. Cholelithiasis with possible choledocholithiasis. Correlate with LFTs. 5. Wall thickening of the ascending and transverse colon suggestive of portal colopathy. 6. Additional findings as above. ACT 112: Negative or not required by law. Electronically signed by: Rayshawn Powers M.D. 12/18/2022 2:10 PM Chest X-Ray 12/18/22 17:35 XR chest 1V portable CLINICAL HISTORY: lines TECHNIQUE: Single frontal radiograph of the chest was obtained. Comparison: Comparison is made to chest radiograph 11/04/2022 FINDINGS: Right IJ catheter terminates in the mid SVC. The cardiomediastinal silhouette is normal. Elevation of the left hemidiaphragm is seen. No evidence of pleural effusion or pneumothorax. IMPRESSION: Satisfactory position of right IJ catheter. ACT 112: Negative or not required by law. Electronically signed by: Harrison Her M.D. 12/18/2022 6:11 PM Paracentesis Ultrasound 12/19/22 10:04 ULTRASOUND-GUIDED DIAGNOSTIC PARACENTESIS CLINICAL HISTORY: Ascites; altered mental status PROCEDURE: Procedure and risks were explained. Informed consent was obtained over the phone. A final timeout was completed. The right upper quadrant was prepped and draped in sterile fashion. 1% buffered lidocaine was utilized for skin anesthesia. Utilizing ultrasound guidance, a 22-gauge spinal needle was in troduced into the pocket of ascites. Ultrasound images were obtained. 10 mL of yellow fluid was aspirated and sent to the lab for analysis. The needle was removed and Band-Aid applied. The patient tolerated the procedure well. Vital signs will be monitored postprocedure. IMPRESSION: Ultrasound guided paracentesis as described above. Performed, dictated, and signed by Markell Allred PA-C; to be co-signed by Dr. Harrison Her. Electronically signed by: Harrison Her M.D. 12/19/2022 4:59 PM
[2022-12-20] MEDS: MIDODRINE HCL 10 MG TAB PO SCH ×2 (12:11→16:31)
[2022-12-20] MEDS ORDERED: VANCOMYCIN CONSULT ACTIVE PRN (16:47)
[2022-12-20] MEDS: cefTRIAXone SODIUM 2,000 MG in DEXTROSE 5% 50 ML IV SCH (17:46)
[2022-12-20] MEDS: VANCOMYCIN HCL 750 MG in SODIUM CHLORIDE 0.9% 250 ML IV SCH (17:46)
--- NOTE | 2022-12-20 19:58 | Nephrology Progress Note ---
Date of Service December 20, 2022 Assessment & Plan (1) Acute kidney injury superimposed on chronic kidney disease: Plan: prerenal and resolved; at least in part prerenal/hypoperfusion in the setting of decompensated liver failure versus less likely severe sepsis/septic shock; pressors helpful as well His last echocardiogram was in 2019 with an ejection fraction at that time of 55%; f/u cardiology recs Continue albumin resuscitation -on less than 2 gm sodium diet >added 1.2 L FR For now continue to hold OP diuretic (2) CKD (chronic kidney disease) stage 4, GFR 15-29 ml/min: Plan: rapidly progressive CKD [place] past few months as his liver status has worsened. baseline creatinine late November/early December is about 3. Not a liver transplant candidate and therefore not a dialysis candidate. I did reiterate with the patient and his family that the focus of his kidney care during this admission and after discharge will be supportive and that he will not be a candidate for dialysis. -continue supportive care -maintain SPB 90-100s -agree w/ holding vancomycin -continue albumin -He had been referred to palliative care as an outpatient but this appointment had to be changed by the clinician and was not as yet rescheduled; follow-up with palliative as outpatient; may need them inpatient as well (3) Disorder of fluid or electrolyte: Plan: From worsening liver cirrhosis in the setting of advanced CKD Fluid limit when feasible as above Less than 2 g daily sodium diet Albumin rather than IV fluids as above Continue potassium repletion with a target of 4 and mag target of 2; replete potassium p.o. where able Admission and Anticipated Discharge Date Admission Date: December 18, 2022 Subjective seen on rounds mid morning. feeling improved somewhat. denies sob; denies abdominal pain. taking small amount po. had to resume pressor this am Review of Systems Review of Systems: All systems reviewed & are unremarkable except as noted in Subjective Physical Exam Constitutional: well developed, + cachectic, + physical limitations, + frail appearing and cooperative Eyes: EOM intact bilaterally ENMT: Ears: no external ear abnormality Nose: no external nose abnormality Mouth: + dry oral mucous membranes Neck: no nuchal rigidity Respiratory: normal respiratory effort Auscultation: lungs clear to auscult ation bilaterally and + diminished lung sounds Cardiovascular: Rate/Rhythm: regular rate and regular rhythm Extremities: + edema (2+ distal bilateral lower extremities) Gastrointestinal (Abdomen): Inspection/Auscultation: + abdomen distended, + high-pitched sounds and + hyperactive bowel sounds Percussion/Palpation: abdomen soft and + ascites; abdomen nontender Musculoskeletal: Extremities: strength 5/5 throughout Skin: no rashes, warm and dry Trauma: + evidence of skin trauma (innumerable and large ecchymoses and skin tears) Psychiatric: Orientation: alert, oriented to person and oriented to place Insight: + limited insight Judgment: + limited judgement Results & Data Vital Signs (Past 12 Hours) Vital Signs Temp Pulse Resp BP Pulse Ox O2 Del Method 12/20/22 18:00 97 H 12 12/20/22 18:00 110/78 12/20/22 17:30 105 H 15 12/20/22 17:00 102 H 17 100 12/20/22 17:00 114/78 12/20/22 18:14 36.5 C 12/20/22 16:30 113 H 14 75 L 12/20/22 16:30 101/83 12/20/22 16:00 95 H 18 12/20/22 16:00 90/63 L 12/20/22 15:30 96 H 17 97 12/20/22 15:00 106 H 18 97 12/20/22 15:00 90/62 L 12/20/22 14:30 87 13 97 12/20/22 14:00 84 12 96 12/20/22 13:30 87 13 96 12/20/22 13:30 95/67 L 12/20/22 16:00 95 H 12/20/22 13:00 95 H 13 98 12/20/22 13:00 93/69 L 12/20/22 12:30 100 H 15 99 12/20/22 12:00 110 H 16 101/66 95 12/20/22 11:30 96 H 16 88/62 L 97 12/20/22 11:00 92 H 13 99 12/20/22 10:35 87/69 L 12/20/22 10:35 97 H 14 96 12/20/22 10:30 107 H 18 84 L 12/20/22 10:30 80/63 L 12/20/22 10:00 96 H 11 L 98 12/20/22 10:00 97/63 L 12/20/22 09:30 85 21 97 12/20/22 09:00 91 H 16 96 12/20/22 08:00 Room Air 12/20/22 08:30 98 H 15 97 12/20/22 08:30 101/72 12/20/22 08:01 111 H 12 96 12/20/22 08:01 89/68 L 12/20/22 08:00 112 H 16 97 12/20/22 08:00 36.5 C Laboratory Results 12/20/22 04:25 12/20/22 04:25
[2022-12-21] MEDS: ALBUMIN 25% 25 GM/100 ML VIAL IV SCH ×3 (01:46→17:38)
[2022-12-21 05:39] LABS: Albumin Globulin Ratio 1.7 (0.9-2); Albumin Level 3.1 gm/dl (3.4-5.0); BUN Creatinine Ratio 18.7 (10-20); Bilirubin,Total 2.4 mg/dl (0.2-1.0); Calcium 8.7 mg/dl (8.6-10.3); Creatinine Clr Calc Pharmacy 30.3 ml/min; Est GFR (African American) 28.4 ml/min; Est GFR (Non-African American) 24.5 ml/min; Globulin 1.8 gm/dl (2.5-4.0); Phosphorus 2.4 mg/dl (2.5-4.9); Potassium 3.8 mmol/L (3.5-5.1); Total Protein 4.9 gm/dl (6.0-8.3)
[2022-12-21 05:57] LABS: INR 1.7 (0.9-1.1); Prothrombin Time 17.6 Seconds (9.0-12.0)
[2022-12-21 05:59] LABS: Hematocrit (blood only) 23.2 % (42.0-52.0); Hemoglobin 8.4 g/dl (14.0-18.0); Mean Corpuscular Hemoglobin 33.3 pg (25.0-34.0); Mean Corpuscular Hgb Conc 36.2 g/dL (32.0-36.0); Mean Corpuscular Volume 92.1 fL (80.0-100.0); Platelet Count 25 K/uL (130-400); RDW Coefficient of Variation 15.5 % (11.5-14.5); RDW Standard Deviation 51.8 fL (36.4-46.3); Red Blood Count 2.52 M/uL (4.70-6.10); White Blood Count 1.85 K/ul (4.8-10.8)
[2022-12-21] MEDS: MIDODRINE HCL 10 MG TAB PO SCH ×3 (07:41→17:05)
[2022-12-21 08:04] LABS: Basophils # (auto) 0.01 K/uL (0-0.2); Basophils % (auto) 0.4 %; Eosinophils # (auto) 0.05 K/uL (0-0.50); Eosinophils % (auto) 2.1 %; Hematocrit (blood only) 26.5 % (42.0-52.0); Hemoglobin 9.3 g/dl (14.0-18.0); Immature Granulocytes # (auto) 0.01 K/uL (0.01-0.20); Immature Granulocytes % (auto) 0.4 %; Lymphocytes # (auto) 0.59 K/uL (1.2-3.4); Lymphocytes % (auto) 24.5 %; Mean Corpuscular Hemoglobin 32.2 pg (25.0-34.0); Mean Corpuscular Hgb Conc 35.1 g/dL (32.0-36.0); Mean Corpuscular Volume 91.7 fL (80.0-100.0); Mean Platelet Volume 12.3 fL (9.4-12.4); Monocytes # (auto) 0.33 K/uL (0.11-0.59); Monocytes % (auto) 13.7 %; Neutrophils # (auto) 1.42 K/uL (1.40-6.50); Neutrophils % (auto) 58.9 %; Platelet Count 32 K/uL (130-400); RDW Coefficient of Variation 15.4 % (11.5-14.5); RDW Standard Deviation 51.9 fL (36.4-46.3); Red Blood Count 2.89 M/uL (4.70-6.10); White Blood Count 2.41 K/ul (4.8-10.8)
[2022-12-21] MEDS: INSULIN ASPART PER UNIT CHARGE SC SCH ×4 (08:16→20:07)
--- NOTE | 2022-12-21 10:15 | Critical Care Progress Note ---
Date of Service December 21, 2022 Assessment & Plan (1) Encephalopathy: Plan: Reason Critically Ill: Multisystem organ failure with hypotension and hypoperfusion PLAN: Neuro: Encephalopathy: Resolved Resp: Family okay with intubation in event of respiratory insufficiency CV: Hypotension, resolved: Off vasoactive medication greater than 12 hours - midodrine 10 mg 3 times daily History of chronic atrial fibrillation -Not on anticoagulation secondary to coagulopathy risks of anticoagulation/risk of serious bleeding outweigh benefits Fluids/Renal: Hypokalemia and hypophosphatemia: Resolved Hypomagnesemia: Resolved Acute kidney injury on chronic kidney disease: Improving Reviewed nephrology consultation ID: Septic shock with multisystem organ failure: Resolved -Gram-positive cocci in clusters -I suspect this probably represents contamination however repeat cultures have been sent. Given his profound decompensation I feel it is prudent to continue antibiotics at this time GI/Nutrition: Decompensated liver cirrhosis unknown etiology: History of hepatosteatosis -History of varices with portal gastropathy -Reviewed gastroenterology documentation. Heme: Pancytopenia initially worsening, repeated labs and he appears to be at his baseline -Type and screen Elevated INR: DVT prophylaxis: Medically contraindicated significant thrombocytopenia and supratherapeutic INR Endocrine: ICU hyperglycemia protocol Check random cortisol Vascular access: Right jugular central venous catheter discontinue catheter and Apple Code Status: DNR/DNI in event of cardiac arrest, okay with intubation for respiratory insufficiency Disposition: Stable for downgrade out of ICU -May benefit from palliative care consultation: Not candidate for dialysis, increasing frequency and duration of hospitalizations (2) Acute kidney injury superimposed on chronic kidney disease: (3) Coagulopathy: (4) Pancytopenia: (5) Thrombocytopenia: (6) Decompensated hepatic cirrhosis: Admission and Anticipated Discharge Date Admission Date: December 18, 2022 Subjective Reports that he feels back to his baseline Physical Exam Physical Exam: General: Alert, Oriented x3 Skin: Multiple areas of ecchymoses and skin tears, Head: Atraumatic Ears, nose, mouth and throat: airway patent Cardiovascular: Normal peripheral perfusion Respiratory: no respiratory distress Gastrointestinal: Non distended, no guarding no rebound tenderness Musculoskeletal: 2+ pulses in all 4 extremities Results & Data Results & Data Vital Signs (Past 12 Hours) Vital Signs Temp Pulse Resp BP Pulse Ox O2 Del Method 12/21/22 08:00 139 H 15 12/21/22 07:27 122 H 16 12/21/22 07:27 105/82 12/21/22 07:00 105 H 13 98 Room Air 12/21/22 07:00 119/79 12/21/22 08:32 36.7 C 12/21/22 08:26 Room Air 12/21/22 06:00 104 H 14 97 Room Air 12/21/22 06:00 96/56 L 12/21/22 05:30 102 H 14 98 12/21/22 05:30 96/54 L 12/21/22 05:04 102 H 12 97 12/21/22 05:04 84/49 L 12/21/22 05:01 112 H 12 96 12/21/22 05:00 36.5 C 106 H 13 98 12/21/22 04:30 105 H 13 99 12/21/22 04:30 94/65 L 12/21/22 04:00 93 H 12 99 12/21/22 04:00 92/70 L 12/21/22 03:30 98 H 10 L 99 12/21/22 03:30 102/70 12/21/22 03:00 99 H 10 L 96 12/21/22 03:00 93/65 L 12/21/22 02:54 105 H 12 103/73 98 12/21/22 02:00 100 H 13 91/54 L 98 12/21/22 01:48 97 H 17 100 12/21/22 01:48 87/66 L 12/21/22 01:31 98 H 12 97 12/21/22 01:30 87 16 97 12/21/22 01:00 100 H 14 100 12/21/22 01:00 98/67 L 12/21/22 00:30 90 12 98 12/21/22 00:30 89/61 L 12/21/22 00:00 105 H 13 98 12/20/22 23:30 99 H 14 98 12/20/22 23:30 113/56 L 12/20/22 23:00 97 H 12 100 12/20/22 23:00 92/71 L 12/20/22 22:30 90 13 97 12/21/22 00:19 36.7 C 12/21/22 00:00 115 H Critical Care Results & Data Vital Signs (Past 12 Hours) Vital Signs Temp Pulse Resp BP Pulse Ox O2 Del Method 12/21/22 08:00 139 H 15 12/21/22 07:27 122 H 16 12/21/22 07:27 105/82 12/21/22 07:00 105 H 13 98 Room Air 12/21/22 07:00 119/79 12/21/22 08:32 36.7 C 12/21/22 08:26 Room Air 12/21/22 06:00 104 H 14 97 Room Air 12/21/22 06:00 96/56 L 12/21/22 05:30 102 H 14 98 12/21/22 05:30 96/54 L 12/21/22 05:04 102 H 12 97 12/21/22 05:04 84/49 L 12/21/22 05:01 112 H 12 96 12/21/22 05:00 36.5 C 106 H 13 98 12/21/22 04:30 105 H 13 99 12/21/22 04:30 94/65 L 12/21/22 04:00 93 H 12 99 12/21/22 04:00 92/70 L 12/21/22 03:30 98 H 10 L 99 12/21/22 03:30 102/70 12/21/22 03:00 99 H 10 L 96 12/21/22 03:00 93/65 L 12/21/22 02:54 105 H 12 103/73 98 12/21/22 02:00 100 H 13 91/54 L 98 12/21/22 01:48 97 H 17 100 12/21/22 01:48 87/66 L 12/21/22 01:31 98 H 12 97 12/21/22 01:30 87 16 97 12/21/22 01:00 100 H 14 100 12/21/22 01:00 98/67 L 12/21/22 00:30 90 12 98 12/21/22 00:30 89/61 L 12/21/22 00:00 105 H 13 98 12/20/22 23:30 99 H 14 98 12/20/22 23:30 113/56 L 12/20/22 23:00 97 H 12 100 12/20/22 23:00 92/71 L 12/20/22 22:30 90 13 97 12/21/22 00:19 36.7 C 12/21/22 00:00 115 H Lab & Micro Results (Past 24 Hours) RBC 2.89 M/uL (4.70-6.10) L 12/21/22 WBC 2.41 K/ul (4.8-10.8) L 12/21/22 Hgb 9.3 g/dl (14.0-18.0) L 12/21/22 Hct 26.5 % (42.0-52.0) L 12/21/22 MCV 91.7 fL (80.0-100.0) 12/21/22 MCH 32.2 pg (25.0-34.0) 12/21/22 MCHC 35.1 g/dL (32.0-36.0) 12/21/22 RDW Standard Deviation 51.9 fL (36.4-46.3) H 12/21/22 RDW Coefficient of Variation 15.4 % (11.5-14.5) H 12/21/22 Plt Count 32 K/uL (130-400) L 12/21/22 MPV 12.3 fL (9.4-12.4) 12/21/22 Neutrophils (%) (Auto) 58.9 % 12/21/22 Lymphocytes (%) (Auto) 24.5 % 12/21/22 Monocytes # (Auto) 0.33 K/uL (0.11-0.59) 12/21/22 Eosinophils # (Auto) 0.05 K/uL (0-0.50) 12/21/22 Immature Granulocyte % (Auto) 0.4 % 12/21/22 Neutrophils # (Auto) 1.42 K/uL (1.40-6.50) 12/21/22 Lymphocytes # (Auto) 0.59 K/uL (1.2-3.4) L 12/21/22 Monocytes # (Auto) 0.33 K/uL (0.11-0.59) 12/21/22 Eosinophils # (Auto) 0.05 K/uL (0-0.50) 12/21/22 Basophils # (Auto) 0.01 K/uL (0-0.2) 12/21/22 Immature Granulocyte # (Auto) 0.01 K/uL (0.01-0.20) 3 Na 133 mmol/L (136-145) L 12/21/22 K 3.8 mmol/L (3.5-5.1) 12/21/22 Cl 103 mmol/L (98-107) 12/21/22 CO2 25 mmol/L (21-32) 12/21/22 Anion Gap 5 (3-11) 12/21/22 BUN 46 mg/dl (6-23) H 12/21/22 Creatinine 2.46 mg/dl (0.6-1.4) H 12/21/22 Estimated GFR ( Amer) 28.4 ml/min 12/21/22 Estimated GFR (Non-Af Amer) 24.5 ml/min 12/21/22 BUN/Creatinine Ratio 18.7 (10-20) 12/21/22 Glu 93 mg/dl (70-99(Fasting)) 12/21/22 Ca 8.7 mg/dl (8.6-10.3) 12/21/22 Phosphorus Level 2.4 mg/dl (2.5-4.9) L 12/21/22 Total Bilirubin 2.4 mg/dl (0.2-1.0) H 12/21/22 AST 24 U/L (13-39) 12/21/22 ALT 11 U/L (7-52) 12/21/22 Alkaline Phosphatase 29 U/L (34-104) L 12/21/22 TP 4.9 gm/dl (6.0-8.3) L 12/21/22 Albumin 3.1 gm/dl (3.4-5.0) L 12/21/22 Globulin 1.8 gm/dl (2.5-4.0) L 12/21/22 Albumin/Globulin Ratio 1.7 (0.9-2) 12/21/22 Mg 2.0 mg/dl (1.7-2.4) 12/21/22 04:28 Calcium Level 8.7 mg/dl (8.6-10.3) 12/21/22 04:28 Prothromb Time International Ratio 1.7 (0.9-1.1) H 12/21/22 04 :28 Microbiology 12/18/22 18:39 Aerobic Blood Culture - Preliminary Blood Gram positive cocci clusters Anaerobic Blood Culture - Preliminary No growth in Anaerobic bottle after 48 hours. 12/19/22 11:20 Gram Stain - Final Peritoneal Fluid Aerobic and Anaerobic Culture - Preliminary No growth to date. I & O Totals 24 Hours 12/20/22 12/21/22 12/22/22 06:59 06:59 06:59 Intake Total 2717.673 / 2717.673 1805.578 / 1805.578 Output Total 580 / 580 1015 / 1015 Balance 2137.673 / 2137.673 790.578 / 790.578 Cumulative 12/18/22 11:52 thru 12/21/22 06:07 Intake Total 7863.543 Output Total 4144 Balance 3719.543 RT Ventilator Mngmt (Last Documented) Ventilator Ordered Settings Respiratory Rate 15 12/21/22 08:00 Ventilator - PT Measurements Respiratory Rate 15 Coding Level of Care Code 83695 SUB INP/OBS CARE 2/35MIN Diagnoses Encephalopathy G93.40 Acute kidney injury superimposed on chronic kidney disease N17.9; N18.9 Coagulopathy D68.9 Pancytopenia D61.818 Thrombocytopenia D69.6 Decompensated hepatic cirrhosis K72.90; K74.60
--- NOTE | 2022-12-21 10:35 | Pharmacy Report ---
Pharmacy PK ABX Note - Date of Service December 21, 2022 - Assessment and Plan Assessment 77 year old M receiving ceftriaxone/vancomycin for treatment of septic shock. * Day #4 of antimicrobial therapy. Vanco was discontinued on 12/19 but added back on 12/20 secondary to blood cultures. * 1/4 bottles from blood cultures is growing GPCs in clusters. BCID2 identified as staph spp. Likely contaminated but will continue vancomycin until repeat blood cultures with no growth. Likely 24 more hours. * SCr improving, down to 2.46 mg/dL today. Off pressure support. Plan Vancomycin * Current regimen: 750 mg IV every 24 hours * Random level obtained 12/21/22 resulted as 16.2 mcg/mL. This is predicted to achieve target AUC/AMY of 400-600 mg/L.hr * Predicted AUC at steady state: 417 mg/L.hr * Continue 750 mg IV every 24 hours * No repeat levels will be ordered. Ceftriaxone * 2000 mg IV every 24 hours Pharmacy will continue to follow and will adjust dose/frequency as necessary. Thank you.
--- NOTE | 2022-12-21 11:36 | Hospitalist Progress Note ---
Date of Service December 21, 2022 Assessment & Plan (1) Hypotension: (2) Encephalopathy: (3) Decompensated hepatic cirrhosis: (4) Chronic atrial fibrillation: (5) Acute kidney injury superimposed on chronic kidney disease: (6) Pancytopenia: (7) Coagulopathy: (8) Diabetes mellitus, type II: Plan Septic shock POA #Hepatic encephalopathy, improved #Decompensated Liver Cirrhosis History of decompensated liver cirrhosis. Low blood pressure on midodrine. Was brought to the hospital due to multiple falls. Was found to be confused and hypotensive. MAP of 40s in the ED CT abdomen and pelvis reviewed; shows cirrhosis with stigmata of portal hypertension with moderate ascites No leukocytosis. Ascitic fluid interpreted; not suggestive of SBP Blood culture 1/4 positive for gram-positive cocci in cluster. Identification and sensitivity pending. Patient was initially admitted to ICU for vasopressor support. Gradually weaned off to on December 20, 2022 Currently on midodrine 10 mg 3 times daily On ceftriaxone and vancomycin. Repeat blood culture is pending. BRUNA on CKD (prerenal versus hepatorenal syndrome) Rapidly progressive CKD in the last few months. Creatinine downtrending with IV hydration, vasopressors and albumin; [facility] Avoid nephrotoxic agent. Daily [facility] Nephrology on board #Pancytopenia likely due to liver cirrhosis #Coagulopathy iso liver disease INR persistently elevated, within baseline on admission Downtrending hgb over the course of ~6 months ~11; 10 on admission, no signs of overt hemorrhage, however, multiple ecchymosis and skin tears present Platelets persistently low. #Elevated high sensitive troponin due to demand ischemia #Chronic Atrial Fibrillation RVR in ED to 110s, not on rate control 2/2 hypotension, not on DOAC 2/2 coagulopathy Last echo 2019, EF 55%; cardiomegaly noted on admission CT #Gout -Resume allopurinol. #Chronic low back pain c/b scitatica #Deconditioned On daily oxycodone 5 mg Stopped -PT/OT ordered #Hypomagnesemia -s/p 2g mag #DM type II No on oral agents at this time, A1C 5.3 09/2022 -SSI. CODE STATUS -DNR/DNI DVT prophylaxisSCDs. Time spent evaluating patient, direct bedside care, chart review, placing orders, interpretation of diagnostic studies, discussion with consultants, patient, and family members, as well as other required patient management activities is 60 minutes. Please note the above document was generated using voice recognition software. It may contain grammatical, syntax or spelling errors. Any formal questions or concerns about the content, text or information contained within the body of this dictation should be directly addressed to the provider for clarification Admission and Anticipated Discharge Date Admission Date: December 18, 2022 Subjective Patient seen and examined at bedside. He is sitting up on the chair comfortably. Denies dizziness, fever or chills. Reports of abdominal distention. Review of Systems Review of Systems: All systems reviewed & are unremarkable except as noted in Subjective Physical Exam Physical Exam: Constitutional: Awake, alert orient x3; not in any distress. HEENTcentral line in place. Respiratory :vesicular breath sound bilaterally Cardiovascular: RRR, no murmur, no edema Vessels: no JVD or carotid bruit Chest: normal inspection of chest Abdomen: Distended; fluid thrill present ascites present, nontender. Musculoskeletal: Pitting edema present Skin: no rashes, warm and dry normal turgor Neurologic: Alert orient x3; grossly intact. Psychiatric: A+Ox3, euthymic affect Results & Data Results & Data Vital Signs (Past 12 Hours) Vital Signs Temp Pulse Resp BP Pulse Ox O2 Del Method 12/21/22 08:00 139 H 15 12/21/22 07:27 122 H 16 12/21/22 07:27 105/82 12/21/22 07:00 105 H 13 98 Room Air 12/21/22 07:00 119/79 12/21/22 08:32 36.7 C 12/21/22 08:26 Room Air 12/21/22 06:00 104 H 14 97 Room Air 12/21/22 06:00 96/56 L 12/21/22 05:30 102 H 14 98 12/21/22 05:30 96/54 L 12/21/22 05:04 102 H 12 97 12/21/22 05:04 84/49 L 12/21/22 05:01 112 H 12 96 12/21/22 05:00 36.5 C 106 H 13 98 12/21/22 04:30 105 H 13 99 12/21/22 04:30 94/65 L 12/21/22 04:00 93 H 12 99 12/21/22 04:00 92/70 L 12/21/22 03:30 98 H 10 L 99 12/21/22 03:30 102/70 12/21/22 03:00 99 H 10 L 96 12/21/22 03:00 93/65 L 12/21/22 02:54 105 H 12 103/73 98 12/21/22 02:00 100 H 13 91/54 L 98 12/21/22 01:48 97 H 17 100 12/21/22 01:48 87/66 L 12/21/22 01:31 98 H 12 97 12/21/22 01:30 87 16 97 12/21/22 01:00 100 H 14 100 12/21/22 01:00 98/67 L 12/21/22 00:30 90 12 98 12/21/22 00:30 89/61 L 12/21/22 00:00 105 H 13 98 12/21/22 00:19 36.7 C 12/21/22 00:00 115 H Laboratory Results Laboratory Results WBC 2.41 K/ul (4.8-10.8) L 12/21/22 07:44 RBC 2.89 M/uL (4.70-6.10) L 12/21/22 07:44 Hgb 9.3 g/dl (14.0-18.0) L 12/21/22 07:44 Hct 26.5 % (42.0-52.0) L 12/21/22 07:44 MCV 91.7 fL (80.0-100.0) 12/21/22 07:44 MCH 32.2 pg (25.0-34.0) 12/21/22 07:44 MCHC 35.1 g/dL (32.0-36.0) 12/21/22 07:44 RDW Std Deviation 51.9 fL (36.4-46.3) H 12/21/22 07:44 RDW Coeff of Scottie 15.4 % (11.5-14.5) H 12/21/22 07:44 Plt Count 32 K/uL (130-400) L 12/21/22 07:44 MPV 12.3 fL (9.4-12.4) 12/21/22 07:44 Immature Gran % (Auto) 0.4 % 12/21/22 07:44 Neut % (Auto) 58.9 % 12/21/22 07:44 Lymph % (Auto) 24.5 % 12/21/22 07:44 Carlton % (Auto) 13.7 % 12/21/22 07:44 Eos % (Auto) 2.1 % 12/21/22 07:44 Baso % (Auto) 0.4 % 12/21/22 07:44 Neut # (Auto) 1.42 K/uL (1.40-6.50) 12/21/22 07:44 Lymph # (Auto) 0.59 K/uL (1.2-3.4) L 12/21/22 07:44 Carlton # (Auto) 0.33 K/uL (0.11-0.59) 12/21/22 07:44 Eos # (Auto) 0.05 K/uL (0-0.50) 12/21/22 07:44 Baso # (Auto) 0.01 K/uL (0-0.2) 12/21/22 07:44 Immature Gran # (Auto) 0.01 K/uL (0.01-0.20) 12/21/22 07:44 Platelet Estimate Decreased (Normal) L 12/20/22 04:25 Polychromasia 1+ 12/18/22 12:30 Ovalocytes 1+ 12/18/22 12:30 Echinocytes 1+ 12/18/22 12:30 PT 17.6 Seconds (9.0-12.0) H 12/21/22 04:28 INR 1.7 (0.9-1.1) H 12/21/22 04:28 VBG pH 7.43 (7.36-7.41) H 12/18/22 18:39 VBG pCO2 38 mmHg (38-50) 12/18/22 18:39 VBG pO2 48 mmHg 12/18/22 18:39 VBG HCO3 25 mmol/L 12/18/22 18:39 VBG O2 Saturation 72.8 % 12/18/22 18:39 VBG Base Excess 1.0 mEq/L 12/18/22 18:39 Sodium 133 mmol/L (136-145) L 12/21/22 04:28 Potassium 3.8 mmol/L (3.5-5.1) D 12/21/22 04:28 Chloride 103 mmol/L (98-107) 12/21/22 04:28 Carbon Dioxide 25 mmol/L (21-32) 12/21/22 04:28 Anion Gap 5 (3-11) 12/21/22 04:28 BUN 46 mg/dl (6-23) H 12/21/22 04:28 Creatinine 2.46 mg/dl (0.6-1.4) H 12/21/22 04:28 Est Cr Clr Drug Dosing 30.3 ml/min 12/21/22 04:28 Est GFR ( Amer) 28.4 ml/min 12/21/22 04:28 Est GFR (Non-Af Amer) 24.5 ml/min 12/21/22 04:28 BUN/Creatinine Ratio 18.7 (10-20) 12/21/22 04:28 Glucose 93 mg/dl (70-99(Fasting)) 12/21/22 04:28 POC Glucose 109 mg/dl (70-99) H 12/21/22 11:30 POC Glucose (other) 120 mg/dl (70-99) H 12/19/22 21:40 Lactate 1.4 mmol/L (0.4-2.0) 12/18/22 23:30 Calcium 8.7 mg/dl (8.6-10.3) 12/21/22 04:28 Phosphorus 2.4 mg/dl (2.5-4.9) L 12/21/22 04:28 Magnesium 2.0 mg/dl (1.7-2.4) 12/21/22 04:28 Total Bilirubin 2.4 mg/dl (0.2-1.0) H 12/21/22 04:28 Direct Bilirubin 1.0 mg/dl (0-0.2) H 12/18/22 12:30 AST 24 U/L (13-39) 12/21/22 04:28 ALT 11 U/L (7-52) 12/21/22 04:28 Alkaline Phosphatase 29 U/L (34-104) L 12/21/22 04:28 Ammonia 61.0 umol/L (18-72) 12/18/22 12:47 Troponin I High Sens 82.4 pg/ml (0-20) H* D 12/19/22 02:14 Total Protein 4.9 gm/dl (6.0-8.3) L 12/21/22 04:28 Albumin 3.1 gm/dl (3.4-5.0) L 12/21/22 04:28 Globulin 1.8 gm/dl (2.5-4.0) L 12/21/22 04:28 Albumin/Globulin Ratio 1.7 (0.9-2) 12/21/22 04:28 Procalcitonin 0.11 ng/ml (0-0.5) 12/18/22 12:30 Random Cortisol 35.10 mcg/dl 12/18/22 18:39 Urine Color Yellow 12/18/22 12:30 Urine Appearance Clear (Clear) 12/18/22 12:30 Urine pH 5.5 (4.5-7.5) 12/18/22 12:30 Ur Specific [place] 1.009 (1.000-1.030) 12/18/22 12:30 Urine Protein Negative (Negative) 12/18/22 12:30 Urine Glucose (UA) Negative (Negative) 12/18/22 12:30 Urine Ketones Negative (Negative) 12/18/22 12:30 Urine Blood Negative (Negative) 12/18/22 12:30 Urine Nitrite Negative (Negative) 12/18/22 12:30 Urine Bilirubin Negative (Negative) 12/18/22 12:30 Urine Urobilinogen Negative (Negative) 12/18/22 12:30 Ur Leukocyte Esterase Negative (Negative) 12/18/22 12:30 Ur Random Sodium < 10 mmol/L 12/19/22 Unknown Fluid Neutrophils % 10 % 12/19/22 11:20 Fluid Lymphocytes % 49 % 12/19/22 11:20 Fluid [place]/Carlton % 41 % 12/19/22 11:20 Fluid Comment 12/19/22 11:20 Peritoneal Color Yellow 12/19/22 11:20 Peritoneal Appearance Clear 12/19/22 11:20 Peritoneal WBC (Auto) 72 /ul (0-300) 12/19/22 11:20 Peritoneal RBC (Auto) < 2000 /uL 12/19/22 11:20 Nasal Screen MRSA (PCR) Negative (Negative) 12/18/22 18:21 Random Vancomycin 16.2 mcg/ml (10-20) 12/21/22 04:28 Staphylococcus sp PCR DETECTED (NotDetected) A 12/18/22 18:39 Bld Cult ID Panel PCR See PCR Comment (NotDetected) 12/18/22 18:39 Blood Type A Positive 12/18/22 18:39 Antibody Screen NEGATIVE 12/18/22 18:[address] 12/18/22 12:13 CT cervical spine wo con CLINICAL HISTORY: ams TECHNIQUE: Multidetector row helical CT of the cervical spine was performed without administration of intravenous contrast. Coronal and sagittal reformations were obtained. Automated dose lowering techniques and/or adjustment according to patient size were utilized for this exam. Comparison: None available at the time of this dictation. FINDINGS: No acute fractures or subluxations are identified. Degenerative changes are seen in the visualized spine. The alignment is normal. Soft tissues are unremarkable. IMPRESSION: Degenerative changes without evidence of acute bony injury. ACT 112: Negative or not required by law. Electronically signed by: Harrison Her M.D. 12/18/2022 1:[address] 12/18/22 12:[address] DOSE: HISTORY: Altered mental status. TECHNIQUE: Multiaxial CT images of the head were performed without the use of intravenous contrast. Automated exposure control was utilized for this study. A dose lowering technique was utilized adhering to the principles of ALARA. Comparison: None. Findings: Motion artifact. The paranasal sinuses and mastoid air cells are clear. The calvarium and skull base are intact. There is no mass, hematoma, midline shift, acute infarct. White matter hypodensity is nonspecific but suggestive of microvascular ischemic change. The ventricles and sulci demonstrate mild age-related involutional changes. Impression: Motion artifact. No definite acute intracranial abnormality. ACT 112: Negative or not required by law. Electronically signed by: Chad Cardona M.D. 12/18/2022 2:07 PM Abdomen/Pelvis CT 12/18/22 13:10 CT chest diagnostic wo con, CT abd pelvis wo con CT DOSE: 3743.01 mGy.cm CLINICAL HISTORY: 77 years-old Male with fall. Acute chest and abdominal pain status post fall TECHNIQUE: Multiaxial CT images of the CT chest, abdomen and pelvis were performed without contrast. A dose lowering technique was utilized adhering to the principles of ALARA. COMPARISON: CT abdomen and pelvis 02/04/2018 FINDINGS: CT CHEST: Limited exam secondary to positioning and lack of IV contrast. Moderate cardiomegaly. Decreased attenuation of the cardiac blood pool suggestive of anemia. Moderate coronary artery calcifications. Trace pericardial effusion. Atherosclerosis of the thoracic aorta without aneurysm. No dominant thyroid nodule or lymphadenopathy. Trace pleural effusions. No pneumothorax. Intralobular septal thickening with mild dependent subsegmental atelectasis. Stable likely benign 6 mm solid nodule of the basal right lower lobe. Central airways are patent. Anasarca. No acute displaced rib fracture identified. Gynecomastia. CT ABDOMEN/PELVIS: No free air. Cirrhotic liver. The spleen is enlarged measuring over 15 cm. Left upper quadrant splenule with marginal calcifications again noted. Mildly atrophic pancreas. Punctate pancreatic head calcification. Unremarkable adrenal glands. Cholelithiasis with partial distention and mild wall thickening. 3 mm calcification noted on image 167 with additional punctate calcifications noted distally towards the duodenum. Atrophic kidneys. Hypodense 1.6 cm lesion of the superior pole of kidney, possibly a cyst. Decompressed urinary bladder with wall thickening. A Apple catheter is in place. Air within the urinary bladder is noted. Prostatomegaly. Atherosclerosis of the aorta. Moderate ascites. Small hiatal hernia. Nonspecific diffuse gastric wall thickening is noted with partial distention. Nonspecific anal rectal wall thickening. Colonic diverticulosis. Prior sigmoid colon resection with colonic colonic anastomosis. Moderate circumferential wall thickening of the colon is most pronounced in the ascending and transverse segments. Appendix not visualized. Small fat and fluid filled umbilical hernia. No acute fracture. IMPRESSION: 1. No acute posttraumatic intrathoracic, intra-abdominal or intrapelvic abnormality identified. 2. Cardiomegaly with mild pulmonary edema and trace pleural effusions. 3. Cirrhosis with stigmata of portal venous hypertension including splenomegaly with moderate ascites. 4. Cholelithiasis with possible choledocholithiasis. Correlate with LFTs. 5. Wall thickening of the ascending and transverse colon suggestive of portal colopathy. 6. Additional findings as above. ACT 112: Negative or not required by law. Electronically signed by: Rayshawn Powers M.D. 12/18/2022 2:[address] 12/18/22 13:10 CT chest diagnostic wo con, CT abd pelvis wo con CT DOSE: 3743.01 mGy.cm CLINICAL HISTORY: 77 years-old Male with fall. Acute chest and abdominal pain status post fall TECHNIQUE: Multiaxial CT images of the CT chest, abdomen and pelvis were performed without contrast. A dose lowering technique was utilized adhering to the principles of ALARA. COMPARISON: CT abdomen and pelvis 02/04/2018 FINDINGS: CT CHEST: Limited exam secondary to positioning and lack of IV contrast. Moderate cardiomegaly. Decreased attenuation of the cardiac blood pool suggestive of anemia. Moderate coronary artery calcifications. Trace pericardial effusion. Atherosclerosis of the thoracic aorta without aneurysm. No dominant thyroid nodule or lymphadenopathy. Trace pleural effusions. No pneumothorax. Intralobular septal thickening with mild dependent subsegmental atelectasis. Stable likely benign 6 mm solid nodule of the basal right lower lobe. Central airways are patent. Anasarca. No acute displaced rib fracture identified. Gynecomastia. CT ABDOMEN/PELVIS: No free air. Cirrhotic liver. The spleen is enlarged measuring over 15 cm. Left upper quadrant splenule with marginal calcifications again noted. Mildly atrophic pancreas. Punctate pancreatic head calcification. Unremarkable adrenal glands. Cholelithiasis with partial distention and mild wall thickening. 3 mm calcification noted on image 167 with additional punctate calcifications noted distally towards the duodenum. Atrophic kidneys. Hypodense 1.6 cm lesion of the superior pole of kidney, possibly a cyst. Decompressed urinary bladder with wall thickening. A Apple catheter is in place. Air within the urinary bladder is noted. Prostatomegaly. Atherosclerosis of the aorta. Moderate ascites. Small hiatal hernia. Nonspecific diffuse gastric wall thickening is noted with partial distention. Nonspecific anal rectal wall thickening. Colonic diverticulosis. Prior sigmoid colon resection with colonic colonic anastomosis. Moderate circumferential wall thickening of the colon is most pronounced in the ascending and transverse segments. Appendix not visualized. Small fat and fluid filled umbilical hernia. No acute fracture. IMPRESSION: 1. No acute posttraumatic intrathoracic, intra-abdominal or intrapelvic abnormal ity identified. 2. Cardiomegaly with mild pulmonary edema and trace pleural effusions. 3. Cirrhosis with stigmata of portal venous hypertension including splenomegaly with moderate ascites. 4. Cholelithiasis with possible choledocholithiasis. Correlate with LFTs. 5. Wall thickening of the ascending and transverse colon suggestive of portal colopathy. 6. Additional findings as above. ACT 112: Negative or not required by law. Electronically signed by: Rayshawn Powers M.D. 12/18/2022 2:10 PM Chest X-Ray 12/18/22 17:35 XR chest 1V portable CLINICAL HISTORY: lines TECHNIQUE: Single frontal radiograph of the chest was obtained. Comparison: Comparison is made to chest radiograph 11/04/2022 FINDINGS: Right IJ catheter terminates in the mid SVC. The cardiomediastinal silhouette is normal. Elevation of the left hemidiaphragm is seen. No evidence of pleural effusion or pneumothorax. IMPRESSION: Satisfactory position of right IJ catheter. ACT 112: Negative or not required by law. Electronically signed by: Harrison Her M.D. 12/18/2022 6:11 PM Paracentesis Ultrasound 12/19/22 10:04 ULTRASOUND-GUIDED DIAGNOSTIC PARACENTESIS CLINICAL HISTORY: Ascites; altered mental status PROCEDURE: Procedure and risks were explained. Informed consent was obtained over the phone. A final timeout was completed. The right upper quadrant was prepped and draped in sterile fashion. 1% buffered lidocaine was utilized for skin anesthesia. Utilizing ultrasound guidance, a 22-gauge spinal needle was introduced into the pocket of ascites. Ultrasound images were obtained. 10 mL of yellow fluid was aspirated and sent to the lab for analysis. The needle was removed and Band-Aid applied. The patient tolerated the procedure well. Vital signs will be monitored postprocedure. IMPRESSION: Ultrasound guided paracentesis as described above. Performed, dictated, and signed by Markell Allred PA-C; to be co-signed by Dr. Harrison Her. Electronically signed by: Harrison Her M.D. 12/19/2022 4:59 PM
[2022-12-21] MEDS: cefTRIAXone SODIUM 2,000 MG in DEXTROSE 5% 50 ML IV SCH (17:07)
[2022-12-21] MEDS: VANCOMYCIN HCL 750 MG in SODIUM CHLORIDE 0.9% 250 ML IV SCH (17:35)
[2022-12-22] MEDS: ALBUMIN 25% 25 GM/100 ML VIAL IV SCH (03:32)
[2022-12-22 07:40] LABS: Basophils # (auto) 0.02 K/uL (0-0.2); Basophils % (auto) 1.1 %; Eosinophils # (auto) 0.05 K/uL (0-0.50); Eosinophils % (auto) 2.8 %; Hemoglobin 7.9 g/dl (14.0-18.0); Lymphocytes # (auto) 0.46 K/uL (1.2-3.4); Lymphocytes % (auto) 25.6 %; Mean Corpuscular Hemoglobin 32.1 pg (25.0-34.0); Mean Corpuscular Hgb Conc 35.9 g/dL (32.0-36.0); Mean Corpuscular Volume 89.4 fL (80.0-100.0); Mean Platelet Volume 12.7 fL (9.4-12.4); Monocytes # (auto) 0.26 K/uL (0.11-0.59); Monocytes % (auto) 14.4 %; Neutrophils # (auto) 1.01 K/uL (1.40-6.50); Neutrophils % (auto) 56.1 %; Platelet Count 35 K/uL (130-400); RDW Coefficient of Variation 15.2 % (11.5-14.5); RDW Standard Deviation 49.6 fL (36.4-46.3); Red Blood Count 2.46 M/uL (4.70-6.10)
[2022-12-22 08:04] LABS: Albumin Globulin Ratio 1.9 (0.9-2); Albumin Level 3.3 gm/dl (3.4-5.0); BUN Creatinine Ratio 22.3 (10-20); Bilirubin,Total 2.3 mg/dl (0.2-1.0); Creatinine Clr Calc Pharmacy 34.5 ml/min; Est GFR (African American) 32.5 ml/min; Est GFR (Non-African American) 28.1 ml/min; Globulin 1.7 gm/dl (2.5-4.0); Magnesium 1.9 mg/dl (1.7-2.4)
[2022-12-22 08:21] LABS: RBC Morphology Unremarkable
[2022-12-22] MEDS: INSULIN ASPART PER UNIT CHARGE SC SCH ×4 (08:32→20:45)
[2022-12-22] MEDS: MIDODRINE HCL 10 MG TAB PO SCH ×3 (08:32→17:38)
[2022-12-22] MEDS: allopurinoL 100 MG TAB PO SCH (08:32)
--- NOTE | 2022-12-22 13:31 | Hospitalist Progress Note ---
Date of Service December 22, 2022 Assessment & Plan (1) Hypotension: (2) Encephalopathy: (3) Decompensated hepatic cirrhosis: (4) Chronic atrial fibrillation: (5) Acute kidney injury superimposed on chronic kidney disease: (6) Pancytopenia: (7) Coagulopathy: (8) Diabetes mellitus, type II: Plan Septic shock POA #Hepatic encephalopathy, improved #Decompensated Liver Cirrhosis History of decompensated liver cirrhosis. Low blood pressure on midodrine. Was brought to the hospital due to multiple falls. Was found to be confused and hypotensive. MAP of 40s in the ED CT abdomen and pelvis reviewed; shows cirrhosis with stigmata of portal hypertension with moderate ascites No leukocytosis. Ascitic fluid interpreted; not suggestive of SBP Blood culture 1/4 positive for gram-positive cocci in cluster. Coag-negative staph likely contaminated Repeat blood culture no growth so far Patient was initially admitted to ICU for vasopressor support. Gradually weaned off to on December 20, 2022 Currently on midodrine 10 mg 3 times daily On ceftriaxone. Vancomycin stopped. BRUNA on CKD (prerenal versus hepatorenal syndrome) Rapidly progressive CKD in the last few months. Creatinine downtrending with IV hydration, vasopressors and albumin; at baseline. Avoid nephrotoxic agent. Daily BMP Nephrology on board Discussed with nephrology regarding possible therapeutic tapping. Can be done for patient is provided with albumin. Nephrology to provide recommendation about diuretics. Tentative plan for therapeutic paracentesis depending on patient's hemodynamics tomorrow AM. #Pancytopenia likely due to liver cirrhosis #Coagulopathy iso liver disease INR persistently elevated, within baseline on admission Downtrending hgb over the course of ~6 months ~11; 10 on admission, no signs of overt hemorrhage, however, multiple ecchymosis and skin tears present Platelets persistently low. #Elevated high sensitive troponin due to demand ischemia #Chronic Atrial Fibrillation Not on any rate control medication due to low blood pressure. Not on anticoagulation due to elevated INR. #Gout -Resume allopurinol. #Chronic low back pain c/b scitatica #Deconditioned On daily oxycodone 5 mg Stopped -PT/OT ordered #Hypomagnesemia -s/p 2g mag #DM type II No on oral agents at this time, A1C 5.3 09/2022 -SSI. CODE STATUS -DNR/DNI DVT prophylaxisSCDs. Time spent evaluating patient, direct bedside care, chart review, placing orders, interpretation of diagnostic studies, discussion with consultants, patient, and family members, as well as other required patient management activities is 60 minutes. Please note the above document was generated using voice recognition software. It may contain grammatical, syntax or spelling errors. Any formal questions or concerns about the content, text or information contained within the body of this dictation should be directly addressed to the provider for clarification Admission and Anticipated Discharge Date Admission Date: December 18, 2022 Subjective Patient seen and examined at bedside. He is sitting up at the side of the bed; not in any distress. Review of Systems Review of Systems: All systems reviewed & are unremarkable except as noted in Subjective Physical Exam Physical Exam: Constitutional: Awake, alert orient x3; not in any distress. Respiratory :vesicular breath sound bilaterally Cardiovascular: RRR, no murmur, no edema Vessels: no JVD or carotid bruit Chest: normal inspection of chest Abdomen: Distended; fluid thrill present ascites present, nontender. Musculoskeletal: Pitting edema present Skin: no rashes, warm and dry normal turgor Neurologic: Alert orient x3; grossly intact. Psychiatric: A+Ox3, euthymic affect Results & Data Results & Data Vital Signs (Past 12 Hours) Vital Signs Temp Pulse Pulse Pulse Resp BP BP 12/22/22 11:25 36.5 C 111 H 16 88/60 L 12/22/22 10:14 12/22/22 08:00 121 H 12/22/22 08:20 83/53 L 12/22/22 08:15 36.6 C 110 H 16 86/53 L 12/22/22 03:37 36.8 C 113 H 16 97/63 L Pulse Ox O2 Del Method 12/22/22 11:25 99 Room Air 12/22/22 10:14 Room Air 12/22/22 08:00 12/22/22 08:20 12/22/22 08:15 97 Room Air 12/22/22 03:37 99 Room Air Laboratory Results Laboratory Results WBC 1.80 K/ul (4.8-10.8) L 12/22/22 07:01 RBC 2.46 M/uL (4.70-6.10) L 12/22/22 07:01 Hgb 7.9 g/dl (14.0-18.0) L 12/22/22 07:01 Hct 22.0 % (42.0-52.0) L 12/22/22 07:01 MCV 89.4 fL (80.0-100.0) 12/22/22 07:01 MCH 32.1 pg (25.0-34.0) 12/22/22 07:01 MCHC 35.9 g/dL (32.0-36.0) 12/22/22 07:01 RDW Std Deviation 49.6 fL (36.4-46.3) H 12/22/22 07:01 RDW Coeff of Scottie 15.2 % (11.5-14.5) H 12/22/22 07:01 Plt Count 35 K/uL (130-400) L 12/22/22 07:01 MPV 12.7 fL (9.4-12.4) H 12/22/22 07:01 Immature Gran % (Auto) 0.0 % 12/22/22 07:01 Neut % (Auto) 56.1 % 12/22/22 07:01 Lymph % (Auto) 25.6 % 12/22/22 07:01 Sharkey % (Auto) 14.4 % 12/22/22 07:01 Eos % (Auto) 2.8 % 12/22/22 07:01 Baso % (Auto) 1.1 % 12/22/22 07:01 Neut # (Auto) 1.01 K/uL (1.40-6.50) L 12/22/22 07:01 Lymph # (Auto) 0.46 K/uL (1.2-3.4) L 12/22/22 07:01 Sharkey # (Auto) 0.26 K/uL (0.11-0.59) 12/22/22 07:01 Eos # (Auto) 0.05 K/uL (0-0.50) 12/22/22 07:01 Baso # (Auto) 0.02 K/uL (0-0.2) 12/22/22 07:01 Immature Gran # (Auto) 0.00 K/uL (0.01-0.20) L 12/22/22 07:01 Platelet Estimate Decreased (Normal) L 12/20/22 04:25 RBC Morphology Unremarkable 12/22/22 07:01 Polychromasia 1+ 12/18/22 12:30 Ovalocytes 1+ 12/18/22 12:30 Echinocytes 1+ 12/18/22 12:30 PT 17.6 Seconds (9.0-12.0) H 12/21/22 04:28 INR 1.7 (0.9-1.1) H 12/21/22 04:28 VBG pH 7.43 (7.36-7.41) H 12/18/22 18:39 VBG pCO2 38 mmHg (38-50) 12/18/22 18:39 VBG pO2 48 mmHg 12/18/22 18:39 VBG HCO3 25 mmol/L 12/18/22 18:39 VBG O2 Saturation 72.8 % 12/18/22 18:39 VBG Base Excess 1.0 mEq/L 12/18/22 18:39 Sodium 133 mmol/L (136-145) L 12/22/22 07:01 Potassium 4.0 mmol/L (3.5-5.1) 12/22/22 07:01 Chloride 103 mmol/L (98-107) 12/22/22 07:01 Carbon Dioxide 24 mmol/L (21-32) 12/22/22 07:01 Anion Gap 6 (3-11) 12/22/22 07:01 BUN 49 mg/dl (6-23) H 12/22/22 07:01 Creatinine 2.20 mg/dl (0.6-1.4) H 12/22/22 07:01 Est Cr Clr Drug Dosing 34.5 ml/min 12/22/22 07:01 Est GFR ( Amer) 32.5 ml/min 12/22/22 07:01 Est GFR (Non-Af Amer) 28.1 ml/min 12/22/22 07:01 BUN/Creatinine Ratio 22.3 (10-20) H 12/22/22 07:01 Glucose 87 mg/dl (70-99(Fasting)) 12/22/22 07:01 POC Glucose 115 mg/dl (70-99) H 12/22/22 11:31 POC Glucose (other) 120 mg/dl (70-99) H 12/19/22 21:40 Lactate 1.4 mmol/L (0.4-2.0) 12/18/22 23:30 Calcium 9.0 mg/dl (8.6-10.3) 12/22/22 07:01 Phosphorus 2.4 mg/dl (2.5-4.9) L 12/21/22 04:28 Magnesium 1.9 mg/dl (1.7-2.4) 12/22/22 07:01 Total Bilirubin 2.3 mg/dl (0.2-1.0) H 12/22/22 07:01 Direct Bilirubin 1.0 mg/dl (0-0.2) H 12/18/22 12:30 AST 22 U/L (13-39) 12/22/22 07:01 ALT 11 U/L (7-52) 12/22/22 07:01 Alkaline Phosphatase 28 U/L (34-104) L 12/22/22 07:01 Ammonia 61.0 umol/L (18-72) 12/18/22 12:47 Troponin I High Sens 82.4 pg/ml (0-20) H* D 12/19/22 02:14 Total Protein 5.0 gm/dl (6.0-8.3) L 12/22/22 07:01 Albumin 3.3 gm/dl (3.4-5.0) L 12/22/22 07:01 Globulin 1.7 gm/dl (2.5-4.0) L 12/22/22 07:01 Albumin/Globulin Ratio 1.9 (0.9-2) 12/22/22 07:01 Procalcitonin 0.11 ng/ml (0-0.5) 12/18/22 12:30 Random Cortisol 35.10 mcg/dl 12/18/22 18:39 Urine Color Yellow 12/18/22 12:30 Urine Appearance Clear (Clear) 12/18/22 12:30 Urine pH 5.5 (4.5-7.5) 12/18/22 12:30 Ur Specific [place] 1.009 (1.000-1.030) 12/18/22 12:30 Urine Protein Negative (Negative) 12/18/22 12:30 Urine Glucose (UA) Negative (Negative) 12/18/22 12:30 Urine Ketones Negative (Negative) 12/18/22 12:30 Urine Blood Negative (Negative) 12/18/22 12:30 Urine Nitrite Negative (Negative) 12/18/22 12:30 Urine Bilirubin Negative (Negative) 12/18/22 12:30 Urine Urobilinogen Negative (Negative) 12/18/22 12:30 Ur Leukocyte Esterase Negative (Negative) 12/18/22 12:30 Ur Random Sodium < 10 mmol/L 12/19/22 Unknown Fluid Neutrophils % 10 % 12/19/22 11:20 Fluid Lymphocytes % 49 % 12/19/22 11:20 Fluid Meso/Macro/Sharkey % 41 % 12/19/22 11:20 Fluid Comment 12/19/22 11:20 Peritoneal Color Yellow 12/19/22 11:20 Peritoneal Appearance Clear 12/19/22 11:20 Peritoneal WBC (Auto) 72 /ul (0-300) 12/19/22 11:20 Peritoneal RBC (Auto) < 2000 /uL 12/19/22 11:20 Nasal Screen MRSA (PCR) Negative (Negative) 12/18/22 18:21 Random Vancomycin 16.2 mcg/ml (10-20) 12/21/22 04:28 Staphylococcus sp PCR DETECTED (NotDetected) A 12/18/22 18:39 Bld Cult ID Panel PCR See PCR Comment (NotDetected) 12/18/22 18:39 Blood Type A Positive 12/18/22 18:39 Antibody Screen NEGATIVE 12/18/22 18:[address] 12/18/22 12:13 CT cervical spine wo con CLINICAL HISTORY: ams TECHNIQUE: Multidetector row helical CT of the cervical spine was performed without administration of intravenous contrast. Coronal and sagittal reformations were obtained. Automated dose lowering techniques and/or adjustment according to patient size were utilized for this exam. Comparison: None available at the time of this dictation. FINDINGS: No acute fractures or subluxations are identified. Degenerative changes are seen in the visualized spine. The alignment is normal. Soft tissues are unremarkable. IMPRESSION: Degenerative changes without evidence of acute bony injury. ACT 112: Negative or not required by law. Electronically signed by: Harrison Her M.D. 12/18/2022 1:[address] 12/18/22 12:[address] DOSE: HISTORY: Altered mental status. TECHNIQUE: Multiaxial CT images of the head were performed without the use of intravenous contrast. Automated exposure control was utilized for this study. A dose lowering technique was utilized adhering to the principles of ALARA. Comparison: None. Findings: Motion artifact. The paranasal sinuses and mastoid air cells are clear. The calvarium and skull base are intact. There is no mass, hematoma, midline shift, acute infarct. White matter hypodensity is nonspecific but suggestive of microvascular ischemic change. The ventricles and sulci demonstrate mild age-related involutional changes. Impression: Motion artifact. No definite acute intracranial abnormality. ACT 112: Negative or not required by law. Electronically signed by: Chad Cardona M.D. 12/18/2022 2:07 PM Abdomen/Pelvis CT 12/18/22 13:10 CT chest diagnostic wo con, CT abd pelvis wo con CT DOSE: 3743.01 mGy.cm CLINICAL HISTORY: 77 years-old Male with fall. Acute chest and abdominal pain s tatus post fall TECHNIQUE: Multiaxial CT images of the CT chest, abdomen and pelvis were performed without contrast. A dose lowering technique was utilized adhering to the principles of ALARA. COMPARISON: CT abdomen and pelvis 02/04/2018 FINDINGS: CT CHEST: Limited exam secondary to positioning and lack of IV contrast. Moderate cardiomegaly. Decreased attenuation of the cardiac blood pool suggestive of anemia. Moderate coronary artery calcifications. Trace pericardial effusion. Atherosclerosis of the thoracic aorta without aneurysm. No dominant thyroid nodule or lymphadenopathy. Trace pleural effusions. No pneumothorax. Intralobular septal thickening with mild dependent subsegmental atelectasis. Stable likely benign 6 mm solid nodule of the basal right lower lobe. Central airways are patent. Anasarca. No acute displaced rib fracture identified. Gynecomastia. CT ABDOMEN/PELVIS: No free air. Cirrhotic liver. The spleen is enlarged measuring over 15 cm. Left upper quadrant splenule with marginal calcifications again noted. Mildly atrophic pancreas. Punctate pancreatic head calcification. Unremarkable adrenal glands. Cholelithiasis with partial distention and mild wall thickening. 3 mm calcification noted on image 167 with additional punctate calcifications noted distally towards the duodenum. Atrophic kidneys. Hypodense 1.6 cm lesion of the superior pole of kidney, possibly a cyst. Decompressed urinary bladder with wall thickening. A Apple catheter is in place. Air within the urinary bladder is noted. Prostatomegaly. Atherosclerosis of the aorta. Moderate ascites. Small hiatal hernia. Nonspecific diffuse gastric wall thickening is noted with partial distention. Nonspecific anal rectal wall thickening. Colonic diverticulosis. Prior sigmoid colon resection with colonic colonic anastomosis. Moderate circumferential wall thickening of the colon is most pronounced in the ascending and transverse segments. Appendix not visualized. Small fat and fluid filled umbilical hernia. No acute fracture. IMPRESSION: 1. No acute posttraumatic intrathoracic, intra-abdominal or intrapelvic abnormality identified. 2. Cardiomegaly with mild pulmonary edema and trace pleural effusions. 3. Cirrhosis with stigmata of portal venous hypertension including splenomegaly with moderate ascites. 4. Cholelithiasis with possible choledocholithiasis. Correlate with LFTs. 5. Wall thickening of the ascending and transverse colon suggestive of portal colopathy. 6. Additional findings as above. ACT 112: Negative or not required by law. Electronically signed by: Rayshawn Powers M.D. 12/18/2022 2:[address] 12/18/22 13:10 CT chest diagnostic wo con, CT abd pelvis wo con CT DOSE: 3743.01 mGy.cm CLINICAL HISTORY: 77 years-old Male with fall. Acute chest and abdominal pain status post fall TECHNIQUE: Multiaxial CT images of the CT chest, abdomen and pelvis were performed without contrast. A dose lowering technique was utilized adhering to the principles of ALARA. COMPARISON: CT abdomen and pelvis 02/04/2018 FINDINGS: CT CHEST: Limited exam secondary to positioning and lack of IV contrast. Moderate cardiomegaly. Decreased attenuation of the cardiac blood pool suggestive of anemia. Moderate coronary artery calcifications. Trace pericardial effusion. Atherosclerosis of the thoracic aorta without aneurysm. No dominant thyroid nodule or lymphadenopathy. Trace pleural effusions. No pneumothorax. Intralobular septal thickening with mild dependent subsegmental atelectasis. Stable likely benign 6 mm solid nodule of the basal right lower lobe. Central airways are patent. Anasarca. No acute displaced rib fracture identified. Gynecomastia. CT ABDOMEN/PELVIS: No free air. Cirrhotic liver. The spleen is enlarged measuring over 15 cm. Left upper quadrant splenule with marginal calcifications again noted. Mildly atrophic pancreas. Punctate pancreatic head calcification. Unremarkable adrenal glands. Cholelithiasis with partial distention and mild wall thickening. 3 mm calcification noted on image 167 with additional punctate calcifications noted distally towards the duodenum. Atrophic kidneys. Hypodense 1.6 cm lesion of the superior pole of kidney, possibly a cyst. Decompressed urinary bladder with wall thickening. A Apple catheter is in place. Air within the urinary bladder is noted. Prostatomegaly. Atherosclerosis of the aorta. Moderate ascites. Small hiatal hernia. Nonspecific diffuse gastric wall thickening is noted with partial distention. Nonspecific anal rectal wall thickening. Colonic diverticulosis. Prior sigmoid colon resection with colonic colonic anastomosis. Moderate circumferential wall thickening of the colon is most pronounced in the ascending and transverse segments. Appendix not visualized. Small fat and fluid filled umbilical hernia. No acute fracture. IMPRESSION: 1. No acute posttraumatic intrathoracic, intra-abdominal or intrapelvic abnormality identified. 2. Cardiomegaly with mild pulmonary edema and trace pleural effusions. 3. Cirrhosis with stigmata of portal venous hypertension including splenomegaly with moderate ascites. 4. Cholelithiasis with possible choledocholithiasis. Correlate with LFTs. 5. Wall thickening of the ascending and transverse colon suggestive of portal colopathy. 6. Additional findings as above. ACT 112: Negative or not required by law. Electronically signed by: Rayshawn Powers M.D. 12/18/2022 2:10 PM Chest X-Ray 12/18/22 17:35 XR chest 1V portable CLINICAL HISTORY: lines TECHNIQUE: Single frontal radiograph of the chest was obtained. Comparison: Comparison is made to chest radiograph 11/04/2022 FINDINGS: Right IJ catheter terminates in the mid SVC. The cardiomediastinal silhouette is normal. Elevation of the left hemidiaphragm is seen. No evidence of pleural effusion or pneumothorax. IMPRESSION: Satisfactory position of right IJ catheter. ACT 112: Negative or not required by law. Electronically signed by: Harrison Her M.D. 12/18/2022 6:11 PM Paracentesis Ultrasound 12/19/22 10:04 ULTRASOUND-GUIDED DIAGNOSTIC PARACENTESIS CLINICAL HISTORY: Ascites; altered mental status PROCEDURE: Procedure and risks were explained. Informed consent was obtained over the phone. A final timeout was completed. The right upper quadrant was prepped and draped in sterile fashion. 1% buffered lidocaine was utilized for skin anesthesia. Utilizing ultrasound guidance, a 22-gauge spinal needle was introduced into the pocket of ascites. Ultrasound images were obtained. 10 mL of yellow fluid was aspirated and sent to the lab for analysis. The needle was removed and Band-Aid applied. The patient tolerated the procedure well. Vital signs will be monitored postprocedure. IMPRESSION: Ultrasound guided paracentesis as described above. Performed, dictated, and signed by Markell Allred PA-C; to be co-signed by Dr. Harrison Her. Electronically signed by: Harrison Her M.D. 12/19/2022 4:59 PM
[2022-12-22] MEDS: cefTRIAXone SODIUM 2,000 MG in DEXTROSE 5% 50 ML IV SCH (17:38)
[2022-12-23] MEDS: ALBUMIN 25% 25 GM/100 ML VIAL IV SCH ×5 (06:30→22:48)
[2022-12-23 07:32] LABS: Basophils # (auto) 0.02 K/uL (0-0.2); Eosinophils # (auto) 0.05 K/uL (0-0.50); Eosinophils % (auto) 2.4 %; Hematocrit (blood only) 23.2 % (42.0-52.0); Hemoglobin 8.1 g/dl (14.0-18.0); Lymphocytes # (auto) 0.48 K/uL (1.2-3.4); Lymphocytes % (auto) 23.4 %; Mean Corpuscular Hemoglobin 32.5 pg (25.0-34.0); Mean Corpuscular Hgb Conc 34.9 g/dL (32.0-36.0); Mean Corpuscular Volume 93.2 fL (80.0-100.0); Mean Platelet Volume 11.7 fL (9.4-12.4); Monocytes # (auto) 0.36 K/uL (0.11-0.59); Monocytes % (auto) 17.6 %; Neutrophils # (auto) 1.14 K/uL (1.40-6.50); Neutrophils % (auto) 55.6 %; Platelet Count 34 K/uL (130-400); RDW Coefficient of Variation 15.4 % (11.5-14.5); RDW Standard Deviation 52.2 fL (36.4-46.3); Red Blood Count 2.49 M/uL (4.70-6.10); White Blood Count 2.05 K/ul (4.8-10.8)
[2022-12-23 07:58] LABS: Albumin Globulin Ratio 1.7 (0.9-2); Albumin Level 3.1 gm/dl (3.4-5.0); BUN Creatinine Ratio 21.7 (10-20); Bilirubin,Total 1.8 mg/dl (0.2-1.0); Calcium 8.8 mg/dl (8.6-10.3); Creatinine Clr Calc Pharmacy 31.8 ml/min; Est GFR (African American) 29.3 ml/min; Est GFR (Non-African American) 25.3 ml/min; Globulin 1.8 gm/dl (2.5-4.0); Magnesium 1.8 mg/dl (1.7-2.4); Potassium 3.9 mmol/L (3.5-5.1); Total Protein 4.9 gm/dl (6.0-8.3)
[2022-12-23] MEDS: INSULIN ASPART PER UNIT CHARGE SC SCH ×4 (08:20→21:20)
[2022-12-23] MEDS: allopurinoL 100 MG TAB PO SCH (08:20)
[2022-12-23] MEDS: MIDODRINE HCL 10 MG TAB PO SCH ×3 (08:20→18:01)
--- NOTE | 2022-12-23 11:32 | Nephrology Progress Note ---
Date of Service December 23, 2022 Assessment & Plan (1) CKD (chronic kidney disease) stage 4, GFR 15-29 ml/min: Plan: rapidly progressive CKD santa past few months as his liver status has worsened. baseline creatinine late November/early December is about 3. Not a liver transplant candidate and therefore not a dialysis candidate. I have this admission reiterated with the patient and his family that the focus of his kidney care during this admission and after discharge will be supportive and that he will not be a candidate for dialysis. Had BRUNA earlier this admission which has resolved -continue supportive care -continue albumin particularly periprocedural w/ paracentesis -not on diuretics currently >> SBP 90-100s and HR 110s I am reluctant to start these at this time >>recommend evaluate VS and renal function day after paracentesis and consider cautious trial of resuming diuretics which he may or may not tolerate >>recommend palliative care consult for in house given challenges of resuming diuretics. He had been referred to palliative care as an outpatient but this appointment had to be changed by the clinician and was not as yet rescheduled; follow-up with palliative as outpatient care coordinated w/ Dr Hoskins (2) Disorder of fluid or electrolyte: Plan: worsening hypervolemia and hypotension in setting of worsening liver cirrhosis and advancing CKD continue fluid limit 1.2 L Less than 2 g daily sodium diet Albumin rather than IV fluids as above Continue potassium repletion with a target of 4 and mag target of 2; replete potassium p.o. where able Admission and Anticipated Discharge Date Admission Date: December 18, 2022 Subjective for possible paracentesis today. feeling better; not sob; feels edema is improved though still significant Review of Systems Review of Systems: All systems reviewed & are unremarkable except as noted in Subjective Physical Exam Constitutional: well developed (up in chair on RA), + cachectic, + physical limitations, + frail appearing and cooperative Eyes: EOM intact bilaterally ENMT: Ears: no external ear abnormality Nose: no external nose abnormality Mouth: + dry oral mucous membranes Neck: no nuchal rigidity Respiratory: normal respiratory effort Auscultation: lungs clear to auscultation bilaterally and + diminished lung sounds Cardiovascular: Rate/Rhythm: regular rate and regular rhythm Extremities: + edema (3+ distal bilateral lower extremities) Gastrointestinal (Abdomen): Inspection/Auscultation: + abdomen distended and normal bowel sounds Percussion/Palpation: abdomen soft and + ascites; abdomen nontender Musculoskeletal: Extremities: strength 5/5 throughout Skin: no rashes, warm and dry Trauma: + evidence of skin trauma (innumerable and large ecchymoses and skin tears) Psychiatric: Orientation: alert, oriented to person and oriented to place Insight: + limited insight Judgment: + limited judgement Results & Data Vital Signs (Past 12 Hours) Vital Signs Temp Pulse Pulse Resp BP Pulse Ox O2 Del Method 12/23/22 11:04 Room Air 12/23/22 08:00 110 H 12/23/22 07:22 36.6 C 106 H 18 95/61 L 97 Room Air 12/23/22 03:00 37.0 C 93 H 16 95/65 L 98 Room Air Laboratory Results 12/23/22 06:59 12/23/22 06:59
--- NOTE | 2022-12-23 14:59 | Ultrasound Report ---
ULTRASOUND-GUIDED PARACENTESIS CLINICAL HISTORY: Ascites PROCEDURE: Procedure and risks were explained. Informed consent was obtained. A final timeout was com pleted. Sonographic examination revealed a large amount of ascites. A pocket was identified in the l eft lower quadrant. The left lower quadrant was prepped and draped in sterile fashion. 1% buffered li docaine was utilized for skin anesthesia. Utilizing ultrasound guidance, a 5 [place] safety centesis c atheter was introduced into the pocket and 5000 ml of yellow ascites fluid was drained. Ultrasound i mages were obtained. 1 L of fluid was sent to lab for analysis. The catheter was removed. Postprocedu ral scanning showed significant decrease in the amount of ascites. The patient tolerated the procedur e well. Vital signs will be monitored on the floor. IMPRESSION: Ultrasound guided paracentesis as described above. Performed, dictated, and signed by Markell Allred PA-C; to be co-signed by Dr. Rayshawn Powers. Electronically signed by: Rayshawn Powers M.D. 12/23/2022 3:10 PM
--- NOTE | 2022-12-23 15:39 | Hospitalist Progress Note ---
Date of Service December 23, 2022 Assessment & Plan (1) Hypotension: (2) Encephalopathy: (3) Decompensated hepatic cirrhosis: (4) Chronic atrial fibrillation: (5) Acute kidney injury superimposed on chronic kidney disease: (6) Pancytopenia: (7) Coagulopathy: (8) Diabetes mellitus, type II: Plan Septic shock POA #Hepatic encephalopathy, improved #Decompensated Liver Cirrhosis History of decompensated liver cirrhosis. Low blood pressure on midodrine. Was brought to the hospital due to multiple falls. Was found to be confused and hypotensive. MAP of 40s in the ED CT abdomen and pelvis reviewed; shows cirrhosis with stigmata of portal hypertension with moderate ascites No leukocytosis. Ascitic fluid interpreted; not suggestive of SBP Blood culture 1/4 positive for gram-positive cocci in cluster. Coag-negative staph likely contaminated. Also 1 out of 4 bottle positive for anaerobic Staphylococcus species. Repeat blood culture no growth so far Patient was initially admitted to ICU for vasopressor support. Vasopressor weaned off to on December 20, 2022 Currently on midodrine 10 mg 3 times daily On ceftriaxone. Vancomycin stopped. Plan to provide antibiotic treatment for 7 days. Status post 5 L of therapeutic paracentesis on 12/23/2022 BRUNA on CKD (prerenal versus hepatorenal syndrome), resolved. Rapidly progressive CKD in the last few months. Creatinine downtrending with IV hydration, vasopressors and albumin; at baseline. Avoid nephrotoxic agent. Daily [facility] Nephrology on board Will appreciate recommendation regarding diuretic dosing at discharge.. #Pancytopenia likely due to liver cirrhosis #Coagulopathy iso liver disease INR persistently elevated, within baseline on admission Downtrending hgb over the course of ~6 months ~11; 10 on admission, no signs of overt hemorrhage, however, multiple ecchymosis and skin tears present Platelets persistently low. #Elevated high sensitive troponin due to demand ischemia #Chronic Atrial Fibrillation Not on any rate control medication due to low blood pressure. Not on anticoagulation due to elevated INR. #Gout -Resume allopurinol. #Chronic low back pain c/b scitatica #Deconditioned On daily oxycodone 5 mg Stopped -PT/OT; recommended SNF #Hypomagnesemia -s/p 2g mag #DM type II No on oral agents at this time, A1C 5.3 09/2022 -SSI. CODE STATUS -DNR/DNI DVT prophylaxisSCDs. PT OT recommends SNF; patient wants to go home. Will need close monitoring in the hospital following paracentesis to monitor his kidney function. Time spent evaluating patient, direct bedside care, chart review, placing orders, interpretation of diagnostic studies, discussion with consultants, patient, and family members, as well as other required patient management activities is 60 minutes. Please note the above document was generated using voice recognition software. It may contain grammatical, syntax or spelling errors. Any formal questions or concerns about the content, text or information contained within the body of this dictation should be directly addressed to the provider for clarification Admission and Anticipated Discharge Date Admission Date: December 18, 2022 Subjective Patient seen and examined at bedside. Underwent paracentesis today; had episode of nausea and vomiting after the procedure. Review of Systems Review of Systems: All systems reviewed & are unremarkable except as noted in Subjective Physical Exam Physical Exam: Constitutional: Awake, alert orient x3; not in any distress. Respiratory :vesicular breath sound bilaterally Cardiovascular: RRR, no murmur, no edema Vessels: no JVD or carotid bruit Chest: normal inspection of chest Abdomen: Slightly less distended. Nontender. Musculoskeletal: Pitting edema present Skin: no rashes, warm and dry normal turgor Neurologic: Alert orient x3; grossly intact. Psychiatric: A+Ox3, euthymic affect Results & Data Results & Data Vital Signs (Past 12 Hours) Vital Signs Temp Pulse Pulse Resp BP Pulse Ox O2 Del Method 12/23/22 11:52 36.6 C 98 H 18 98/66 L 98 Room Air 12/23/22 11:04 Room Air 12/23/22 08:00 110 H 12/23/22 07:22 36.6 C 106 H 18 95/61 L 97 Room Air Laboratory Results Laboratory Results WBC 2.05 K/ul (4.8-10.8) L 12/23/22 06:59 RBC 2.49 M/uL (4.70-6.10) L 12/23/22 06:59 Hgb 8.1 g/dl (14.0-18.0) L 12/23/22 06:59 Hct 23.2 % (42.0-52.0) L 12/23/22 06:59 MCV 93.2 fL (80.0-100.0) 12/23/22 06:59 MCH 32.5 pg (25.0-34.0) 12/23/22 06:59 MCHC 34.9 g/dL (32.0-36.0) 12/23/22 06:59 RDW Std Deviation 52.2 fL (36.4-46.3) H 12/23/22 06:59 RDW Coeff of Scottie 15.4 % (11.5-14.5) H 12/23/22 06:59 Plt Count 34 K/uL (130-400) L 12/23/22 06:59 MPV 11.7 fL (9.4-12.4) 12/23/22 06:59 Immature Gran % (Auto) 0.0 % 12/23/22 06:59 Neut % (Auto) 55.6 % 12/23/22 06:59 Lymph % (Auto) 23.4 % 12/23/22 06:59 Dale % (Auto) 17.6 % 12/23/22 06:59 Eos % (Auto) 2.4 % 12/23/22 06:59 Baso % (Auto) 1.0 % 12/23/22 06:59 Neut # (Auto) 1.14 K/uL (1.40-6.50) L 12/23/22 06:59 Lymph # (Auto) 0.48 K/uL (1.2-3.4) L 12/23/22 06:59 Dale # (Auto) 0.36 K/uL (0.11-0.59) 12/23/22 06:59 Eos # (Auto) 0.05 K/uL (0-0.50) 12/23/22 06:59 Baso # (Auto) 0.02 K/uL (0-0.2) 12/23/22 06:59 Immature Gran # (Auto) 0.00 K/uL (0.01-0.20) L 12/23/22 06:59 Platelet Estimate Decreased (Normal) L 12/20/22 04:25 RBC Morphology Unremarkable 12/22/22 07:01 Polychromasia 1+ 12/18/22 12:30 Ovalocytes 1+ 12/18/22 12:30 Echinocytes 1+ 12/18/22 12:30 PT 17.6 Seconds (9.0-12.0) H 12/21/22 04:28 INR 1.7 (0.9-1.1) H 12/21/22 04:28 VBG pH 7.43 (7.36-7.41) H 12/18/22 18:39 VBG pCO2 38 mmHg (38-50) 12/18/22 18:39 VBG pO2 48 mmHg 12/18/22 18:39 VBG HCO3 25 mmol/L 12/18/22 18:39 VBG O2 Saturation 72.8 % 12/18/22 18:39 VBG Base Excess 1.0 mEq/L 12/18/22 18:39 Sodium 133 mmol/L (136-145) L 12/23/22 06:59 Potassium 3.9 mmol/L (3.5-5.1) 12/23/22 06:59 Chloride 103 mmol/L (98-107) 12/23/22 06:59 Carbon Dioxide 23 mmol/L (21-32) 12/23/22 06:59 Anion Gap 7 (3-11) 12/23/22 06:59 BUN 52 mg/dl (6-23) H 12/23/22 06:59 Creatinine 2.40 mg/dl (0.6-1.4) H 12/23/22 06:59 Est Cr Clr Drug Dosing 31.8 ml/min 12/23/22 06:59 Est GFR ( Amer) 29.3 ml/min 12/23/22 06:59 Est GFR (Non-Af Amer) 25.3 ml/min 12/23/22 06:59 BUN/Creatinine Ratio 21.7 (10-20) H 12/23/22 06:59 Glucose 85 mg/dl (70-99(Fasting)) 12/23/22 06:59 POC Glucose 119 mg/dl (70-99) H 12/23/22 11:37 POC Glucose (other) 120 mg/dl (70-99) H 12/19/22 21:40 Lactate 1.4 mmol/L (0.4-2.0) 12/18/22 23:30 Calcium 8.8 mg/dl (8.6-10.3) 12/23/22 06:59 Phosphorus 2.4 mg/dl (2.5-4.9) L 12/21/22 04:28 Magnesium 1.8 mg/dl (1.7-2.4) 12/23/22 06:59 Total Bilirubin 1.8 mg/dl (0.2-1.0) H 12/23/22 06:59 Direct Bilirubin 1.0 mg/dl (0-0.2) H 12/18/22 12:30 AST 24 U/L (13-39) 12/23/22 06:59 ALT 12 U/L (7-52) 12/23/22 06:59 Alkaline Phosphatase 29 U/L (34-104) L 12/23/22 06:59 Ammonia 61.0 umol/L (18-72) 12/18/22 12:47 Troponin I High Sens 82.4 pg/ml (0-20) H* D 12/19/22 02:14 Total Protein 4.9 gm/dl (6.0-8.3) L 12/23/22 06:59 Albumin 3.1 gm/dl (3.4-5.0) L 12/23/22 06:59 Globulin 1.8 gm/dl (2.5-4.0) L 12/23/22 06:59 Albumin/Globulin Ratio 1.7 (0.9-2) 12/23/22 06:59 Procalcitonin 0.11 ng/ml (0-0.5) 12/18/22 12:30 Random Cortisol 35.10 mcg/dl 12/18/22 18:39 Urine Color Yellow 12/18/22 12:30 Urine Appearance Clear (Clear) 12/18/22 12:30 Urine pH 5.5 (4.5-7.5) 12/18/22 12:30 Ur Specific [place] 1.009 (1.000-1.030) 12/18/22 12:30 Urine Protein Negative (Negative) 12/18/22 12:30 Urine Glucose (UA) Negative (Negative) 12/18/22 12:30 Urine Ketones Negative (Negative) 12/18/22 12:30 Urine Blood Negative (Negative) 12/18/22 12:30 Urine Nitrite Negative (Negative) 12/18/22 12:30 Urine Bilirubin Negative (Negative) 12/18/22 12:30 Urine Urobilinogen Negative (Negative) 12/18/22 12:30 Ur Leukocyte Esterase Negative (Negative) 12/18/22 12:30 Ur Random Sodium < 10 mmol/L 12/19/22 Unknown Fluid Neutrophils % 10 % 12/19/22 11:20 Fluid Lymphocytes % 49 % 12/19/22 11:20 Fluid Meso/Macro/Dale % 41 % 12/19/22 11:20 Fluid Comment 12/19/22 11:20 Peritoneal Color Yellow 12/19/22 11:20 Peritoneal Appearance Clear 12/19/22 11:20 Peritoneal WBC (Auto) 72 /ul (0-300) 12/19/22 11:20 Peritoneal RBC (Auto) < 2000 /uL 12/19/22 11:20 Nasal Screen MRSA (PCR) Negative (Negative) 12/18/22 18:21 Random Vancomycin 16.2 mcg/ml (10-20) 12/21/22 04:28 Staphylococcus sp PCR DETECTED (NotDetected) A 12/18/22 18:39 Bld Cult ID Panel PCR See PCR Comment (NotDetected) 12/18/22 18:39 Blood Type A Positive 12/18/22 18:39 Antibody Screen NEGATIVE 12/18/22 18:[address] 12/18/22 12:13 CT cervical spine wo con CLINICAL HISTORY: ams TECHNIQUE: Multidetector row helical CT of the cervical spine was performed without administration of intravenous contrast. Coronal and sagittal reformations were obtained. Automated dose lowering techniques and/or adjustment according to patient size were utilized for this exam. Comparison: None available at the time of this dictation. FINDINGS: No acute fractures or subluxations are identified. Degenerative changes are seen in the visualized spine. The alignment is normal. Soft tissues are unremarkable. IMPRESSION: Degenerative changes without evidence of acute bony injury. ACT 112: Negative or not required by law. Electronically signed by: Harrison Her M.D. 12/18/2022 1:[address] 12/18/22 12:[address] DOSE: HISTORY: Altered mental status. TECHNIQUE: Multiaxial CT images of the head were performed without the use of intravenous contrast. Automated exposure control was utilized for this study. A dose lowering technique was utilized adhering to the principles of ALARA. Comparison: None. Findings: Motion artifact. The paranasal sinuses and mastoid air cells are clear. The calvarium and skull base are intact. There is no mass, hematoma, midline shift, acute infarct. White matter hypodensity is nonspecific but suggestive of microvascular ischemic change. The ventricles and sulci demonstrate mild age-related involutional changes. Impression: Motion artifact. No definite acute intracranial abnormality. ACT 112: Negative or not required by law. Electronically signed by: Chad Cardona M.D. 12/18/2022 2:07 PM Abdomen/Pelvis CT 12/18/22 13:10 CT chest diagnostic wo con, CT abd pelvis wo con CT DOSE: 3743.01 mGy.cm CLINICAL HISTORY: 77 years-old Male with fall. Acute chest and abdominal pain status post fall TECHNIQUE: Multiaxial CT images of the CT chest, abdomen and pelvis were performed without contrast. A dose lowering technique was utilized adhering to the principles of ALARA. COMPARISON: CT abdomen and pelvis 02/04/2018 FINDINGS: CT CHEST: Limited exam secondary to positioning and lack of IV contrast. Moderate cardiomegaly. Decreased attenuation of the cardiac blood pool suggestive of anemia. Moderate coronary artery calcifications. Trace pericardial effusion. Atherosclerosis of the thoracic aorta without aneurysm. No dominant thyroid nodule or lymphadenopathy. Trace pleural effusions. No pneumothorax. Intralobular septal thickening with mild dependent subsegmental atelectasis. Stable likely benign 6 mm solid nodule of the basal right lower lobe. Central airways are patent. Anasarca. No acute displaced rib fracture identified. Gynecomastia. CT ABDOMEN/PELVIS: No free air. Cirrhotic liver. The spleen is enlarged measuring over 15 cm. Left upper quadrant splenule with marginal calcifications again noted. Mildly atrophic pancreas. Punctate pancreatic head calcification. Unremarkable adrenal glands. Cholelithiasis with partial distention and mild wall thickening. 3 mm calcification noted on image 167 with additional punctate calcifications noted distally towards the duodenum. Atrophic kidneys. Hypodense 1.6 cm lesion of the superior pole of kidney, possibly a cyst. Decompressed urinary bladder with wall thickening. A Apple catheter is in place. Air within the urinary bladder is noted. Prostatomegaly. Atherosclerosis of the aorta. Moderate ascites. Small hiatal hernia. Nonspecific diffuse gastric wall thickening is noted with partial distention. Nonspecific anal rectal wall thickening. Colonic diverticulosis. Prior sigmoid colon resection with colonic colonic anastomosis. Moderate circumferential wall thickening of the colon is most pronounced in the ascending and transverse segments. Appendix not visualized. Small fat and fluid filled umbilical hernia. No acute fracture. IMPRESSION: 1. No acute posttraumatic intrathoracic, intra-abdominal or intrapelvic abnormality identified. 2. Cardiomegaly with mild pulmonary edema and trace pleural effusions. 3. Cirrhosis with stigmata of portal venous hypertension including splenomegaly with moderate ascites. 4. Cholelithiasis with possible choledocholithiasis. Correlate with LFTs. 5. Wall thickening of the ascending and transverse colon suggestive of portal colopathy. 6. Additional findings as above. ACT 112: Negative or not required by law. Electronically signed by: Rayshawn Powers M.D. 12/18/2022 2:[address] 12/18/22 13:10 CT chest diagnostic wo con, CT abd pelvis wo con CT DOSE: 3743.01 mGy.cm CLINICAL HISTORY: 77 years-old Male with fall. Acute chest and abdominal pain status post fall TECHNIQUE: Multiaxial CT images of the CT chest, abdomen and pelvis were performed without contrast. A dose lowering technique was utilized adhering to the principles of ALARA. COMPARISON: CT abdomen and pelvis 02/04/2018 FINDINGS: CT CHEST: Limited exam secondary to positioning and lack of IV contrast. Moderate cardiomegaly. Decreased attenuation of the cardiac blood pool suggestive of anemia. Moderate coronary artery calcifications. Trace pericardial effusion. Atherosclerosis of the thoracic aorta without aneurysm. No dominant thyroid nodule or lymphadenopathy. Trace pleural effusions. No pneumothorax. Intralobular septal thickening with mild dependent subsegmental atelectasis. Stable likely benign 6 mm solid nodule of the basal right lower lobe. Central airways are patent. Anasarca. No acute displaced rib fracture identified. Gynecomastia. CT ABDOMEN/PELVIS: No free air. Cirrhotic liver. The spleen is enlarged measuring over 15 cm. Left upper quadrant splenule with marginal calcifications again noted. Mildly atrophic pancreas. Punctate pancreatic head calcification. Unremarkable adrenal glands. Cholelithiasis with partial distention and mild wall thickening. 3 mm calcification noted on image 167 with additional punctate calcifications noted distally towards the duodenum. Atrophic kidneys. Hypodense 1.6 cm lesion of the superior pole of kidney, possibly a cyst. Decompressed urinary bladder with wall thickening. A Apple catheter is in place. Air within the urinary bladder is noted. Prostatomegaly. Atherosclerosis of the aorta. Moderate ascites. Small hiatal hernia. Nonspecific diffuse gastric wall thickening is noted with partial distention. Nonspecific anal rectal wall thickening. Colonic diverticulosis. Prior sigmoid colon resection with colonic colonic anastomosis. Moderate circumferential wall thickening of the colon is most pronounced in the ascending and transverse segments. Appendix not visualized. Small fat and fluid filled umbilical hernia. No acute fracture. IMPRESSION: 1. No acute posttraumatic intrathoracic, intra-abdominal or intrapelvic abnormality identified. 2. Cardiomegaly with mild pulmonary edema and trace pleural effusions. 3. Cirrhosis with stigmata of portal venous hypertension including splenomegaly with moderate ascites. 4. Cholelithiasis with possible choledocholithiasis. Correlate with LFTs. 5. Wall thickening of the ascending and transverse colon suggestive of portal colopathy. 6. Additional findings as above. ACT 112: Negative or not required by law. Electronically signed by: Rayshawn Powers M.D. 12/18/2022 2:10 PM Chest X-Ray 12/18/22 17:35 XR chest 1V portable CLINICAL HISTORY: lines TECHNIQUE: Single frontal radiograph of the chest was obtained. Comparison: Comparison is made to chest radiograph 11/04/2022 FINDINGS: Right IJ catheter terminates in the mid SVC. The cardiomediastinal silhouette is normal. Elevation of the left hemidiaphragm is seen. No evidence of pleural effusion or pneumothorax. IMPRESSION: Satisfactory position of right IJ catheter. ACT 112: Negative or not required by law. Electronically signed by: Harrison Her M.D. 12/18/2022 6:11 PM Paracentesis Ultrasound 12/23/22 00:00 ULTRASOUND-GUIDED PARACENTESIS CLINICAL HISTORY: Ascites PROCEDURE: Procedure and risks were explained. Informed consent was obtained. A final timeout was completed. Sonographic examination revealed a large amount of ascites. A pocket was identified in the left lower quadrant. The left lower quadrant was prepped and draped in sterile fashion. 1% buffered lidocaine was utilized for skin anesthesia. Utilizing ultrasound guidance, a 5 Norwegian safety centesis catheter was introduced into the pocket and 5000 ml of yellow ascites fluid was drained. Ultrasound images were obtained. 1 L of fluid was sent to lab for analysis. The catheter was removed. Postprocedural scanning showed s ignificant decrease in the amount of ascites. The patient tolerated the procedure well. Vital signs will be monitored on the floor. IMPRESSION: Ultrasound guided paracentesis as described above. Performed, dictated, and signed by Markell Allred PA-C; to be co-signed by Dr. Rayshawn Powers. Electronically signed by: Rayshawn Powers M.D. 12/23/2022 3:10 PM
[2022-12-23] MEDS: cefTRIAXone SODIUM 2,000 MG in DEXTROSE 5% 50 ML IV SCH (18:36)
[2022-12-24] MEDS: ALBUMIN 25% 25 GM/100 ML VIAL IV SCH ×3 (06:20→22:57)
[2022-12-24 07:54] LABS: Albumin Globulin Ratio 2.4 (0.9-2); Albumin Level 3.3 gm/dl (3.4-5.0); BUN Creatinine Ratio 23.7 (10-20); Calcium 8.7 mg/dl (8.6-10.3); Creatinine Clr Calc Pharmacy 33.7 ml/min; Est GFR (African American) 31.8 ml/min; Est GFR (Non-African American) 27.5 ml/min; Globulin 1.4 gm/dl (2.5-4.0); Potassium 3.5 mmol/L (3.5-5.1); Total Protein 4.7 gm/dl (6.0-8.3)
[2022-12-24] MEDS: MIDODRINE HCL 10 MG TAB PO SCH ×3 (08:02→17:26)
[2022-12-24] MEDS: allopurinoL 100 MG TAB PO SCH (08:02)
[2022-12-24] MEDS: INSULIN ASPART PER UNIT CHARGE SC SCH ×4 (08:05→21:28)
[2022-12-24 08:37] LABS: Basophils # (auto) 0.02 K/uL (0-0.2); Basophils % (auto) 1.4 %; Eosinophils # (auto) 0.04 K/uL (0-0.50); Eosinophils % (auto) 2.8 %; Hematocrit (blood only) 20.1 % (42.0-52.0); Hemoglobin 7.1 g/dl (14.0-18.0); Lymphocytes # (auto) 0.33 K/uL (1.2-3.4); Lymphocytes % (auto) 22.8 %; Mean Corpuscular Hgb Conc 35.3 g/dL (32.0-36.0); Mean Corpuscular Volume 93.5 fL (80.0-100.0); Mean Platelet Volume 12.7 fL (9.4-12.4); Monocytes # (auto) 0.24 K/uL (0.11-0.59); Monocytes % (auto) 16.6 %; Neutrophils # (auto) 0.82 K/uL (1.40-6.50); Neutrophils % (auto) 56.4 %; Platelet Count 40 K/uL (130-400); RDW Coefficient of Variation 15.3 % (11.5-14.5); RDW Standard Deviation 51.5 fL (36.4-46.3); Red Blood Count 2.15 M/uL (4.70-6.10); White Blood Count 1.45 K/ul (4.8-10.8)
--- NOTE | 2022-12-24 08:50 | Nephrology Progress Note ---
Date of Service December 24, 2022 Assessment & Plan (1) CKD (chronic kidney disease) stage 4, GFR 15-29 ml/min: Plan: rapidly progressive CKD santa past few months as his liver status has worsened. baseline creatinine late November/early December is about 3. Not a liver transplant candidate and therefore not a dialysis candidate. I have this admission reiterated with the patient and his family that the focus of his kidney care during this admission and after discharge will be supportive and that he will not be a candidate for dialysis. Had BRUNA earlier this admission which has resolved -continue supportive care -stop albumin after midday dose -not on diuretics currently >> SBP 90-100s and HR 90-110s I am reluctant to start these at this time >> Consider tomorrow resuming spironolactone 12.5 mg daily, torsemide 10 mg daily, Midodrine 5 mg 3 times daily >>recommend palliative care consult for in house given challenges of resuming diuretics, multiorgan failure. He had been referred to palliative care as an outpatient but this appointment had to be changed by the clinician and was not as yet rescheduled; follow-up with palliative as outpatient (2) Disorder of fluid or electrolyte: Plan: worsening hypervolemia and hypotension in setting of worsening liver cirrhosis and advancing CKD continue fluid limit 1.2 L Less than 2 g daily sodium diet Albumin rather than IV fluids as above Continue potassium repletion with a target of 4 and mag target of 2; replete potassium p.o. where able Admission and Anticipated Discharge Date Admission Date: December 18, 2022 Subjective Had 5 L paracentesis yesterday; feeling well today; not dyspneic; not bothered by edema Review of Systems Review of Systems: All systems reviewed & are unremarkable except as noted in Subjective Physical Exam Constitutional: well developed (up in chair on RA), + cachectic, + physical limitations, + frail appearing and cooperative Eyes: EOM intact bilaterally ENMT: Ears: no external ear abnormality Nose: no external nose abnormality Mouth: + dry oral mucous membranes Neck: no nuchal rigidity Respiratory: normal respiratory effort Auscultation: lungs clear to auscultation bilaterally and + diminished lung sounds Cardiovascular: Rate/Rhythm: regular rate and regular rhythm Extremities: + edema (2-3+ distal bilateral lower extremities) Gastrointestinal (Abdomen): Inspection/Auscultation: + abdomen distended, normal bowel sounds, + high-pitched sounds and + hyperactive bowel sounds Percussion/Palpation: abdomen soft and + ascites; abdomen nontender Musculoskeletal: Extremities: strength 5/5 throughout Skin: no rashes, warm and dry Trauma: + evidence of skin trauma (innumerable and large ecchymoses and skin tears) Psychiatric: Orientation: alert, oriented to person and oriented to place Insight: + limited insight Judgment: + limited judgement Results & Data Vital Signs (Past 12 Hours) Vital Signs Temp Pulse Pulse Resp BP BP Pulse Ox 12/24/22 07:46 36.6 C 94 H 16 91/58 L 98 12/24/22 03:19 36.9 C 88 18 94/60 L 99 12/23/22 23:39 36.9 C 106 H 18 105/67 97 12/23/22 23:17 103 H O2 Del Method 12/24/22 07:46 Room Air 12/24/22 03:19 Room Air 12/23/22 23:39 Room Air 12/23/22 23:17 Laboratory Results 12/24/22 06:32 12/24/22 06:32
[2022-12-24 08:51] LABS: Poikilocytosis Present; Polychromasia 1+; Tear Drop Cells 1+
[2022-12-24] MEDS ORDERED: SODIUM CHLORIDE 0.9% 250 ML IV PRN ×2 (08:58→10:00)
--- NOTE | 2022-12-24 09:18 | Palliative Care Consultation ---
Date of Consultation December 24, 2022 Assessment & Plan (1) Weakness generalized: (2) AMS (altered mental status): (3) MSOF (multiple systems organ failure): (4) Palliative care by specialist: (5) Advanced care planning/counseling discussion: Plan * Pt unable to engage in detailed GOC discussion and advised "we should wait for my daughter." * He is unable to elaborate on his medical issues but can acknowledge "things are pretty serious." * I spoke with nursing, family have not confirmed if they are coming in but I will try to call them later this afternoon, to determine a time to meet, this will likely be tomorrow as today is filling up with meetings and consults * TS 75min Thank you for allowing us to participate in the ongoing care of this patient. Please don't hesitate to call or page with any additional concerns. Dr. Mell Lennon DNP Director, Palliative Care History of Present Illness Reason for Consultation: "end stage liver disease" Attending Physician: Mario Lynch MD History of Present Illness Mr Anderson was admitted vis ED on 12/18/22. In part the ED note reads as follows: " Mr Anderson is a 77 year old male with a history of decompensated cirrhosis c/b coagulopathy, varices, and hypotension, DM type II, CKD, Lumbar Disc Disease, Lumbar Radiculopathy, Gout , and chronic Atrial Fibrillation who presented to [facility] ED via EMS due to altered mental status. Patient unable to participate in questioning due to mentation. Patient's daughter and spouse were at bedside. states the patient has been in usual state of health until around 4 am this morning when he appeared confused and slid out of his bedside chair. He has experienced multiple skin tears and oozing with eccymosis, but family denies any reported bleeding from bowel movements or any known emesis. Patient was prescribed lactulose, but patient did not take as recommended. Family denies any personality changes, but notes patient has been more "forgetful". Patient follows hepatology, in which recently his midodrine was increased to 10mg TID. Patient did not take any medications since 12/17. Patient was on nanodolol for varices, but his blood pressure did not tolerate. Palliative is following patient as OP, last visit 12/12. Status reported as DNR/DNI. In ED, patient was noted to be hypotensive to 50-60s with maps in 40s, tachycardic up to 110s, and bradypnic to 9-10s.Labs revealed BRUNA on CKD to 3.84, Trop elevation to 85.6," He was urgently admitted to ICU with encephalopathy, MSOF with hypotension and hypoperfusion. He underwent work up for sepsis. He developed BRUNA on CKD d/t prerenal/hypoperfusion in the setting of decompensated liver failure versus less likely severe sepsis/septic shock PMH: chronic AFib, DM, chronic hypotension w/ documented sbp in EHR since at least 2019 in 90s-100s, memory loss, chronic ambulatory dysfunction/walker dependent, in 2022 rapidly progressive CKD stage IV, prostatic hypertrophy, decompensated liver cirrhosis of unknown etiology (GI favors SOLOMON) (c/b esophageal varices, portal hypertension, encephalopathy, and thrombocytopenia, with intermittent approximately every 6-week paracentesis), hx diverticulosis, hx SBO, hx GIB, lumbar radiculopathy; recent November 2022 admission for RLE cellulitis and acute on chronic CKD CCM note 12/21/22 recc Pall Med consult, noting t is not a candidate for HD and has had increased frequency + duration of admission. He is not a liver txp candidate Nephrology note 12/24/22: "(1) CKD (chronic kidney disease) stage 4, GFR 15-29 ml/min: Plan: rapidly progressive CKD santa past few months as his liver status has worsened. baseline creatinine late November/early December is about 3. Not a liver transplant candidate and therefore not a dialysis candidate. I have this admission reiterated with the patient and his family that the focus of his kidney care during this admission and after discharge will be supportive and that he will not be a candidate for dialysis. Had BRUNA earlier this admission which has resolved -continue supportive care -stop albumin after midday dose -not on diuretics currently >> SBP 90-100s and HR 90-110s I am reluctant to start these at this time >> Consider tomorrow resuming spironolactone 12.5 mg daily, torsemide 10 mg daily, Midodrine 5 mg 3 times daily >>recommend palliative care consult for in house given challenges of resuming diuretics, multiorgan failure. He had been referred to palliative care as an outpatient but this appointment had to be changed by the clinician and was not as yet rescheduled; follow-up with palliative as outpatient" Allergies Allergy/AdvReac Type Severity Reaction Status Date / Time lisinopril Allergy Severe ANGIOEDEMA Verified 07/31/22 09:40 cephalexin Allergy Intermediate Hives Verified 07/31/22 09:40 Home Medications Medication Instructions Recorded Confirmed Type allopurinol 100 mg tablet 200 mg PO DAILY 11/04/22 12/18/22 History ferrous sulfate 324 mg (65 mg 324 mg PO DAILY 11/04/22 12/18/22 History iron) tablet,delayed release oxycodone 5 mg tablet 5 mg PO AMHS 11/04/22 12/18/22 History pantoprazole 40 mg tablet,delayed 40 mg PO DAILY 11/04/22 12/18/22 History release tamsulosin 0.4 mg capsule 0.4 mg PO DAILY 11/04/22 12/18/22 History spironolactone 25 mg tablet 12.5 mg PO DAILY #30 tabs 11/06/22 12/18/22 Rx torsemide 10 mg tablet 10 mg PO QAM #30 tabs 11/06/22 12/18/22 Rx midodrine 5 mg tablet See Rx Instructions .Route .COMPLEX 12/18/22 12/18/22 History triamcinolone acetonide 0.1 % 1 applic topical BID 12/18/22 12/18/22 History topical cream Patient History Medical History Anemia BPH (benign prostatic hyperplasia) Cellulitis HX OF LEFT LEG (CURRENTLY ALL HEALED) CKD (chronic kidney disease) stage 4, GFR 15-29 ml/min 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 2mg versed. 100mcg fentanyl. 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 Required: No Beliefs That Will Affect Care: None Current Living Situation: Spouse Current Living Situation Comment: lives in a 2 story home with , resides mostly on Feels Safe at Home: Yes Assistive Devices: Walker Review of Systems Review of Systems: All systems reviewed & are unremarkable except as noted in Subjective and Unobtainable due to cognitive status Physical Exam Physical Exam: Frail, chronically ill appearing elderly male seated OOB to chair awake and alert to self, place but less sure of other details/cannot provide HPI Resp effort WAL, diminished breath sounds, no rhonchi S1S2, mild JVD abd distended softy, mild TTP, BS decreased ROMERO weakly, generalized weakness noted scattered ecchymoses Results & Data Vital Signs (Past 12 Hours) Vital Signs Temp Pulse Pulse Resp BP BP Pulse Ox 12/24/22 07:46 36.6 C 94 H 16 91/58 L 98 12/24/22 03:19 36.9 C 88 18 94/60 L 99 12/23/22 23:39 36.9 C 106 H 18 105/67 97 12/23/22 23:17 103 H O2 Del Method 12/24/22 07:46 Room Air 12/24/22 03:19 Room Air 12/23/22 23:39 Room Air 12/23/22 23:17 Laboratory Results data reviewed Diagnostic Findings data reviewed PG Care Time/CCT Total # of Minutes Spent Total Time Spent: 75 Total Time Spent with Patient: Total time spent is greater than 50% in coordination of care (as documented) at patient's floor/unit and/or counseling patient: I spent 75 minutes overall addressing this case: 20 in medical data review/discussion with referring provider(s) and/or preparation for the visit 30 in direct interaction with the patient 000 Advance Care Planning/Goals of Care discussions as detailed above in note (must be >16min) 10 in subsequent review and synthesis of assessment and plan 15 in communicating with other providers regarding the patient's case: [] [place] [address] IN/OBS CONSULT LVL 5,80M Patient Type New History Comprehensive Exam Comprehensive Medical Decision Making High Complexity Diagnoses Weakness generalized R53.1 AMS (altered mental status) R41.82 MSOF (multiple systems organ failure) Palliative care by specialist Z51.5 Advanced care planning/counseling discussion Z71.89
--- NOTE | 2022-12-24 14:32 | Infectious Disease Consult ---
Date of Consultation December 24, 2022 Assessment & Plan (1) Decompensated hepatic cirrhosis: I suspect his problem for this admission is realted to his decompensated cirrhosis and BRUNA in setting of CKD. His paracentesis does not show SBP despite the positive coag-neg Staph culture. This is likely just a contaminant and not consistent with active infection. (2) Positive blood culture: One of four blood cultures with Coag-neg Staph is just a contaminant. (3) CKD (chronic kidney disease) stage 4, GFR 15-29 ml/min: Worsening BRUNA in setting of CKD and decompensated cirrhosis. (4) Pancytopenia: Plan OK to D/C ceftriaxone. No indication for further antibiotics at this time. Consultation Information Consultation was provided via telemedicine using two-way real-time interactive telecommunication between the patient and the telemedicine provider. For the duration of the visit, the provider was performing the assessment from a different facility than the patient. This includesuse of bluetooth stethoscope forauscultationperformed by the telepresenter that the telemedicine provider can hear if described in the physical exam. Roof Tiler contact information: Please call [facility] . (Phone Number For Physician Use Only) After establishing a telemedicine visit, patient was: Patient was verified with two unique identifiers Time Spent with Patient: Initial => 55 min History of Present Illness Reason for Consultation: Bacteremia Requesting Physician: Mario Lynch MD Attending Physician: Mario Lynch MD History of Present Illness Mr Anderson is a 77 year old male with a history of cirrhosis and DM. He was br ought to the [facility] ED by his family for increasing confusion and weakness. He was hypotensive and encephalopathic requiring ICU admission. He was initially on vasopressors and given CTX and vancomycin for possible sepsis. Paracentesis did not suggest SBP however and blood cultures just grew Coag-neg Staph. He was weaned off pressors and transferred to the medicine service by 12/21/22. He has remained afebrile during this time. Today he reports feeling much better. He does not recall what transpired prior to admission. He does not recall any fevers or abdominal pain though. He denies any N/V or diarrhea. He ate well today per nursing at the bedside. He also ambulated, but did require a blood transfusion. Nursing reports a lot of skin tears and diffuse ecchymoses, but no decubitus ulcers. Allergies Allergy/AdvReac Type Severity Reaction Status Date / Time lisinopril Allergy Severe ANGIOEDEMA Verified 07/31/22 09:40 cephalexin Allergy Intermediate Hives Verified 07/31/22 09:40 Home Medications Medication Instructions Recorded Confirmed Type allopurinol 100 mg tablet 200 mg PO DAILY 11/04/22 12/18/22 History ferrous sulfate 324 mg (65 mg 324 mg PO DAILY 11/04/22 12/18/22 History iron) tablet,delayed release oxycodone 5 mg tablet 5 mg PO AMHS 11/04/22 12/18/22 History pantoprazole 40 mg tablet,delayed 40 mg PO DAILY 11/04/22 12/18/22 History release tamsulosin 0.4 mg capsule 0.4 mg PO DAILY 11/04/22 12/18/22 History spironolactone 25 mg tablet 12.5 mg PO DAILY #30 tabs 11/06/22 12/18/22 Rx torsemide 10 mg tablet 10 mg PO QAM #30 tabs 11/06/22 12/18/22 Rx midodrine 5 mg tablet See Rx Instructions .Route .COMPLEX 12/18/22 12/18/22 History triamcinolone acetonide 0.1 % 1 applic topical BID 12/18/22 12/18/22 History topical cream Patient History Medical History BRUNA (acute kidney injury) Anemia BPH (benign prostatic hyperplasia) Cellulitis HX OF LEFT LEG (CURRENTLY ALL HEALED) CKD (chronic kidney disease) stage 4, GFR 15-29 ml/min 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 2mg versed. 100mcg fentanyl. 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 Required: No Beliefs That Will Affect Care: None Current Living Situation: Spouse Current Living Situation Comment: lives in a 2 story home with , resides mostly on Feels Safe at Home: Yes Assistive Devices: Walker Review of System Weak No visual changes Dry mouth No SOB or cough Additional Comments: No chest pain Abdominal fullness, no pain, N/V or diarrhea No dysuria No pain or swelling Diffuse bruising and easy tearability No focal deficits Physical Exam Constitutional: Chronically-ill appearing Eyes: Icteric ENMT: Dry mouth Respiratory: Normal respiratory effort, on room air Gastrointestinal (Abdomen): Abdominal distension and fullness Musculoskeletal: Negative Skin: Diffuse ecchymoses Neurologic: Alert and oriented Results & Data Vital Signs (Past 12 Hours) Vital Signs Temp Pulse Pulse Resp BP BP Pulse Ox 12/24/22 13:31 36.5 C 84 16 106/69 98 12/24/22 13:11 36.2 C L 100 H 16 102/68 100 12/24/22 12:11 36.7 C 93 H 16 97/62 L 100 12/24/22 11:41 36.8 C 90 16 86/58 L 100 12/24/22 11:26 36.4 C L 83 16 93/59 L 99 12/24/22 11:10 36.4 C L 63 16 91/61 L 99 12/24/22 07:30 12/24/22 07:30 110 H 12/24/22 07:46 36.6 C 94 H 16 91/58 L 98 12/24/22 03:19 36.9 C 88 18 94/60 L 99 O2 Del Method 12/24/22 13:31 12/24/22 13:11 12/24/22 12:11 12/24/22 11:41 12/24/22 11:26 12/24/22 11:10 12/24/22 07:30 Room Air 12/24/22 07:30 12/24/22 07:46 Room Air 12/24/22 03:19 Room Air Laboratory Results WBC 1.45 Hgb 7.1 Platelets 40 Na 133 Creatinine 2.24 BUN 53 ALT 29 Total bili 2.0 Albumin [address] abdomen from 12/18/22 reviewed by me: IMPRESSION: 1. No acute posttraumatic intrathoracic, intra-abdominal or intrapelvic abnormality identified. 2. Cardiomegaly with mild pulmonary edema and trace pleural effusions. 3. Cirrhosis with stigmata of portal venous hypertension including splenomegaly with moderate ascites. 4. Cholelithiasis with possible choledocholithiasis. Correlate with LFTs. 5. Wall thickening of the ascending and transverse colon suggestive of portal colopathy.
[2022-12-24] MEDS: NOREPINEPHRINE/D5W 4 MG/250 ML PLCT IV SCH (15:29)
--- NOTE | 2022-12-24 15:59 | Hospitalist Progress Note ---
Date of Service December 24, 2022 Assessment & Plan (1) Hypotension: (2) Encephalopathy: (3) Decompensated hepatic cirrhosis: (4) Chronic atrial fibrillation: (5) Acute kidney injury superimposed on chronic kidney disease: (6) Pancytopenia: (7) Coagulopathy: (8) Diabetes mellitus, type II: Plan Septic shock POA Hepatic encephalopathy, improved Decompensated Liver Cirrhosis Chronic hypotension on midodrine No obvious source of infection noted --CT head:No definite acute intracranial abnormality. --Cervical CT:Degenerative changes without evidence of acute bony injury. --CT ABD:No acute posttraumatic intrathoracic, intra-abdominal or intrapelvic abnormality identified. Cardiomegaly with mild pulmonary edema and trace pleural effusions. Cirrhosis with stigmata of portal venous hypertension including splenomegaly with moderate ascites. Cholelithiasis with possible choledocholithiasis. Correlate with LFTs. Wall thickening of the ascending and transverse colon suggestive of portal colopathy. --S/P paracentesis on 12/23/2022 SBP ruled out Blood cultures/peritoneal fluid cultures: Negative Appreciate infectious disease input Discussed with GI on 12/24/22:Very poor prognosis IV vancomycin Rocephin discontinue Weaned off of pressors Palliative care involved: Need to address goals of care prior to discharge Continue midodrine BRUNA on CKD IV Prerenal versus hepatorenal syndrome Rapidly progressive CKD per nephrology Not a candidate for transplant, dialysis IV albumin discontinued Consider resuming diuretics tomorrow Appreciate nephrology input Monitor renal function Avoid nephrotoxic agents as able Acute on chronic anemia No bleeding issues S/P 1 unit PRBC Monitor CBC Pancytopenia likely due to liver cirrhosis Coagulopathy due to liver disease INR persistently elevated, within baseline on admission Platelets persistently low Monitor for any bleeding issues Elevated high sensitive troponin due to demand ischemia Chronic Atrial Fibrillation Not on any rate control medication due to low blood pressure. Not on anticoagulation due to elevated INR. H/O Multiple Falls Ambulatory dysfunction PT OT recommends rehab Patient prefers to go home Gout Continue allopurinol. Chronic low back pain c/b sciatica Deconditioned PT/OT; recommended Rehab Hypomagnesemia Replete electrolytes as needed DM type II No on oral agents at this time, A1C 5.3 09/2022 -SSI while hospitalized DVT Px:SCDs Re: anemia, thrombocytopenia, coagulopathy PT OT recommends Rehab; patient prefers to go home Needs goals of care addressed prior to discharge CODE STATUS DNR/DNI Admission and Anticipated Discharge Date Admission Date: December 18, 2022 Subjective Patient is seen and examined at bedside Offers no new complaints Discussed with GI today Denies any chest pain, dyspnea, dizziness, nausea, vomiting, abdominal pain Noted drop in hemoglobin Denies any bleeding issues Eager to get discharged Review of Systems Review of Systems: All systems reviewed & are unremarkable except as noted in Subjective Physical Exam Physical Exam: Physical Exam: Vitals signs as noted above General Appearance:Moderately built and nourished, no apparent distress, chronic ill-appearing Head: normocephalic, Atraumatic Eyes: normal inspection, EOMI Neck: supple, Trachea midline Respiratory/Chest: Normal breath sounds, CTA, No accessory muscle use Cardiovascular: S1, S2, No murmur Abdomen/GI:Soft, +distended, Non tender, Bowel sounds present Extremities/Musculoskeletal:normal inspection, B/L LE 3+ edema,+ UE wound in dressing Neurologic/Psych:AAOX3, grossly no focal neurological deficits Skin: normal color, warm Results & Data Results & Data Vital Signs (Past 12 Hours) Vital Signs Temp Pulse Pulse Resp BP BP Pulse Ox 12/24/22 15:08 89 12/24/22 13:31 36.5 C 84 16 106/69 98 12/24/22 13:11 36.2 C L 100 H 16 102/68 100 12/24/22 12:11 36.7 C 93 H 16 97/62 L 100 12/24/22 11:41 36.8 C 90 16 86/58 L 100 12/24/22 11:26 36.4 C L 83 16 93/59 L 99 12/24/22 11:10 36.4 C L 63 16 91/61 L 99 12/24/22 07:30 12/24/22 07:30 110 H 12/24/22 07:46 36.6 C 94 H 16 91/58 L 98 O2 Del Method 12/24/22 15:08 12/24/22 13:31 12/24/22 13:11 12/24/22 12:11 12/24/22 11:41 12/24/22 11:26 12/24/22 11:10 12/24/22 07:30 Room Air 12/24/22 07:30 12/24/22 07:46 Room Air Laboratory Results Short CBC 12/24/22 Range/Units 06:32 WBC 1.45 L (4.8-10.8) K/ul Hgb 7.1 L (14.0-18.0) g/dl Hct 20.1 L* (42.0-52.0) % Plt Count 40 L (130-400) K/uL BMP 12/24/22 06:32 Sodium 133 L Potassium 3.5 Chloride 103 Carbon Dioxide 24 BUN 53 H Creatinine 2.24 H Glucose 76 Calcium 8.7 Liver Function 12/24/22 Range/Units 06:32 Total Bilirubin 2.0 H (0.2-1.0) mg/dl AST 57 H (13-39) U/L ALT 29 (7-52) U/L Alkaline Phosphatase 84 D (34-104) U/L Albumin 3.3 L (3.4-5.0) gm/dl
[2022-12-24 20:12] LABS: Hematocrit (blood only) 25.2 % (42.0-52.0); Hemoglobin 8.7 g/dl (14.0-18.0)
[2022-12-25] MEDS: ALBUMIN 25% 25 GM/100 ML VIAL IV SCH ×2 (06:20→15:16)
[2022-12-25 07:59] LABS: Basophils # (auto) 0.02 K/uL (0-0.2); Basophils % (auto) 0.8 %; Eosinophils # (auto) 0.06 K/uL (0-0.50); Eosinophils % (auto) 2.5 %; Hematocrit (blood only) 25.6 % (42.0-52.0); INR 1.5 (0.9-1.1); Immature Granulocytes # (auto) 0.01 K/uL (0.01-0.20); Immature Granulocytes % (auto) 0.4 %; Lymphocytes # (auto) 0.38 K/uL (1.2-3.4); Mean Corpuscular Hemoglobin 32.7 pg (25.0-34.0); Mean Corpuscular Hgb Conc 35.2 g/dL (32.0-36.0); Mean Corpuscular Volume 93.1 fL (80.0-100.0); Mean Platelet Volume 10.2 fL (9.4-12.4); Monocytes # (auto) 0.41 K/uL (0.11-0.59); Monocytes % (auto) 17.3 %; Neutrophils # (auto) 1.49 K/uL (1.40-6.50); Platelet Count 43 K/uL (130-400); Prothrombin Time 16.3 Seconds (9.0-12.0); RDW Coefficient of Variation 15.9 % (11.5-14.5); Red Blood Count 2.75 M/uL (4.70-6.10); White Blood Count 2.37 K/ul (4.8-10.8)
[2022-12-25] MEDS: MIDODRINE HCL 10 MG TAB PO SCH ×2 (08:43→12:48)
[2022-12-25 08:44] LABS: BUN Creatinine Ratio 22.8 (10-20); Calcium 9.3 mg/dl (8.6-10.3); Creatinine Clr Calc Pharmacy 34.4 ml/min; Est GFR (African American) 32.7 ml/min; Est GFR (Non-African American) 28.2 ml/min; Magnesium 1.8 mg/dl (1.7-2.4); Potassium 3.7 mmol/L (3.5-5.1)
[2022-12-25] MEDS: INSULIN ASPART PER UNIT CHARGE SC SCH ×2 (08:44→12:48)
[2022-12-25] MEDS: allopurinoL 100 MG TAB PO SCH (08:44)
--- NOTE | 2022-12-25 11:16 | Communication Note ---
Date of Service: December 25, 2022 Palliative Medicine Brief Note I have multiple attempts to reach pt daughter Patty Bledsoe at [phone] and cell # [phone]. She is not reachable - her voicemail is full with automated message stating "not accepting new messages." Will defer to primary team/care mgt to coordinate meeting for further ACP discussion if desired. Thank you for allowing us to participate in the ongoing care of this patient. Please don't hesitate to call or page with any additional concerns. Dr. Mell Lennon DNP Director, Palliative Care
--- NOTE | 2022-12-25 14:56 | Hospitalist Progress Note ---
Date of Service December 25, 2022 Assessment & Plan (1) Hypotension: (2) Encephalopathy: (3) Decompensated hepatic cirrhosis: (4) Chronic atrial fibrillation: (5) Acute kidney injury superimposed on chronic kidney disease: (6) Pancytopenia: (7) Coagulopathy: (8) Diabetes mellitus, type II: Plan Septic shock POA Hepatic encephalopathy, improved Decompensated Liver Cirrhosis Chronic hypotension on midodrine No obvious source of infection noted --CT head:No definite acute intracranial abnormality. --Cervical CT:Degenerative changes without evidence of acute bony injury. --CT ABD:No acute posttraumatic intrathoracic, intra-abdominal or intrapelvic abnormality identified. Cardiomegaly with mild pulmonary edema and trace pleural effusions. Cirrhosis with stigmata of portal venous hypertension including splenomegaly with moderate ascites. Cholelithiasis with possible choledocholithiasis. Correlate with LFTs. Wall thickening of the ascending and transverse colon suggestive of portal colopathy. --S/P paracentesis on 12/23/2022 SBP ruled out Blood cultures/peritoneal fluid cultures: Negative Appreciate infectious disease input Discussed with GI on 12/24/22:Very poor prognosis IV vancomycin Rocephin discontinue Weaned off of pressors Palliative care involved: Need to address goals of care prior to discharge Continue midodrine Discussed in detail about patient's condition with patient's daughter over the phone. Patient's daughter plans to discuss with her father to decide whether patient wants to go to rehab facility Vs home. BRUNA on CKD IV Prerenal versus hepatorenal syndrome Rapidly progressive CKD per nephrology Not a candidate for transplant, dialysis IV albumin discontinued Resume diuretics Appreciate nephrology input Monitor renal function Avoid nephrotoxic agents as able Acute on chronic anemia No bleeding issues S/P 1 unit PRBC Monitor CBC Hb 9.0 today Pancytopenia likely due to liver cirrhosis Coagulopathy due to liver disease INR persistently elevated, within baseline on admission Platelets persistently low Monitor for any bleeding issues Neutropenia improving Monitor CBC Elevated high sensitive troponin due to demand ischemia Chronic Atrial Fibrillation Not on any rate control medication due to low blood pressure. Not on anticoagulation due to elevated INR. H/O Multiple Falls Ambulatory dysfunction PT OT recommends rehab Patient prefers to go home Gout Continue allopurinol. Chronic low back pain c/b sciatica Deconditioned PT/OT; recommended Rehab Hypomagnesemia Replete electrolytes as needed DM type II No on oral agents at this time, A1C 5.3 09/2022 -SSI while hospitalized DVT Px:SCDs Re: anemia, thrombocytopenia, coagulopathy PT OT recommends Rehab; patient prefers to go home Needs goals of care addressed prior to discharge CODE STATUS DNR/DNI Admission and Anticipated Discharge Date Admission Date: December 18, 2022 Subjective Patient is seen and examined at bedside Offers no new complaints Eager to get discharge Denies any chest pain, dyspnea, dizziness, nausea, vomiting, abdominal pain Hemoglobin stable today Updated patient's daughter over the phone Review of Systems Review of Systems: All systems reviewed & are unremarkable except as noted in Subjective Physical Exam Physical Exam: Physical Exam: Vitals signs as noted above General Appearance:Moderately built and nourished, no apparent distress, chronic ill-appearing Head: normocephalic, Atraumatic Eyes: normal inspection, EOMI Neck: supple, Trachea midline Respiratory/Chest: Normal breath sounds, CTA, No accessory muscle use Cardiovascular: S1, S2, No murmur Abdomen/GI:Soft, +distended, Non tender, Bowel sounds present Extremities/Musculoskeletal:normal inspection, B/L LE 3+ edema,+ UE wound in dressing Neurologic/Psych:AAOX3, grossly no focal neurological deficits Skin: normal color, warm Results & Data Results & Data Vital Signs (Past 12 Hours) Vital Signs Temp Pulse Pulse Resp BP Pulse Ox O2 Del Method 12/25/22 11:14 36.3 C L 73 18 117/68 98 Room Air 12/25/22 07:12 36.5 C 97 H 18 105/69 99 Room Air 12/25/22 07:37 Room Air 12/25/22 07:37 98 H Laboratory Results Short CBC 12/24/22 12/25/22 Range/Units 19:56 07:31 WBC 2.37 L (4.8-10.8) K/ul Hgb 8.7 L 9.0 L (14.0-18.0) g/dl Hct 25.2 L 25.6 L (42.0-52.0) % Plt Count 43 L (130-400) K/uL BMP 12/25/22 07:31 Sodium 135 L Potassium 3.7 Chloride 104 Carbon Dioxide 23 BUN 50 H Creatinine 2.19 H Glucose 104 H Calcium 9.3
--- NOTE | 2022-12-25 15:31 | Communication Note ---
Date of Service: December 25, 2022 Patient and his daughter prefers patient to be discharged home. Plan to discharge home today.
--- NOTE | 2022-12-25 15:41 | Discharge Summary ---
Date of Service December 25, 2022 Admission HPI Per Admitting Provider Mr Anderson is a 77 year old male with a history of decompensated cirrhosis c/b coagulopathy, varices, and hypotension, DM type II, CKD, Lumbar Disc Disease, Lumbar Radiculopathy, Gout , and chronic Atrial Fibrillation who presented to [facility] ED via EMS due to altered mental status. Patient unable to participate in questioning due to mentation. Patient's daughter and spouse were at bedside. states the patient has been in usual state of health until around 4 am this morning when he appeared confused and slid out of his bedside chair. He has experienced multiple skin tears and oozing with eccymosis, but family denies any reported bleeding from bowel movements or any known emesis. Patient was prescribed lactulose, but patient did not take as recommended. Family denies any personality changes, but notes patient has been more "forgetful". Patient follows hepatology, in which recently his midodrine was increased to 10mg TID. Patient did not take any medications since 12/17. Patient was on nanod olol for varices, but his blood pressure did not tolerate. Palliative is following patient as OP, last visit 12/12. Status reported as DNR/DNI. In ED, patient was noted to be hypotensive to 50-60s with maps in 40s, tachycardic up to 110s, and bradypnic to 9-10s.Labs revealed BRUNA on CKD to 3.84, Trop elevation to 85.6, Admission Exam Per Admitting Provider Constitutional: + altered mental status, + frail appearing, + disheveled and + edematous Eyes: + scleral abnormality (icteric ) and PERRL ENMT: Ears: + external ear abnormality (right hear ecchymosis on lobe ) Nose: + dry nasal mucous membranes; no external nose abnormality Mouth: + dry oral mucous membranes and + poor dentition Neck: No JVD visualized Respiratory: Auscultation: + diminished lung sounds Cardiovascular: Rate/Rhythm: + tachycardic Gastrointestinal (Abdomen): Percussion/Palpation: + hepatomegaly, + fluid wave and + abdomen firm Musculoskeletal: bilateral lower extremity edema up to posterior thigh, pitting 2+ Skin: multiple skin tears present on upper extremities, large skin tear on left shoulder, skin tear with oozing behind right ear; scattered ecchymosis on upper extremities Neurologic: AOx0, arousable to voice Principal Diagnosis Decompensated Liver Cirrhosis Septic shock Hepatic encephalopathy BRUAN on CKD IV Acute on chronic anemia Pancytopenia Discharge Data Allergies Allergy/AdvReac Type Severity Reaction Status Date / Time lisinopril Allergy Severe ANGIOEDEMA Verified 07/31/22 09:40 cephalexin Allergy Intermediate Hives Verified 07/31/22 09:40 Consultations 12/18/22 14:21 ED Decision to Admit Stat 12/18/22 15:47 Consult Gastroenterology Routine 12/18/22 16:44 Consult Administrative Professional Routine 12/19/22 09:57 Consult Nephrology Routine 12/23/22 17:36 Consult Palliative Care Routine 12/24/22 09:05 Consult Infectious Diseases Routine Procedures Performed Laboratory Results WBC 2.37 K/ul (4.8-10.8) L 12/25/22 07:31 RBC 2.75 M/uL (4.70-6.10) L 12/25/22 07:31 Hgb 9.0 g/dl (14.0-18.0) L 12/25/22 07:31 Hct 25.6 % (42.0-52.0) L 12/25/22 07:31 MCV 93.1 fL (80.0-100.0) 12/25/22 07:31 MCH 32.7 pg (25.0-34.0) 12/25/22 07:31 MCHC 35.2 g/dL (32.0-36.0) 12/25/22 07:31 RDW Std Deviation 53.0 fL (36.4-46.3) H 12/25/22 07:31 RDW Coeff of Scottie 15.9 % (11.5-14.5) H 12/25/22 07:31 Plt Count 43 K/uL (130-400) L 12/25/22 07:31 MPV 10.2 fL (9.4-12.4) 12/25/22 07:31 Immature Gran % (Auto) 0.4 % 12/25/22 07:31 Neut % (Auto) 63.0 % 12/25/22 07:31 Lymph % (Auto) 16.0 % 12/25/22 07:31 [place] % (Auto) 17.3 % 12/25/22 07:31 Eos % (Auto) 2.5 % 12/25/22 07:31 Baso % (Auto) 0.8 % 12/25/22 07:31 Neut # (Auto) 1.49 K/uL (1.40-6.50) 12/25/22 07:31 Lymph # (Auto) 0.38 K/uL (1.2-3.4) L 12/25/22 07:31 [place] # (Auto) 0.41 K/uL (0.11-0.59) 12/25/22 07:31 Eos # (Auto) 0.06 K/uL (0-0.50) 12/25/22 07:31 Baso # (Auto) 0.02 K/uL (0-0.2) 12/25/22 07:31 Immature Gran # (Auto) 0.01 K/uL (0.01-0.20) 12/25/22 07:31 Platelet Estimate Decreased (Normal) L 12/20/22 04:25 RBC Morphology Unremarkable 12/22/22 07:01 Polychromasia 1+ 12/24/22 06:32 Poikilocytosis Present 12/24/22 06:32 Tear Drop Cells 1+ 12/24/22 06:32 Ovalocytes 1+ 12/18/22 12:30 Echinocytes 1+ 12/18/22 12:30 PT 16.3 Seconds (9.0-12.0) H 12/25/22 07:31 INR 1.5 (0.9-1.1) H 12/25/22 07:31 VBG pH 7.43 (7.36-7.41) H 12/18/22 18:39 VBG pCO2 38 mmHg (38-50) 12/18/22 18:39 VBG pO2 48 mmHg 12/18/22 18:39 VBG HCO3 25 mmol/L 12/18/22 18:39 VBG O2 Saturation 72.8 % 12/18/22 18:39 VBG Base Excess 1.0 mEq/L 12/18/22 18:39 Sodium 135 mmol/L (136-145) L 12/25/22 07:31 Potassium 3.7 mmol/L (3.5-5.1) 12/25/22 07:31 Chloride 104 mmol/L (98-107) 12/25/22 07:31 Carbon Dioxide 23 mmol/L (21-32) 12/25/22 07:31 Anion Gap 8 (3-11) 12/25/22 07:31 BUN 50 mg/dl (6-23) H 12/25/22 07:31 Creatinine 2.19 mg/dl (0.6-1.4) H 12/25/22 07:31 Est Cr Clr Drug Dosing 34.4 ml/min 12/25/22 07:31 Est GFR ( Amer) 32.7 ml/min 12/25/22 07:31 Est GFR (Non-Af Amer) 28.2 ml/min 12/25/22 07:31 BUN/Creatinine Ratio 22.8 (10-20) H 12/25/22 07:31 Glucose 104 mg/dl (70-99(Fasting)) H 12/25/22 07:31 POC Glucose 111 mg/dl (70-99) H 12/25/22 11:16 POC Glucose (other) 120 mg/dl (70-99) H 12/19/22 21:40 Lactate 1.4 mmol/L (0.4-2.0) 12/18/22 23:30 Calcium 9.3 mg/dl (8.6-10.3) 12/25/22 07:31 Phosphorus 2.4 mg/dl (2.5-4.9) L 12/21/22 04:28 Magnesium 1.8 mg/dl (1.7-2.4) 12/25/22 07:31 Total Bilirubin 2.0 mg/dl (0.2-1.0) H 12/24/22 06:32 Direct Bilirubin 1.0 mg/dl (0-0.2) H 12/18/22 12:30 AST 57 U/L (13-39) H 12/24/22 06:32 ALT 29 U/L (7-52) 12/24/22 06:32 Alkaline Phosphatase 84 U/L (34-104) D 12/24/22 06:32 Ammonia 61.0 umol/L (18-72) 12/18/22 12:47 Troponin I High Sens 82.4 pg/ml (0-20) H* D 12/19/22 02:14 Total Protein 4.7 gm/dl (6.0-8.3) L 12/24/22 06:32 Albumin 3.3 gm/dl (3.4-5.0) L 12/24/22 06:32 Globulin 1.4 gm/dl (2.5-4.0) L 12/24/22 06:32 Albumin/Globulin Ratio 2.4 (0.9-2) H 12/24/22 06:32 Procalcitonin 0.11 ng/ml (0-0.5) 12/18/22 12:30 Random Cortisol 35.10 mcg/dl 12/18/22 18:39 Urine Color Yellow 12/18/22 12:30 Urine Appearance Clear (Clear) 12/18/22 12:30 Urine pH 5.5 (4.5-7.5) 12/18/22 12:30 Ur Specific [place] 1.009 (1.000-1.030) 12/18/22 12:30 Urine Protein Negative (Negative) 12/18/22 12:30 Urine Glucose (UA) Negative (Negative) 12/18/22 12:30 Urine Ketones Negative (Negative) 12/18/22 12:30 Urine Blood Negative (Negative) 12/18/22 12:30 Urine Nitrite Negative (Negative) 12/18/22 12:30 Urine Bilirubin Negative (Negative) 12/18/22 12:30 Urine Urobilinogen Negative (Negative) 12/18/22 12:30 Ur Leukocyte Esterase Negative (Negative) 12/18/22 12:30 Ur Random Sodium < 10 mmol/L 12/19/22 Unknown Fluid Neutrophils % 10 % 12/19/22 11:20 Fluid Lymphocytes % 49 % 12/19/22 11:20 Fluid [place] % 41 % 12/19/22 11:20 Fluid Comment 12/19/22 11:20 Peritoneal Color Yellow 12/19/22 11:20 Peritoneal Appearance Clear 12/19/22 11:20 Peritoneal WBC (Auto) 72 /ul (0-300) 12/19/22 11:20 Peritoneal RBC (Auto) < 2000 /uL 12/19/22 11:20 Nasal Screen MRSA (PCR) Negative (Negative) 12/18/22 18:21 Random Vancomycin 16.2 mcg/ml (10-20) 12/21/22 04:28 Staphylococcus sp PCR DETECTED (NotDetected) A 12/18/22 18:39 Bld Cult ID Panel PCR See PCR Comment (NotDetected) 12/18/22 18:39 Blood Type A Positive 12/24/22 09:05 Antibody Screen NEGATIVE 12/24/22 09:05 Crossmatch See Detail 12/24/22 09:[address] 12/18/22 12:13 CT cervical spine wo con CLINICAL HISTORY: ams TECHNIQUE: Multidetector row helical CT of the cervical spine was performed without administration of intravenous contrast. Coronal and sagittal reformations were obtained. Automated dose lowering techniques and/or adjustment according to patient size were utilized for this exam. Comparison: None available at the time of this dictation. FINDINGS: No acute fractures or subluxations are identified. Degenerative changes are seen in the visualized spine. The alignment is normal. Soft tissues are unremarkable. IMPRESSION: Degenerative changes without evidence of acute bony injury. ACT 112: Negative or not required by law. Electronically signed by: Harrison Her M.D. 12/18/2022 1:[address] 12/18/22 12:[address] DOSE: HISTORY: Altered mental status. TECHNIQUE: Multiaxial CT images of the head were performed without the use of intravenous contrast. Automated exposure control was utilized for this study. A dose lowering technique was utilized adhering to the principles of ALARA. Comparison: None. Findings: Motion artifact. The paranasal sinuses and mastoid air cells are clear. The calvarium and skull base are intact. There is no mass, hematoma, midline shift, acute infarct. White matter hypodensity is nonspecific but suggestive of microvascular ischemic change. The ventricles and sulci demonstrate mild age-related involutional changes. Impression: Motion artifact. No definite acute intracranial abnormality. ACT 112: Negative or not required by law. Electronically signed by: Chad Cardona M.D. 12/18/2022 2:07 PM Abdomen/Pelvis CT 12/18/22 13:10 CT chest diagnostic wo con, CT abd pelvis wo con CT DOSE: 3743.01 mGy.cm CLINICAL HISTORY: 77 years-old Male with fall. Acute chest and abdominal pain status post fall TECHNIQUE: Multiaxial CT images of the CT chest, abdomen and pelvis were performed without contrast. A dose lowering technique was utilized adhering to the principles of ALARA. COMPARISON: CT abdomen and pelvis 02/04/2018 FINDINGS: CT CHEST: Limited exam secondary to positioning and lack of IV contrast. Moderate cardiomegaly. Decreased attenuation of the cardiac blood pool suggestive of anemia. Moderate coronary artery calcifications. Trace pericardial effusion. Atherosclerosis of the thoracic aorta without aneurysm. No dominant thyroid nodule or lymphadenopathy. Trace pleural effusions. No pneumothorax. Intralobular septal thickening with mild dependent subsegmental atelectasis. Stable likely benign 6 mm solid nodule of the basal right lower lobe. Central airways are patent. Anasarca. No acute displaced rib fracture identified. Gynecomastia. CT ABDOMEN/PELVIS: No free air. Cirrhotic liver. The spleen is enlarged measuring over 15 cm. Left upper quadrant splenule with marginal calcifications again noted. Mildly atrophic pancreas. Punctate pancreatic head calcification. Unremarkable adrenal glands. Cholelithiasis with partial distention and mild wall thickening. 3 mm calcification noted on image 167 with additional punctate calcifications noted distally towards the duodenum. Atrophic kidneys. Hypodense 1.6 cm lesion of the superior pole of kidney, possibly a cyst. Decompressed urinary bladder with wall thickening. A Apple catheter is in place. Air within the urinary bladder is noted. Prostatomegaly. Atherosclerosis of the aorta. Moderate ascites. Small hiatal hernia. Nonspecific diffuse gastric wall thickening is noted with partial distention. Nonspecific anal rectal wall thickening. Colonic diverticulosis. Prior sigmoid colon resection with colonic colonic anastomosis. Moderate circumferential wall thickening of the colon is most pronounced in the ascending and transverse segments. Appendix not visualized. Small fat and fluid filled umbilical hernia. No acute fracture. IMPRESSION: 1. No acute posttraumatic intrathoracic, intra-abdominal or intrapelvic abnormality identified. 2. Cardiomegaly with mild pulmonary edema and trace pleural effusions. 3. Cirrhosis with stigmata of portal venous hypertension including splenomegaly with moderate ascites. 4. Cholelithiasis with possible choledocholithiasis. Correlate with LFTs. 5. Wall thickening of the ascending and transverse colon suggestive of portal colopathy. 6. Additional findings as above. ACT 112: Negative or not required by law. Electronically signed by: Rayshawn Powers M.D. 12/18/2022 2:[address] 12/18/22 13:10 CT chest diagnostic wo con, CT abd pelvis wo con CT DOSE: 3743.01 mGy.cm CLINICAL HISTORY: 77 years-old Male with fall. Acute chest and abdominal pain status post fall TECHNIQUE: Multiaxial CT images of the CT chest, abdomen and pelvis were performed without contrast. A dose lowering technique was utilized adhering to the principles of ALARA. COMPARISON: CT abdomen and pelvis 02/04/2018 FINDINGS: CT CHEST: Limited exam secondary to positioning and lack of IV contrast. Moderate cardiomegaly. Decreased attenuation of the cardiac blood pool suggestive of anemia. Moderate coronary artery calcifications. Trace pericardial effusion. Atherosclerosis of the thoracic aorta without aneurysm. No dominant thyroid nodule or lymphadenopathy. Trace pleural effusions. No pneumothorax. Intralobular septal thickening with mild dependent subsegmental atelectasis. Stable likely benign 6 mm solid nodule of the basal right lower lobe. Central airways are patent. Anasarca. No acute displaced rib fracture identified. Gynecomastia. CT ABDOMEN/PELVIS: No free air. Cirrhotic liver. The spleen is enlarged measuring over 15 cm. Left upper quadrant splenule with marginal calcifications again noted. Mildly atrophic pancreas. Punctate pancreatic head calcification. Unremarkable adrenal glands. Cholelithiasis with partial distention and mild wall thickening. 3 mm calcification noted on image 167 with additional punctate calcifications noted distally towards the duodenum. Atrophic kidneys. Hypodense 1.6 cm lesion of the superior pole of kidney, possibly a cyst. Decompressed urinary bladder with wall thickening. A Apple catheter is in place. Air within the urinary bladder is noted. Prostatomegaly. Atherosclerosis of the aorta. Moderate ascites. Small hiatal hernia. Nonspecific diffuse gastric wall thickening is noted with partial distention. Nonspecific anal rectal wall thickening. Colonic diverticulosis. Prior sigmoid colon resection with colonic colonic anastomosis. Moderate circumferential wall thickening of the colon is most pronounced in the ascending and transverse segments. Appendix not visualized. Small fat and fluid filled umbilical hernia. No acute fracture. IMPRESSION: 1. No acute posttraumatic intrathoracic, intra-abdominal or intrapelvic abnormality identified. 2. Cardiomegaly with mild pulmonary edema and trace pleural effusions. 3. Cirrhosis with stigmata of portal venous hypertension including splenomegaly with moderate ascites. 4. Cholelithiasis with possible choledocholithiasis. Correlate with LFTs. 5. Wall thickening of the ascending and transverse colon suggestive of portal colopathy. 6. Additional findings as above. ACT 112: Negative or not required by law. Electronically signed by: Rayshawn Powers M.D. 12/18/2022 2:10 PM Chest X-Ray 12/18/22 17:35 XR chest 1V portable CLINICAL HISTORY: lines TECHNIQUE: Single frontal radiograph of the chest was obtained. Comparison: Comparison is made to chest radiograph 11/04/2022 FINDINGS: Right IJ catheter terminates in the mid SVC. The cardiomediastinal silhouette is normal. Elevation of the left hemidiaphragm is seen. No evidence of pleural effusion or pneumothorax. IMPRESSION: Satisfactory position of right IJ catheter. ACT 112: Negative or not required by law. Electronically signed by: Harrison Her M.D. 12/18/2022 6:11 PM Paracentesis Ultrasound 12/23/22 00:00 ULTRASOUND-GUIDED PARACENTESIS CLINICAL HISTORY: Ascites PROCEDURE: Procedure and risks were explained. Informed consent was obtained. A final timeout was completed. Sonographic examination revealed a large amount of ascites. A pocket was identified in the left lower quadrant. The left lower quadrant was prepped and draped in sterile fashion. 1% buffered lidocaine was utilized for skin anesthesia. Utilizing ultrasound guidance, a 5 Malay safety centesis catheter was introduced into the pocket and 5000 ml of yellow ascites fluid was drained. Ultrasound images were obtained. 1 L of fluid was sent to lab for analysis. The catheter was removed. Postprocedural scanning showed significant decrease in the amount of ascites. The patient tolerated the procedure well. Vital signs will be monitored on the floor. IMPRESSION: Ultrasound guided paracentesis as described above. Performed, dictated, and signed by Markell Allred PA-C; to be co-signed by Dr. Rayshawn Powers. Electronically signed by: Rayshawn Powers M.D. 12/23/2022 3:10 PM Ordered Studies 12/18/22 12:13 CT cervical spine wo con Stat CT head/brain wo con Stat 12/18/22 13:10 CT abd pelvis wo con Stat CT chest diagnostic wo con Stat 12/19/22 10:04 IR paracentesis abd w/img US Urgent 12/23/22 00:00 IR paracentesis abd w/img US Routine Hospital Course (1) Hypotension: (2) Encephalopathy: (3) Decompensated hepatic cirrhosis: (4) Chronic atrial fibrillation: (5) Acute kidney injury superimposed on chronic kidney disease: (6) Pancytopenia: (7) Coagulopathy: (8) Diabetes mellitus, type II: Plan Septic shock POA Hepatic encephalopathy, improved Decompensated Liver Cirrhosis Chronic hypotension on midodrine No obvious source of infection noted --CT head:No definite acute intracranial abnormality. --Cervical CT:Degenerative changes without evidence of acute bony injury. --CT ABD:No acute posttraumatic intrathoracic, intra-abdominal or intrapelvic abnormality identified. Cardiomegaly with mild pulmonary edema and trace pleural effusions. Cirrhosis with stigmata of portal venous hypertension including splenomegaly with moderate ascites. Cholelithiasis with possible choledocholithiasis. Correlate with LFTs. Wall thickening of the ascending and transverse colon suggestive of portal colopathy. --S/P paracentesis on 12/23/2022 SBP ruled out Blood cultures/peritoneal fluid cultures: Negative Appreciate infectious disease input Discussed with GI on 12/24/22:Very poor prognosis IV vancomycin Rocephin discontinue Weaned off of pressors Palliative care involved: Need to address goals of care prior to discharge Continue midodrine Discussed in detail about patient's condition with patient's daughter over the phone. Patient's daughter plans to discuss with her father to decide whether patient wants to go to rehab facility Vs home. BRUNA on CKD IV Prerenal versus hepatorenal syndrome Rapidly progressive CKD per nephrology Not a candidate for transplant, dialysis IV albumin discontinued Resume diuretics Appreciate nephrology input Monitor renal function Avoid nephrotoxic agents as able Acute on chronic anemia No bleeding issues S/P 1 unit PRBC Monitor CBC Hb 9.0 today Pancytopenia likely due to liver cirrhosis Coagulopathy due to liver disease INR persistently elevated, within baseline on admission Platelets persistently low Monitor for any bleeding issues Neutropenia improving Monitor CBC Elevated high sensitive troponin due to demand ischemia Chronic Atrial Fibrillation Not on any rate control medication due to low blood pressure. Not on anticoagulation due to elevated INR. H/O Multiple Falls Ambulatory dysfunction PT OT recommends rehab Patient prefers to go home Gout Continue allopurinol. Chronic low back pain c/b sciatica Deconditioned PT/OT; recommended Rehab Hypomagnesemia Replete electrolytes as needed DM type II No on oral agents at this time, A1C 5.3 09/2022 -SSI while hospitalized DVT Px:SCDs Re: anemia, thrombocytopenia, coagulopathy PT OT recommends Rehab; patient prefers to go home Needs goals of care addressed prior to discharge CODE STATUS DNR/DNI Total Time Total Time Spent Total Time Spent (In Minutes): 65 minutes Discharge Plan Discharge Items Patient Disposition: Home - Home Health Services Reason For Visit: MECHANICAL FALLS, AMS Discharge Diagnosis: Decompensated Liver Cirrhosis Septic shock Hepatic encephalopathy BRUNA on CKD IV Acute on chronic anemia Pancytopenia Activity: Per Instructions section Exercise/Sports: Gradually increase as tolerated Non-emergency contact: Primary Care Provider, Enterprise Engineer and Team Facilitator Call non-emergency contact if: you have any medication questions, your symptoms worsen, your pain is concerning for you and you have a fever Follow-up/Referrals: Chiki Vickers, [Primary Care Provider] - Diet: Carb Consistent or DM2 and Low Sodium (2gm) Fluids: 1200ml (5 cups) Addtl Attending Provider Instructions: Follow-up with your primary care physician in 1 week Follow-up with your academic interventionist in 3-4 weeks Follow-up with your threading machine setter Dr. Carson in 3-4 weeks Seek immediate medical attention if your symptoms reoccur or worsen Please take all medications as instructed on discharge list below. Please call if you have any questions or problems. You can reach a [facility] hospitalist on duty at [facility] 24 hours a day by calling [phone] Pending Studies at Discharge: No Stand-Alone Forms: My [facility], Smoking Cessation Medications and DC Order Prescriptions: Continued midodrine 5 mg tablet See Rx Instructions .ROUTE .COMPLEX Rx Instructions: 2 tabs am, 2 at noon, and 2 at bedtime triamcinolone acetonide 0.1 % cream 1 applic TOPICAL BID allopurinol 100 mg tablet 200 mg PO DAILY Rx Instructions: per pharmacist its two tabs ( 200 mg) pantoprazole 40 mg tablet,delayed release (DR/EC) 40 mg PO DAILY ferrous sulfate 324 mg (65 mg iron) Tablet,Delayed Release (Dr/Ec) 324 mg PO DAILY Rx Instructions: pharmacist unable to verify torsemide 10 mg Tablet 10 mg PO QAM Qty: 30 0RF spironolactone 25 mg Tablet 12.5 mg PO DAILY Qty: 30 0RF Held tamsulosin 0.4 mg capsule 0.4 mg PO DAILY Hold Instructions: Until follow up with your Primary care physician in 1 week Discontinued oxycodone 5 mg tablet 5 mg PO [facility] Rx Instructions: per pharmacist they have q8h prn pain hold for sedation/confusion Admission Data Admit Date/Time: 12/18/22 15:47 Attending Provider: Mario Lynch Admit Provider: Mariela Nixon Primary Care Provider: Chiki Vickers Other Providers: Mariela Nixon ; Sania Trivedi ; Roxanna Powell ; Deondre Lacey ; Wilson Munroe ; [place] ; Suzan Sifuentes ; Bebeto Hi ; Abiel Fall ; Jonnie Martinez I. ; Juan M Purcell II ; Lauren Ventura ; Kevin Izaguirre ; Addi Hollingsworth ; Kathryn Plata
--- NOTE | 2022-12-25 17:37 | Nephrology Progress Note ---
Date of Service December 25, 2022 Assessment & Plan (1) CKD (chronic kidney disease) stage 4, GFR 15-29 ml/min: Plan: rapidly progressive CKD santa past few months as his liver status has worsened. baseline creatinine late November/early December is about 3. Not a liver transplant candidate and therefore not a dialysis candidate. I have this admission reiterated with the patient and his family that the focus of his kidney care during this admission and after discharge will be supportive and that he will not be a candidate for dialysis. Had BRUNA earlier this admission which has resolved NEPHRO D/C RECS -agree w/ resuming customary OP diuretics and midodrine -bmp in 2wks to be ordered by renal nurse -hospital d/c appt with Dr Munroe or Dr Bella in 2 wks -need to ensure f/u w/ palliative care as OP -1.2 L FR and <2 gm daily sodium diet (2) Disorder of fluid or electrolyte: Plan: worsening hypervolemia and hypotension in setting of worsening liver cirrhosis and advancing CKD continue fluid limit 1.2 L Less than 2 g daily sodium diet Admission and Anticipated Discharge Date Admission Date: December 18, 2022 Subjective pt seen and evaluated at about 1500. dressed, sitting at bedside; edema stable; no sob. daughter in room Review of Systems Review of Systems: All systems reviewed & are unremarkable except as noted in Subjective Physical Exam Constitutional: well developed (up on side of bed on RA), + cachectic, + physical limitations, + frail appearing and cooperative Eyes: EOM intact bilaterally ENMT: Ears: no external ear abnormality Nose: no external nose abnormality Mouth: + dry oral mucous membranes Neck: no nuchal rigidity Respiratory: normal respiratory effort Auscultation: lungs clear to auscultation bilaterally and + diminished lung sounds Cardiovascular: Rate/Rhythm: regular rate and regular rhythm Extremities: + edema (2-3+ distal bilateral lower extremities) Gastrointestinal (Abdomen): Inspection/Auscultation: + abdomen distended, normal bowel sounds, + high-pitched sounds and + hyperactive bowel sounds Percussion/Palpation: abdomen soft and + ascites; abdomen nontender Musculoskeletal: Extremities: strength 5/5 throughout Skin: no rashes, warm and dry Trauma: + evidence of skin trauma (innumerable and large ecchymoses and skin tears) Psychiatric: Orientation: alert, oriented to person and oriented to place Insight: + limited insight Judgment: + limited judgement Results & Data Vital Signs (Past 12 Hours) Vital Signs Temp Pulse Pulse Pulse Resp BP BP 12/25/22 16:00 98 H 12/25/22 15:44 36.3 C L 113 H 73 18 117/68 105/67 12/25/22 11:14 36.3 C L 73 18 117/68 12/25/22 07:12 36.5 C 97 H 18 105/69 12/25/22 07:37 12/25/22 07:37 98 H Pulse Ox O2 Del Method 12/25/22 16:00 12/25/22 15:44 98 12/25/22 11:14 98 Room Air 12/25/22 07:12 99 Room Air 12/25/22 07:37 Room Air 12/25/22 07:37
[2022-12-26] MEDS ORDERED: SPIRONOLACTONE 12.5 MG TAB PO SCH (09:00)
[2022-12-26] MEDS ORDERED: TORSEMIDE 10 MG TAB PO SCH (09:00)
== END 2022-12-25 16:59 | disposition home health service (06) | DRG 871 ==
LOC: ED 12:01 → SUATTDRO 15:47 → 1E 15:47 → 2S 12-21 20:57